=== PATIENT | female | born 1955 | race Caucasian/White ===

== ENCOUNTER 2021-04-28 12:38 | Emergency (ER) | payer MEDICARE, SELFPAY ==
--- NOTE | ~2021-04-28 | CT_ITS ---
EXAMINATION: CT HEAD WITHOUT CONTRAST CT CERVICAL SPINE WITHOUT CONTRAST CLINICAL INFORMATION: Trauma. COMPARISON: None available. TECHNIQUE: Contiguous axial imaging was performed from the skull base to vertex without intravenous administration of contrast. Contiguous axial imaging was performed from the upper chest through the skull base without intravenous administration of contrast. Coronal and sagittal reformats were obtained at the acquisition workstation. This CT examination was performed using dose optimization techniques as appropriate, variously including the following: *Automated exposure control. *Adjustment of mA and/or kV according to patient size (this includes techniques or standardized protocols for targeted exams where dose is matched to indication/reason for exam; i.e. extremities or head). *Use of iterative reconstruction technique. DLP: 946 mGy-cm FINDINGS: Head: There is no evidence of acute intracranial hemorrhage or edematous territorial infarction. A few foci of hypoattenuation in the periventricular and deep white matter are consistent with mild microangiopathy. Lacunar infarcts of the right caudate head and lentiform nucleus. No additional loss of box-white matter differentiation. Proportional prominence of the ventricles and sulcal spaces. No evidence for obstructive hydrocephalus. No abnormal mass effect or midline shift. No extra-axial fluid collections. No acute soft tissue or osseous abnormalities. The mastoid air cells and paranasal sinuses are clear. Moderate degenerative arthropathy of the temporomandibular joints. Cervical Spine: Moderate reversal the normal cervical lordosis centered on C5-C6. Mild degenerative anterolistheses of C3 on C4 and C4 on C5. The atlantooccipital and atlantoaxial articulations remain well aligned. No evidence of acute fracture or subluxation. Moderate degenerative disc disease from C5-T1 with disc-osteophyte complex formation. Facet and uncovertebral joint arthropathy leads to osseous encroachment on the neural foramina at C3-C4 and C5-C6. There is no prevertebral soft tissue swelling. The thyroid gland is atrophic. The remaining cervical soft tissues are normal in appearance. The lung apices demonstrate no abnormalities. CT/CT cervical spine wo con IMPRESSION: 1. No evidence of acute intracranial hemorrhage or edematous territorial infarction. 2. Mild underlying microangiopathy and generalized cerebral volume loss. Lacunar infarcts of the right caudate and lentiform nuclei. 3. No evidence of acute fracture or traumatic subluxation of the cervical spine. Moderate multilevel degenerative spondyloarthropathy of the cervical spine.
--- NOTE | ~2021-04-28 | XR_ITS ---
EXAMINATION: XR ANKLE, LEFT CLINICAL INFORMATION: Fall. COMPARISON: None TECHNIQUE: AP, lateral, and mortise views of the left ankle. FINDINGS: The bones and soft tissues are normal. No fracture. Alignment is anatomic. Joint spaces are maintained. No joint effusion. XR/XR ankle LT min 3V IMPRESSION: Unremarkable left ankle.
[2021-04-28 15:06] VITALS: BP 134/92; PULSE 110; RESP 18; TEMP 35.9; O2SAT 98; BMI 17.9
[2021-04-28 15:22] VITALS: BP 150/109; PULSE 105; RESP 18; O2SAT 100
--- NOTE | 2021-04-28 15:34 | PC.NURSE ---
Pt comes in s/p fall backwards from a curb. Pt states she had a stroke 3 years ago and has had frequent falls since that time. Pt states she does feel weak but hasn't eaten yet today. Neuros grossly intact, +PERRLA. call gonzalez within reach. Lac to back of head, bleeding controlled. Will contineu to monitor.
--- NOTE | 2021-04-28 15:46 | ED_ITS ---
HPI - Fall General Chief Complaint: Fall <Biju Joseph MD - Last Filed: 04/28/21 17:36> Stated Complaint: Fall/head inj <Biju Joseph MD - Last Filed: 04/28/21 17:36> Time Seen by Provider: 04/28/21 15:22 <Biju Joseph MD - Last Filed: 04/28/21 17:36> Source: patient <Biju Joseph MD - Last Filed: 04/28/21 17:36> History of Present Illness HPI Narrative: Patient has a history of stroke in recently has stated that she has had issues with her equilibrium. She has had multiple falls as an outpatient. Today she was stepping up a curb when she lost her balance and fell back and hit the back of her head. Positive laceration. No loss of consciousness. She complains of blurred vision bilaterally but left is worse than right. No nausea or vomiting. No new focal weakness or numbness. Positive headache. She went to an urgent care today and they recommended she come to the emergency department for CT scan <Biju Joseph MD - Last Filed: 04/28/21 17:36> Related Data Home Medications: Home Medications Medication Instructions Recorded Confirmed aspirin 81 mg tablet,delayed 1 tab PO DAILY 04/28/21 04/28/21 release carvedilol 6.25 mg tablet 1 tab PO BID 04/28/21 04/28/21 nortriptyline 50 mg capsule 1 cap PO BID 04/28/21 04/28/21 ipratropium bromide 17 17 mcg INHALATION QID 04/29/21 04/29/21 mcg/actuation HFA aerosol inhaler (Atrovent HFA) levothyroxine 0.05 mg PO DAILY 04/29/21 04/29/21 <Biju Joseph MD - Last Filed: 04/28/21 17:36> Allergies/Adverse Reactions: Allergies Allergy/AdvReac Type Severity Reaction Status Date / Time No Known Allergies Allergy Unverified 11/14/19 14:40 <Biju Joseph MD - Last Filed: 04/28/21 17:36> Review of Systems Constitutional: Comments: No fevers or chills <Biju Joseph MD - Last Filed: 04/28/21 17:36> Eyes: Comments: Vision changes as described <Biju Joseph MD - Last Filed: 04/28/21 17:36> Cardiovascular: Comments: No chest pain <Biju Joseph MD - Last Filed: 04/28/21 17:36> Respiratory: Comments: No dyspnea or cough <Biju Joseph MD - Last Filed: 04/28/21 17:36> Gastrointestinal: Comments: No abdominal pain <Biju Joseph MD - Last Filed: 04/28/21 17:36> Musculoskeletal: Comments: Positive neck pain <Biju Joseph MD - Last Filed: 04/28/21 17:36> Integumentary/Breasts: Comments: Laceration occipital scalp <Biju Joseph MD - Last Filed: 04/28/21 17:36> Neurologic: Comments: No new focal weakness <Biju Joseph MD - Last Filed: 04/28/21 17:36> [facility] Past Medical History Medical History: Medical History (Updated 04/29/21 @ 08:24 by Ashley Anderson DO) CVA (cerebral vascular accident) HTN (hypertension) <Biju Joseph MD - Last Filed: 04/28/21 17:36> Social History Social History: Social History Advance Directives: Yes Advance Directives Information Provided: No Advance Directives on File: No <Biju Joseph MD - Last Filed: 04/28/21 17:36> Physical Exam Vital Signs: Vital Signs: Last Vital Signs Temp 98.3 F 04/29/21 02:00 Pulse 89 04/29/21 08:13 Resp 16 04/29/21 08:13 BP 134/90 H 04/29/21 07:25 Pulse Ox 99 04/29/21 07:25 BMI result Body Mass Index 17.9 <Biju Joseph MD - Last Filed: 04/28/21 17:36> Vital Signs: Last Vital Signs Temp 98.3 F 04/29/21 02:00 Pulse 89 04/29/21 08:13 Resp 16 04/29/21 08:13 BP 134/90 H 04/29/21 07:25 Pulse Ox 99 04/29/21 07:25 BMI result Body Mass Index 17.9 <Ashley Anderson DO - Last Filed: 04/29/21 08:24> Const: Other: Awake and alert no acute distress <Biju Joseph MD - Last Filed: 04/28/21 17:36> HENMT: Other: 2 cm laceration posterior occiput. Bleeding controlled <Biju Joseph MD - Last Filed: 04/28/21 17:36> Eyes: Other: Pupils equal round reactive to light. Extraocular muscles intact. Funduscopic exam is normal bilaterally without obvious retinal detachment. Vision is intact bilaterally. She is able to read medium print at 2 ft in front of her bilaterally. Left is a little more difficult than right. <Biju Joseph MD - Last Filed: 04/28/21 17:36> Neck: Other: Diffuse C-spine tenderness without focal crepitus or focal tenderness <Biju Joseph MD - Last Filed: 04/28/21 17:36> Chest: Other: No chest wall tenderness <Biju Joseph MD - Last Filed: 04/28/21 17:36> Resp: Other: Clear and equal bilaterally without wheezes rales or rhonchi <Biju Joseph MD - Last Filed: 04/28/21 17:36> Cardio: Other: Regular rate and rhythm without murmurs rubs or gallops <Biju Joseph MD - Last Filed: 04/28/21 17:36> GI: Other: Soft nontender distended <Biju Joseph MD - Last Filed: 04/28/21 17:36> Back/Spine/Pelvis: Other: Mild paraspinous muscle tenderness without focal T-spine or LS-spine tenderness <Biju Joseph MD - Last Filed: 04/28/21 17:36> Skin: Other: Warm pink and dry. Laceration as mentioned above <Biju Joseph MD - Last Filed: 04/28/21 17:36> Neuro: Other: No cranial nerve deficits. No aphasia. No obvious focal neuro deficits <Biju Joseph MD - Last Filed: 04/28/21 17:36> Extrem: Other: No obvious extremity injuries <Biju Joseph MD - Last Filed: 04/28/21 17:36> Course Course Course Narrative: Scalp laceration Concussion Intracranial hemorrhage Posttraumatic blurred vision <Biju Joseph MD - Last Filed: 04/28/21 17:36> Scalp laceration Concussion Intracranial hemorrhage Posttraumatic blurred vision ADDENDUM: after discussion with CM 819 am Patient placed in physician observation at 819am. The indication for observ ation is that the patient needs more time for CM to help in acute rehab placement as recommended by PT due to recent stroke and frequent falls. At this time the patient is well developed well nourished, lungs clear, CV RRR, abd nontender, neuro at baseline. <Ashley Anderson DO - Last Filed: 04/29/21 08:24> Procedures Laceration Posterior scalp: Site: scalp <Biju Joseph MD - Last Filed: 04/28/21 17:36> Size (cm): 2 <Biju Joseph MD - Last Filed: 04/28/21 17:36> Description: linear <Biju Joseph MD - Last Filed: 04/28/21 17:36> Depth: simple, single layer <Biju Joseph MD - Last Filed: 04/28/21 17:36> Local Anesthetic: lidocaine 1% <Biju Joseph MD - Last Filed: 04/28/21 17:36> Amount of anesthesia used (mL): 5 <Biju Joseph MD - Last Filed: 04/28/21 17:36> Pre-repair: wound explored, irrigated extensively and deep structures intact <Biju Joseph MD - Last Filed: 04/28/21 17:36> Technique: other (Three tiffany used to repair the laceration. Good results and good hemostasis. Patient tolerated the procedure well) <Biju Joseph MD - Last Filed: 04/28/21 17:36> Discharge Plan Discharge Clinical Impression: Fall, Laceration of scalp <Biju Joseph MD - Last Filed: 04/28/21 17:36> Patient Disposition: Still a Patient <Biju Joseph MD - Last Filed: 04/28/21 17:36> Prescriptions: No [facility] carvedilol 6.25 mg tablet 1 tab PO BID 0RF aspirin 81 mg tablet,delayed release (DR/EC) 1 tab PO DAILY 0RF nortriptyline 50 mg capsule 1 cap PO BID 0RF Atrovent HFA 17 mcg/actuation HFA aerosol inhaler 17 mcg inhalation QID 0RF levothyroxine 0.05 mg PO DAILY 0RF <Biju Joseph MD - Last Filed: 04/28/21 17:36>
--- NOTE | 2021-04-28 19:30 | PC.NURSE ---
assumed care of pt. pt resting in stretcher awaiting further orders. pt alert, respirations easy, n/l. skin w/d. will continue to monitor pt. pt is case mgt.
[2021-04-28 20:37] VITALS: BP 145/67; PULSE 100; RESP 13; TEMP 36.8; O2SAT 97
--- NOTE | 2021-04-28 22:00 | PC.NURSE ---
No chg in pt's condition. respirations easy, n/l. skin w/d. will continue to monitor pt.
--- NOTE | 2021-04-28 23:30 | PC.NURSE ---
pt denies complaints at this time. no chg in pt's condition.
[2021-04-29] VITALS (9 sets, daily range): BP systolic 127–153; BP diastolic 74–90; PULSE 78–99; RESP 14–17; TEMP 36.6–36.8; O2SAT 98–100
--- NOTE | 2021-04-29 03:00 | PC.NURSE ---
pt requesting her b/p meds and tylenol. b/p meds to be given at 0900 today. pt also given water to drink. pt in NAD and no chg in pt's condition. will continue to monitor pt.
[2021-04-29] MEDS: Acetaminophen 325 MG TABLET 650 MG PO (03:01)
--- NOTE | 2021-04-29 06:27 | PC.NURSE ---
pt awaiting for case mgt. pt remains alert, respirations easy, n/l. skin w/d. will continue to monitor pt.
[2021-04-29] MEDS: Levothyroxine Sodium 50 MCG TABLET PO (07:00)
[2021-04-29] MEDS: Ipratropium Bromide 1 PUFF/17 MCG INHALER INHALE ×2 (08:10→11:31)
[2021-04-29] MEDS: Nortriptyline HCl 25 MG CAPSULE 50 MG PO (08:48)
[2021-04-29] MEDS: Aspirin Enteric Coated 81 MG TABLET.DR PO (08:48)
[2021-04-29] MEDS: carvediloL 6.25 MG TABLET PO (08:48)
[2021-04-29 09:45] LABS: Influenza A PCR NEGATIVE (Negative); Influenza B PCR NEGATIVE (Negative); Resp Syncy Virus RNA Qual PCR NEGATIVE (Negative); SARS COV2 PCR INHOUSE NEGATIVE (Negative)
--- NOTE | 2021-04-29 10:11 | MHC.CM.ED ---
Received case management consult overnight. Patient came to the ER due to a fall. Required had tiffany. Has left hip bruising and left ankle pain. Physical therapy eval completed. Acute rehab is recommended. Met with patient. Patient lives alone, ambulates with a cane and had no services prior to coming to the hospital. Patient received 3 Moderna vaccines but doesn't remember the dates. PCP verified. List of acute rehabs provided from [facility]. Patient is agreeable to referral being broadcasted. Referral sent in [employer]. Continue to monitor for d/c needs.
--- NOTE | 2021-04-29 11:29 | MHC.CM.ED ---
[facility] is able to offer a bed. Patient accepts bed. Patient can leave at 1pm. [facility] booked. [facility] with chart. Patient, Paris PEREZ and Dr Anderson aware. Continue to monitor for d/c needs.
--- NOTE | 2021-04-29 12:29 | PC.NURSE ---
Report given to More at [facility], pending EMS seed cone picker at 1300.
== END 2021-04-29 13:13 | disposition other institution (70) ==
PROVIDERS: Emergency Medicine; Emergency Provider Emergency Medicine; PCP Internal Medicine
DX: S01.01XA Laceration without foreign body of scalp, initial encounter (principal); W10.1XXA Fall (on)(from) sidewalk curb, initial encounter; I10 Essential (primary) hypertension; Z86.73 Personal history of transient ischemic attack (TIA), and cerebral infarction without residual deficits; Z91.81 History of falling; Y93.01 Activity, walking, marching and hiking; Y92.414 Local residential or business street as the place of occurrence of the external cause; Y99.9 Unspecified external cause status; Z20.822 Contact with and (suspected) exposure to COVID-19
CPT/HCPCS: 0241U; 12001; 70450; 72125; 73610; 94640; 97162; 99284; 99285

== ENCOUNTER 2022-02-08 15:40 | Inpatient (IN) | payer MEDICARE, SELFPAY ==
--- NOTE | ~2022-02-08 | CT_ITS ---
EXAMINATION: CT ABDOMEN AND PELVIS WITH CONTRAST CLINICAL INFORMATION: Hypotension and abdominal pain COMPARISON: None TECHNIQUE: Multidetector volumetric images were obtained from the superior aspect of the liver through the pubic symphysis following administration 85 mL of Omnipaque 350 intravenous contrast. Sagittal and coronal reformatted images were obtained on the technologist's workstation. Oral contrast: No This CT examination was performed using dose optimization techniques as appropriate, variously including the following: *Automated exposure control *Adjustment of mA and/or kV according to patient size (this includes techniques or standardized protocols for targeted exams where dose is matched to indication/reason for exam; i.e. extremities or head) *Use of iterative reconstruction technique DLP: 204 mGy-cm FINDINGS: LUNG BASES: The visualized lung bases are unremarkable. LIVER, GALLBLADDER, AND BILIARY TREE: The liver is normal in size, shape, and attenuation. Some tiny millimeter-sized hypodensities are seen in the posterior right lobe with a single hypodensity seen in the left lobe the largest measures only 3 mm in size and these are most likely benign simple cysts. No worrisome solid focal hepatic lesion or biliary ductal dilatation is present. The gallbladder is unremarkable with no evidence of radiopaque gallstones, gallbladder wall thickening, or obvious pericholecystic inflammatory changes. PANCREAS: Unremarkable. SPLEEN: Unremarkable. ADRENAL GLANDS: Unremarkable. KIDNEYS AND URETERS: The kidneys are normal in size, shape, and attenuation. No hydronephrosis, hydroureter, or calculi seen. A small 7 mm benign right renal cyst is present. No suspicious solid masses are seen. No perinephric stranding. BLADDER: Unremarkable. GASTROINTESTINAL TRACT: The distal half of the transverse colon, splenic flexure and the descending colon are all abnormal with thickening and pericolonic inflammatory change. There is no pneumatosis. No extraluminal air. A small amount of free fluid is present in the cul-de-sac with some minimal fluid present in the lateral conal fascia near the descending colon. Differential diagnosis would include severe colitis, infectious or ischemic. The right colon appears unremarkable. The appendix is normal. The small bowel is unremarkable. ABDOMINAL WALL: No significant hernia is appreciated. LYMPH NODES: No retroperitoneal lymphadenopathy. VASCULAR: The vasculature is extremely well seen, obviating any need for a CT angiogram. The abdominal aorta demonstrates minimal calcific atherosclerotic change without aneurysm dissection or stenosis. The iliofemoral vessels show mild atherosclerotic disease without significant stenosis. The celiac and SMA are widely patent. The LONNIE is patent. No emboli are seen in the distal mesenteric branches. The portal venous system appears unremarkable. The IVC renal veins and hepatic veins appear normal. PELVIC VISCERA: Surgically removed OSSEOUS STRUCTURES: Severe degenerative changes are present throughout the spine with compression fractures involving superior endplates of L1, L4 and L5. CT/CT abdomen pelvis w IV con IMPRESSION: 1. Marked colitis involving the distal half of the transverse colon, splenic flexure and descending colon. Differential diagnosis would include infectious or ischemic colitis. No emboli are seen in the distal mesenteric branches. Arterial structures are extremely well seen and there is no need for a CT angiogram. 2. Incidental note made of tiny hepatic hypodensities consistent with small cysts, benign right renal cyst which needs no further imaging or follow-up, hysterectomy changes and severe degenerative changes in the spine with compression fractures. Fleischner guidelines were followed.
--- NOTE | ~2022-02-08 | CT_ITS ---
EXAMINATION: CT ANGIOGRAM OF THE CHEST WITH AND WITHOUT CONTRAST (CT PULMONARY ANGIOGRAM FOR PE) CLINICAL INFORMATION: Reason for Exam hypotension COMPARISON: Chest radiograph earlier today TECHNIQUE: Prior to contrast administration, noncontrast localization images were obtained. Subsequently, multidetector volumetric imaging was performed from the thoracic inlet to below the diaphragms following the administration of 85 mL Omnipaque 350 intravenous contrast. No contrast reaction reported Sagittal, coronal, and MIP oblique sagittal reformatted images were obtained on the CT workstation, uploaded to PACS, and reviewed. This CT examination was performed using dose optimization techniques as appropriate, variously including the following: *Automated exposure control *Adjustment of mA and/or kV according to patient size (this includes techniques or standardized protocols for targeted exams where dose is matched to indication/reason for exam; i.e. extremities or head) *Use of iterative reconstruction technique Total exam dose-length product 204 mGy-cm FINDINGS: QUALITY OF STUDY/CONTRAST BOLUS: Bolus is satisfactory. There is marked motion artifact. PULMONARY ARTERIES: No central or large segmental pulmonary emboli. THORACIC AORTA: No aneurysm or dissection. LUNG: No focal consolidation, nodules or masses. PLEURA: No pleural effusion or pneumothorax. MEDIASTINUM: Normal heart size. No pericardial effusion. No hilar or mediastinal lymphadenopathy. No evidence of septal bowing or right heart strain. No coronary calcification. CHEST WALL/AXILLA: No axillary or internal mammary lymphadenopathy. OSSEOUS STRUCTURES: No acute or suspicious osseous abnormality. There is compression of the superior endplate of T12 as well as a mild compression fracture of T4. UPPER ABDOMEN: Unremarkable. No reflux of contrast into the hepatic veins to suggest elevated right heart pressures. CT/CT angio chest PE protocol IMPRESSION: No evidence of pulmonary emboli. The study is limited by motion artifact. VTE: negative.
--- NOTE | ~2022-02-08 | XR_ITS ---
EXAMINATION: XR CHEST CLINICAL INFORMATION: Hypertension COMPARISON: None TECHNIQUE: Frontal view of the chest was obtained. FINDINGS: No significant abnormality is noted involving the heart, lungs, mediastinum, bony thorax or soft tissues. XR/XR chest 1V IMPRESSION: Unremarkable examination.
[2022-02-08 16:17] VITALS: BP 77/38; PULSE 102; RESP 12; O2SAT 97; BMI 17.3
[2022-02-08 16:23] VITALS: TEMP 36.9
--- NOTE | 2022-02-08 16:26 | ECG_ITS ---
Test Reason : SEPSIS Blood Pressure : / mmHG Vent. Rate : 098 BPM Atrial Rate : 098 BPM P-R Int : 198 ms QRS Dur : 092 ms QT Int : 382 ms P-R-T Axes : 074 190 079 degrees QTc Int : 487 ms Normal sinus rhythm Right atrial enlargement Right ventricular hypertrophy cannot exclude Lateral infarct , age undetermined cannot exclude Inferior infarct , age undetermined Abnormal ECG No previous ECGs available Referred By: Biju Joseph Electronically Signed By:CANDE ROBERTS
--- NOTE | 2022-02-08 16:29 | ED.ABDPAIN ---
HPI - Abdominal Pain General Chief Complaint: Abdominal Pain Stated Complaint: DIARRHEA Time Seen by Provider: 02/08/22 16:15 Source: patient and old records reviewed Mode of arrival: ambulatory Limitations: no limitations History of Present Illness HPI narrative: Patient presents with a fall today. Patient states she has been feeling weak today only. She was recently diagnosed with a urinary tract infection by her PCP and started on Macrobid. She states she has been taking the antibiotics and has 2 more doses. Today she developed abdominal pain and distension. She also developed diarrhea. No nausea vomiting however. No prior history of similar issues. She denies fevers or chills. EMS found patient to be hypotensive with a blood pressure of 77/38. Mildly tachycardic to 102. Temperature of 94 degrees on arrival. She takes medication for hypertension as well as hypothyroidism. She states she has had a stroke multiple years ago. No new significant deficits per patient. Ambulatory baseline. She denies chest pain or cough or shortness of breath. Related Data Home Medications Medication Instructions Recorded Confirmed aspirin 81 mg tablet,delayed 1 tab PO DAILY 04/28/21 02/09/22 release carvedilol 6.25 mg tablet 1 tab PO BID 04/28/21 02/09/22 nortriptyline 50 mg capsule 1 cap PO BID 04/28/21 02/09/22 ipratropium bromide 17 17 mcg inhalation Q4H PRN Wheezing 04/29/21 02/09/22 mcg/actuation HFA aerosol inhaler (Atrovent HFA) atorvastatin 40 mg tablet 1 tab PO DAILY 02/09/22 02/09/22 levothyroxine 50 mcg tablet 50 mcg PO [id number] 02/09/22 02/09/22 levothyroxine 50 mcg tablet 100 mcg PO NAZARIO 02/09/22 02/09/22 Allergies Allergy/AdvReac Type Severity Reaction Status Date / Time No Known Allergies Allergy Unverified 11/14/19 14:40 Review of Systems Comments: Generalized weakness. No recent fevers or chills Comments: No chest pain or palpitations Comments: No cough or dyspnea Comments: Mild abdominal discomfort, diffuse. Positive distention. Positive diarrhea. No vomiting or nausea Comments: Recent diagnosis of urinary tract infection Comments: No pedal edema or calf swelling Comments: No new rash Comments: No new focal weakness PMFSH Past Medical History Medical History (Updated 02/09/22 @ 06:21 by Jeffrey Fuchs MD) Colitis CVA (cerebral vascular accident) HTN (hypertension) Hypothyroidism Surgical History History of partial hysterectomy Family History Family History Other No family history of cerebrovascular accident (CVA) Social History Social History Alcohol intake: current Alcohol intake frequency: 0-2 drinks per day Alcohol type: wine Smoked in Last 30 Days: No Use of substances other than those prescribed or required for medical reasons: No Advance Directives: Yes Advance Directives on File: Yes Advance Directives Date on File: 04/29/21 service: No Current occupational status: retired Physical Exam ED Vital Signs: Vital Signs - 24 hr 02/08/22 16:23 02/08/22 16:40 02/08/22 17:45 Temperature 98.4 F Pulse Rate 102 H 96 Respiratory Rate 18 15 Blood Pressure 99/56 L 102/81 Pulse Oximetry 99 98 Oxygen Delivery Method Room Air Room Air 02/08/22 18:00 02/08/22 23:24 02/09/22 01:17 Temperature 96.6 F L 98.5 F 98.4 F Pulse Rate 95 102 H 104 H Respiratory Rate 15 21 H 19 Blood Pressure 111/70 159/87 H 134/75 Pulse Oximetry 98 99 99 Oxygen Delivery Method Room Air Room Air Room Air 02/09/22 02:10 02/09/22 03:53 Temperature 98.5 F 98.5 F Pulse Rate 96 96 Respiratory Rate 24 H 12 Blood Pressure 132/64 135/71 Pulse Oximetry 100 99 Oxygen Delivery Method Room Air Room Air BMI result Body Mass Index 17.3 Const Other: Patient hypotensive as noted. Hypothermic. She is, however, awake and alert and does not appear significantly uncomfortable Neck Other: No meningismus Resp Other: Clear and equal bilaterally. No wheezes rales or rhonchi. Cardio Other: Regular rate and rhythm without murmurs rubs or gallops GI Other: Soft. Mildly diffusely tender. No guarding or rebound. No focal tenderness. Mild distention. Abdomen is soft. Skin Other: Warm and dry. Mottled. Neuro Other: Awake alert and oriented. Occasionally with word-finding difficulty, but speech mostly clear and fluent. No other obvious focal neuro deficits Extrem Other: No pedal edema or calf tenderness Course Course Course Narrative: Hypotension and hypothermia. Sepsis is very likely. Hypothyroidism possible. Hypovolemia Myocardial infarction Pulmonary embolism C diff colitis 30 milligram/kilogram bolus and septic workup started immediately. Warming blanket 01:17. Patient's vital signs have been stable for the last several hours. Her lab work shows a normal white count. Chemistries show creatinine of 1.25 and a BUN of 17 compatible with dehydration. First lactic acid was 3.0. Her 2nd lactic acid was 3.2. Her 3rd lactic acid is 1.[address] scan of abdomen shows colitis. Repeat abdominal exam is soft and nontender. Patient has had multiple episodes of diarrhea since she has been here. We are still waiting stool samples. Will hospitalized for further treatment 01:45. C diff results are positive. Discontinue broad-spectrum antibiotics. Will be hospitalized on C diff specific antibiotics. Continue hydration and monitoring of electrolytes secondary to volume loss secondary to severe diarrhea secondary to C diff colitis. 16:23. Given this along with CT scan findings, and other lab results, symptoms such as hypotension and lactic acidosis are from significant hypovolemia and not secondary to sepsis. Medical Decision Making Lab Data Result Diagrams: 02/09/22 08:29 02/09/22 08:29 Labs: Lab Results 02/08/22 02/08/22 02/08/22 Range/Units 17:08 17:08 17:08 WBC 6.3 (4.8-10.8) X10*3/uL RBC 4.43 (4.20-5.50) X10*6/uL Hgb 15.0 (12.0-16.0) g/dl Hct 43.9 (37.0-47.0) % MCV 99.1 H (80.0-98.0) fL MCH 33.9 H (27.0-33.0) pg MCHC 34.2 (31.0-35.0) g/dl RDW 13.2 (11.0-16.0) % Plt Count 200 (160-400) X10*3/uL MPV 10.2 (9.4-12.3) fL Immature Gran % (Auto) 1.1 H (0.0-0.4) % Neut % (Auto) 84.5 H (45-73) % Lymph % (Auto) 6.9 L (20-40) % [place] % (Auto) 7.0 (2-11) % Eos % (Auto) 0.3 (0-4) % Baso % (Auto) 0.2 (0-2) % Lymph # (Auto) 0.4 L (1.2-4.9) X10*3/uL [place] # (Auto) 0.4 (0.1-1.2) X10*3/uL Eos # (Auto) 0.0 (0.0-0.4) X10*3/uL Baso # (Auto) 0.0 (0.0-0.2) X10*3/uL Abs Immat Gran (auto) 0.07 H (0.00-0.03) X10*3/uL Absolute Neuts (auto) 5.3 (2.0-8.3) x10*3/uL Absolute Nucleated RBC 0.000 (0.0-0.012) X10*3/uL Nucleated RBC % (auto) 0.0 (0.0-0.2) /100WBC D-Dimer High Sensitivty NG/ML Sodium 131 L (135-145) mmol/L Potassium 4.9 (3.3-5.1) mmol/L Chloride 98 (96-108) mmol/L Carbon Dioxide 20 L (22-29) mmol/L Anion Gap 18 (12-20) BUN 17 H (9-16) mg/dL Creatinine 1.25 (0.5-1.4) mg/dL Estim Creat Clear Calc 31.0 Estimated GFR 43 Random Glucose 125 H (60-115) mg/dL Lactic Acid 3.0 H* (0.5-2.0) mmol/L Lactic Acid F/U @ 2Hr (0.5-2.0) mmol/L Lactic Acid F/U @ 4Hr (0.5-2.0) mmol/L Calcium 10.4 H (8.4-10.2) mg/dL Total Bilirubin 1.5 H (0.0-1.0) mg/dL AST 40 H (5-31) U/L ALT 32 H (0-31) U/L Alkaline Phosphatase 325 H (39-117) U/L Troponin I High Sens (<3.5-17.0) ng/L Total Protein 7.1 (6.5-8.0) g/dL Albumin 4.4 (3.5-5.0) g/dL TSH 1.82 (0.32-4.0) uIU/mL Urine Color Urine Appearance Urine pH (5.0-9.0) Ur Specific [place] (1.005-1.025) Urine Protein (Neg-Trace) mg/dL Urine Glucose (UA) (Negative) mg/dL Urine Ketones (Negative) mg/dL Urine Blood (Negative) Urine Nitrite (Negative) Ur Leukocyte Esterase (Negative) Urine RBC (0-2) /HPF Urine WBC (0-5) /HPF Ur Squamous Epith Cells (0-2) /HPF Urine Bacteria (None Seen) Hyaline Casts (0-2) /LPF Stl C. cayetanensis PCR (Not Detect.) Stool Rotavirus A PCR (Not Detect.) Stl Adenov F 40/41 PCR (Not Detect.) Stool Astrovirus (PCR) (Not Detect.) Stool Campylobacter PCR (Not Detect.) Stool Cryptosporidium PCR (Not Detect.) Stl Sh Tox Pr E STEC PCR (Not Detect.) Stool E coli O157 PCR (Not Detect.) Stl Enterotoxigenic E PCR (Not Detect.) Stool EPEC (PCR) (Not Detect.) Stool EAEC (PCR) (Not Detect.) Stl E. histolytica PCR (Not Detect.) Stool Giardia Lamblia PCR (Not Detect.) Stl P. shigelloides PCR (Not Detect.) Stool Salmonella PCR (Not Detect.) Stool Sapovirus (PCR) (Not Detect.) Stl Shigella/EIEC PCR (Not Detect.) St Y.enterocolitica PCR (Not Detect.) Stool Vibrio (PCR) (Not Detect.) Stl Vibrio cholerae PCR (Not Detect.) Stl Norovirus GI/GII PCR (Not Detect.) Respiratory Panel [place] Adenovirus (Rapid PCR) (Not Detect.) B.pert (TEM-PCR) (Not Detect.) B.parapertussis DNA PCR (Not Detect.) C. pneumoniae DNA (PCR) (Not Detect.) C. difficile Tox B Gene (Negative) C. difficile Toxin A&B (Negative) C. difficile Interpret Coronavirus OC43 (PCR) (Not Detect.) Coronavirus HKU1 (PCR) (Not Detect.) Coronavirus 229E (PCR) (Not Detect.) Coronavirus NL63 (PCR) (Not Detect.) Human Metapneumovir PCR (Not Detect.) Influenza A (RT-PCR) (Not Detect.) Influenza B (RT-PCR) (Not Detect.) M. pneumoniae (PCR) (Not Detect.) Parainfluenza 1 (PCR) (Not Detect.) Parainfluenza 2 (PCR) (Not Detect.) Parainfluenza 3 (PCR) (Not Detect.) Parainfluenza 4 (PCR) (Not Detect.) RSV (PCR) (Not Detect.) Entero/Rhino (PCR) (Not Detect.) SARS-CoV-2 RNA (RT-PCR) (Not Detect.) 02/08/22 02/08/22 02/08/22 Range/Units 17:08 17:08 18:16 WBC (4.8-10.8) X10*3/uL RBC (4.20-5.50) X10*6/uL Hgb (12.0-16.0) g/dl Hct (37.0-47.0) % MCV (80.0-98.0) fL MCH (27.0-33.0) pg MCHC (31.0-35.0) g/dl RDW (11.0-16.0) % Plt Count (160-400) X10*3/uL MPV (9.4-12.3) fL Immature Gran % (Auto) (0.0-0.4) % Neut % (Auto) (45-73) % Lymph % (Auto) (20-40) % [place] % (Auto) (2-11) % Eos % (Auto) (0-4) % Baso % (Auto) (0-2) % Lymph # (Auto) (1.2-4.9) X10*3/uL [place] # (Auto) (0.1-1.2) X10*3/uL Eos # (Auto) (0.0-0.4) X10*3/uL Baso # (Auto) (0.0-0.2) X10*3/uL Abs Immat Gran (auto) (0.00-0.03) X10*3/uL Absolute Neuts (auto) (2.0-8.3) x10*3/uL Absolute Nucleated RBC (0.0-0.012) X10*3/uL Nucleated RBC % (auto) (0.0-0.2) /100WBC D-Dimer High Sensitivty 1988 NG/ML Sodium (135-145) mmol/L Potassium (3.3-5.1) mmol/L Chloride (96-108) mmol/L Carbon Dioxide (22-29) mmol/L Anion Gap (12-20) BUN (9-16) mg/dL Creatinine (0.5-1.4) mg/dL Estim Creat Clear Calc Estimated GFR Random Glucose (60-115) mg/dL Lactic Acid (0.5-2.0) mmol/L Lactic Acid F/U @ 2Hr (0.5-2.0) mmol/L Lactic Acid F/U @ 4Hr (0.5-2.0) mmol/L Calcium (8.4-10.2) mg/dL Total Bilirubin (0.0-1.0) mg/dL AST (5-31) U/L ALT (0-31) U/L Alkaline Phosphatase (39-117) U/L Troponin I High Sens < 3.5 (<3.5-17.0) ng/L Total Protein (6.5-8.0) g/dL Albumin (3.5-5.0) g/dL TSH (0.32-4.0) uIU/mL Urine Color Urine Appearance Urine pH (5.0-9.0) Ur Specific [place] (1.005-1.025) Urine Protein (Neg-Trace) mg/dL Urine Glucose (UA) (Negative) mg/dL Urine Ketones (Negative) mg/dL Urine Blood (Negative) Urine Nitrite (Negative) Ur Leukocyte Esterase (Negative) Urine RBC (0-2) /HPF Urine WBC (0-5) /HPF Ur Squamous Epith Cells (0-2) /HPF Urine Bacteria (None Seen) Hyaline Casts (0-2) /LPF Stl C. cayetanensis PCR (Not Detect.) Stool Rotavirus A PCR (Not Detect.) Stl Adenov F 40/41 PCR (Not Detect.) Stool Astrovirus (PCR) (Not Detect.) Stool Campylobacter PCR (Not Detect.) Stool Cryptosporidium PCR (Not Detect.) Stl Sh Tox Pr E STEC PCR (Not Detect.) Stool E coli O157 PCR (Not Detect.) Stl Enterotoxigenic E PCR (Not Detect.) Stool EPEC (PCR) (Not Detect.) Stool EAEC (PCR) (Not Detect.) Stl E. histolytica PCR (Not Detect.) Stool Giardia Lamblia PCR (Not Detect.) Stl P. shigelloides PCR (Not Detect.) Stool Salmonella PCR (Not Detect.) Stool Sapovirus (PCR) (Not Detect.) Stl Shigella/EIEC PCR (Not Detect.) St Y.enterocolitica PCR (Not Detect.) Stool Vibrio (PCR) (Not Detect.) Stl Vibrio cholerae PCR (Not Detect.) Stl Norovirus GI/GII PCR (Not Detect.) Respiratory Panel [place] See Note Adenovirus (Rapid PCR) Not Detected (Not Detect.) B.pert (TEM-PCR) Not Detected (Not Detect.) B.parapertussis DNA PCR Not Detected (Not Detect.) C. pneumoniae DNA (PCR) Not Detected (Not Detect.) C. difficile Tox B Gene (Negative) C. difficile Toxin A&B (Negative) C. difficile Interpret Coronavirus OC43 (PCR) Not Detected (Not Detect.) Coronavirus HKU1 (PCR) Not Detected (Not Detect.) Coronavirus 229E (PCR) Not Detected (Not Detect.) Coronavirus NL63 (PCR) Not Detected (Not Detect.) Human Metapneumovir PCR Not Detected (Not Detect.) Influenza A (RT-PCR) Not Detected (Not Detect.) Influenza B (RT-PCR) Not Detected (Not Detect.) M. pneumoniae (PCR) Not Detected (Not Detect.) Parainfluenza 1 (PCR) Not Detected (Not Detect.) Parainfluenza 2 (PCR) Not Detected (Not Detect.) Parainfluenza 3 (PCR) Not Detected (Not Detect.) Parainfluenza 4 (PCR) Not Detected (Not Detect.) RSV (PCR) Not Detected (Not Detect.) Entero/Rhino (PCR) Not Detected (Not Detect.) SARS-CoV-2 RNA (RT-PCR) Not Detected (Not Detect.) 02/08/22 02/08/22 02/08/22 Range/Units 19:59 21:54 21:54 WBC (4.8-10.8) X10*3/uL RBC (4.20-5.50) X10*6/uL Hgb (12.0-16.0) g/dl Hct (37.0-47.0) % MCV (80.0-98.0) fL MCH (27.0-33.0) pg MCHC (31.0-35.0) g/dl RDW (11.0-16.0) % Plt Count (160-400) X10*3/uL MPV (9.4-12.3) fL Immature Gran % (Auto) (0.0-0.4) % Neut % (Auto) (45-73) % Lymph % (Auto) (20-40) % [place] % (Auto) (2-11) % Eos % (Auto) (0-4) % Baso % (Auto) (0-2) % Lymph # (Auto) (1.2-4.9) X10*3/uL [place] # (Auto) (0.1-1.2) X10*3/uL Eos # (Auto) (0.0-0.4) X10*3/uL Baso # (Auto) (0.0-0.2) X10*3/uL Abs Immat Gran (auto) (0.00-0.03) X10*3/uL Absolute Neuts (auto) (2.0-8.3) x10*3/uL Absolute Nucleated RBC (0.0-0.012) X10*3/uL Nucleated RBC % (auto) (0.0-0.2) /100WBC D-Dimer High Sensitivty NG/ML Sodium (135-145) mmol/L Potassium (3.3-5.1) mmol/L Chloride (96-108) mmol/L Carbon Dioxide (22-29) mmol/L Anion Gap (12-20) BUN (9-16) mg/dL Creatinine (0.5-1.4) mg/dL Estim Creat Clear Calc Estimated GFR Random Glucose (60-115) mg/dL Lactic Acid (0.5-2.0) mmol/L Lactic Acid F/U @ 2Hr 3.2 H* (0.5-2.0) mmol/L Lactic Acid F/U @ 4Hr (0.5-2.0) mmol/L Calcium (8.4-10.2) mg/dL Total Bilirubin (0.0-1.0) mg/dL AST (5-31) U/L ALT (0-31) U/L Alkaline Phosphatase (39-117) U/L Troponin I High Sens (<3.5-17.0) ng/L Total Protein (6.5-8.0) g/dL Albumin (3.5-5.0) g/dL TSH (0.32-4.0) uIU/mL Urine Color Urine Appearance Urine pH (5.0-9.0) Ur Specific [place] (1.005-1.025) Urine Protein (Neg-Trace) mg/dL Urine Glucose (UA) (Negative) mg/dL Urine Ketones (Negative) mg/dL Urine Blood (Negative) Urine Nitrite (Negative) Ur Leukocyte Esterase (Negative) Urine RBC (0-2) /HPF Urine WBC (0-5) /HPF Ur Squamous Epith Cells (0-2) /HPF Urine Bacteria (None Seen) Hyaline Casts (0-2) /LPF Stl C. cayetanensis PCR Not Detected (Not Detect.) Stool Rotavirus A PCR Not Detected (Not Detect.) Stl Adenov F 40/41 PCR Not Detected (Not Detect.) Stool Astrovirus (PCR) Not Detected (Not Detect.) Stool Campylobacter PCR Not Detected (Not Detect.) Stool Cryptosporidium PCR Not Detected (Not Detect.) Stl Sh Tox Pr E STEC PCR Not Detected (Not Detect.) Stool E coli O157 PCR Not applicable (Not Detect.) Stl Enterotoxigenic E PCR Not Detected (Not Detect.) Stool EPEC (PCR) Not Detected (Not Detect.) Stool EAEC (PCR) Not Detected (Not Detect.) Stl E. histolytica PCR Not Detected (Not Detect.) Stool Giardia Lamblia PCR Not Detected (Not Detect.) Stl P. shigelloides PCR Not Detected (Not Detect.) Stool Salmonella PCR Not Detected (Not Detect.) Stool Sapovirus (PCR) Not Detected (Not Detect.) Stl Shigella/EIEC PCR Not Detected (Not Detect.) St Y.enterocolitica PCR Not Detected (Not Detect.) Stool Vibrio (PCR) Not Detected (Not Detect.) Stl Vibrio cholerae PCR Not Detected (Not Detect.) Stl Norovirus GI/GII PCR Not Detected (Not Detect.) Respiratory Panel [place] Adenovirus (Rapid PCR) (Not Detect.) B.pert (TEM-PCR) (Not Detect.) B.parapertussis DNA PCR (Not Detect.) C. pneumoniae DNA (PCR) (Not Detect.) C. difficile Tox B Gene POSITIVE A* (Negative) C. difficile Toxin A&B Negative (Negative) C. difficile Interpret SEE NOTE Coronavirus OC43 (PCR) (Not Detect.) Coronavirus HKU1 (PCR) (Not Detect.) Coronavirus 229E (PCR) (Not Detect.) Coronavirus NL63 (PCR) (Not Detect.) Human Metapneumovir PCR (Not Detect.) Influenza A (RT-PCR) (Not Detect.) Influenza B (RT-PCR) (Not Detect.) M. pneumoniae (PCR) (Not Detect.) Parainfluenza 1 (PCR) (Not Detect.) Parainfluenza 2 (PCR) (Not Detect.) Parainfluenza 3 (PCR) (Not Detect.) Parainfluenza 4 (PCR) (Not Detect.) RSV (PCR) (Not Detect.) Entero/Rhino (PCR) (Not Detect.) SARS-CoV-2 RNA (RT-PCR) (Not Detect.) 02/08/22 02/09/22 Range/Units 23:56 01:16 WBC (4.8-10.8) X10*3/uL RBC (4.20-5.50) X10*6/uL Hgb (12.0-16.0) g/dl Hct (37.0-47.0) % MCV (80.0-98.0) fL MCH (27.0-33.0) pg MCHC (31.0-35.0) g/dl RDW (11.0-16.0) % Plt Count (160-400) X10*3/uL MPV (9.4-12.3) fL Immature Gran % (Auto) (0.0-0.4) % Neut % (Auto) (45-73) % Lymph % (Auto) (20-40) % [place] % (Auto) (2-11) % Eos % (Auto) (0-4) % Baso % (Auto) (0-2) % Lymph # (Auto) (1.2-4.9) X10*3/uL [place] # (Auto) (0.1-1.2) X10*3/uL Eos # (Auto) (0.0-0.4) X10*3/uL Baso # (Auto) (0.0-0.2) X10*3/uL Abs Immat Gran (auto) (0.00-0.03) X10*3/uL Absolute Neuts (auto) (2.0-8.3) x10*3/uL Absolute Nucleated RBC (0.0-0.012) X10*3/uL Nucleated RBC % (auto) (0.0-0.2) /100WBC D-Dimer High Sensitivty NG/ML Sodium (135-145) mmol/L Potassium (3.3-5.1) mmol/L Chloride (96-108) mmol/L Carbon Dioxide (22-29) mmol/L Anion Gap (12-20) BUN (9-16) mg/dL Creatinine (0.5-1.4) mg/dL Estim Creat Clear Calc Estimated GFR Random Glucose (60-115) mg/dL Lactic Acid (0.5-2.0) mmol/L Lactic Acid F/U @ 2Hr (0.5-2.0) mmol/L Lactic Acid F/U @ 4Hr 1.8 (0.5-2.0) mmol/L Calcium (8.4-10.2) mg/dL Total Bilirubin (0.0-1.0) mg/dL AST (5-31) U/L ALT (0-31) U/L Alkaline Phosphatase (39-117) U/L Troponin I High Sens (<3.5-17.0) ng/L Total Protein (6.5-8.0) g/dL Albumin (3.5-5.0) g/dL TSH (0.32-4.0) uIU/mL Urine Color Dark Yellow Urine Appearance Clear Urine pH 5.5 (5.0-9.0) Ur Specific [place] >= 1.030 H (1.005-1.025) Urine Protein Negative (Neg-Trace) mg/dL Urine Glucose (UA) Negative (Negative) mg/dL Urine Ketones Negative (Negative) mg/dL Urine Blood Negative (Negative) Urine Nitrite Negative (Negative) Ur Leukocyte Esterase Trace H (Negative) Urine RBC 0-2 (0-2) /HPF Urine WBC 0-5 (0-5) /HPF Ur Squamous Epith Cells 0-2 (0-2) /HPF Urine Bacteria None Seen (None Seen) Hyaline Casts 6-10 (0-2) /LPF Stl C. cayetanensis PCR (Not Detect.) Stool Rotavirus A PCR (Not Detect.) Stl Adenov F 40/41 PCR (Not Detect.) Stool Astrovirus (PCR) (Not Detect.) Stool Campylobacter PCR (Not Detect.) Stool Cryptosporidium PCR (Not Detect.) Stl Sh Tox Pr E STEC PCR (Not Detect.) Stool E coli O157 PCR (Not Detect.) Stl Enterotoxigenic E PCR (Not Detect.) Stool EPEC (PCR) (Not Detect.) Stool EAEC (PCR) (Not Detect.) Stl E. histolytica PCR (Not Detect.) Stool Giardia Lamblia PCR (Not Detect.) Stl P. shigelloides PCR (Not Detect.) Stool Salmonella PCR (Not Detect.) Stool Sapovirus (PCR) (Not Detect.) Stl Shigella/EIEC PCR (Not Detect.) St Y.enterocolitica PCR (Not Detect.) Stool Vibrio (PCR) (Not Detect.) Stl Vibrio cholerae PCR (Not Detect.) Stl Norovirus GI/GII PCR (Not Detect.) Respiratory Panel [place] Adenovirus (Rapid PCR) (Not Detect.) B.pert (TEM-PCR) (Not Detect.) B.parapertussis DNA PCR (Not Detect.) C. pneumoniae DNA (PCR) (Not Detect.) C. difficile Tox B Gene (Negative) C. difficile Toxin A&B (Negative) C. difficile Interpret Coronavirus OC43 (PCR) (Not Detect.) Coronavirus HKU1 (PCR) (Not Detect.) Coronavirus 229E (PCR) (Not Detect.) Coronavirus NL63 (PCR) (Not Detect.) Human Metapneumovir PCR (Not Detect.) Influenza A (RT-PCR) (Not Detect.) Influenza B (RT-PCR) (Not Detect.) M. pneumoniae (PCR) (Not Detect.) Parainfluenza 1 (PCR) (Not Detect.) Parainfluenza 2 (PCR) (Not Detect.) Parainfluenza 3 (PCR) (Not Detect.) Parainfluenza 4 (PCR) (Not Detect.) RSV (PCR) (Not Detect.) Entero/Rhino (PCR) (Not Detect.) SARS-CoV-2 RNA (RT-PCR) (Not Detect.) Medications Administered Generic Name Dose Route Start Last Admin Trade Name Freq PRN Reason Stop Dose Admin Enoxaparin Sodium 40 mg 02/09/22 06:00 02/09/22 05:31 Enoxaparin Sodium 40 Mg/0.4 Ml Syringe SUBCUT 40 mg Q24H JOON Administration Ceftriaxone Sodium 1 gm/ 50 mls @ 100 mls/hr 02/09/22 07:00 02/09/22 12:50 Sodium Chloride IV Infused Q24H JOON Infusion Metronidazole 500 mg in 100 mls @ 100 mls/hr 02/09/22 07:00 02/09/22 15:05 Flagyl IV 100 mls/hr Q8H JOON Administration Morphine Sulfate 4 mg 02/09/22 05:01 02/09/22 12:55 Morphine Sulfate 4 Mg/Ml Cartridge IVPUSH 4 mg Q4H PRN Administration Pain, Severe (Pain Scale 7-10) Protocol Ondansetron HCl 4 mg 02/09/22 05:01 02/09/22 05:43 Ondansetron Hcl 4 Mg/2 Ml Vial IVPUSH 4 mg Q8H PRN Administration Nausea and Vomiting Sodium Chloride 3 ml 02/09/22 08:00 02/09/22 15:57 0.9 % Sodium Chloride Flush 3 Ml Syringe IVFLUSH 3 ml QSHIFT JOON Administration Discontinued Medications Generic Name Dose Route Start Last Admin Trade Name Freq PRN Reason Stop Dose Admin Acetaminophen 650 mg 02/09/22 00:25 02/09/22 00:44 Acetaminophen 325 Mg Tablet PO 02/09/22 00:26 650 mg ONCE ONE Administration Diphenhydramine HCl 25 mg 02/09/22 05:01 02/09/22 05:30 Diphenhydramine Hcl 50 Mg/Ml Vial IVPUSH 02/09/22 05:02 25 mg ONCE ONE Administration Sodium Chloride 1,333.56 mls @ 1,333.56 mls/hr 02/08/22 16:21 02/08/22 19:27 Ns 30 ml/kg infuse over 1 hr (1333.56 ml) 02/08/22 17:20 Infused IV Infusion .Q1H STA Sodium Chloride 1,000 mls @ 999 mls/hr 02/08/22 19:00 02/08/22 20:22 Ns IV 02/08/22 20:00 Infused .Q1H1M JOON Infusion Vancomycin HCl 1,000 mg/ 270 mls @ 270 mls/hr 02/08/22 19:01 02/08/22 20:50 Sodium Chloride IV 02/08/22 20:00 Infused ONCE ONE Infusion Piperacillin Sod/Tazobactam 50 mls @ 100 mls/hr 02/08/22 19:01 02/08/22 19:51 Sod 3.375 gm/ Sodium Chloride IV 02/08/22 19:30 Infused ONCE ONE Infusion Sodium Chloride 1,000 mls @ 999 mls/hr 02/09/22 00:30 02/09/22 01:41 Ns IV 02/09/22 01:30 Infused .Q1H1M JOON Infusion Iohexol 100 ml 02/08/22 19:05 02/08/22 19:05 Iohexol 350 Mg/Ml 100 Ml Infus..Btl IV 02/08/22 19:06 85 ml ONCE ONE Administration Promethazine HCl 25 mg 02/09/22 00:25 02/09/22 00:45 Promethazine Hcl 25 Mg Tablet PO 02/09/22 00:26 25 mg ONCE ONE Administration Critical Care Time Critical Care Time Critical Care Time: Yes Total Critical Care Time: 120 Attestation: On critical care time outside of separately billable procedures. Critical care secondary to severe hypotension combined with hypothermia with multiple potential life-threatening etiologies. Discharge Plan Discharge Clinical Impression: Colitis, Sepsis Patient Disposition: Admitted As Inpatient
--- OUTSIDE RECORDS SUMMARY | 2022-02-08 16:35 | XMS_ITS | Continuity of Care Document ---
:1955 Author Organization [facility] Address [address] [place] [address]- Care Team Providers Name Role Phone Yovani PLAZA MD, [facility] Woodward Primary Care Physician Encounter [facility] Date(s): 04/25/20 - 04/30/[address] [address]- Encounter Diagnosis Nausea (Final) - 04/25/20 Vomiting (Final) - 04/25/20 Subclinical hypothyroidism (Final) - 04/25/20 Diarrhea (Final) - 04/25/20 Colitis (Final) - 04/25/20 Discharge Disposition: A-Transfer VNA/Home Health Attending Physician: Jason Mireles MD Admitting Physician: Canelo Toledo MD Referring Physician: Not on Staff, Referring MD Allergies, Adverse Reactions, Alerts Substance Reaction Severity Status lisinopril Anaphylaxis Active amLODIPine1 Active 1rash, edema Immunizations Given and Recorded Vaccine Date Status Refusal Reason pneumococcal 23-valent vaccine 11/19/19 Given influenza virus vaccine, inactivated 11/12/16 Given Medications aspirin 81 mg oral delayed release tablet 81 mg, 1, tablet, By Mouth, Daily, # 30 tablet, Refills 0, Maintenance, 11/17/19 17:03:00 EDT Start Date: 11/17/19 Status: Orderedatorvastatin 40 mg oral tablet = 40 mg, By Mouth, Daily at bedtime, # 30 tablet, 1 Refills, Maintenance, Tablet, Route to Pharmacy Electronically, [id number], [facility]/pharmacy #[id number] Start Date: 11/12/16 Status: OrderedAtrovent HFA 17 mcg/inh inhalation aerosol 2 puffs, Inhalation, 4 times a day, # 12.9 Gm, 0 Refills, Maintenance, 04/25/20 22:23:00 EST, Aerosol, Partial fill upon patient request if the prescription is for a schedule II opioid drug. Start Date: 04/25/20 Status: OrderedAtrovent HFA 17 mcg/inh inhalation aerosol 2 puffs, Inhalation, Daily at bedtime, # 12.9 Gm, 0 Refills, Maintenance, 11/10/16 20:08:33, Aerosol Start Date: 11/10/16 Status: Orderedcarvedilol 6.25 mg oral tablet 6.25 mg, 1, tablet, By Mouth, 2 times a day, # 60 tablet, Refills 3, Tot. Refills 3, Maintenance, 04/30/20 16:11:00 EST, Route to Pharmacy Electronically, [facility], Partial fill upon patient request if the prescription is for a schedul... Start Date: 04/30/20 Status: Orderedcarvedilol 6.25 mg oral tablet 6.25 mg, Tablet, By Mouth, 04/30/20 9:00:00 EST Start Date: 04/30/20 Stop Date: 04/30/20 Status: Completedciprofloxacin 500 mg oral tablet 1 tablet = 500 mg, By Mouth, Every 12 hours, for 3 days, # 6 tablet, 0 Refills, Acute 05/04/20 9:00:00 EST, 05/01/20 9:00:00 EST, [facility], Partial fill upon patient request if the prescription is for a schedule II opioid drug., 158, c... Start Date: 05/01/20 Stop Date: 05/04/20 Status: Orderedlevothyroxine 0.05 mg oral tablet 1 tablet = 50 mcg, By Mouth, Daily, # 90 tablet, 0 Refills, Maintenance, 11/10/16 18:49:25, Tablet Start Date: 11/10/16 Status: Orderednaproxen 250 mg oral tablet 500 mg, 2, tablet, By Mouth, 2 times a day, # 30 tablet, Refills 0, Tot. Refills 0, Maintenance, 11/21/19 12:55:00 EDT, Route to Pharmacy Electronically, [facility], 157, cm, 11/21/19 8:26:00 EDT, Height, 45.3, kg, 11/18/19 14:01:00 EDT,... Start Date: 11/21/19 Status: Orderednortriptyline 50 mg oral capsule 50 mg, 1, capsule, By Mouth, 2 times a day, # 90 capsule, Refills 0, Maintenance, 11/10/16 17:17:09 Start Date: 11/10/16 Status: Ordered Problem List Condition Effective Dates Status Health Status Informant Asthma(Confirmed) Active Atrial septal aneurysm(Confirmed) Active CVA (cerebral infarction) w/residual Active weakness(Confirmed) Alcohol use, 2 glasses of wine Active daily(Confirmed) Depression(Confirmed) Active Glaucoma(Confirmed) Active HLD (hyperlipidemia)(Confirmed) Active Hypothyroidism(Confirmed) Active Osteoporosis(Confirmed) Active Smoker, up to 3 ppd(Confirmed) Active Procedures Procedure Date Related Diagnosis Body Site Status Colonoscopy and biopsy of colon 04/27/20 Completed Results Orders for Microbiology Reports Name Date Stool Culture 04/26/20 Blood Culture 04/25/20 Blood Culture #2 04/25/20 Microbiology Reports TEST:Stool Culture STATUS:Auth (Verified) BODY SITE: SOURCE:STOOL COLLECTED DATE/TIME:04/26/20 3:04 AMStool Culture SPECIMEN DESCRIPTION : STOOL IN MARITZA KASIA PRESERVATIVE SPECIAL REQUESTS : NONE CULTURE : SHIGA TOXIN 1 AND 2 NOT DETECTED NO SALMONELLA, SHIGELLA, CAMPYLOBACTER OR AEROMONAS ISOLATED REPORT STATUS : FINAL 04/29/2020TEST:Blood Culture STATUS:Auth (Verified) BODY SITE: SOURCE:Blood COLLECTED DATE/TIME:04/25/20 2:05 PMBlood Culture SPECIMEN DESCRIPTION : BLOOD R HAND SPECIAL REQUESTS : NONE CULTURE : NO GROWTH 5 DAYS. REPORT STATUS : FINAL 04/30/2020TEST:Blood Culture, Second Order STATUS:Auth (Verified) BODY SITE: SOURCE:Blood COLLECTED DATE/TIME:04/25/20 1:57 PMBlood Culture, Second Order SPECIMEN DESCRIPTION : BLOOD L WRIST SPECIAL REQUESTS : NONE CULTURE : NO GROWTH 5 DAYS. REPORT STATUS : FINAL 04/30/2020 Vital Signs Most recent to oldest [Reference 1 2 3 Range]: Height 158 cm 158 cm 158 cm (04/30/20 2:52 PM) (04/30/20 9:19 AM) (04/30/20 6:39 A M) Weight 49.7 kg 49.0 kg 48.3 kg (3/4/21 1:57 AM) (04/29/20 2:07 AM) (04/28/20 2:03 A M) Oxygen Saturation [94-100 %] 100 % 100 % 99 % (04/30/20 2:52 PM) (04/30/20 9:19 AM) (04/30/20 1:57 A M) Pulse Rate [55-90 bpm] 94 bpm 76 bpm 92 bpm *H* (04/30/20 9:19 AM) *H* (04/30/20 2:52 PM) (04/30/20 6:44 AM ) Body Mass Index [18.5-24.99] 19.91 19.63 19. 35 (04/30/20:57 AM) (04/29/20 2:07 AM) (04/28/20 2:03 A M) Blood Pressure [90-138/55-84 mm 125/81 mm Hg 133/76 mm Hg 155/76 mm Hg Hg] (04/30/20 2:52 PM) (04/30/20 9:19 AM) *H* (04/30/20 6:44 AM) Respiratory Rate [16-30 br/min] 19 br/min 19 br/min 18 br/min (04/30/20 2:52 PM) (04/30/20 9:19 AM) (04/30/20 1:57 A M) Temperature [96.8-100.4 DegF] 97.8 DegF 98.2 DegF 97 .6 DegF (04/30/20 2:52 PM) (04/30/20 9:19 AM) (04/30/20 1:57 A M) Liters per Minute 3 L/min (04/27/20 11:02 AM) Mode of Delivery (Oxygen) Room air Room air Nasal cannula (04/30/20 2:52 PM) (04/30/20 9:19 AM) (04/30/20 1:57 A M) Blood pressure sites Arm, left Arm, left Arm, left (04/30/20 2:52 PM) (04/30/20 9:19 AM) (04/30/20 6:39 A M) Temperature Route Oral Oral Oral (04/30/20 2:52 PM) (04/30/20 9:19 AM) (04/30/20 1:57 A M) Dry Weight 48 kg (04/25/20 9:59 PM) Weight Obtained Via Bed scale Bed scale Bed scale (04/30/20 1:57 AM) (04/29/20 2:07 AM) (04/28/20 2:03 A M) Dry Weight Obtained Via Bed scale (04/25/20 9:59 PM) Social History Social History Type Response Smoking Status Never (less than 100 in life time) entered on: 11/17/19 Sex
--- OUTSIDE RECORDS SUMMARY | 2022-02-08 16:35 | XMS_ITS | Continuity of Care Document ---
:1955 Author Organization [facility] Address [address] [place] [address]- Care Team Providers Name Role Phone Kaiser Pina III, MD Primary Care Physician Encounter [facility] Date(s): 10/29/20 - 11/28/20 [facility] [address] [place] [address]- Attending Physician: Jackie Huynh Admitting Physician: Jackie Huynh Referring Physician: Jackie Huynh Allergies, Adverse Reactions, Alerts Substance Reaction Severity [...] Refills, Maintenance, Tablet, Route to Pharmacy Electronically, [id number], [facility]/pharmacy #[id number] Start Date: 11/12/16 Status: OrderedAtrovent HFA [...] 04/30/20 16:11:00 EST, Route to Pharmacy Electronically, [facility], Partial fill upon patient request if the prescription is for a schedul... Start Date: 04/30/20 Status: Orderedlevothyroxine 0.05 mg oral tablet 1 tablet = 50 mcg, By Mouth, Daily, # 90 tablet, 0 Refills, Maintenance, 11/10/16 18:49:25, Tablet Start Date: 11/10/16 Status: Orderednaproxen 250 mg oral tablet 500 mg, 2, tablet, By Mouth, 2 times a day, # 30 tablet, Refills 0, Tot. Refills 0, Maintenance, 11/21/19 12:55:00 EDT, Route to Pharmacy Electronically, [facility], 157, cm, 11/21/19 8:26:00 EDT, Height, [...] Active Smoker, up to 3 ppd(Confirmed) Active Social History Social History Type Response Smoking Status Never (less than 100 in life time) entered on: 11/17/19 Sex
--- OUTSIDE RECORDS SUMMARY | 2022-02-08 16:35 | XMS_ITS | Continuity of Care Document ---
:1955 Author Organization [facility] Address [address] [place] [address]- Care Team Providers Name Role Phone Yovani PLAZA MD, [facility] Woodward Primary Care Physician Encounter [facility] Date(s): 11/17/19 - 11/21/[address] [address]- [facility] Encounter Diagnosis Hyponatremia (Final) - 11/17/19 Hypokalemia (Final) - 11/17/19 Back pain, acute (Final) - 11/17/19 Discharge Disposition: A-D/C Home Attending Physician: Analisa BURLESON, [place] Admitting Physician: Ishmael Coronado MD Referring Physician: Not on Staff, Referring MD Allergies, Adverse Reactions, Alerts Substance Reaction Severity Status amLODIPine1 Active 1rash, edema Immunizations Given and [...] Refills, Maintenance, Tablet, Route to Pharmacy Electronically, [id number], [facility]/pharmacy #[id number] Start Date: 11/12/16 Status: OrderedAtrovent HFA 17 mcg/inh inhalation aerosol 2 puffs, Inhalation, Daily at bedtime, # 12.9 Gm, 0 Refills, Maintenance, 11/10/16 20:08:33, Aerosol Start Date: 11/10/16 Status: Orderedlevothyroxine 0.05 mg oral tablet 1 tablet = 50 mcg, By Mouth, Daily, # 90 tablet, 0 Refills, Maintenance, 11/10/16 18:49:25, Tablet Start Date: 11/10/16 Status: Orderednaproxen 250 mg oral tablet 500 mg, 2, tablet, By Mouth, 2 times a day, # 30 tablet, Refills 0, Tot. Refills 0, Maintenance, 11/21/19 12:55:00 EDT, Route to Pharmacy Electronically, [facility], 157, cm, 11/21/19 8:26:00 EDT, [...] Active Smoker, up to 3 ppd(Confirmed) Active Results Orders for Microbiology Reports Name Date Anaerobic Culture 11/20/19 Sterile Body Fluid Culture W/ Gram Smear (Culture Ster ile Body Fluid w/ Gram 11/19/19 Smear) Microbiology Reports TEST:Anaerobic Culture STATUS:Unauthenticated BODY SITE: SOURCE:JOINT COLLECTED DATE/TIME:11/19/19 11:40 PMAnaerobic Culture SPECIMEN DESCRIPTION : JOINT FLUID BURSA SPECIAL REQUESTS : NONE CULTURE : NO ANAEROBES ISOLATED SO FAR. REPORT STATUS : PRELIMINARY REPORT TEST:Sterile Fluid Culture STATUS:Unauthenticated BODY SITE: SOURCE:JOINT COLLECTED DATE/TIME:11/19/19 11:40 PMSterile Fluid Culture SPECIMEN DESCRIPTION : JOINT FLUID SPECIAL REQUESTS : NONE GRAM STAIN : 2+ WHITE BLOOD CELLS NO ORGANISMS SEEN CULTURE : NO GROWTH TO DATE REPORT STATUS : PRELIMINARY REPORT Radiology Reports Exam Date Time Procedure Performing Provider Status 11/17/19 9:32 AM Pelvis 1 or 2 Views Chiquis Thomas; Modified Notes:(Pelvis 1 or 2 Views) Reason For Exam: fall;PainRESULT: Pelvis 1 or 2 Views Pelvis 1 or 2 Views INDICATION: Pain status post fall. Reason: Pain; fall; Clinical Question(s): Fracture COMPARISON: None. FINDINGS: 2 views of the pelvis, along with bilateral frog-leg lateral position. Sacrum is somewhat obscured due to overlying bowel gas. Moderate degenerative changes lumbar sacral junction. Mild degenerative changes in the hips IMPRESSION: No acute fracture or dislocation. WSN: [id number] Ordering Physician: Carrie Rdz Dictated By: Dontrell Recio MD Dictated Date/Time: 11/17/19 9:50 am Reviewed By: Dontrell Recio MD Signed By: Dontrell Recio MD Signed Date/Time: 11/17/19 9:50 am Transcribed By: JONHATHON Transcribed Date/Time: 11/17/19 9:49 am Exam Date Time Procedure Performing Provider Status 11/17/19 9:32 AM Lumbar Spine 2 or 3 Views Chiquis Thomas; Nicholas h (Verified) Notes:(Lumbar Spine 2 or 3 Views) Reason For Exam: fall;PainRESULT: Lumbar Spine 2 or 3 Views Lumbar Spine 2 or 3 Views INDICATION: Status post fall. COMPARISON: None on record at the time of interpretation. FINDINGS: Subtle convex rightward curvature. There is diffuse osteopenia with a mild compression deformity of superior endplate of the L1 vertebral body age indeterminate. Otherwise vertebral body height is maintained. There is [id number] degenerative changes L4/5 and 5/1 levels. IMPRESSION: There is an L1 compression deformity age-indeterminate. WSN: [id number] Ordering Physician: Carrie Rdz Dictated By: Dontrell Recio MD Dictated Date/Time: 11/17/19 9:48 am Reviewed By: Dontrell Recio MD Signed By: Dontrell Recio MD Signed Date/Time: 11/17/19 9:48 am Transcribed By: JOHNATHON Transcribed Date/Time: 11/17/19 9:47 am Vital Signs Most recent to oldest 1 2 3 [Reference Range]: Height 157 cm 157 cm 157 cm (11/21/19 1:17 PM) (11/21/19 8:26 AM) (11/20/19 11: 54 PM) Weight 45.3 kg 47 kg (11/18/19 2:01 PM) (11/17/19 2:27 PM) Oxygen Saturation [94-100 %] 100 % 98 % 100 % (11/21/19 1:17 PM) (11/21/19 8:26 AM) (11/20/19 11: 54 PM) Pulse Rate [55-90 bpm] 80 bpm 64 bpm 97 bpm (11/21/19 1:17 PM) (11/21/19 8:26 AM) *H* (11/20/19 11:54 P M) Body Mass Index [18.5-24.99] 18.38 19.07 *L* (11/17/19 2:27 PM) (11/18/19 2:01 PM) Blood Pressure [90-138/55-84 141/71 mm Hg 143/87 mm Hg 129 /62 mm Hg mm Hg] *H* *H* (11/20/19 11:54 P M) (11/21/19 1:17 PM) (11/21/19 8:26 AM) Respiratory Rate [16-30 18 br/min 18 br/min 18 br/mi n br/min] (11/21/19 1:17 PM) (11/21/19 10:56 AM) (11/21/19 8: 26 AM) Temperature [96.8-100.4 DegF] 98.6 DegF 96.4 DegF 97 .4 DegF (11/21/19 1: PM) *L* (11/20/19 11:54 PM) (11/21/19 8:26 AM) Liters per Minute 0 L/min 0 L/min 0 L/min (11/19/19 4:00 PM) (11/19/19 11:00 AM) (11/19/19 7: 00 AM) Mode of Delivery (Oxygen) Room air Room air Room a ir (11/21/19 1:17 PM) (11/21/19 8:26 AM) (11/20/19 11: 54 PM) Blood pressure sites Arm, left Arm, left Arm, left (11/21/19 1:17 PM) (11/21/19 8:26 AM) (11/20/19 11: 54 PM) Temperature Route Temporal Temporal Temporal (11/21/19 1:17 PM) (11/21/19 8:26 AM) (11/20/19 11: 54 PM) Dry Weight 45.3 kg 47 kg (11/18/19 2:01 PM) (11/17/19 2:27 PM) Weight Obtained Via Standing scale (11/18/19 2:01 PM) Dry Weight Obtained Via Standing scale (11/18/19 2:01 PM) Social History Social History Type Response Smoking Status Never (less than 100 in life time) entered on: 11/17/19 Sex
[2022-02-08 16:40] VITALS: BP 99/56; PULSE 102; RESP 18; O2SAT 99
[2022-02-08] MEDS: SODIUM CHLORIDE 1333.56 ML IV (17:00)
[2022-02-08 17:16] LABS: MANUAL DIFF FLAG NO
[2022-02-08 17:34] LABS: D Dimer High Sensitivity 1988 NG/ML
[2022-02-08 17:41] LABS: Basophils Percent Auto 0.2 % (0-2); Eosinophils Percent Auto 0.3 % (0-4); Hematocrit 43.9 % (37.0-47.0); Imm Gran Abs Auto 0.07 X10*3/uL (0.00-0.03); Imm Gran Pct Auto 1.1 % (0.0-0.4); Lymphocytes Absolute Auto 0.4 X10*3/uL (1.2-4.9); Lymphocytes Percent Auto 6.9 % (20-40); Mean Corpuscular HGB Conc 34.2 g/dl (31.0-35.0); Mean Corpuscular Hemoglobin 33.9 pg (27.0-33.0); Mean Corpuscular Volume 99.1 fL (80.0-98.0); Mean Platelet Volume 10.2 fL (9.4-12.3); Monocytes Absolute Auto 0.4 X10*3/uL (0.1-1.2); Neutrophils Absolute Auto 5.3 x10*3/uL (2.0-8.3); Neutrophils Percent Auto 84.5 % (45-73); Platelet Count 200 X10*3/uL (160-400); Red Blood Count 4.43 X10*6/uL (4.20-5.50); Red Cell Distribution Width 13.2 % (11.0-16.0); White Blood Count 6.3 X10*3/uL (4.8-10.8)
[2022-02-08 17:42] LABS: Troponin-I High Sensitivity < 3.5 ng/L (<3.5-17.0)
[2022-02-08 17:45] VITALS: BP 102/81; PULSE 96; RESP 15; O2SAT 98
[2022-02-08 17:59] LABS: Alanine Aminotransferase 32 U/L (0-31); Albumin Level 4.4 g/dL (3.5-5.0); Alkaline Phosphatase 325 U/L (39-117); Anion Gap 18 (12-20); Aspartate Amino Transferase 40 U/L (5-31); Bilirubin Total 1.5 mg/dL (0.0-1.0); Blood Urea Nitrogen 17 mg/dL (9-16); Calcium 10.4 mg/dL (8.4-10.2); Carbon Dioxide 20 mmol/L (22-29); Chloride 98 mmol/L (96-108); Estimated Glomerular Filt Rate 43; Glucose Random 125 mg/dL (60-115); Potassium 4.9 mmol/L (3.3-5.1); Sodium 131 mmol/L (135-145); TSH reflex Free T4 1.82 uIU/mL (0.32-4.0); Total Protein 7.1 g/dL (6.5-8.0)
[2022-02-08 18:00] VITALS: BP 111/70; PULSE 95; RESP 15; TEMP 35.9; O2SAT 98
[2022-02-08] MEDS: iohexoL 350 MG/ML 100 ML INFUS..BTL IV (19:05)
[2022-02-08 19:13] LABS: Reflex Lactate? Lactic Acid Added
[2022-02-08] MEDS: Piperacillin Sodium/Tazobactam 3.375 GM in 0.9 % Sodium Chloride 50 ML IV (19:20)
[2022-02-08] MEDS: 0.9 % Sodium Chloride 1,000 ML 999 ML IV (19:21)
[2022-02-08] MEDS: vancomycin HCL 1,000 MG in 0.9 % Sodium Chloride 250 ML 270 MG IV (19:50)
[2022-02-08 20:32] LABS: ~Lactic Acid-LAB USE ONLY 3.2 mmol/L (0.5-2.0)
[2022-02-08 22:03] LABS: Reflex Lactate? 2 Y
--- NOTE | 2022-02-08 22:05 | PC.NURSE ---
PT A&Ox3, reports cramping like abd pain with movement. PT placed on bedpan, loose brown stools, incontinent care provided.
[2022-02-08 23:24] VITALS: BP 159/87; PULSE 102; RESP 21; TEMP 36.9; O2SAT 99
[2022-02-09] VITALS (10 sets, daily range): BP systolic 114–135; BP diastolic 58–75; PULSE 93–110; RESP 12–24; TEMP 36.7–37.6; O2SAT 94–100
[2022-02-09 00:27] LABS: ~Lactic Acid-LAB USE ONLY 1.8 mmol/L (0.5-2.0)
[2022-02-09] MEDS: 0.9 % Sodium Chloride 1,000 ML 999 ML IV (00:40)
[2022-02-09] MEDS: Acetaminophen 325 MG TABLET 650 MG PO (00:44)
[2022-02-09] MEDS: Promethazine HCL 25 MG TABLET PO (00:45)
--- NOTE | 2022-02-09 01:00 | MHC.EDTECH ---
pt has had multiple bowel movements that were mostly liquid. Changed pt bedding and cleaned pt.
[2022-02-09 01:25] LABS: Appearance Urine Clear; Color Urine Dark Yellow; Glucose Urine UA Negative (Negative); Leukocyte Esterase Urine Trace (Negative); Nitrite Urine Negative (Negative); PH 5.5 (5.0-9.0); Specific Gravity - Urine >= 1.030 (1.005-1.025); UMIC TRIGGER UACC YES; Urine Blood Negative (Negative); Urine Ketones Negative (Negative); Urine Protein Negative (Neg-Trace)
[2022-02-09 01:35] LABS: CDiff Gene PCR POSITIVE (Negative)
[2022-02-09 02:22] LABS: Bacteria Urine None Seen (None Seen); RBC Urine 0-2 /HPF (0-2); Squamous Epithelial Cell Urine 0-2 /HPF (0-2); WBC Urine 0-5 /HPF (0-5)
[2022-02-09 03:46] LABS: CDIFF Internal ctrl Dots and bkg OK (V); CDiff Toxin Negative (Negative)
--- NOTE | 2022-02-09 04:05 | PC.NURSE ---
Pt's V/S are stable, pt reports having abd pain 10/10 and a rash on her upper chest traveling to the neck. This nurse has notified the hospitilist.
[2022-02-09] MEDS: diphenhydrAMINE HCL 50 MG/ML VIAL 25 MG IVPUSH (05:30)
[2022-02-09] MEDS: Enoxaparin Sodium 40 MG/0.4 ML SYRINGE SUBCUT (05:31)
--- NOTE | 2022-02-09 05:31 | PC.NURSE ---
Re-assessed: Contact precaution has been removed by hospitalist order. Pt's v/s are stable, pt is on the monitor and it shows NSR. Pt's has been administered meds by provider order.
[2022-02-09] MEDS: Morphine Sulfate 4 MG/ML CARTRIDGE IVPUSH ×3 (05:43→19:25)
[2022-02-09] MEDS: ondansetron HCL 4 MG/2 ML VIAL IVPUSH (05:43)
--- NOTE | 2022-02-09 06:02 | PC.NURSE ---
Pt had a BM, loose watery stool, dark coffee color and foul smell.
--- NOTE | 2022-02-09 06:09 | PM.IMHP ---
History of Present Illness Date of Service: 02/09/22 Chief Complaint: diarrhea 66-year-old female with past medical history of colitis, hypertension, CVA, hypothyroidism, presents to the hospital with complaints of diarrhea as well as generalized weakness. Patient reports that every time she has colitis she feels significant weakness. shes had symptoms started around 22:00 on day presentation, reports diffuse abdominal pain worse in the left quadrant, nausea with no vomiting, no fevers or chills. patient reports that she was recently treated for UTI but is currently on her last does of the antibiotic. Denies having any chest pain, no palpitations, and no lower extremity edema. No headache or change in vision. on arrival to the ED patient's blood pressure was found to be 77/38, heart rate of 102, patient received IV fluids, as well as IV antibiotics with improvement in her blood pressure. Labs are significant for WBC count of 6.3, D-dimer 1988, sodium of 131, creatinine of 1.25 with no previous for comparison, lactic acid of 3 point no improved with IV fluids, chills symptom 0.4, total bili of 1.5, AST of 40, ALT of 82, troponin negative, UA is still positive for leukocyte Estrace and some WBC, C diff shows positive gene, viral pathology pending CT of the abdomen shows colitis infectious versus ischemic patient started on antibiotics and will be admitted for further management Review of Systems Review of Systems: Yes all other systems are reviewed and are negative [facility] Medical History (Updated 02/09/22 @ 06:21 by Jeffrey Fuchs MD) Colitis CVA (cerebral vascular accident) HTN (hypertension) Hypothyroidism Family History Other No family history of cerebrovascular accident (CVA) Surgical History History of partial hysterectomy Social History Alcohol intake: current Alcohol intake frequency: 0-2 drinks per day Alcohol type: wine Smoked in Last 30 Days: No Use of substances other than those prescribed or required for medical reasons: No Advance Directives: Yes Advance Directives on File: Yes Advance Directives Date on File: 04/29/21 Meds Allergies Allergy/AdvReac Type Severity Reaction Status Date / Time No Known Allergies Allergy Unverified 11/14/19 14:40 Active Medications: Current Medications Acetaminophen (Acetaminophen 325 Mg Tablet) 650 mg PO Q6H PRN PRN Reason: Pain, Mild (Pain Scale 1-3) Enoxaparin Sodium (Enoxaparin Sodium 40 Mg/0.4 Ml Syringe) 40 mg SUBCUT Q24H [facility] Last Admin: 02/09/22 05:31 Dose: 40 mg Morphine Sulfate (Morphine Sulfate 4 Mg/Ml Cartridge) 4 mg IVPUSH Q4H PRN; Protocol PRN Reason: Pain, Severe (Pain Scale 7-10) Last Admin: 02/09/22 05:43 Dose: 4 mg Ondansetron HCl (Ondansetron Hcl 4 Mg/2 Ml Vial) 4 mg IVPUSH Q8H PRN PRN Reason: Nausea and Vomiting Last Admin: 02/09/22 05:43 Dose: 4 mg Sodium Chloride (0.9 % Sodium Chloride Flush 3 Ml Syringe) 3 ml IVFLUSH QSHIFT [facility] Home Medications Medication Instructions Recorded Confirmed Last Taken Type aspirin 81 mg tablet,delayed 1 tab PO DAILY 04/28/21 04/28/21 Unknown History release carvedilol 6.25 mg tablet 1 tab PO BID 04/28/21 04/28/21 Unknown History nortriptyline 50 mg capsule 1 cap PO BID 04/28/21 04/28/21 Unknown History ipratropium bromide 17 17 mcg inhalation QID 04/29/21 04/29/21 Unknown History mcg/actuation HFA aerosol inhaler (Atrovent HFA) levothyroxine 0.05 mg PO DAILY 04/29/21 04/29/21 Unknown History Physical Exam Vital Signs and Narrative: Vital Signs: Last Vital Signs Temp 98.5 F 02/09/22 06:05 Pulse 93 02/09/22 06:05 Resp 17 02/09/22 06:05 BP 133/65 02/09/22 06:05 Pulse Ox 100 02/09/22 06:05 O2 Del Method 02/09/22 06:05 BMI result Body Mass Index 17.3 Const: General: cooperative and no acute distress Orientation/consciousness: patient oriented x3 Eyes: General: appearance normal, both eyes and all related structures Resp: Effort & Inspection: normal respiratory effort Auscultation: clear to auscultation bilaterally Cardio: Rate: regular rate Rhythm: regular rhythm GI: Other: abdomen is tender in the left upper quadrant, some guarding, no rebound Palpation (GI): Soft to palpation Auscultation: normal bowel sounds Skin: General skin exam: no rashes or lesions noted Neuro: General: patient oriented x3 Cognition (Neuro): normal cognition Extrem: General: Yes normal to inspection and Yes no pedal edema Results Labs CBC and Chem 7: 02/08/22 17:08 02/08/22 17:08 Labs: Laboratory Results - last 24 hr 02/08/22 02/08/22 02/08/22 17:08 17:08 17:08 MCV 99.1 H MCH 33.9 H MCHC 34.2 RDW 13.2 Plt Count 200 MPV 10.2 Immature Gran % (Auto) 1.1 H Neut % (Auto) 84.5 H Lymph % (Auto) 6.9 L [place] % (Auto) 7.0 Eos % (Auto) 0.3 Baso % (Auto) 0.2 Lymph # (Auto) 0.4 L [place] # (Auto) 0.4 Eos # (Auto) 0.0 Baso # (Auto) 0.0 Abs Immat Gran (auto) 0.07 H Absolute Neuts (auto) 5.3 Absolute Nucleated RBC 0.000 Nucleated RBC % (auto) 0.0 D-Dimer High Sensitivty Anion Gap 18 Estim Creat Clear Calc 31.0 Estimated GFR 43 Random Glucose 125 H Lactic Acid 3.0 H* Lactic Acid F/U @ 2Hr Lactic Acid F/U @ 4Hr Calcium 10.4 H Total Bilirubin 1.5 H AST 40 H ALT 32 H Alkaline Phosphatase 325 H Troponin I High Sens Total Protein 7.1 Albumin 4.4 TSH 1.82 Urine Color Urine Appearance Urine pH Ur Specific [place] Urine Protein Urine Glucose (UA) Urine Ketones Urine Blood Urine Nitrite Ur Leukocyte Esterase Urine RBC Urine WBC Ur Squamous Epith Cells Urine Bacteria Hyaline Casts C. difficile Tox B Gene C. difficile Toxin A&B C. difficile Interpret 02/08/22 02/08/22 02/08/22 17:08 17:08 19:59 MCV MCH MCHC RDW Plt Count MPV Immature Gran % (Auto) Neut % (Auto) Lymph % (Auto) [place] % (Auto) Eos % (Auto) Baso % (Auto) Lymph # (Auto) [place] # (Auto) Eos # (Auto) Baso # (Auto) Abs Immat Gran (auto) Absolute Neuts (auto) Absolute Nucleated RBC Nucleated RBC % (auto) D-Dimer High Sensitivty 1988 Anion Gap Estim Creat Clear Calc Estimated GFR Random Glucose Lactic Acid Lactic Acid F/U @ 2Hr 3.2 H* Lactic Acid F/U @ 4Hr Calcium Total Bilirubin AST ALT Alkaline Phosphatase Troponin I High Sens < 3.5 Total Protein Albumin TSH Urine Color Urine Appearance Urine pH Ur Specific [place] Urine Protein Urine Glucose (UA) Urine Ketones Urine Blood Urine Nitrite Ur Leukocyte Esterase Urine RBC Urine WBC Ur Squamous Epith Cells Urine Bacteria Hyaline Casts C. difficile Tox B Gene C. difficile Toxin A&B C. difficile Interpret 02/08/22 02/08/22 02/09/22 21:54 23:56 01:16 MCV MCH MCHC RDW Plt Count MPV Immature Gran % (Auto) Neut % (Auto) Lymph % (Auto) [place] % (Auto) Eos % (Auto) Baso % (Auto) Lymph # (Auto) [place] # (Auto) Eos # (Auto) Baso # (Auto) Abs Immat Gran (auto) Absolute Neuts (auto) Absolute Nucleated RBC Nucleated RBC % (auto) D-Dimer High Sensitivty Anion Gap Estim Creat Clear Calc Estimated GFR Random Glucose Lactic Acid Lactic Acid F/U @ 2Hr Lactic Acid F/U @ 4Hr 1.8 Calcium Total Bilirubin AST ALT Alkaline Phosphatase Troponin I High Sens Total Protein Albumin TSH Urine Color Dark Yellow Urine Appearance Clear Urine pH 5.5 Ur Specific [place] >= 1.030 H Urine Protein Negative Urine Glucose (UA) Negative Urine Ketones Negative Urine Blood Negative Urine Nitrite Negative Ur Leukocyte Esterase Trace H Urine RBC 0-2 Urine WBC 0-5 Ur Squamous Epith Cells 0-2 Urine Bacteria None Seen Hyaline Casts 6-10 C. difficile Tox B Gene POSITIVE A* C. difficile Toxin A&B Negative C. difficile Interpret SEE NOTE Imaging Radiologist's Impressions: Impressions Chest X-Ray 02/08/22 17:49 IMPRESSION: Unremarkable examination. Abdomen/Pelvis CT 02/08/22 19:09 IMPRESSION: 1. Marked colitis involving the distal half of the transverse colon, splenic flexure and descending colon. Differential diagnosis would include infectious or ischemic colitis. No emboli are seen in the distal mesenteric branches. Arterial structures are extremely well seen and there is no need for a CT angiogram. 2. Incidental note made of tiny hepatic hypodensities consistent with small cysts, benign right renal cyst which needs no further imaging or follow-up, hysterectomy changes and severe degenerative changes in the spine with compression fractures. Fleischner guidelines were followed. Chest CTA 02/08/22 19:09 IMPRESSION: No evidence of pulmonary emboli. The study is limited by motion artifact. VTE: negative. Assessment and Plan (1) Severe sepsis: Status: Acute (2) UTI (urinary tract infection): Status: Acute (3) Lactic acidosis: Status: Acute (4) Acute colitis: Status: Acute Plan 66-year-old female who presents to the hospital with weakness, as well as diarrhea found to have acute sepsis secondary to UTI as well as colitis # acute colitis - infectious versus inflammatory - patient reports that she underwent colonoscopy in the past, has had multiple colitis in the past but does not have an official inflammatory bowel disease that she is aware of - will treat with IV antibiotics - C diff colonization with no acute infection - rest of GI panel pending # sepsis - likely combination of UTI as well as colitis - received a 30 cc/kg of fluid - will treat with IV antibiotics - follow cultures # acute UTI - failed outpatient therapy with Macrobid - will treat with IV antibiotics - follow cultures # lactic acidosis - likely secondary to above - improved after IV fluids # hypothyroidism - continue levothyroxine # hypertension - stable eyes - continue home antihypertensives DVT prophylaxis: Lovenox given patient's acute sepsis secondary to UTI as well as colitis patient require minimum 2 night inpatient hospitals defer further management and monitor Time Spent With Patient Time: Total time managing care of this patient today ____ minutes. Quality Stroke Does the patient have a stroke diagnosis?: No VTE Prior VTE?: No VTE Risk Level:: Medical - moderate - high VTE Device Contraindication: Treatment Not Indicated VTE Drug Contraindication: N/A - Med Ordered
[2022-02-09] MEDS: cefTRIAXone sodium 1 GM in 0.9 % Sodium Chloride 50 ML IV (06:37)
[2022-02-09 06:39] LABS: COVID-19 Test Negative (Negative)
[2022-02-09] MEDS: metroNIDAZOLE/NS 500 MG/100 ML PIGGYBACK 100 MG IV ×3 (07:07→22:39)
[2022-02-09] MEDS: 0.9 % Sodium Chloride Flush 3 ML SYRINGE IVFLUSH ×3 (07:09→22:40)
--- NOTE | 2022-02-09 07:10 | PC.NURSE ---
sr on monitor, skin pale and dry, pinkness on upper chest, rates abd pain 10/10, but nad
[2022-02-09 07:31] LABS: Lactate Dehydrogenase 152 U/L (122-220)
--- NOTE | 2022-02-09 07:46 | PHA.MEDREC ---
Pharmacy Consult ? Medication Reconciliation Pharmacy has completed the medication reconciliation.
[2022-02-09 08:40] LABS: Hematocrit 31.7 % (37.0-47.0); Mean Corpuscular HGB Conc 34.1 g/dl (31.0-35.0); Mean Corpuscular Volume 99.7 fL (80.0-98.0); Mean Platelet Volume 9.9 fL (9.4-12.3); Platelet Count 132 X10*3/uL (160-400); Red Blood Count 3.18 X10*6/uL (4.20-5.50); Red Cell Distribution Width 13.3 % (11.0-16.0); White Blood Count 5.3 X10*3/uL (4.8-10.8)
[2022-02-09 08:41] LABS: Hemoglobin 10.8 g/dl (12.0-16.0)
[2022-02-09 09:06] LABS: Anion Gap 12 (12-20); Blood Urea Nitrogen 12 mg/dL (9-16); Calcium 8.2 mg/dL (8.4-10.2); Carbon Dioxide 17 mmol/L (22-29); Chloride 106 mmol/L (96-108); Creatinine Clr Calc Pharmacy 59.7; Estimated Glomerular Filt Rate > 60; Glucose Random 97 mg/dL (60-115); Potassium 3.9 mmol/L (3.3-5.1); Sodium 131 mmol/L (135-145)
[2022-02-09 09:30] LABS: Band Neutrophils Percent 9 % (3-5); Lymphocytes Absolute Manual 1.1 X10*3/uL (1.2-4.9); Lymphocytes Percent Manual 20 % (20-40); Monocytes Absolute Manual 0.1 X10*3/uL (0.1-1.2); Monocytes Percent Manual 2 % (2-11); Neutrophils Absolute Manual 4.1 X10*3/uL (2.0-8.3); Neutrophils Percent Manual 69 % (45-73)
[2022-02-09 09:31] LABS: Platelet Estimate DECREASED (NORMAL); Platelet Morphology Comment NORMAL; RBC Morphology NORMAL
[2022-02-09 09:39] LABS: Adenovirus F 40/41 Not Detected (Not Detect.); Astrovirus Not Detected (Not Detect.); Campylobacter Not Detected (Not Detect.); Cryptosporidium Not Detected (Not Detect.); Cyclospora cayetanensis Not Detected (Not Detect.); E. coli EAEC Not Detected (Not Detect.); E. coli EPEC Not Detected (Not Detect.); E. coli ETEC Not Detected (Not Detect.); E. coli STEC Not Detected (Not Detect.); Entamoeba histolytica Not Detected (Not Detect.); Giardia lamblia Not Detected (Not Detect.); Norovirus GI/GII Not Detected (Not Detect.); Plesiomonas shigelloides Not Detected (Not Detect.); Rotavirus A Not Detected (Not Detect.); Salmonella Not Detected (Not Detect.); Sapovirus Not Detected (Not Detect.); Shigella sp./EIEC Not Detected (Not Detect.); Vibrio Not Detected (Not Detect.); Vibrio Cholerae Not Detected (Not Detect.); Yersinia enterocolitica Not Detected (Not Detect.)
[2022-02-09 11:15] LABS: Adenovirus PCR Not Detected (Not Detect.); Bordetella parapertussis PCR Not Detected (Not Detect.); Bordetella pertussis PCR Not Detected (Not Detect.); Chlamydia pneumoniae PCR Not Detected (Not Detect.); Coronavirus 229E PCR Not Detected (Not Detect.); Coronavirus HKU1 PCR Not Detected (Not Detect.); Coronavirus NL63 PCR Not Detected (Not Detect.); Coronavirus OC43 PCR Not Detected (Not Detect.); Human metapneumovirus PCR Not Detected (Not Detect.); Influenza A PCR Not Detected (Not Detect.); Influenza B PCR Not Detected (Not Detect.); Mycoplasma pneumoniae PCR Not Detected (Not Detect.); Parainfluenza 1 PCR Not Detected (Not Detect.); Parainfluenza 2 PCR Not Detected (Not Detect.); Parainfluenza 3 PCR Not Detected (Not Detect.); Parainfluenza 4 PCR Not Detected (Not Detect.); RSV PCR Not Detected (Not Detect.); Rhino/Enterovirus PCR Not Detected (Not Detect.); SARS-CoV-2 PCR Not Detected (Not Detect.)
--- NOTE | 2022-02-09 11:21 | MHC.CM.PN ---
Met with patient in regards to discharge planning. Patient lives alone, ambulates with a cane and no services prior to coming to the hospital. Patient does not feel short term rehab or services will be necessary at d/c. PCP verified. Copy of HCP verified to be on file. IMM explained and signed. Patient received 2 Moderna vaccines and 1 Pfizer booster. Patient tested positive for C diff on 02/08. Patient's friend will transport her home when medically stable. Continue to monitor for d/c needs.
--- NOTE | 2022-02-09 11:30 | MHC.EDTECH ---
Pt had bowel movement that was loose watery stool, bed linens changed and pt cleaned up.
--- NOTE | 2022-02-09 13:01 | PC.NURSE ---
Pt placed on bedpan by rn and given pain medication per MAR
--- NOTE | 2022-02-09 15:29 | PM.EVENT ---
Event Note Date of Service: 02/09/22 Event Note: Chart reviewed patient examined. Agree assessment and plan as outlined by Dr. Garcia Time Spent With Patient Time: Total time managing care of this patient today ____ minutes.
--- NOTE | 2022-02-09 17:53 | PC.NURSE ---
first attempt to give report
--- NOTE | 2022-02-09 18:19 | PC.NURSE ---
Report to medical sales associate Alberto
[2022-02-09] MEDS: Ipratropium Bromide 1 PUFF/17 MCG INHALER INHALE (23:20)
[2022-02-10] MEDS: Morphine Sulfate 4 MG/ML CARTRIDGE IVPUSH ×4 (02:28→22:40)
[2022-02-10] MEDS: Ipratropium Bromide 1 PUFF/17 MCG INHALER INHALE ×2 (03:10→22:33)
[2022-02-10 03:48] VITALS: BP 108/61; PULSE 111; RESP 18; TEMP 36.4; O2SAT 99
[2022-02-10] MEDS: Levothyroxine Sodium 50 MCG TABLET PO (06:30)
[2022-02-10] MEDS: cefTRIAXone sodium 1 GM in 0.9 % Sodium Chloride 50 ML IV (06:30)
[2022-02-10] MEDS: Enoxaparin Sodium 40 MG/0.4 ML SYRINGE SUBCUT (06:30)
[2022-02-10] MEDS: metroNIDAZOLE/NS 500 MG/100 ML PIGGYBACK 100 MG IV ×3 (07:21→22:40)
[2022-02-10] MEDS: 0.9 % Sodium Chloride Flush 3 ML SYRINGE IVFLUSH ×3 (07:21→20:33)
[2022-02-10 08:00] VITALS: BP 106/55; PULSE 109; RESP 18; TEMP 36; O2SAT 98
[2022-02-10 08:22] LABS: Hematocrit 29.1 % (37.0-47.0); Hemoglobin 10.1 g/dl (12.0-16.0); Mean Corpuscular HGB Conc 34.7 g/dl (31.0-35.0); Mean Corpuscular Hemoglobin 34.4 pg (27.0-33.0); Mean Platelet Volume 9.4 fL (9.4-12.3); Platelet Count 115 X10*3/uL (160-400); Red Blood Count 2.94 X10*6/uL (4.20-5.50); Red Cell Distribution Width 13.2 % (11.0-16.0); WBC ABN SCTR FOR CBC 1; White Blood Count 5.9 X10*3/uL (4.8-10.8)
[2022-02-10] MEDS: Atorvastatin Calcium 40 MG TABLET PO (08:26)
[2022-02-10] MEDS: Aspirin Enteric Coated 81 MG TABLET.DR PO (08:26)
[2022-02-10] MEDS: carvediloL 6.25 MG TABLET PO ×2 (08:26→20:27)
[2022-02-10] MEDS: Nortriptyline HCl 25 MG CAPSULE 50 MG PO ×2 (08:26→20:28)
[2022-02-10 08:32] LABS: Alanine Aminotransferase 16 U/L (0-31); Albumin Level 2.8 g/dL (3.5-5.0); Alkaline Phosphatase 161 U/L (39-117); Anion Gap 9 (12-20); Aspartate Amino Transferase 22 U/L (5-31); Bilirubin Total 0.8 mg/dL (0.0-1.0); Blood Urea Nitrogen 7 mg/dL (9-16); Calcium 7.8 mg/dL (8.4-10.2); Carbon Dioxide 17 mmol/L (22-29); Chloride 102 mmol/L (96-108); Creatinine Clr Calc Pharmacy 73.3; Estimated Glomerular Filt Rate > 60; Glucose Random 77 mg/dL (60-115); Potassium 3.4 mmol/L (3.3-5.1); Sodium 125 mmol/L (135-145); Total Protein 4.5 g/dL (6.5-8.0)
[2022-02-10 08:43] LABS: Band Neutrophils Percent 18 % (3-5); Eosinophils Absolute Manual 0.1 X10*3/uL (0.0-0.4); Eosinophils Percent Manual 1 % (0-4); Lymphocytes Absolute Manual 0.5 X10*3/uL (1.2-4.9); Lymphocytes Percent Manual 8 % (20-40); Monocytes Absolute Manual 0.2 X10*3/uL (0.1-1.2); Monocytes Percent Manual 4 % (2-11); Neutrophils Absolute Manual 5.1 X10*3/uL (2.0-8.3); Neutrophils Percent Manual 69 % (45-73)
[2022-02-10 08:46] LABS: Platelet Estimate DECREASED (NORMAL); Platelet Morphology Comment NORMAL; RBC Morphology NORMAL
[2022-02-10 11:06] VITALS: BP 99/56; PULSE 101; RESP 18; TEMP 36
--- NOTE | 2022-02-10 11:48 | HO.PM.IMPN ---
Subjective Subjective Date of Service: 02/10/22 Interval History: Admitted with recurrent colitis. Continues to tolerate ceftriaxone and metronidazole. Diarrhea has not slow to this point Review of Systems Denies chest pain Denies shortness of breath Denies nausea vomiting admits diarrhea Denies fever chills Physical Exam Vital Signs: Vital Signs: Last Vital Signs Temp 96.8 F 02/10/22 11:06 Pulse 101 H 02/10/22 11:06 Resp 18 02/10/22 11:06 BP 99/56 L 02/10/22 11:06 Pulse Ox 98 02/10/22 08:00 O2 Del Method 02/10/22 08:00 BMI result Body Mass Index 17.3 Const: Other: No acute issues overnight HEENT: Other: Membranes moist Resp: Other: Clear to auscultation bilaterally no rales rhonchi or wheezes Cardio: Other: No S4; positive S1-S2; no S3 murmurs rubs or gallops GI: Other: Soft hyperactive bowel sounds. No overt peritoneal signs Extrem: Other: No edema bilaterally Objective Data Active Medications Acetaminophen (Acetaminophen 325 Mg Tablet) 650 mg PO Q6H PRN PRN Reason: Pain, Mild (Pain Scale 1-3) Aspirin (Aspirin Enteric Coated 81 Mg Tablet.) 81 mg PO DAILY [facility] Last Admin: 02/10/22 08:26 Dose: 81 mg Documented By: KANDACE Atorvastatin Calcium (Atorvastatin Calcium 40 Mg Tablet) 40 mg PO DAILY [facility] Last Admin: 02/10/22 08:26 Dose: 40 mg Documented By: KANDACE Carvedilol (Carvedilol 6.25 Mg Tablet) 6.25 mg PO BID [facility]; Protocol Last Admin: 02/10/22 08:26 Dose: 6.25 mg Documented By: KANDACE Enoxaparin Sodium (Enoxaparin Sodium 40 Mg/0.4 Ml Syringe) 40 mg SUBCUT Q24H [facility] Last Admin: 02/10/22 06:30 Dose: 40 mg Documented By: BRYAN Ceftriaxone Sodium 1 gm/ (Sodium Chloride) 50 mls @ 100 mls/hr IV Q24H [facility] Last Infusion: 02/10/22 07:19 Dose: 0 mls/hr Documented By: KANDACE Metronidazole (Flagyl) 500 mg in 100 mls @ 100 mls/hr IV Q8H [facility] Last Infusion: 02/10/22 08:34 Dose: 0 mls/hr Documented By: KANDACE Ipratropium Thida (Ipratropium Thida 1 Puff/17 Mcg Inhaler) 1 puff INHALE Q4H PRN PRN Reason: Wheezing Last Admin: 02/10/22 03:10 Dose: 1 puff Documented By: BRYAN Levothyroxine Sodium (Levothyroxine Sodium 50 Mcg Tablet) 50 mcg PO MOTUWETHFRSA [facility] Last Admin: 02/10/22 06:30 Dose: 50 mcg Documented By: BRYAN Levothyroxine Sodium (Levothyroxine Sodium 100 Mcg Tablet) 100 mcg PO Turner@0630 [facility] Morphine Sulfate (Morphine Sulfate 4 Mg/Ml Cartridge) 4 mg IVPUSH Q4H PRN; Protocol PRN Reason: Pain, Severe (Pain Scale 7-10) Last Admin: 02/10/22 08:27 Dose: 4 mg Documented By: KANDACE Nortriptyline HCl (Nortriptyline Hcl 25 Mg Capsule) 50 mg PO BID [facility] Last Admin: 02/10/22 08:26 Dose: 50 mg Documented By: KANDACE Ondansetron HCl (Ondansetron Hcl 4 Mg/2 Ml Vial) 4 mg IVPUSH Q8H PRN PRN Reason: Nausea and Vomiting Last Admin: 02/09/22 05:43 Dose: 4 mg Documented By: NICOLA Sodium Chloride (0.9 % Sodium Chloride Flush 3 Ml Syringe) 3 ml IVFLUSH QSHIFT [facility] Last Admin: 02/10/22 07:21 Dose: 3 ml Documented By: KANDACE Labs CBC & Chem 7: 02/10/22 08:03 02/10/22 08:03 Labs: Laboratory Results - last 24 hr 02/10/22 02/10/22 08:03 08:03 MCV 99.0 H MCH 34.4 H MCHC 34.7 RDW 13.2 Plt Count 115 L MPV 9.4 Immature Gran % (Auto) Cancelled Neut % (Auto) Cancelled Lymph % (Auto) Cancelled [place] % (Auto) Cancelled Eos % (Auto) Cancelled Baso % (Auto) Cancelled Lymph # (Auto) Cancelled [place] # (Auto) Cancelled Eos # (Auto) Cancelled Baso # (Auto) Cancelled Abs Immat Gran (auto) Cancelled Absolute Neuts (auto) Cancelled Absolute Nucleated RBC 0.000 Nucleated RBC % (auto) 0.0 Neutrophils % (Manual) 69 Band Neutrophils % 18 H Lymphocytes % (Manual) 8 L Monocytes % (Manual) 4 Eosinophils % (Manual) 1 Abs Neuts (Manual) 5.1 Lymphocytes # (Manual) 0.5 L Monocytes # (Manual) 0.2 Eosinophils # (Manual) 0.1 Platelet Estimate DECREASED Plt Morphology Comment NORMAL RBC Morphology NORMAL Anion Gap 9 L Estim Creat Clear Calc 73.3 Estimated GFR > 60 Random Glucose 77 Calcium 7.8 L Total Bilirubin 0.8 AST 22 ALT 16 Alkaline Phosphatase 161 H Total Protein 4.5 L Albumin 2.8 L Microbiology Microbiology Results: Microbiology 02/08/22 17:08 Blood Culture - Preliminary Blood - Venous No growth after 24 hours. 02/08/22 17:08 Blood Culture - Preliminary Blood - Venous No growth after 24 hours. Assessment and Plan (1) Severe sepsis: Status: Acute (2) UTI (urinary tract infection): Status: Acute (3) Colitis: Status: Acute Plan 66-year-old female who presents to the hospital with weakness, as well as diarrhea found to have acute sepsis secondary to UTI as well as colitis 1.Acute colitis -continue ceftriaxone/metronidazole pending culture -GI consult pending 2.Sepsis(resolved) -? likely combination of UTI as well as colitis 3.Acute UTI -? failed outpatient therapy with Macrobid -? will treat with IV antibiotics -? follow cultures Full code Artemx Will require ongoing hospitalization for IV antibiotics to treat colitis Time Spent With Patient Time: Total time managing care of this patient today ____ minutes. Quality Stroke Does the patient have a stroke diagnosis?: No VTE Prior VTE?: No VTE Risk Level:: Medical - moderate - high VTE Device Contraindication: Treatment Not Indicated VTE Drug Contraindication: N/A - Med Ordered
--- NOTE | 2022-02-10 11:55 | MHC.CM.PN ---
AWAITING GI CONSULT.
--- NOTE | 2022-02-10 13:10 | P.CNGI_ITS ---
History of Present Illness Data of Consult Service Date: 02/10/22 Requesting physician: [facility] Primary Care Provider: Kaiser Pina III, MD HPI Reason for consult: diarrhea and colitis 66-year-old female with history of colitis, hypertension, CVA, hypothyroidism, who I am seeing for assessment for diarrhea and colitis. Patient mentions she had a UTI last week and was placed on antibiotics, and also that her PCP was treating her for HTN with recnet additions of amlodipine and chlorthalidone. She has episodic diarrhea at baseline attributed to IBS but this seemed to be much worse 3 d ago and she noted numerous episodes of non bloody stools with generalized abdominal cramping without any precipitants or exacerbating factors. She had some nausea bt no vomiting, no fever or chills. She did fall and felt weak. Denies having any chest pain, no palpitations, and no lower extremity edema.? No headache or change in vision.? She denies sick contacts or foreign travel. she said she had colonoscopy last year at [facility] which was normal. On admission she was noted to be hypotensive with BP 77/38. Labs: WBC count of 6.3, D-dimer 1988, sodium of 131, creatinine of 1.25, total bili of 1.5, AST of 40, ALT of 82, troponin negative, UA positive for leukocyte Estrace and some WBC, C diff pcr positive --tox neg ?CT of the abdomen: colitis-- infectious versus ischemic of transverse and left colon. No filling defects in the mesenteric circulation. Review of Systems Review of Systems: Constitutional : No Weight loss, No Fever, No Chills ENT/Mouth : No sore throat, No Rhinorrhea Eyes: No Swelling, No Redness Cardiovascular : No Chest Pain, No SOB, No Edema Respiratory : No Cough, No Sputum, No Wheezing Gastrointestinal : see HPI Genitourinary : NO Dysuria, No Urinary Frequency, No Hematuria, No Urgency Musculoskeletal : No joint pain, No Myalgias, No Joint Swelling Skin : No Skin Lesions, No rash Neuro : + Weakness, No Numbness, + Dizziness, No Headache, poor balance since stroke 5 yrs ago Psych : No Anxiety/Panic, No Depression Heme/Lymph: No Bruising, No Lymphadenopathy Endocrine : No Polyuria, No Polydipsia All other systems reviewed and are negative. [facility] Past Medical History Medical History Colitis CVA (cerebral vascular accident) HTN (hypertension) Hypothyroidism Family History Family History Other No family history of cerebrovascular accident (CVA) Surgical History Surgical History History of partial hysterectomy Social History Social History Household Members: None Housing: Apartment Do you presently have visiting nurse or other home services: No Alcohol intake: current Alcohol intake frequency: 0-2 drinks per day Alcohol type: wine Patient Tobacco Use Status: Never used Tobacco Advance Directives Date on File: 04/29/21 service: No Current occupational status: retired [employer] Allergies Allergy/AdvReac Type Severity Reaction Status Date / Time No Known Allergies Allergy Unverified 11/14/19 14:40 Active Medications: Current Medications Acetaminophen (Acetaminophen 325 Mg Tablet) 650 mg PO Q6H PRN PRN Reason: Pain, Mild (Pain Scale 1-3) Aspirin (Aspirin Enteric Coated 81 Mg Tablet.) 81 mg PO DAILY [facility] Last Admin: 02/10/22 08:26 Dose: 81 mg Atorvastatin Calcium (Atorvastatin Calcium 40 Mg Tablet) 40 mg PO DAILY [facility] Last Admin: 02/10/22 08:26 Dose: 40 mg Carvedilol (Carvedilol 6.25 Mg Tablet) 6.25 mg PO BID [facility]; Protocol Last Admin: 02/10/22 08:26 Dose: 6.25 mg Enoxaparin Sodium (Enoxaparin Sodium 40 Mg/0.4 Ml Syringe) 40 mg SUBCUT Q24H [facility] Last Admin: 02/10/22 06:30 Dose: 40 mg Ceftriaxone Sodium 1 gm/ (Sodium Chloride) 50 mls @ 100 mls/hr IV Q24H [facility] Last Infusion: 02/10/22 07:19 Dose: Infused Metronidazole (Flagyl) 500 mg in 100 mls @ 100 mls/hr IV Q8H [facility] Last Infusion: 02/10/22 08:34 Dose: Infused Ipratropium [place] (Ipratropium [place] 1 Puff/17 Mcg Inhaler) 1 puff INHALE Q4H PRN PRN Reason: Wheezing Last Admin: 02/10/22 03:10 Dose: 1 puff Levothyroxine Sodium (Levothyroxine Sodium 50 Mcg Tablet) 50 mcg PO MOTUWET HFRSA [facility] Last Admin: 02/10/22 06:30 Dose: 50 mcg Levothyroxine Sodium (Levothyroxine Sodium 100 Mcg Tablet) 100 mcg PO Nazario@0630 [facility] Morphine Sulfate (Morphine Sulfate 4 Mg/Ml Cartridge) 4 mg IVPUSH Q4H PRN; Protocol PRN Reason: Pain, Severe (Pain Scale 7-10) Last Admin: 02/10/22 08:27 Dose: 4 mg Nortriptyline HCl (Nortriptyline Hcl 25 Mg Capsule) 50 mg PO BID [facility] Last Admin: 02/10/22 08:26 Dose: 50 mg Ondansetron HCl (Ondansetron Hcl 4 Mg/2 Ml Vial) 4 mg IVPUSH Q8H PRN PRN Reason: Nausea and Vomiting Last Admin: 02/09/22 05:43 Dose: 4 mg Sodium Chloride (0.9 % Sodium Chloride Flush 3 Ml Syringe) 3 ml IVFLUSH QSHIFT [facility] Last Admin: 02/10/22 07:21 Dose: 3 ml Home Medications Medication Instructions Recorded Confirmed Last Taken Type aspirin 81 mg tablet,delayed 1 tab PO DAILY 04/28/21 02/09/22 02/08/22 History release carvedilol 6.25 mg tablet 1 tab PO BID 04/28/21 02/09/22 02/08/22 History nortriptyline 50 mg capsule 1 cap PO BID 04/28/21 02/09/22 02/08/22 History ipratropium bromide 17 17 mcg inhalation Q4H PRN Wheezing 04/29/21 02/09/22 1 04/11/21 History mcg/actuation HFA aerosol inhaler (Atrovent HFA) atorvastatin 40 mg tablet 1 tab PO DAILY 02/09/22 02/09/22 02/08/22 History levothyroxine 50 mcg tablet 50 mcg PO MOTUWETHFRSA 02/09/22 02/09/22 02/08/22 History levothyroxine 50 mcg tablet 100 mcg PO NAZARIO 02/09/22 02/09/22 02/08/22 History Physical Exam Vital Signs: Vital Signs: Last Vital Signs Temp 96.8 F 02/10/22 11:06 Pulse 101 H 02/10/22 11:06 Resp 18 02/10/22 11:06 BP 99/56 L 02/10/22 11:06 Pulse Ox 98 02/10/22 08:00 O2 Del Method 02/10/22 08:00 BMI result Body Mass Index 17.3 EXAM: GENERAL: The patient is well developed and nontoxic. VITAL SIGNS:see workflow HEENT: Nonicteric sclerae, PERRLA, EOMI. Oropharynx clear. Moist mucous membranes. Conjunctivae appear well perfused. No thyroid mass. CHEST: Chest wall is nontender. HEART: Regular rate and rhythm without murmurs. LUNGS: Clear to auscultation bilaterally. ABDOMEN: Soft, positive bowel sounds, tender mid abdomen, no organomegaly.no flank tenderness SKIN: No rash, no excessive bruising, petechiae, or purpura. NEUROLOGIC: Cranial nerves II-XII intact without motor/sensory deficit. MS; moving all limbs easily Psych: Appearance: grossly normal Results Labs CBC & Chem 7: 02/10/22 08:03 02/10/22 08:03 Labs: Short CBC 02/10/22 Range/Units 08:03 WBC 5.9 (4.8-10.8) X10*3/uL Hgb 10.1 L (12.0-16.0) g/dl Hct 29.1 L (37.0-47.0) % Plt Count 115 L (160-400) X10*3/uL BMP 02/10/22 08:03 Sodium 125 L Potassium 3.4 Chloride 102 Carbon Dioxide 17 L BUN 7 L Creatinine 0.53 Calcium 7.8 L Liver Function 02/10/22 Range/Units 08:03 Total Bilirubin 0.8 (0.0-1.0) mg/dL AST 22 (5-31) U/L ALT 16 (0-31) U/L Alkaline Phosphatase 161 H (39-117) U/L Albumin 2.8 L (3.5-5.0) g/dL Microbiology Microbiology Results: Microbiology 02/08/22 17:08 Blood - Venous Blood Culture - Preliminary No growth after 24 hours. 02/08/22 17:08 Blood - Venous Blood Culture - Preliminary No growth after [address] scan - abdomen: Attestation: I personally reviewed and interpreted this imaging study as follows: (left sided colon thickened and inflammed into transverse) Assessment and Plan (1) Acute colitis: Status: Acute Plan 1/ Acute colitis, difficult to say whether c diff related or ischemic in origin given the distribution or even a combination of both given recent ABX use and low BP with recent escalation of anti hypertensive therapy. If we go with c diff then it is severe complicated with abn vitals, and abn kidney function. PLAN: 1/ Recommend adding vancomycin, cont with IV flagyl, be on the watchout for megacolon 2/ hold anti hypertensives, fluid resuscitation as needed for MAP>65 3/ no indication for colonoscopy at this point, anemia likely related to microscopic blood loss and colitis. / ok to use heparin for DVT prophylaxis Time Spent With Patient Time: Total time managing care of this patient today ____ minutes. Procedures Date of Service Date of Service: 02/10/22
--- NOTE | 2022-02-10 13:47 | MHC.CLN ---
NUTRITION PATIENT QUALIFIES MODERATELY MALNOURISHED. BMI=17.3. DEPLETION OF BODY FAT AND MUSCLE MASS NOTED. ADDED ENSURE CLEAR TID. PROVIDES 720 KCALS, 24 G PROTEIN. STATED THAT CANNOT TOLERATE REGULAR ENSURE. SEE NUTRITION ASSESSMENT 02/10/22.
[2022-02-10 13:50] VITALS: BMI 17.3
[2022-02-10 16:00] VITALS: BP 119/56; PULSE 91; RESP 17; TEMP 36.5; O2SAT 94
[2022-02-10 19:41] VITALS: BP 101/59; PULSE 87; RESP 17; TEMP 36.4; O2SAT 100
[2022-02-10 23:46] VITALS: BP 117/70; PULSE 90; RESP 16; TEMP 36.1; O2SAT 100
[2022-02-11 03:15] VITALS: BP 113/68; PULSE 96; RESP 16; TEMP 36.1; O2SAT 97
[2022-02-11] MEDS: Levothyroxine Sodium 50 MCG TABLET PO (06:06)
[2022-02-11] MEDS: Enoxaparin Sodium 40 MG/0.4 ML SYRINGE SUBCUT (06:06)
[2022-02-11] MEDS: cefTRIAXone sodium 1 GM in 0.9 % Sodium Chloride 50 ML IV (06:07)
[2022-02-11] MEDS: Morphine Sulfate 4 MG/ML CARTRIDGE IVPUSH ×3 (06:13→18:23)
[2022-02-11] MEDS: Ipratropium Bromide 1 PUFF/17 MCG INHALER INHALE (06:16)
[2022-02-11] MEDS: metroNIDAZOLE/NS 500 MG/100 ML PIGGYBACK 100 MG IV ×3 (07:12→23:00)
[2022-02-11] MEDS: 0.9 % Sodium Chloride Flush 3 ML SYRINGE IVFLUSH ×2 (07:16→19:51)
[2022-02-11 07:47] VITALS: BP 122/55; PULSE 76; RESP 18; TEMP 36.2; O2SAT 98
[2022-02-11] MEDS: vancomycin HCL 125 MG CAPSULE 500 MG PO ×3 (08:53→19:55)
[2022-02-11] MEDS: Lactated Ringers 1,000 ML 100 ML IVCONT (08:53)
[2022-02-11] MEDS: Aspirin Enteric Coated 81 MG TABLET.DR PO (08:54)
[2022-02-11] MEDS: Nortriptyline HCl 25 MG CAPSULE 50 MG PO ×2 (08:54→19:55)
[2022-02-11] MEDS: Atorvastatin Calcium 40 MG TABLET PO (08:54)
--- NOTE | 2022-02-11 10:35 | P.CDIC_ITS ---
CDI Concurrent Query Documentation Clarification: PHYSICIAN'S DOCUMENTATION REQUEST Date of Query: 02/11/22 1035 Patient Name: Nenita Downey Admit Date: 02/09/22 Dear Doctor, A review of the medical record indicates additional documentation may be needed. Please review below and update the documentation accordingly. Clinical Indicators: Height: [] 5'3 Weight: [] 44.452 kg BMI: [] 17.4 Other Clinical Notes Supporting Significance of the BMI: Risk Factors/Clinical Indicators/Treatments Per Nutrition Assessment 02/10/22: Malnutrition related to change GI tract mobility Colitis and C. Diff resulting in decreased oral intake and malabsorption; depletion of muscle mass and body fat If possible, please provide an associated diagnosis related to the abnormal BMI, such as: For a BMI <= 19: * Underweight * Weight loss * Cachexia * Anorexia * Malnutrition (Mild, Moderate or Severe) protein calorie Or: * BMI is not significant * Other (please specify) * Unable to determine Use of terms such as suspected, likely, concern for, or probable (associated with a specific diagnosis that is being evaluated, monitored, or treated as if it exists) are acceptable and can be coded in the inpatient setting, when documented at the time of discharge. Thank you, Tierra Avila RN Extension: [phone] Please use your independent medical judgment in providing your response. THIS QUERY IS PART OF THE PERMANENT MEDICAL RECORD Provider Response: Other Other Diagnosis: Unable to determine
--- NOTE | 2022-02-11 10:54 | HO.PM.IMPN ---
Subjective Subjective Date of Service: 02/11/22 Interval History: Admitted with C diff enterocolitis. Continues to have loose stool Review of Systems Denies chest pain Denies shortness of breath Denies nausea vomiting admits diarrhea Denies fever chills Physical Exam Vital Signs: Vital Signs: Last Vital Signs Temp 97.2 F 02/11/22 07:47 Pulse 76 02/11/22 07:47 Resp 18 02/11/22 07:47 BP 122/55 L 02/11/22 07:47 Pulse Ox 98 02/11/22 07:47 O2 Del Method 02/11/22 07:47 BMI result Body Mass Index 17.3 Const: Other: No acute issues overnight HEENT: Other: Membranes moist Resp: Other: Clear to auscultation bilaterally no rales rhonchi or wheezes Cardio: Other: No S4; positive S1-S2; no S3 murmurs rubs or gallops GI: Other: Soft hyperactive bowel sounds. No overt peritoneal signs Extrem: Other: No edema bilaterally Objective Data Active Medications Acetaminophen (Acetaminophen 325 Mg Tablet) 650 mg PO Q6H PRN PRN Reason: Pain, Mild (Pain Scale 1-3) Aspirin (Aspirin Enteric Coated 81 Mg Tablet.) 81 mg PO DAILY [facility] Last Admin: 02/11/22 08:54 Dose: 81 mg Documented By: KANDACE Atorvastatin Calcium (Atorvastatin Calcium 40 Mg Tablet) 40 mg PO DAILY [facility] Last Admin: 02/11/22 08:54 Dose: 40 mg Documented By: KANDACE Carvedilol (Carvedilol 6.25 Mg Tablet) 6.25 mg PO BID [facility]; Protocol Last Admin: 02/11/22 08:54 Dose: Not Given Documented By: KANDACE Non-Admin Reason: Physician Held Med Enoxaparin Sodium (Enoxaparin Sodium 40 Mg/0.4 Ml Syringe) 40 mg SUBCUT Q24H [facility] Last Admin: 02/11/22 06:06 Dose: 40 mg Documented By: BRYAN Metronidazole (Flagyl) 500 mg in 100 mls @ 100 mls/hr IV Q8H [facility] Last Infusion: 02/11/22 08:54 Dose: 0 mls/hr Documented By: KANDACE Lactated Ringer's (Lr) 1,000 mls @ 100 mls/hr IVCONT .Q10H [facility] Last Admin: 02/11/22 08:53 Dose: 100 mls/hr Documented By: KANDACE Ipratropium [place] (Ipratropium [place] 1 Puff/17 Mcg Inhaler) 1 puff INHALE Q4H PRN PRN Reason: Wheezing Last Admin: 02/11/22 06:16 Dose: 1 puff Documented By: BRYAN Levothyroxine Sodium (Levothyroxine Sodium 50 Mcg Tablet) 50 mcg PO MOTUWETHFRSA [facility] Last Admin: 02/11/22 06:06 Dose: 50 mcg Documented By: BRYAN Levothyroxine Sodium (Levothyroxine Sodium 100 Mcg Tablet) 100 mcg PO Turner@0630 [facility] Morphine Sulfate (Morphine Sulfate 4 Mg/Ml Cartridge) 4 mg IVPUSH Q4H PRN; Protocol PRN Reason: Pain, Severe (Pain Scale 7-10) Last Admin: 02/11/22 06:13 Dose: 4 mg Documented By: BRYAN Nortriptyline HCl (Nortriptyline Hcl 25 Mg Capsule) 50 mg PO BID [facility] Last Admin: 02/11/22 08:54 Dose: 50 mg Documented By: KANDACE Ondansetron HCl (Ondansetron Hcl 4 Mg/2 Ml Vial) 4 mg IVPUSH Q8H PRN PRN Reason: Nausea and Vomiting Last Admin: 02/09/22 05:43 Dose: 4 mg Documented By: NICOLA Sodium Chloride (0.9 % Sodium Chloride Flush 3 Ml Syringe) [facility] Last Admin: 02/11/22 07:16 Dose: 3 ml Documented By: KANDACE Vancomycin HCl (Vancomycin Hcl 125 Mg Capsule) 500 mg PO Q6H [facility] Last Admin: 02/11/22 08:53 Dose: 500 mg Documented By: KANDACE Labs CBC & Chem 7: 02/10/22 08:03 02/10/22 08:03 Microbiology Microbiology Results: Microbiology 02/08/22 17:08 Blood Culture - Preliminary Blood - Venous No growth after 48 hours. 02/08/22 17:08 Blood Culture - Preliminary Blood - Venous No growth after 48 hours. Assessment and Plan (1) Acute colitis: Status: Acute (2) UTI (urinary tract infection): Status: Acute Plan 66-year-old female who presents to the hospital with weakness, as well as diarrhea found to have acute sepsis secondary to UTI as well as colitis 1.Acute colitis -continue ceftriaxone/metronidazole pending culture -Vanco added 2.Sepsis(resolved) -? likely combination of UTI as well as colitis 3.Acute UTI -? failed outpatient therapy with Macrobid -? will treat with IV antibiotics -? follow cultures Full code Jitendra Will require ongoing hospitalization for IV antibiotics to treat colitis Time Spent With Patient Time: Total time managing care of this patient today ____ minutes. Quality Stroke Does the patient have a stroke diagnosis?: No VTE Prior VTE?: No VTE Risk Level:: Medical - moderate - high VTE Device Contraindication: Treatment Not Indicated VTE Drug Contraindication: N/A - Med Ordered
[2022-02-11 11:18] VITALS: BP 128/57; PULSE 85; RESP 18; TEMP 36.2; O2SAT 99
--- NOTE | 2022-02-11 13:59 | MHC.CLN ---
Addendum entered by Ce Cobos, DANNI 02/11/22 14:01: TAKING 50-100% OF CLEAR LIQUIDS. Original Note: F/U CLEAR LIQUID DIET SINCE 02/09. ENSURE CLEAR TID. PROVIDES 720 KCALS, 24 G PROTEIN. APPEARS TO BE TAKING 75-100% OF CL DIET. FOLLOW FOR DIET ADVANCEMENT AND PO INTAKE.
[2022-02-11 15:29] VITALS: BP 109/62; PULSE 79; RESP 18; TEMP 35.9; O2SAT 94
[2022-02-11 19:31] VITALS: BP 120/75; PULSE 91; RESP 17; TEMP 36.6; O2SAT 97
[2022-02-11] MEDS: carvediloL 6.25 MG TABLET PO (19:57)
[2022-02-12] VITALS: RESP 16
[2022-02-12] MEDS: Morphine Sulfate 4 MG/ML CARTRIDGE IVPUSH ×4 (00:08→19:52)
[2022-02-12] MEDS: vancomycin HCL 125 MG CAPSULE 500 MG PO ×4 (02:06→19:49)
[2022-02-12 03:28] VITALS: BP 129/60; PULSE 83; RESP 17; TEMP 36.4; O2SAT 99
[2022-02-12] MEDS: Lactated Ringers 1,000 ML 100 ML IVCONT ×3 (03:32→22:49)
[2022-02-12] MEDS: Enoxaparin Sodium 40 MG/0.4 ML SYRINGE SUBCUT (05:41)
[2022-02-12] MEDS: Levothyroxine Sodium 50 MCG TABLET PO (05:59)
[2022-02-12] MEDS: metroNIDAZOLE/NS 500 MG/100 ML PIGGYBACK 100 MG IV ×3 (06:00→22:46)
[2022-02-12 08:00] VITALS: BP 142/78; PULSE 86; RESP 16; TEMP 36.2; O2SAT 97
[2022-02-12] MEDS: Aspirin Enteric Coated 81 MG TABLET.DR PO (08:43)
[2022-02-12] MEDS: 0.9 % Sodium Chloride Flush 3 ML SYRINGE IVFLUSH ×2 (08:43→19:54)
[2022-02-12] MEDS: Nortriptyline HCl 25 MG CAPSULE 50 MG PO ×2 (08:43→19:53)
[2022-02-12] MEDS: Atorvastatin Calcium 40 MG TABLET PO (08:43)
[2022-02-12] MEDS: carvediloL 6.25 MG TABLET PO ×2 (08:43→19:53)
[2022-02-12 08:53] LABS: Hematocrit 28.1 % (37.0-47.0); Hemoglobin 9.6 g/dl (12.0-16.0); Mean Corpuscular HGB Conc 34.2 g/dl (31.0-35.0); Mean Corpuscular Hemoglobin 33.9 pg (27.0-33.0); Mean Corpuscular Volume 99.3 fL (80.0-98.0); Mean Platelet Volume 10.3 fL (9.4-12.3); Platelet Count 114 X10*3/uL (160-400); Red Blood Count 2.83 X10*6/uL (4.20-5.50); Red Cell Distribution Width 12.6 % (11.0-16.0); White Blood Count 3.8 X10*3/uL (4.8-10.8)
[2022-02-12 09:12] LABS: Alanine Aminotransferase 15 U/L (0-31); Albumin Level 2.7 g/dL (3.5-5.0); Alkaline Phosphatase 113 U/L (39-117); Anion Gap 11 (12-20); Aspartate Amino Transferase 28 U/L (5-31); Bilirubin Total 0.6 mg/dL (0.0-1.0); Blood Urea Nitrogen < 3 mg/dL (9-16); Calcium 7.7 mg/dL (8.4-10.2); Carbon Dioxide 19 mmol/L (22-29); Chloride 104 mmol/L (96-108); Creatinine Clr Calc Pharmacy 86.3; Estimated Glomerular Filt Rate > 60; Glucose Random 71 mg/dL (60-115); Potassium 3.1 mmol/L (3.3-5.1); Sodium 131 mmol/L (135-145); Total Protein 4.4 g/dL (6.5-8.0)
[2022-02-12 11:47] VITALS: BP 91/57; PULSE 72; RESP 16; TEMP 36; O2SAT 100
--- NOTE | 2022-02-12 12:35 | HO.PM.IMPN ---
Subjective Subjective Date of Service: 02/12/22 Interval History: Admitted with enteritis likely secondary to C diff. stool starting to firm up on oral vancomycin Review of Systems Denies chest pain Denies shortness of breath Denies nausea vomiting admits diarrhea Denies fever chills Physical Exam Vital Signs: Vital Signs: Last Vital Signs Temp 96.8 F 02/12/22 11:47 Pulse 72 02/12/22 11:47 Resp 16 02/12/22 11:47 BP 91/57 L 02/12/22 11:47 Pulse Ox 100 02/12/22 11:47 O2 Del Method 02/12/22 11:47 BMI result Body Mass Index 17.3 Const: Other: No acute issues overnight HEENT: Other: Membranes moist Resp: Other: Clear to auscultation bilaterally no rales rhonchi or wheezes Cardio: Other: No S4; positive S1-S2; no S3 murmurs rubs or gallops GI: Other: Soft hyperactive bowel sounds. No overt peritoneal signs Extrem: Other: No edema bilaterally Objective Data Active Medications Acetaminophen (Acetaminophen 325 Mg Tablet) 650 mg PO Q6H PRN PRN Reason: Pain, Mild (Pain Scale 1-3) Aspirin (Aspirin Enteric Coated 81 Mg Tablet.) 81 mg PO DAILY [facility] Last Admin: 02/12/22 08:43 Dose: 81 mg Documented By: AMANDA Atorvastatin Calcium (Atorvastatin Calcium 40 Mg Tablet) 40 mg PO DAILY [facility] Last Admin: 02/12/22 08:43 Dose: 40 mg Documented By: AMANDA Carvedilol (Carvedilol 6.25 Mg Tablet) 6.25 mg PO BID [facility]; Protocol Last Admin: 02/12/22 08:43 Dose: 6.25 mg Documented By: AMANDA Enoxaparin Sodium (Enoxaparin Sodium 40 Mg/0.4 Ml Syringe) 40 mg SUBCUT Q24H [facility] Last Admin: 02/12/22 05:41 Dose: 40 mg Documented By: MIKAELA Metronidazole (Flagyl) 500 mg in 100 mls @ 100 mls/hr IV Q8H [facility] Last Infusion: 02/12/22 07:25 Dose: 0 mls/hr Documented By: AMANDA Lactated Ringer's (Lr) 1,000 mls @ 100 mls/hr IVCONT .Q10H [facility] Last Admin: 12/17/22 03:32 Dose: 100 mls/hr Documented By: MIKAELA Ipratropium [place] (Ipratropium [place] 1 Puff/17 Mcg Inhaler) 1 puff INHALE Q4H PRN PRN Reason: Wheezing Last Admin: 02/11/22 06:16 Dose: 1 puff Documented By: JEYRISTerry Levothyroxine Sodium (Levothyroxine Sodium 100 Mcg Tablet) 100 mcg PO Turner@0630 [facility] Levothyroxine Sodium (Levothyroxine Sodium 50 Mcg Tablet) 50 mcg PO MoTuWeThFrSa@0630 [facility] Last Admin: 02/12/22 05:59 Dose: 50 mcg Documented By: MIKAELA Morphine Sulfate (Morphine Sulfate 4 Mg/Ml Cartridge) 4 mg IVPUSH Q4H PRN; Protocol PRN Reason: Pain, Severe (Pain Scale 7-10) Last Admin: 02/12/22 08:57 Dose: 4 mg Documented By: AMANDA Nortriptyline HCl (Nortriptyline Hcl 25 Mg Capsule) 50 mg PO BID [facility] Last Admin: 02/12/22 08:43 Dose: 50 mg Documented By: AMANDA Ondansetron HCl (Ondansetron Hcl 4 Mg/2 Ml Vial) 4 mg IVPUSH Q8H PRN PRN Reason: Nausea and Vomiting Last Admin: 02/09/22 05:43 Dose: 4 mg Documented By: NICOLA Sodium Chloride (0.9 % Sodium Chloride Flush 3 Ml Syringe) 3 ml IVFLUSH QSHIFT [facility] Last Admin: 02/12/22 08:43 Dose: 3 ml Documented By: AMANDA Vancomycin HCl (Vancomycin Hcl 125 Mg Capsule) 500 mg PO Q6H [facility] Last Admin: 02/12/22 08:43 Dose: 500 mg Documented By: AMANDA Labs CBC & Chem 7: 02/12/22 08:03 02/12/22 08:03 Labs: Laboratory Results - last 24 hr 02/12/22 02/12/22 08:03 08:03 MCV 99.3 H MCH 33.9 H MCHC 34.2 RDW 12.6 Plt Count 114 L MPV 10.3 Absolute Nucleated RBC 0.000 Nucleated RBC % (auto) 0.0 Anion Gap 11 L Estim Creat Clear Calc 86.3 Estimated GFR > 60 Random Glucose 71 Calcium 7.7 L Total Bilirubin 0.6 AST 28 ALT 15 Alkaline Phosphatase 113 Total Protein 4.4 L Albumin 2.7 L Assessment and Plan (1) Acute colitis: Status: Acute (2) UTI (urinary tract infection): Status: Acute Plan 66-year-old female who presents to the hospital with weakness, as well as diarrhea found to have acute sepsis secondary to UTI as well as colitis 1. Acute colitis (C diff) -continue oral vancomycin and IV Flagyl pending normalization of stool -advanced diet 2.Sepsis(resolved) -? likely combination of UTI as well as colitis 3.Acute UTI -? failed outpatient therapy with Macrobid -? will treat with IV antibiotics -? follow cultures Full code Jitendra Will require ongoing hospitalization for IV antibiotics to treat colitis Time Spent With Patient Time: Total time managing care of this patient today ____ minutes. Quality Stroke Does the patient have a stroke diagnosis?: No VTE Prior VTE?: No VTE Risk Level:: Medical - moderate - high VTE Device Contraindication: Treatment Not Indicated VTE Drug Contraindication: N/A - Med Ordered
[2022-02-12 15:14] VITALS: BP 112/58; PULSE 80; RESP 18; TEMP 36.4; O2SAT 96
[2022-02-12 19:06] VITALS: BP 131/77; PULSE 76; RESP 18; TEMP 36.8; O2SAT 98
[2022-02-13] VITALS: RESP 16
[2022-02-13] MEDS: vancomycin HCL 125 MG CAPSULE 500 MG PO ×4 (01:51→20:09)
[2022-02-13 03:57] VITALS: BP 152/71; PULSE 86; RESP 13; TEMP 36.1; O2SAT 99
[2022-02-13] MEDS: Enoxaparin Sodium 40 MG/0.4 ML SYRINGE SUBCUT (05:06)
[2022-02-13] MEDS: Morphine Sulfate 4 MG/ML CARTRIDGE IVPUSH ×2 (05:07→20:10)
[2022-02-13] MEDS: metroNIDAZOLE/NS 500 MG/100 ML PIGGYBACK 100 MG IV ×3 (06:15→23:22)
[2022-02-13] MEDS: ondansetron HCL 4 MG/2 ML VIAL IVPUSH (06:15)
[2022-02-13 08:00] VITALS: BP 146/77; PULSE 89; RESP 20; TEMP 36.3; O2SAT 100
[2022-02-13 08:44] LABS: Alanine Aminotransferase 16 U/L (0-31); Albumin Level 2.7 g/dL (3.5-5.0); Alkaline Phosphatase 104 U/L (39-117); Anion Gap 10 (12-20); Aspartate Amino Transferase 34 U/L (5-31); Bilirubin Total 0.4 mg/dL (0.0-1.0); Blood Urea Nitrogen < 3 mg/dL (9-16); Calcium 7.7 mg/dL (8.4-10.2); Carbon Dioxide 24 mmol/L (22-29); Chloride 103 mmol/L (96-108); Creatinine Clr Calc Pharmacy 77.6; Estimated Glomerular Filt Rate > 60; Glucose Random 83 mg/dL (60-115); Potassium 3.4 mmol/L (3.3-5.1); Sodium 134 mmol/L (135-145); Total Protein 4.4 g/dL (6.5-8.0)
[2022-02-13] MEDS: Levothyroxine Sodium 100 MCG TABLET PO (09:16)
[2022-02-13] MEDS: Aspirin Enteric Coated 81 MG TABLET.DR PO (09:16)
[2022-02-13] MEDS: carvediloL 6.25 MG TABLET PO ×2 (09:17→20:14)
[2022-02-13] MEDS: Atorvastatin Calcium 40 MG TABLET PO (09:17)
[2022-02-13] MEDS: Nortriptyline HCl 25 MG CAPSULE 50 MG PO ×2 (09:25→20:09)
[2022-02-13] MEDS: 0.9 % Sodium Chloride Flush 3 ML SYRINGE IVFLUSH ×3 (09:26→20:10)
--- NOTE | 2022-02-13 10:58 | HO.PM.IMPN ---
Subjective Subjective Date of Service: 02/13/22 Interval History: Admitted with C diff colitis. Stools firming up and tolerating full diet Review of Systems Denies chest pain Denies shortness of breath Denies nausea vomiting admits diarrhea Denies fever chills Physical Exam Vital Signs: Vital Signs: Last Vital Signs Temp 97.3 F 02/13/22 08:00 Pulse 89 02/13/22 08:00 Resp 20 02/13/22 08:00 BP 146/77 H 02/13/22 08:00 Pulse Ox 100 02/13/22 08:00 O2 Del Method 02/13/22 08:00 BMI result Body Mass Index 17.3 Const: Other: No acute issues overnight HEENT: Other: Membranes moist Resp: Other: Clear to auscultation bilaterally no rales rhonchi or wheezes Cardio: Other: No S4; positive S1-S2; no S3 murmurs rubs or gallops GI: Other: Soft hyperactive bowel sounds. No overt peritoneal signs Extrem: Other: No edema bilaterally Objective Data Active Medications Acetaminophen (Acetaminophen 325 Mg Tablet) 650 mg PO Q6H PRN PRN Reason: Pain, Mild (Pain Scale 1-3) Aspirin (Aspirin Enteric Coated 81 Mg Tablet.) 81 mg PO DAILY [facility] Last Admin: 02/13/22 09:16 Dose: 81 mg Documented By: ELOY Atorvastatin Calcium (Atorvastatin Calcium 40 Mg Tablet) 40 mg PO DAILY [facility] Last Admin: 02/13/22 09:17 Dose: 40 mg Documented By: ELOY Carvedilol (Carvedilol 6.25 Mg Tablet) 6.25 mg PO BID [facility]; Protocol Last Admin: 02/13/22 09:17 Dose: 6.25 mg Documented By: ELOY Enoxaparin Sodium (Enoxaparin Sodium 40 Mg/0.4 Ml Syringe) 40 mg SUBCUT Q24H [facility] Last Admin: 02/13/22 05:06 Dose: 40 mg Documented By: MIKAELA Metronidazole (Flagyl) 500 mg in 100 mls @ 100 mls/hr IV Q8H [facility] Last Infusion: 02/13/22 09:12 Dose: 0 mls/hr Documented By: ELOY Ipratropium [place] (Ipratropium [place] 1 Puff/17 Mcg Inhaler) 1 puff INHALE Q4H PRN PRN Reason: Wheezing Last Admin: 02/11/22 06:16 Dose: 1 puff Documented By: BRYAN Levothyroxine Sodium (Levothyroxine Sodium 50 Mcg Tablet) 50 mcg PO MoTuWeThFrSa@0630 [facility] Last Admin: 02/12/22 05:59 Dose: 50 mcg Documented By: MIKAELA Levothyroxine Sodium (Levothyroxine Sodium 100 Mcg Tablet) 100 mcg PO Turner@0630 [facility] Last Admin: 02/13/22 09:16 Dose: 100 mcg Documented By: ELOY Morphine Sulfate (Morphine Sulfate 4 Mg/Ml Cartridge) 4 mg IVPUSH Q4H PRN; Protocol PRN Reason: Pain, Severe (Pain Scale 7-10) Last Admin: 02/13/22 05:07 Dose: 4 mg Documented By: MIKAELA Nortriptyline HCl (Nortriptyline Hcl 25 Mg Capsule) 50 mg PO BID [facility] Last Admin: 02/13/22 09:25 Dose: 50 mg Documented By: ELOY Ondansetron HCl (Ondansetron Hcl 4 Mg/2 Ml Vial) 4 mg IVPUSH Q8H PRN PRN Reason: Nausea and Vomiting Last Admin: 02/13/22 06:15 Dose: 4 mg Documented By: MIKAELA Sodium Chloride (0.9 % Sodium Chloride Flush 3 Ml Syringe) [facility] Last Admin: 02/13/22 09:26 Dose: 3 ml Documented By: ELOY Vancomycin HCl (Vancomycin Hcl 125 Mg Capsule) 500 mg PO Q6H [facility] Last Admin: 02/13/22 09:17 Dose: 500 mg Documented By: ELOY Labs CBC & Chem 7: 02/12/22 08:03 02/13/22 07:33 Labs: Laboratory Results - last 24 hr 02/13/22 07:33 Anion Gap 10 L Estim Creat Clear Calc 77.6 Estimated GFR > 60 Random Glucose 83 Calcium 7.7 L Total Bilirubin 0.4 AST 34 H ALT 16 Alkaline Phosphatase 104 Total Protein 4.4 L Albumin 2.7 L Assessment and Plan (1) Acute colitis: Status: Acute (2) Colitis: Status: Acute Plan 66-year-old female who presents to the hospital with weakness, as well as diarrhea found to have acute sepsis secondary to UTI as well as colitis 1. Acute colitis (C diff) -continue oral vancomycin and IV Flagyl pending normalization of stool - tolerating advanced diet 2.Sepsis(resolved) -? likely combination of UTI as well as colitis 3.Acute UTI -? failed outpatient therapy with Macrobid -? will treat with IV antibiotics -? follow cultures Full code Jitendra Will require ongoing hospitalization for IV antibiotics to treat colitis Time Spent With Patient Time: Total time managing care of this patient today ____ minutes. Quality Stroke Does the patient have a stroke diagnosis?: No VTE Prior VTE?: No VTE Risk Level:: Medical - moderate - high VTE Device Contraindication: Treatment Not Indicated VTE Drug Contraindication: N/A - Med Ordered
[2022-02-13 11:56] VITALS: BP 118/82; PULSE 75; RESP 20; TEMP 36.4; O2SAT 98
[2022-02-13 15:36] VITALS: BP 152/71; PULSE 80; RESP 18; TEMP 37; O2SAT 97
[2022-02-13 19:25] VITALS: BP 129/69; PULSE 82; RESP 18; TEMP 37.1; O2SAT 98
[2022-02-14] VITALS: RESP 16
[2022-02-14] MEDS: vancomycin HCL 125 MG CAPSULE 500 MG PO ×4 (01:48→21:06)
[2022-02-14 04:00] VITALS: BP 131/66; PULSE 82; RESP 18; TEMP 36.6; O2SAT 96
[2022-02-14] MEDS: Morphine Sulfate 4 MG/ML CARTRIDGE IVPUSH (04:26)
[2022-02-14] MEDS: Levothyroxine Sodium 50 MCG TABLET PO (05:07)
[2022-02-14] MEDS: Enoxaparin Sodium 40 MG/0.4 ML SYRINGE SUBCUT (05:07)
[2022-02-14] MEDS: metroNIDAZOLE/NS 500 MG/100 ML PIGGYBACK 100 MG IV ×3 (06:09→21:07)
[2022-02-14] MEDS: Nortriptyline HCl 25 MG CAPSULE 50 MG PO ×2 (07:39→21:06)
[2022-02-14] MEDS: carvediloL 6.25 MG TABLET PO ×2 (07:40→21:06)
[2022-02-14] MEDS: Aspirin Enteric Coated 81 MG TABLET.DR PO (07:40)
[2022-02-14] MEDS: Atorvastatin Calcium 40 MG TABLET PO (07:40)
[2022-02-14] MEDS: 0.9 % Sodium Chloride Flush 3 ML SYRINGE IVFLUSH ×2 (07:41→15:15)
[2022-02-14 07:51] VITALS: BP 150/70; PULSE 88; RESP 18; TEMP 36.2; O2SAT 98
[2022-02-14 11:23] VITALS: BP 139/63; PULSE 77; RESP 18; TEMP 36.7; O2SAT 96
--- NOTE | 2022-02-14 12:19 | P.PNIM_ITS ---
Subjective Subjective Date of Service: 02/14/22 Interval History: Admitted with C diff colitis; slowly responding to oral vancomycin Review of Systems Denies chest pain Denies shortness of breath Denies nausea vomiting admits diarrhea Denies fever chills Physical Exam Vital Signs: Vital Signs: Last Vital Signs Temp 98.0 F 02/14/22 11:23 Pulse 77 02/14/22 11:23 Resp 18 02/14/22 11:23 BP 139/63 02/14/22 11:23 Pulse Ox 96 02/14/22 11:23 O2 Del Method 02/14/22 11:23 BMI result Body Mass Index 17.3 Const: Other: No acute issues overnight HEENT: Other: Membranes moist Resp: Other: Clear to auscultation bilaterally no rales rhonchi or wheezes Cardio: Other: No S4; positive S1-S2; no S3 murmurs rubs or gallops GI: Other: Soft hyperactive bowel sounds. No overt peritoneal signs Extrem: Other: No edema bilaterally Objective Data Active Medications Acetaminophen (Acetaminophen 325 Mg Tablet) 650 mg PO Q6H PRN PRN Reason: Pain, Mild (Pain Scale 1-3) Aspirin (Aspirin Enteric Coated 81 Mg Tablet.) 81 mg PO DAILY [facility] Last Admin: 02/14/22 07:40 Dose: 81 mg Documented By: SALLY Atorvastatin Calcium (Atorvastatin Calcium 40 Mg Tablet) 40 mg PO DAILY [facility] Last Admin: 02/14/22 07:40 Dose: 40 mg Documented By: SALLY Carvedilol (Carvedilol 6.25 Mg Tablet) 6.25 mg PO BID [facility]; Protocol Last Admin: 02/14/22 07:40 Dose: 6.25 mg Documented By: SALLY Enoxaparin Sodium (Enoxaparin Sodium 40 Mg/0.4 Ml Syringe) 40 mg SUBCUT Q24H [facility] Last Admin: 02/14/22 05:07 Dose: 40 mg Documented By: MIKAELA Metronidazole (Flagyl) 500 mg in 100 mls @ 100 mls/hr IV Q8H [facility] Last Infusion: 02/14/22 07:44 Dose: 0 mls/hr Documented By: SALLY Ipratropium [place] (Ipratropium [place] 1 Puff/17 Mcg Inhaler) 1 puff INHALE Q4H PRN PRN Reason: Wheezing Last Admin: 02/11/22 06:16 Dose: 1 puff Documented By: JEYRISTerry Levothyroxine Sodium (Levothyroxine Sodium 50 Mcg Tablet) 50 mcg PO MoTuWeThFrSa@0630 [facility] Last Admin: 02/14/22 05:07 Dose: 50 mcg Documented By: MIKAELA Levothyroxine Sodium (Levothyroxine Sodium 100 Mcg Tablet) 100 mcg PO Turner@0630 [facility] Last Admin: 02/13/22 09:16 Dose: 100 mcg Documented By: ELOY Nortriptyline HCl (Nortriptyline Hcl 25 Mg Capsule) 50 mg PO BID [facility] Last Admin: 02/14/22 07:39 Dose: 50 mg Documented By: SALLY Ondansetron HCl (Ondansetron Hcl 4 Mg/2 Ml Vial) 4 mg IVPUSH Q8H PRN PRN Reason: Nausea and Vomiting Last Admin: 02/13/22 06:15 Dose: 4 mg Documented By: MIKAELA Sodium Chloride (0.9 % Sodium Chloride Flush 3 Ml Syringe) 3 ml IVFLUSH QSHIFT [facility] Last Admin: 02/14/22 07:41 Dose: 3 ml Documented By: SALLY Vancomycin HCl (Vancomycin Hcl 125 Mg Capsule) 500 mg PO Q6H [facility] Last Admin: 02/14/22 07:40 Dose: 500 mg Documented By: SALLY Labs CBC & Chem 7: 02/12/22 08:03 02/13/22 07:33 Microbiology Microbiology Results: Microbiology 02/08/22 17:08 Blood Culture - Final Blood - Venous No growth after 5 days. 02/08/22 17:08 Blood Culture - Final Blood - Venous No growth after 5 days. Assessment and Plan (1) Acute colitis: Status: Acute (2) UTI (urinary tract infection): Status: Acute Plan 66-year-old female who presents to the hospital with weakness, as well as diarrhea found to have acute sepsis secondary to UTI as well as colitis 1. Acute colitis (C diff) -continue oral vancomycin and IV Flagyl pending normalization of stool - tolerating advanced diet... No increase in stool 2.Sepsis(resolved) -? likely combination of UTI as well as colitis 3.Acute UTI -? failed outpatient therapy with Macrobid -? will treat with IV antibiotics -? follow cultures Full code Jitendra Will require ongoing hospitalization for IV antibiotics to treat colitis Time Spent With Patient Time: Total time managing care of this patient today ____ minutes. Quality Stroke Does the patient have a stroke diagnosis?: No VTE Prior VTE?: No VTE Risk Level:: Medical - moderate - high VTE Device Contraindication: Treatment Not Indicated VTE Drug Contraindication: N/A - Med Ordered
--- NOTE | 2022-02-14 13:53 | MHC.CM.PN ---
PLAN IS HOME BY FRIDAY 02/16 CM FOLLOWING FOR ANY DC NEEDS.
--- NOTE | 2022-02-14 15:31 | MHC.CLN ---
F/U DIET ADVANCED TO REGUALR 02/12. APPEARS TO BE TOLERATING DIET. VARIABLE INTAKE WITH AVERAGE INTAKE 50%. FOLLOW FOR INTAKE AND DIET TOLERANCE.
[2022-02-14 15:37] VITALS: BP 128/74; PULSE 81; RESP 20; TEMP 36.2; O2SAT 81
[2022-02-14 19:23] VITALS: BP 150/68; PULSE 86; RESP 20; TEMP 35.9; O2SAT 97
--- NOTE | 2022-02-14 23:57 | PM.EVENT ---
Event Note Date of Service: 02/14/22 Event Note: reported rash on bilateral arms at about 11pm, non pruritic, no new meds tonight, will give benadryl, Time Spent With Patient Time: Total time managing care of this patient today ____ minutes.
[2022-02-15] VITALS: BP 145/70; PULSE 75; RESP 18; TEMP 36.3; O2SAT 97
[2022-02-15] MEDS: vancomycin HCL 125 MG CAPSULE 500 MG PO ×4 (00:37→19:27)
[2022-02-15] MEDS: diphenhydrAMINE HCL 50 MG/ML VIAL 25 MG IVPUSH (00:37)
[2022-02-15 04:00] VITALS: BP 159/76; PULSE 85; RESP 18; TEMP 36.4; O2SAT 99
[2022-02-15] MEDS: 0.9 % Sodium Chloride Flush 3 ML SYRINGE IVFLUSH ×4 (05:37→23:40)
[2022-02-15] MEDS: Acetaminophen 325 MG TABLET 650 MG PO ×2 (06:11→19:28)
[2022-02-15] MEDS: Enoxaparin Sodium 40 MG/0.4 ML SYRINGE SUBCUT (06:11)
[2022-02-15] MEDS: metroNIDAZOLE/NS 500 MG/100 ML PIGGYBACK 100 MG IV ×3 (06:11→23:40)
[2022-02-15] MEDS: Levothyroxine Sodium 50 MCG TABLET PO (06:12)
[2022-02-15 06:14] LABS: Hematocrit 31.3 % (37.0-47.0); Hemoglobin 10.9 g/dl (12.0-16.0); Mean Corpuscular HGB Conc 34.8 g/dl (31.0-35.0); Mean Corpuscular Hemoglobin 33.4 pg (27.0-33.0); Mean Platelet Volume 10.1 fL (9.4-12.3); Platelet Count 138 X10*3/uL (160-400); Red Blood Count 3.26 X10*6/uL (4.20-5.50); White Blood Count 3.3 X10*3/uL (4.8-10.8)
[2022-02-15 06:32] LABS: Alanine Aminotransferase 16 U/L (0-31); Albumin Level 2.9 g/dL (3.5-5.0); Alkaline Phosphatase 99 U/L (39-117); Anion Gap 13 (12-20); Aspartate Amino Transferase 33 U/L (5-31); Bilirubin Total 0.3 mg/dL (0.0-1.0); Blood Urea Nitrogen < 3 mg/dL (9-16); Carbon Dioxide 23 mmol/L (22-29); Chloride 101 mmol/L (96-108); Creatinine Clr Calc Pharmacy 77.6; Estimated Glomerular Filt Rate > 60; Glucose Fasting 91 mg/dL (60-99); Sodium 134 mmol/L (135-145); Total Protein 4.9 g/dL (6.5-8.0)
[2022-02-15] MEDS: Nortriptyline HCl 25 MG CAPSULE 50 MG PO ×2 (07:48→20:41)
[2022-02-15] MEDS: Aspirin Enteric Coated 81 MG TABLET.DR PO (07:48)
[2022-02-15] MEDS: Atorvastatin Calcium 40 MG TABLET PO (07:49)
[2022-02-15] MEDS: carvediloL 6.25 MG TABLET PO ×2 (07:49→20:41)
[2022-02-15 08:00] VITALS: BP 141/82; PULSE 82; RESP 18; TEMP 36; O2SAT 99
--- NOTE | 2022-02-15 08:35 | P.PNIM_ITS ---
Subjective Subjective Date of Service: 02/15/22 Interval History: Patient reports overall she is doing better, she feels as if she has energy and would like to ambulate with PT. She reports that she is increasing her fluid intake however still not eating to much solid foods. She reports that her stools are now more formed. Review of Systems A complete 12 point review of systems has been performed and is negative if not noted in HPI Physical Exam Vital Signs: Vital Signs: Last Vital Signs Temp 96.8 F 02/15/22 08:00 Pulse 82 02/15/22 08:00 Resp 18 02/15/22 08:00 BP 141/82 H 02/15/22 08:00 Pulse Ox 99 02/15/22 08:00 O2 Del Method 02/15/22 08:00 BMI result Body Mass Index 17.3 Const: Other: General: Appears stated age, in no acute distress, answers questions accurately and appropriately, observed sitting up in bed. Skin: Patient noted to have fading rash to bilateral upper arms, nonpruritic Respiratory: Lungs CTAB, no rales/rhonchi, no expiratory/inspiratorywheezing, Cardiac: Regular rhythm, no rubs, gallops, murmurs or clicks. No JVD/carotid bruits. Abdomen: Soft, non-distended, hyper active bowel sounds noted throughout Extremities: No pedal edema, no tenderness or redness noted on exam Neuro: Alert and oriented x3 Psych: Mood appropriate, no agitation /restlessness noted. Objective Data Active Medications Acetaminophen (Acetaminophen 325 Mg Tablet) 650 mg PO Q6H PRN PRN Reason: Pain, Mild (Pain Scale 1-3) Last Admin: 02/15/22 06:11 Dose: 650 mg Documented By: SASCHAJ Aspirin (Aspirin Enteric Coated 81 Mg Tablet.) 81 mg PO DAILY [facility] Last Admin: 02/15/22 07:48 Dose: 81 mg Documented By: JALEN Atorvastatin Calcium (Atorvastatin Calcium 40 Mg Tablet) 40 mg PO DAILY [facility] Last Admin: 02/15/22 07:49 Dose: 40 mg Documented By: JALEN Carvedilol (Carvedilol 6.25 Mg Tablet) 6.25 mg PO BID [facility]; Protocol Last Admin: 02/15/22 07:49 Dose: 6.25 mg Documented By: JALEN Enoxaparin Sodium (Enoxaparin Sodium 40 Mg/0.4 Ml Syringe) 40 mg SUBCUT Q24H [facility] Last Admin: 02/15/22 06:11 Dose: 40 mg Documented By: HERB Metronidazole (Flagyl) 500 mg in 100 mls @ 100 mls/hr IV Q8H [facility] Last Infusion: 02/15/22 07:23 Dose: 0 mls/hr Documented By: JALEN Ipratropium [place] (Ipratropium [place] 1 Puff/17 Mcg Inhaler) 1 puff INHALE Q4H PRN PRN Reason: Wheezing Last Admin: 02/11/22 06:16 Dose: 1 puff Documented By: ODSANKET Levothyroxine Sodium (Levothyroxine Sodium 50 Mcg Tablet) 50 mcg PO MoTuWeThFrSa@30 [facility] Last Admin: 02/15/22 06:12 Dose: 50 mcg Documented By: HERB Levothyroxine Sodium (Levothyroxine Sodium 100 Mcg Tablet) 100 mcg PO Turner@30 [facility] Last Admin: 02/13/22 09:16 Dose: 100 mcg Documented By: ELOY Nortriptyline HCl (Nortriptyline Hcl 25 Mg Capsule) 50 mg PO BID [facility] Last Admin: 02/15/22 07:48 Dose: 50 mg Documented By: JALEN Ondansetron HCl (Ondansetron Hcl 4 Mg/2 Ml Vial) 4 mg IVPUSH Q8H PRN PRN Reason: Nausea and Vomiting Last Admin: 02/13/22 06:15 Dose: 4 mg Documented By: MIKAELA Potassium Chloride (Potassium Chloride Er 20 Meq Tab.Er.Prt) 40 meq PO ONCE ONE Stop: 02/15/22 08:34 Sodium Chloride (0.9 % Sodium Chloride Flush 3 Ml Syringe) 3 ml IVFLUSH QSHIFT [facility] Last Admin: 02/15/22 07:49 Dose: 3 ml Documented By: JALEN Vancomycin HCl (Vancomycin Hcl 125 Mg Capsule) 500 mg PO Q6H [facility] Last Admin: 02/15/22 07:49 Dose: 500 mg Documented By: JALEN Labs CBC & Chem 7: 02/15/22 05:20 02/15/22 05:20 Labs: Laboratory Results - last 24 hr 02/15/22 02/15/22 05:20 05:20 MCV 96.0 MCH 33.4 H MCHC 34.8 RDW 13.0 Plt Count 138 L MPV 10.1 Absolute Nucleated RBC 0.000 Nucleated RBC % (auto) 0.0 Anion Gap 13 Estim Creat Clear Calc 77.6 Estimated GFR > 60 Fasting Glucose 91 Calcium 8.0 L Total Bilirubin 0.3 AST 33 H ALT 16 Alkaline Phosphatase 99 Total Protein 4.9 L Albumin 2.9 L Assessment and Plan (1) Colitis: Status: Acute (2) Hypokalemia: Status: Acute Plan Acute colitis - Admitted with c-diff colitis - Currently on p.o Vanco & IV Flagyl, - Diet recently advanced, she is tolerating well, she denies increased stools and reports stools are starting to become formed - Denies nausea, vomiting. - Repeat labs in a.m. Hypokalemia - K+ today noted to be 3.3. Repleted. - Recheck in a.m. Generalized weakness - Patient continues to report generalized weakness. - She is requesting to ambulate in the room. PT eval requested. Precautions. History of UTI - Review of chart shows that patient was recently prescribed Macrobid. - Urinalysis obtained which was negative for acute infection. Sepsis -Currently resolved Hypothyroidism -levothyroxine. DVT prophylaxis -Lovenox Patient is a FULL CODE HCP/person to contact is Brionna Alex, Case and plan discussed with Dr Agustin Dickson Quality Stroke Does the patient have a stroke diagnosis?: No VTE Prior VTE?: No VTE Risk Level:: Medical - moderate - high VTE Device Contraindication: Treatment Not Indicated VTE Drug Contraindication: N/A - Med Ordered
[2022-02-15] MEDS: Potassium Chloride ER 20 MEQ TAB.ER.PRT 40 MEQ PO (09:56)
[2022-02-15 12:00] VITALS: BP 150/73; PULSE 75; RESP 18; TEMP 36.6; O2SAT 100
[2022-02-15 14:27] VITALS: BP 150/73; PULSE 75; O2SAT 100
--- NOTE | 2022-02-15 14:52 | MHC.CM.PN ---
PLAN IS HOME BY SATURDAY 02/17 P.T. RECOMMENDS HOME WITH SERVICES. REFERRAL PLACED TO [facility]
[2022-02-15 15:25] VITALS: BP 153/75; PULSE 80; RESP 16; TEMP 36.8; O2SAT 97
[2022-02-16] VITALS: BP 146/79; PULSE 105; RESP 18; TEMP 36.5; O2SAT 97
[2022-02-16] MEDS: vancomycin HCL 125 MG CAPSULE 500 MG PO ×3 (02:58→13:29)
[2022-02-16 04:00] VITALS: BP 135/73; PULSE 84; RESP 18; TEMP 36.4; O2SAT 98
[2022-02-16] MEDS: Levothyroxine Sodium 50 MCG TABLET PO (06:16)
[2022-02-16] MEDS: metroNIDAZOLE/NS 500 MG/100 ML PIGGYBACK 100 MG IV ×2 (06:16→13:29)
[2022-02-16 06:18] LABS: Hematocrit 35.1 % (37.0-47.0); Hemoglobin 12.1 g/dl (12.0-16.0); Mean Corpuscular HGB Conc 34.5 g/dl (31.0-35.0); Mean Corpuscular Hemoglobin 33.5 pg (27.0-33.0); Mean Corpuscular Volume 97.2 fL (80.0-98.0); Mean Platelet Volume 10.1 fL (9.4-12.3); Platelet Count 184 X10*3/uL (160-400); Red Blood Count 3.61 X10*6/uL (4.20-5.50); Red Cell Distribution Width 13.2 % (11.0-16.0); White Blood Count 3.9 X10*3/uL (4.8-10.8)
[2022-02-16] MEDS: Enoxaparin Sodium 40 MG/0.4 ML SYRINGE SUBCUT (06:22)
[2022-02-16 06:38] LABS: Alanine Aminotransferase 17 U/L (0-31); Albumin Level 3.2 g/dL (3.5-5.0); Alkaline Phosphatase 100 U/L (39-117); Anion Gap 15 (12-20); Aspartate Amino Transferase 35 U/L (5-31); Bilirubin Total 0.3 mg/dL (0.0-1.0); Blood Urea Nitrogen < 3 mg/dL (9-16); Calcium 8.3 mg/dL (8.4-10.2); Carbon Dioxide 20 mmol/L (22-29); Chloride 99 mmol/L (96-108); Creatinine Clr Calc Pharmacy 71.9; Estimated Glomerular Filt Rate > 60; Glucose Fasting 73 mg/dL (60-99); Glucose Random 73 mg/dL (60-115); Potassium 4.1 mmol/L (3.3-5.1); Sodium 130 mmol/L (135-145); Total Protein 5.6 g/dL (6.5-8.0)
[2022-02-16 08:00] VITALS: BP 139/76; PULSE 105; RESP 18; TEMP 36; O2SAT 98
[2022-02-16] MEDS: Atorvastatin Calcium 40 MG TABLET PO (08:34)
[2022-02-16] MEDS: 0.9 % Sodium Chloride Flush 3 ML SYRINGE IVFLUSH (08:35)
[2022-02-16] MEDS: Nortriptyline HCl 25 MG CAPSULE 50 MG PO (08:35)
[2022-02-16] MEDS: Aspirin Enteric Coated 81 MG TABLET.DR PO (08:35)
[2022-02-16] MEDS: carvediloL 6.25 MG TABLET PO (08:35)
[2022-02-16] MEDS: Acetaminophen 325 MG TABLET 650 MG PO (08:55)
[2022-02-16 10:15] VITALS: BP 139/76; PULSE 105; O2SAT 98
--- NOTE | 2022-02-16 10:34 | W.MHC.F2F ---
Service Date Service Date: 02/16/22 Encounter Date of encounter: 02/16/22 Reasons for Services Signs and symptoms assessed: Cdiff colitis, malnourishment Gross Deconditioning, Impaired Gait Pattern, Impaired Standing Balance,Muscle Weakness Reason for [facility]: medication management, medication treatment and teach disease management Reason for physical therapy: home safety and mobility, therapeutic exercises, gait/transfer training, assess need for DME, ADL training and energy conservation Overseeing Care: [facility] Homebound: Leaving the home is medically contraindicated at this time without the asist of a device and/or another person due th the listed conditions above and below. Reason homebound: unsteady gait / fall risk and weakness related to hospital stay Certification: Based on the above findings, I certify that this patient is confined to the home and needs intermittent [facility] care, physical therapy and/or speech therapy, or continues to need occupational therapy. The patient is under my care, and I have initiated the establishment of the plan of care. The patient will be followed by a physician who will periodically review the plan of care. Time Spent With Patient Time: Total time managing care of this patient today ____ minutes.
--- NOTE | 2022-02-16 10:46 | PM.DS ---
DS: Providers Provider Date of Service: 02/16/22 Date of admission: 02/09/22 05:03 Date of discharge: 02/16/22 Primary care physician: Kaiser Pina III, MD Consults: 02/10/22 07:27 Consult to Gastroenterology Stat Consulting Provider: Zackery Georges Reason for consultation: colitis Has provider been notified: Yes DS: Diagnosis Discharge Diagnosis (1) Colitis: Status: Acute (2) Hypokalemia: Status: Acute (3) Severe sepsis: Status: Acute (4) Lactic acidosis: Status: Acute (5) C. difficile colitis: Status: Acute (6) Moderate malnutrition: Status: Acute DS: Summary Hospital Course Hospital Course: from admission History and Physical by hospitalist Jeffrey Fuchs MD, 02/09/22: 66-year-old female with past medical history of colitis, hypertension, CVA, hypothyroidism, presents to the hospital with complaints of? diarrhea as well as generalized weakness.? Patient reports that every time she has colitis she feels significant? weakness. shes had symptoms started around 22:00 on day presentation, reports diffuse abdominal pain worse in the left quadrant, nausea with no vomiting, no fevers or chills.? patient reports that she was recently treated for UTI but is currently on her last does of the antibiotic.? Denies having any chest pain, no palpitations, and no lower extremity edema.? No headache or change in vision.? ?on arrival to the ED patient's blood pressure was found to be 77/38, heart rate of 102, patient received IV fluids, as well as IV antibiotics with improvement in her blood pressure.? Labs are significant for? WBC count of 6.3, D-dimer 1988, sodium of 131, creatinine of 1.25 with no previous for comparison, lactic acid of 3 point no improved with IV fluids, chills symptom 0.4, total bili of 1.5, AST of 40, ALT of 82, troponin negative, UA is still positive for leukocyte Estrace and some WBC, C diff shows positive gene, viral pathology pending ?CT of the abdomen shows colitis infectious versus ischemic ?patient started on antibiotics and will be admitted for further management She was admitted to the medical/surgical floor with gastroenterology consultation. Stool studies returned positive for C. difficile infection and she was treated with IV metronidazole and PO vancomycin for 5 days. Her symptoms resolved and her diet was advanced. Sepsis physiology resolved. Potassium was repleted. She was discharged home with 9 days of PO vancomycin. BMP should be repeated in 2 days. Home VNA/PT services were arranged. Time Spent with Patient Time attestation: Total time managing care of this patient today __35__ minutes. Discharge coordination time: Greater than 30 minutes Quality: Safe Use of Opioids Does Pt have an Active Cancer Diagnosis on the Problem List?: No Quality: Stroke Does the patient have a stroke diagnosis?: No Physical Exam Vital Signs: Vital Signs: Last Vital Signs Temp 96.8 F 02/16/22 08:00 Pulse 105 H 02/16/22 10:15 Resp 18 02/16/22 08:00 BP 139/76 02/16/22 10:15 Pulse Ox 98 02/16/22 10:15 O2 Del Method 02/16/22 08:00 BMI result Body Mass Index 17.3 Gen: in no acute distress, mild muscle wasting HEENT: sclera anicteric, moist mucus membranes Neck: supple Lungs: clear to auscultation bilaterally Heart: regular rate and rhythm, no murmurs Abd: soft, non-tender, non-distended Ext: no edema Skin: warm/well-perfused Neuro: alert and oriented x3, no focal findings Psych: appropriate affect DS: Data Data Completed and Pending Completed studies during hospitalization [Text1]: Laboratory Results WBC 3.9 X10*3/uL (4.8-10.8) L 02/16/22 05:20 RBC 3.61 X10*6/uL (4.20-5.50) L 02/16/22 05:20 Hgb 12.1 g/dl (12.0-16.0) 02/16/22 05:20 Hct 35.1 % (37.0-47.0) L 02/16/22 05:20 MCV 97.2 fL (80.0-98.0) 02/16/22 05:20 MCH 33.5 pg (27.0-33.0) H 02/16/22 05:20 MCHC 34.5 g/dl (31.0-35.0) 02/16/22 05:20 RDW 13.2 % (11.0-16.0) 02/16/22 05:20 Plt Count 184 X10*3/uL (160-400) D 02/16/22 05:20 MPV 10.1 fL (9.4-12.3) 02/16/22 05:20 Immature Gran % (Auto) Cancelled 02/10/22 08:03 Neut % (Auto) Cancelled 02/10/22 08:03 Lymph % (Auto) Cancelled 02/10/22 08:03 Hunt % (Auto) Cancelled 02/10/22 08:03 Eos % (Auto) Cancelled 02/10/22 08:03 Baso % (Auto) Cancelled 02/10/22 08:03 Lymph # (Auto) Cancelled 02/10/22 08:03 Hunt # (Auto) Cancelled 02/10/22 08:03 Eos # (Auto) Cancelled 02/10/22 08:03 Baso # (Auto) Cancelled 02/10/22 08:03 Abs Immat Gran (auto) Cancelled 02/10/22 08:03 Absolute Neuts (auto) Cancelled 02/10/22 08:03 Absolute Nucleated RBC 0.000 X10*3/uL (0.0-0.012) 02/16/22 05:20 Nucleated RBC % (auto) 0.0 /100WBC (0.0-0.2) 02/16/22 05:20 Neutrophils % (Manual) 69 % (45-73) 02/10/22 08:03 Band Neutrophils % 18 % (3-5) H 02/10/22 08:03 Lymphocytes % (Manual) 8 % (20-40) L 02/10/22 08:03 Monocytes % (Manual) 4 % (2-11) 02/10/22 08:03 Eosinophils % (Manual) 1 % (0-4) 02/10/22 08:03 Abs Neuts (Manual) 5.1 X10*3/uL (2.0-8.3) 02/10/22 08:03 Lymphocytes # (Manual) 0.5 X10*3/uL (1.2-4.9) L 02/10/22 08:03 Monocytes # (Manual) 0.2 X10*3/uL (0.1-1.2) 02/10/22 08:03 Eosinophils # (Manual) 0.1 X10*3/uL (0.0-0.4) 02/10/22 08:03 Platelet Estimate DECREASED (NORMAL) 02/10/22 08:03 Plt Morphology Comment NORMAL 02/10/22 08:03 RBC Morphology NORMAL 02/10/22 08:03 D-Dimer High Sensitivty 1988 NG/ML 02/08/22 17:08 Sodium 130 mmol/L (135-145) L 02/16/22 05:20 Potassium 4.1 mmol/L (3.3-5.1) D 02/16/22 05:20 Chloride 99 mmol/L (96-108) 02/16/22 05:20 Carbon Dioxide 20 mmol/L (22-29) L 02/16/22 05:20 Anion Gap 15 (12-20) 02/16/22 05:20 BUN < 3 mg/dL (9-16) L 02/16/22 05:20 Creatinine 0.54 mg/dL (0.5-1.4) 02/16/22 05:20 Estim Creat Clear Calc 71.9 02/16/22 05:20 Estimated GFR > 60 02/16/22 05:20 Random Glucose 73 mg/dL (60-115) 02/16/22 05:20 Fasting Glucose 73 mg/dL (60-99) 02/16/22 05:20 Lactic Acid 3.0 mmol/L (0.5-2.0) H* 02/08/22 17:08 Lactic Acid F/U @ 2Hr 3.2 mmol/L (0.5-2.0) H* 02/08/22 19:59 Lactic Acid F/U @ 4Hr 1.8 mmol/L (0.5-2.0) 02/08/22 23:56 Calcium 8.3 mg/dL (8.4-10.2) L 02/16/22 05:20 Total Bilirubin 0.3 mg/dL (0.0-1.0) 02/16/22 05:20 AST 35 U/L (5-31) H 02/16/22 05:20 ALT 17 U/L (0-31) 02/16/22 05:20 Alkaline Phosphatase 100 U/L (39-117) 02/16/22 05:20 Lactate Dehydrogenase 152 U/L (122-220) 02/09/22 07:04 Troponin I High Sens < 3.5 ng/L (<3.5-17.0) 02/08/22 17:08 Total Protein 5.6 g/dL (6.5-8.0) L 02/16/22 05:20 Albumin 3.2 g/dL (3.5-5.0) L 02/16/22 05:20 TSH 1.82 uIU/mL (0.32-4.0) 02/08/22 17:08 Urine Color Dark Yellow 02/09/22 01:16 Urine Appearance Clear 02/09/22 01:16 Urine pH 5.5 (5.0-9.0) 02/09/22 01:16 Ur Specific [place] >= 1.030 (1.005-1.025) H 02/09/22 01:16 Urine Protein Negative mg/dL (Neg-Trace) 02/09/22 01:16 Urine Glucose (UA) Negative mg/dL (Negative) 02/09/22 01:16 Urine Ketones Negative mg/dL (Negative) 02/09/22 01:16 Urine Blood Negative (Negative) 02/09/22 01:16 Urine Nitrite Negative (Negative) 02/09/22 01:16 Ur Leukocyte Esterase Trace (Negative) H 02/09/22 01:16 Urine RBC 0-2 /HPF (0-2) 02/09/22 01:16 Urine WBC 0-5 /HPF (0-5) 02/09/22 01:16 Ur Squamous Epith Cells 0-2 /HPF (0-2) 02/09/22 01:16 Urine Bacteria None Seen (None Seen) 02/09/22 01:16 Hyaline Casts 6-10 /LPF (0-2) 02/09/22 01:16 Stl C. cayetanensis PCR Not Detected (Not Detect.) 02/08/22 21:54 Stool Rotavirus A PCR Not Detected (Not Detect.) 02/08/22 21:54 Stl Adenov F 40/41 PCR Not Detected (Not Detect.) 02/08/22 21:54 Stool Astrovirus (PCR) Not Detected (Not Detect.) 02/08/22 21:54 Stool Campylobacter PCR Not Detected (Not Detect.) 02/08/22 21:54 Stool Cryptosporidium PCR Not Detected (Not Detect.) 02/08/22 21:54 Stl Sh Tox Pr E STEC PCR Not Detected (Not Detect.) 02/08/22 21:54 Stool E coli O157 PCR Not applicable (Not Detect.) 02/08/22 21:54 Stl Enterotoxigenic E PCR Not Detected (Not Detect.) 02/08/22 21:54 Stool EPEC (PCR) Not Detected (Not Detect.) 02/08/22 21: Stool EAEC (PCR) Not Detected (Not Detect.) 02/08/22:54 Stl E. histolytica PCR Not Detected (Not Detect.) 02/08/22 21:54 Stool Giardia Lamblia PCR Not Detected (Not Detect.) 02/08/22 21:54 Stl P. shigelloides PCR Not Detected (Not Detect.) 02/08/22 21: Stool Salmonella PCR Not Detected (Not Detect.) 02/08/22 21:54 Stool Sapovirus (PCR) Not Detected (Not Detect.) 02/08/22 21: Stl Shigella/EIEC PCR Not Detected (Not Detect.) 02/08/22: St Y.enterocolitica PCR Not Detected (Not Detect.) 02/08/22 21: Stool Vibrio (PCR) Not Detected (Not Detect.) 02/08/22 21: Stl Vibrio cholerae PCR Not Detected (Not Detect.) 02/08/22: Stl Norovirus GI/GII PCR Not Detected (Not Detect.) 02/08/22 21:54 Respiratory Panel [place] See Note 02/08/22 18:16 Adenovirus (Rapid PCR) Not Detected (Not Detect.) 02/08/22 18:16 B.pert (TEM-PCR) Not Detected (Not Detect.) 02/08/22 18:16 B.parapertussis DNA PCR Not Detected (Not Detect.) 02/08/22 18:16 C. pneumoniae DNA (PCR) Not Detected (Not Detect.) 02/08/22 18:16 C. difficile Tox B Gene POSITIVE (Negative) A* 02/08/22: C. difficile Toxin A&B Negative (Negative) 02/08/22 21: C. difficile Interpret SEE NOTE 02/08/22:54 Coronavirus OC43 (PCR) Not Detected (Not Detect.) 02/08/22 18:16 Coronavirus HKU1 (PCR) Not Detected (Not Detect.) 02/08/22 18:16 Coronavirus 229E (PCR) Not Detected (Not Detect.) 02/08/22 18:16 COVID-19 (MUSA) Negative (Negative) 02/09/22 06:16 COVID-19 Clin Com See Note 02/09/22 06:16 Coronavirus NL63 (PCR) Not Detected (Not Detect.) 02/08/22 18:16 Human Metapneumovir PCR Not Detected (Not Detect.) 02/08/22 18:16 Influenza A (RT-PCR) Not Detected (Not Detect.) 02/08/22 18:16 Influenza B (RT-PCR) Not Detected (Not Detect.) 02/08/22 18:16 M. pneumoniae (PCR) Not Detected (Not Detect.) 02/08/22 18:16 Parainfluenza 1 (PCR) Not Detected (Not Detect.) 02/08/22 18:16 Parainfluenza 2 (PCR) Not Detected (Not Detect.) 02/08/22 18:16 Parainfluenza 3 (PCR) Not Detected (Not Detect.) 02/08/22 18:16 Parainfluenza 4 (PCR) Not Detected (Not Detect.) 02/08/22 18:16 RSV (PCR) Not Detected (Not Detect.) 02/08/22 18:16 Entero/Rhino (PCR) Not Detected (Not Detect.) 02/08/22 18:16 SARS-CoV-2 RNA (RT-PCR) Not Detected (Not Detect.) 02/08/22 18:16 Impressions Chest X-Ray 02/08/22 17:49 IMPRESSION: Unremarkable examination. Abdomen/Pelvis CT 02/08/22 19:09 IMPRESSION: 1. Marked colitis involving the distal half of the transverse colon, splenic flexure and descending colon. Differential diagnosis would include infectious or ischemic colitis. No emboli are seen in the distal mesenteric branches. Arterial structures are extremely well seen and there is no need for a CT angiogram. 2. Incidental note made of tiny hepatic hypodensities consistent with small cysts, benign right renal cyst which needs no further imaging or follow-up, hysterectomy changes and severe degenerative changes in the spine with compression fractures. Fleischner guidelines were followed. Chest CTA 02/08/22 19:09 IMPRESSION: No evidence of pulmonary emboli. The study is limited by motion artifact. VTE: negative. Discharge Plan Discharge Anticipated Discharge Date/Time: 02/16/22 10:38 Patient Disposition: Home Health Service Discharge Diagnosis: sepsis due to C. difficile colitis, malnutrition Referrals: Kaiser Pina III, MD [Primary Care Provider] - 1 Week Discharge Medications: New vancomycin 125 mg Capsule 125 mg PO Q6H Qty: 36 0RF Continued atorvastatin 40 mg tablet 1 tab PO DAILY levothyroxine 50 mcg tablet 50 mcg PO MOTUWETHFRSA levothyroxine 50 mcg tablet 100 mcg PO NAZARIO carvedilol 6.25 mg tablet 1 tab PO BID aspirin 81 mg tablet,delayed release (DR/EC) 1 tab PO DAILY nortriptyline 50 mg capsule 1 cap PO BID Atrovent HFA 17 mcg/actuation HFA aerosol inhaler 17 mcg inhalation Q4H PRN (Reason: Wheezing) Discharge Orders: Discharge Order (Routine); Ordered 02/16/22 Ordered By: Jeet Salgado Diet: Advance to usual diet Activity on Discharge: As tolerated Stand Alone Forms: Patient Portal Discharge page Other Ambulatory Orders: Basic Metabolic Panel (Routine) Timeframe: 2 Days Facility: [facility] - Location: Laboratory Ordered By: Jeet Salgado Care Plan Goals: recovery from C. difficile infection Health Concerns: sepsis due to C. difficile colitis malnutrition Plan of Treatment: vancomycin 125 mg 4x a day for 9 days home VNA + PT services repeat BMP [lab] non-fasting on 02/18/22 increase protein intake Please follow up with your primary care doctor within 1 week. Return to the hospital if you experience recurrent or worsening symptoms. Assessment: See Discharge Summary.
[2022-02-16 11:10] VITALS: BP 105/65; PULSE 87; RESP 18; TEMP 36.1; O2SAT 99
--- NOTE | 2022-02-16 11:15 | MHC.CLN ---
F/U VARIABLE PO RANGING FROM 25-75% DIET RX: REGULAR-APPROPRIATE MONITOR PO INTAKE PT PENDING D/C TODAY
--- NOTE | 2022-02-16 11:46 | MHC.CM.PN ---
Addendum entered by Tosin Gasca RN 02/16/22 11:57: IMM 02/15 IN [facility] RECORDS B[facility] ON [facility] 3 Original Note: PATIENT IS DC HOME WITH NEW [facility] SERVICES RN AWARE OF PLAN.
== END 2022-02-16 15:44 | disposition home health service (06) | DRG 872 ==
LOC: HO.ED 02-09 01:31 → HO.EDOVER 02-09 05:14 → HO.S3 02-09 17:47
PROVIDERS: Hospitalist; Registered Nurse; Admitting Provider Internal Medicine; Emergency Provider Emergency Medicine; PCP Internal Medicine; Visit Provider Family Medicine
DX: A41.9 Sepsis, unspecified organism (principal); E44.0 Moderate protein-calorie malnutrition; Z68.1 Body mass index [BMI] 19.9 or less, adult; A04.72 Enterocolitis due to Clostridium difficile, not specified as recurrent; E03.9 Hypothyroidism, unspecified; I95.9 Hypotension, unspecified; I10 Essential (primary) hypertension; R65.20 Severe sepsis without septic shock; E87.6 Hypokalemia; Z20.822 Contact with and (suspected) exposure to COVID-19; Z87.440 Personal history of urinary (tract) infections; Z86.73 Personal history of transient ischemic attack (TIA), and cerebral infarction without residual deficits; Z79.52 Long term (current) use of systemic steroids; Z79.82 Long term (current) use of aspirin; Z79.890 Hormone replacement therapy; Z79.899 Other long term (current) drug therapy
CPT/HCPCS: 36415; 71045; 71275; 74177; 80048; 80053; 81001; 83605; 83615; 84443; 84484; 85007; 85025; 85027; 85379; 87040; 87324; 87493; 87507; 87633; 87635; 93005; 97110; 97116; 97162; 99285; C1758; J0696; J1200; J1650; J2270; J2405; J2543; J3370; Q9967

== ENCOUNTER 2022-02-18 08:59 | Emergency (ER) | payer MEDICARE, SELFPAY ==
--- NOTE | 2022-02-18 09:06 | ECG_ITS ---
Test Reason : sob Blood Pressure : / mmHG Vent. Rate : 101 BPM Atrial Rate : 101 BPM P-R Int : 166 ms QRS Dur : 076 ms QT Int : 360 ms P-R-T Axes : 074 096 078 degrees QTc Int : 466 ms Sinus tachycardia Possible Left atrial enlargement Rightward axis Cannot rule out Anterior infarct (cited on or before 08-FEB-2022) Abnormal ECG When compared with ECG of 08-FEB-2022 16:47, Questionable change in QRS axis Questionable change in initial forces of Anterolateral leads Referred By: Margret Damian Electronically Signed By:Hugh Michelle
[2022-02-18 09:17] VITALS: BP 159/89; PULSE 103; RESP 28; TEMP 36.5; O2SAT 100; BMI 17.9
[2022-02-18 09:40] VITALS: PULSE 104; RESP 32; TEMP 36.8; O2SAT 100
[2022-02-18 09:46] LABS: Basophils Percent Auto 0.6 % (0-2); Eosinophils Absolute Auto 0.3 X10*3/uL (0.0-0.4); Eosinophils Percent Auto 6.7 % (0-4); Hematocrit 37.6 % (37.0-47.0); Hemoglobin 12.4 g/dl (12.0-16.0); Imm Gran Abs Auto 0.09 X10*3/uL (0.00-0.03); Imm Gran Pct Auto 1.8 % (0.0-0.4); Lymphocytes Absolute Auto 0.7 X10*3/uL (1.2-4.9); Lymphocytes Percent Auto 13.9 % (20-40); MANUAL DIFF FLAG SCAN; Mean Corpuscular Hemoglobin 32.6 pg (27.0-33.0); Mean Corpuscular Volume 98.9 fL (80.0-98.0); Mean Platelet Volume 9.3 fL (9.4-12.3); Monocytes Absolute Auto 1.2 X10*3/uL (0.1-1.2); Monocytes Percent Auto 22.7 % (2-11); Neutrophils Absolute Auto 2.8 x10*3/uL (2.0-8.3); Neutrophils Percent Auto 54.3 % (45-73); Platelet Count 305 X10*3/uL (160-400); Red Cell Distribution Width 13.4 % (11.0-16.0); SCAN SMEAR FLAG 1; White Blood Count 5.1 X10*3/uL (4.8-10.8)
[2022-02-18 09:51] LABS: Prothrombin Time 11.8 SEC (10.0-13.1)
--- NOTE | 2022-02-18 09:55 | ED.SOB ---
HPI - SOB/Dyspnea General Chief Complaint: Dyspnea Stated Complaint: SOB,WEAKNESS Time Seen by Provider: 02/18/22 09:06 Source: patient Mode of arrival: EMS History of Present Illness HPI Narrative: 66-year-old female who presents via EMS with increased difficulty breathing for 1 day, denies fever, chills but states that she has recently been treated for C diff. Related Data Home Medications Medication Instructions Recorded Confirmed aspirin 81 mg tablet,delayed 1 tab PO DAILY 04/28/21 02/09/22 release carvedilol 6.25 mg tablet 1 tab PO BID 04/28/21 02/09/22 nortriptyline 50 mg capsule 1 cap PO BID 04/28/21 02/09/22 ipratropium bromide 17 17 mcg inhalation Q4H PRN Wheezing 04/29/21 02/09/22 mcg/actuation HFA aerosol inhaler (Atrovent HFA) atorvastatin 40 mg tablet 1 tab PO DAILY 02/09/22 02/09/22 levothyroxine 50 mcg tablet 50 mcg PO MOTUWETHFRSA 02/09/22 02/09/22 levothyroxine 50 mcg tablet 100 mcg PO NAZARIO 02/09/22 02/09/22 Previous Rx's Medication Instructions Recorded vancomycin 125 mg capsule 125 mg PO Q6H #36 caps 02/16/22 prednisone 50 mg tablet 50 mg PO DAILY 4 days #4 tabs 02/18/22 Allergies Allergy/AdvReac Type Severity Reaction Status Date / Time No Known Allergies Allergy Unverified 11/14/19 14:40 Review of Systems Review of Systems: Pertinent positives and negatives as stated in HPI 10 point review of systems otherwise negative. [facility] Past Medical History Source: nursing notes reviewed Medical History Colitis CVA (cerebral vascular accident) HTN (hypertension) Hypothyroidism Surgical History History of partial hysterectomy Family History Family History Other No family history of cerebrovascular accident (CVA) Social History Social History Household Members: None Housing: Apartment Do you presently have visiting nurse or other home services: No Alcohol intake: current Alcohol intake frequency: 0-2 drinks per day Alcohol type: wine Patient Tobacco Use Status: Never used Tobacco Advance Directives: Yes Advance Directives on File: Yes Advance Directives Date on File: 04/29/21 service: No Current occupational status: retired Physical Exam Vital Signs: Vital Signs: Last Vital Signs Temp 98.3 F 02/18/22 09:40 Pulse 107 H 02/18/22 12:56 Resp 17 02/18/22 12:56 BP 128/82 02/18/22 12:00 Pulse Ox 100 02/18/22 12:00 O2 Del Method 02/18/22 12:00 O2 Flow Rate 3 02/18/22 09:40 Oxygen Flow Rate 3 02/18/22 09:17 BMI result Body Mass Index 17.9 VITAL SIGNS: Reviewed. GENERAL: Well developed, well nourished, in no acute distress. HEAD: Normocephalic/atraumatic EYES: PERRLA, EOMI EARS: Ext canals without abnormality NOSE: Nares patent bilateral OROPHARYNX: no oral lesions noted, posterior pharynx clear NECK: Supple, no adenopathy LUNGS: Tachypneic, good inspiratory effort with decreased breath sounds in the left base and some scattered rhonchi with trace expiratory wheeze. SpO2<98> on room air CARDIOVASCULAR: Regular rate and rhythm without noted murmurs, no JVD or lower extremity edema. ABDOMEN: Soft, non-tender, non-distended with bowel sounds. MUSCULOSKELETAL: No tenderness, deformities, or effusions noted on gross inspection. EXTREMITIES: No cyanosis, clubbing or edema. SKIN: Inspection of the skin reveals no rashes NEUROLOGIC: Alert and oriented x 4. Strength and sensation to light touch were grossly intact x 4. Course Course Course Narrative: I reviewed all laboratory investigations which demonstrate an eosinophilia, no leukocytosis/left shift, BNP and troponin are within normal limits patient is afebrile and on re-evaluation endorse that she had childhood asthma as patient's current picture appears very consistent with asthma exacerbation. Patient received 2 DuoNeb treatments as well as steroids. Although there was gallbladder wall thickening observed on the ultrasound, there are no clinical findings or patient complaints that would be consistent with acute cholecystitis. 1435: On re-evaluation patient reports feeling much better and she will be discharged home in stable condition with a Ventolin inhaler and has a follow-up appointment with her primary care provider this coming at 13:30. Medications Administered Generic Name Dose Route Start Last Admin Trade Name Freq PRN Reason Stop Dose Admin Magnesium Sulfate 2 gm in 50 mls @ 25 mls/hr 02/18/22 12:42 02/18/22 13:45 Magnesium Sulfate/H2o IV 02/18/22 14:41 Infused ONCE ONE Infusion Discontinued Medications Generic Name Dose Route Start Last Admin Trade Name Freq PRN Reason Stop Dose Admin Albuterol Sulfate 7.5 mg/ 0 mg 02/18/22 11:42 02/18/22 12:15 Albuterol/Ipratropium 3 ml INHALE 02/18/22 11:43 0.5 each ONCE ONE Administration Albuterol Sulfate 7.5 mg/ 0 mg 02/18/22 12:42 02/18/22 12:55 Albuterol/Ipratropium 3 ml INHALE 02/18/22 12:43 0.5 each ONCE ONE Administration Iohexol 65 ml 02/18/22 10:54 02/18/22 10:54 Iohexol 350 Mg/Ml 100 Ml Infus..Btl IV 02/18/22 10:55 65 ml ONCE ONE Administration Methylprednisolone Sodium Succinate 125 mg 02/18/22 11:47 02/18/22 12:17 Methylprednisolone Sod Succ 125 Mg/2 Ml Vial IVPUSH 02/18/22 11:48 125 mg ONCE ONE Administration Medical Decision Making Medical Decision Making [facility] Narrative: 66-year-old female, appears with increased respiratory work without a respiratory history. There is no evidence of acute PE, with a combination of eosinophilia and the CT findings this is most suggestive an asthma like exacerbations though patient has no prior history and viral testing is negative. Will provide a DuoNeb treatment and give steroids. This CT reading also indicated gallbladder wall thickening but there is no leukocytosis/left shift/febrile and patient has no complaints of right upper quadrant pain. Differential Diagnosis Differential Diagnoses: The differential diagnosis associated with the presentation includes PE, pneumonia, viral Admission/Observation Consideration of admission/observation: Escalation of care including admission/observation considered I a.m. considering possible admission. 1436: I have decided against admission. Lab Data [facility] Lab Attestation statement: I reviewed the patient's lab results. Review of Hematology demonstrates an eosinophilia, viral testing is negative, patient remains tachypneic and tachycardic, she denies any prior respiratory symptoms or serous smoking but it is all findings are indicative of an acute asthma exacerbation. Result Diagrams: 02/18/22 09:35 02/18/22 09:35 Labs: Lab Results 02/18/22 02/18/22 02/18/22 Range/Units 09:35 09:35 09:35 WBC 5.1 (4.8-10.8) X10*3/uL RBC 3.80 L (4.20-5.50) X10*6/uL Hgb 12.4 (12.0-16.0) g/dl Hct 37.6 (37.0-47.0) % MCV 98.9 H (80.0-98.0) fL MCH 32.6 (27.0-33.0) pg MCHC 33.0 (31.0-35.0) g/dl RDW 13.4 (11.0-16.0) % Plt Count 305 D (160-400) X10*3/uL MPV 9.3 L (9.4-12.3) fL Immature Gran % (Auto) 1.8 H (0.0-0.4) % Neut % (Auto) 54.3 (45-73) % Lymph % (Auto) 13.9 L (20-40) % [place] % (Auto) 22.7 H (2-11) % Eos % (Auto) 6.7 H (0-4) % Baso % (Auto) 0.6 (0-2) % Lymph # (Auto) 0.7 L (1.2-4.9) X10*3/uL [place] # (Auto) 1.2 (0.1-1.2) X10*3/uL Eos # (Auto) 0.3 (0.0-0.4) X10*3/uL Baso # (Auto) 0.0 (0.0-0.2) X10*3/uL Abs Immat Gran (auto) 0.09 H (0.00-0.03) X10*3/uL Absolute Neuts (auto) 2.8 (2.0-8.3) x10*3/uL Absolute Nucleated RBC 0.000 (0.0-0.012) X10*3/uL Nucleated RBC % (auto) 0.0 (0.0-0.2) /100WBC Smear Tech's Comments VERIFIED PT 11.8 (10.0-13.1) SEC INR 1.0 (0.9-1.1) VBG pH (7.32-7.43) VBG pCO2 mmHg VBG pO2 mmHg VBG HCO3 (22-26) mmol/L VBG O2 Saturation % VBG Base Excess mmol/L Sodium 131 L (135-145) mmol/L Potassium 3.9 (3.3-5.1) mmol/L Chloride 99 (96-108) mmol/L Carbon Dioxide 22 (22-29) mmol/L Anion Gap 14 (12-20) BUN 5 L D (9-16) mg/dL Creatinine 0.55 (0.5-1.4) mg/dL Estim Creat Clear Calc 70.6 Estimated GFR > 60 Random Glucose 95 (60-115) mg/dL Calcium 8.9 D (8.4-10.2) mg/dL Total Bilirubin 0.3 (0.0-1.0) mg/dL AST 42 H (5-31) U/L ALT 20 (0-31) U/L Alkaline Phosphatase 97 (39-117) U/L Troponin I High Sens (<3.5-17.0) ng/L B-Natriuretic Peptide (<100) pg/mL Total Protein 6.7 (6.5-8.0) g/dL Albumin 3.9 (3.5-5.0) g/dL Influenza Type A (PCR) (Negative) Influenza Type B (PCR) (Negative) RSV RNA Qual (PCR) (Negative) SARS-CoV-2 RNA (RT-PCR) (Negative) 02/18/22 02/18/22 02/18/22 Range/Units 09:35 09:35 09:35 WBC (4.8-10.8) X10*3/uL RBC (4.20-5.50) X10*6/uL Hgb (12.0-16.0) g/dl Hct (37.0-47.0) % MCV (80.0-98.0) fL MCH (27.0-33.0) pg MCHC (31.0-35.0) g/dl RDW (11.0-16.0) % Plt Count (160-400) X10*3/uL MPV (9.4-12.3) fL Immature Gran % (Auto) (0.0-0.4) % Neut % (Auto) (45-73) % Lymph % (Auto) (20-40) % [place] % (Auto) (2-11) % Eos % (Auto) (0-4) % Baso % (Auto) (0-2) % Lymph # (Auto) (1.2-4.9) X10*3/uL [place] # (Auto) (0.1-1.2) X10*3/uL Eos # (Auto) (0.0-0.4) X10*3/uL Baso # (Auto) (0.0-0.2) X10*3/uL Abs Immat Gran (auto) (0.00-0.03) X10*3/uL Absolute Neuts (auto) (2.0-8.3) x10*3/uL Absolute Nucleated RBC (0.0-0.012) X10*3/uL Nucleated RBC % (auto) (0.0-0.2) /100WBC Smear Tech's Comments PT (10.0-13.1) SEC INR (0.9-1.1) VBG pH (7.32-7.43) VBG pCO2 mmHg VBG pO2 mmHg VBG HCO3 (22-26) mmol/L VBG O2 Saturation % VBG Base Excess mmol/L Sodium (135-145) mmol/L Potassium (3.3-5.1) mmol/L Chloride (96-108) mmol/L Carbon Dioxide (22-29) mmol/L Anion Gap (12-20) BUN (9-16) mg/dL Creatinine (0.5-1.4) mg/dL Estim Creat Clear Calc Estimated GFR Random Glucose (60-115) mg/dL Calcium (8.4-10.2) mg/dL Total Bilirubin (0.0-1.0) mg/dL AST (5-31) U/L ALT (0-31) U/L Alkaline Phosphatase (39-117) U/L Troponin I High Sens < 3.5 (<3.5-17.0) ng/L B-Natriuretic Peptide 61 (<100) pg/mL Total Protein (6.5-8.0) g/dL Albumin (3.5-5.0) g/dL Influenza Type A (PCR) NEGATIVE (Negative) Influenza Type B (PCR) NEGATIVE (Negative) RSV RNA Qual (PCR) NEGATIVE (Negative) SARS-CoV-2 RNA (RT-PCR) NEGATIVE (Negative) 02/18/22 Range/Units 09:41 WBC (4.8-10.8) X10*3/uL RBC (4.20-5.50) X10*6/uL Hgb (12.0-16.0) g/dl Hct (37.0-47.0) % MCV (80.0-98.0) fL MCH (27.0-33.0) pg MCHC (31.0-35.0) g/dl RDW (11.0-16.0) % Plt Count (160-400) X10*3/uL MPV (9.4-12.3) fL Immature Gran % (Auto) (0.0-0.4) % Neut % (Auto) (45-73) % Lymph % (Auto) (20-40) % [place] % (Auto) (2-11) % Eos % (Auto) (0-4) % Baso % (Auto) (0-2) % Lymph # (Auto) (1.2-4.9) X10*3/uL [place] # (Auto) (0.1-1.2) X10*3/uL Eos # (Auto) (0.0-0.4) X10*3/uL Baso # (Auto) (0.0-0.2) X10*3/uL Abs Immat Gran (auto) (0.00-0.03) X10*3/uL Absolute Neuts (auto) (2.0-8.3) x10*3/uL Absolute Nucleated RBC (0.0-0.012) X10*3/uL Nucleated RBC % (auto) (0.0-0.2) /100WBC Smear Tech's Comments PT (10.0-13.1) SEC INR (0.9-1.1) VBG pH 7.41 (7.32-7.43) VBG pCO2 32 mmHg VBG pO2 38 mmHg VBG HCO3 21 L (22-26) mmol/L VBG O2 Saturation 58.0 % VBG Base Excess -2.5 mmol/L Sodium (135-145) mmol/L Potassium (3.3-5.1) mmol/L Chloride (96-108) mmol/L Carbon Dioxide (22-29) mmol/L Anion Gap (12-20) BUN (9-16) mg/dL Creatinine (0.5-1.4) mg/dL Estim Creat Clear Calc Estimated GFR Random Glucose (60-115) mg/dL Calcium (8.4-10.2) mg/dL Total Bilirubin (0.0-1.0) mg/dL AST (5-31) U/L ALT (0-31) U/L Alkaline Phosphatase (39-117) U/L Troponin I High Sens (<3.5-17.0) ng/L B-Natriuretic Peptide (<100) pg/mL Total Protein (6.5-8.0) g/dL Albumin (3.5-5.0) g/dL Influenza Type A (PCR) (Negative) Influenza Type B (PCR) (Negative) RSV RNA Qual (PCR) (Negative) SARS-CoV-2 RNA (RT-PCR) (Negative) ABG Data Interpretation: I interpreted the VBG as pH and pCO2 within normal limits. Independent Interpretation I performed an independent interpretation of an: EKG Interpretation: Sinus tachycardia, HR-101, no STEMI, MI/QRS/QTC is within normal limits. Radiology Impression Radiologist Impression: My interpretation is in agreement with radiology's impression of no acute PE on CT angio, there is noted gallbladder wall thickening. External Record Review External record reviewed: Inpatient record and Prior outpatient labs D-dimer on last visit noted to be 1987. I will proceed with CT angio with PE protocol. Critical Care Time Critical Care Time Critical Care Time: Yes Total Critical Care Time: 45 Attestation: I personally attest to this time spent taking care of the patient. Discharge Plan Discharge Clinical Impression: Dyspnea, Asthma exacerbation Patient Disposition: Home, Self-Care Instructions: Asthma (ED), How to Use a Nebulizer (ED), Dyspnea (ED) Additional Instructions: 1. Resume all home medications as prescribed. 2. Complete the short course of steroids that you have been prescribed. 3. Follow-up with your primary care provider as scheduled on at 13:30. Recommend discussion regarding possible pulmonary referral. Prescriptions: New prednisone 50 mg tablet 50 mg PO DAILY 4 Days Qty: 4 0RF No Action atorvastatin 40 mg tablet 1 tab PO DAILY levothyroxine 50 mcg tablet 50 mcg PO MOTUWETHFRSA levothyroxine 50 mcg tablet 100 mcg PO NAZARIO vancomycin 125 mg Capsule 125 mg PO Q6H Qty: 36 0RF carvedilol 6.25 mg tablet 1 tab PO BID aspirin 81 mg tablet,delayed release (DR/EC) 1 tab PO DAILY nortriptyline 50 mg capsule 1 cap PO BID Atrovent HFA 17 mcg/actuation HFA aerosol inhaler 17 mcg inhalation Q4H PRN (Reason: Wheezing) Referrals: [facility], MD [Primary Care Provider] -
[2022-02-18 10:04] LABS: SLIDE REVIEW VERIFIED
[2022-02-18 10:09] LABS: Alanine Aminotransferase 20 U/L (0-31); Albumin Level 3.9 g/dL (3.5-5.0); Alkaline Phosphatase 97 U/L (39-117); Anion Gap 14 (12-20); Aspartate Amino Transferase 42 U/L (5-31); Bilirubin Total 0.3 mg/dL (0.0-1.0); Blood Urea Nitrogen 5 mg/dL (9-16); Calcium 8.9 mg/dL (8.4-10.2); Carbon Dioxide 22 mmol/L (22-29); Chloride 99 mmol/L (96-108); Creatinine Clr Calc Pharmacy 70.6; Estimated Glomerular Filt Rate > 60; Glucose Random 95 mg/dL (60-115); Potassium 3.9 mmol/L (3.3-5.1); Sodium 131 mmol/L (135-145); Total Protein 6.7 g/dL (6.5-8.0)
[2022-02-18 10:15] LABS: B Type Natriuretic Peptide 61 pg/mL (<100)
[2022-02-18 10:29] LABS: Troponin-I High Sensitivity < 3.5 ng/L (<3.5-17.0)
--- NOTE | 2022-02-18 10:30 | PC.NURSE ---
Recent admission for c diff, pt on abx at home. Coming from home for increased difficulty breathing. Pt tachypneic 30's
--- NOTE | 2022-02-18 10:33 | PC.NURSE ---
IV established, labs drawn and sent. CT scan at this time
[2022-02-18 10:38] LABS: Influenza A PCR NEGATIVE (Negative); Influenza B PCR NEGATIVE (Negative); Resp Syncy Virus RNA Qual PCR NEGATIVE (Negative); SARS COV2 PCR INHOUSE NEGATIVE (Negative)
[2022-02-18] MEDS: iohexoL 350 MG/ML 100 ML INFUS..BTL 65 ML IV (10:54)
[2022-02-18 11:44] VITALS: BP 147/84; PULSE 106; RESP 27; O2SAT 99
[2022-02-18 12:00] VITALS: BP 128/82; PULSE 103; RESP 14; O2SAT 100
[2022-02-18] MEDS: Albuterol Sulfate 7.5 MG, Albuterol/Iprat 2.5/0.5MG 3 ML 3 ML INHALE ×2 (12:15→12:55)
[2022-02-18 12:17] VITALS: PULSE 102; RESP 16; O2SAT 97
[2022-02-18] MEDS: methylPREDNISolone Sod Succ 125 MG/2 ML VIAL IVPUSH (12:17)
[2022-02-18 12:56] VITALS: PULSE 107; RESP 17; O2SAT 100
--- NOTE | 2022-02-18 12:57 | PC.NURSE ---
pt a&ox3, vss, reports improvement in breathing w treatments, medicated per provider order.
[2022-02-18] MEDS: Magnesium Sulfate/H2O 2 GM/50 ML PIGGYBACK IV (13:25)
--- NOTE | 2022-02-18 13:28 | PC.NURSE ---
medicated per provider order, pt resting comfortably, RR even and unlabored, pt denies pain at this time. no new orders at this time.
[2022-02-18] MEDS: Albuterol Sulfate 90 MCG 8 GM INHALER 2 PUFF INHALE (14:44)
== END 2022-02-18 14:51 | disposition home or self-care (01) ==
PROVIDERS: Emergency Provider Student in an Organized Health Care Education/Training Program; PCP Internal Medicine
DX: J45.901 Unspecified asthma with (acute) exacerbation (principal); R06.02 Shortness of breath; M54.2 Cervicalgia; R51.9 Headache, unspecified; Z20.822 Contact with and (suspected) exposure to COVID-19; Z79.899 Other long term (current) drug therapy
CPT/HCPCS: 0241U; 71275; 80053; 82803; 83880; 84484; 85025; 85610; 93005; 94640; 94664; 96365; 96375; 99285; J2930; J3475; Q9967

== ENCOUNTER 2023-11-13 17:47 | Inpatient (IN) | payer MEDICARE, SELFPAY ==
--- NOTE | ~2023-11-13 | XR_ITS ---
EXAMINATION: 1. CHEST X-RAY 2. RADIOGRAPHS LEFT HIP CLINICAL INFORMATION: Pain after fall COMPARISON: Chest x-ray February 08, 2022 TECHNIQUE: Frontal view of the chest and 2 views of the left hip were obtained. FINDINGS: Cardiac silhouette is normal in size. Lungs are well aerated. Subtle bibasilar linear opacities are most suggestive of atelectasis. There is no lobar consolidation. No pleural effusion or pneumothorax. Left hip: Minimally displaced intertrochanteric fracture of the left hip. Left femoral head remains well-seated within the acetabulum. There are only mild degenerative changes of the left femoral acetabular joint space noted. XR/XR chest 1V IMPRESSION: -Minimally displaced intertrochanteric fracture of the left hip. -No acute pulmonary pathology. Electronically signed by: Lico Noonan MD 11/13/2023 08:01 PM EDT
--- NOTE | ~2023-11-13 | CT_ITS ---
EXAMINATION: CT femur LT wo IV con INDICATION: To r/o hematoma of left thigh COMPARISON: Radiograph dated 11/13/2023 TECHNIQUE: Multidetector volumetric imaging was obtained to the left femur without intravenous contrast material. Multiplanar reformatted images in coronal and sagittal orientations were submitted. This CT examination was performed using dose optimization techniques as appropriate, variously including the following: *Automated exposure control *Adjustment of mA and/or kV according to patient size (this includes techniques or standardized protocols for targeted exams where dose is matched to indication/reason for exam; i.e. extremities or head) *Use of iterative reconstruction technique DLP: 336 mGy-cm FINDINGS: Short intramedullary nail with a femoral neck screw and a single distal interlocking screw appear appropriately positioned at the left proximal femur across the comminuted intertrochanteric fracture. Alignment is improved as compared to the preoperative images. There is an avulsed fragment from the lesser trochanter which is displaced anteromedially by 5 cm. No additional fracture is identified. Old healed left parasymphyseal pubic bone fracture is suspected. Minimal osteoarthritis in the left hip. Postoperative changes are evident in the soft tissues of the left thigh with subcutaneous gas extending between the lateral skin tiffany and the underlying femoral fracture and hardware. There is a multilobular hyperattenuating collection around the left gluteus medius muscle measuring approximately 6.5 x 2 x 3.5 cm, only partially imaged on this study. Smaller components extend into the adjacent fascial planes. There is a small hematoma around the retracted lesser trochanteric fragment by the left iliopsoas. There is a thin layer of blood products within the fascial plane superficial to the vastus lateralis. There is marked subcutaneous edema/fat stranding in the lateral aspect of the thigh within the region of patient's surgery. No well-defined superficial fluid collections are identified. CT/CT femur LT wo IV con IMPRESSION: 1. Status post ORIF of the comminuted left intertrochanteric fracture with improved alignment as compared to the preoperative images. 2. A 6.5 cm multilobular hematoma around the left gluteus medius muscle . 3. Small hematoma around the retracted lesser trochanteric fragment by the left iliopsoas. 4. Marked subcutaneous edema/fat stranding in the lateral aspect of the thigh within the region of patient's surgery. No appreciable superficial hematomas. Electronically signed by: Flash Ovalle MD 11/16/2023 11:34 PM EDT RP
--- NOTE | ~2023-11-13 | XR_ITS ---
EXAMINATION: 1. CHEST X-RAY 2. RADIOGRAPHS LEFT HIP CLINICAL INFORMATION: Pain after fall COMPARISON: Chest x-ray February 08, 2022 TECHNIQUE: Frontal view of the chest and 2 views of the left hip were obtained. FINDINGS: Cardiac silhouette is normal in size. Lungs are well aerated. Subtle bibasilar linear opacities are most suggestive of atelectasis. There is no lobar consolidation. No pleural effusion or pneumothorax. Left hip: Minimally displaced intertrochanteric fracture of the left hip. Left femoral head remains well-seated within the acetabulum. There are only mild degenerative changes of the left femoral acetabular joint space noted. XR/XR hip LT w [id number] IMPRESSION: -Minimally displaced intertrochanteric fracture of the left hip. -No acute pulmonary pathology. Electronically signed by: Lico Noonan MD 11/13/2023 08:01 PM EDT
--- NOTE | ~2023-11-13 | XR_ITS ---
EXAMINATION: XR CHEST CLINICAL INFORMATION: Tachycardia. COMPARISON: November 13, 2023. TECHNIQUE: Frontal view of the chest was obtained. FINDINGS: The cardiomediastinal silhouette is stable. There is no focal lung consolidation or pleural effusions. The bony structures and soft tissues are unremarkable. XR/XR chest 1V IMPRESSION: No acute cardiopulmonary disease. Electronically signed by: Tadeo Benson MD 11/15/2023 01:27 AM EDT
[2023-11-13 18:00] VITALS: BP 126/82; BP 128/75; PULSE 95; PULSE 98; RESP 18; TEMP 36.4; O2SAT 95; O2SAT 98; BMI 19.9
--- NOTE | 2023-11-13 18:06 | ED.FALL ---
HPI - Fall General Chief Complaint: [facility] & reduced ROM, no LOC Time Seen by Provider: 11/13/23 17:50 Source: patient and EMS Mode of arrival: EMS Limitations: no limitations History of Present Illness ED Provider: MATI KEYS Narrative: 68 yo female with PMH of asthma, prior stroke with gait instability on 81mg aspirin daily, hypothyroidism, HTN, c diff here with c/o L hip pain s/p mechanical fall no headstrike or LOC crawled and her neighbor heard her right away. At this time she c/o L hip pain EMS gave IV fentanyl with some relief. She has pain when she moves the L leg or hip. No prior fracture or injury to that area. Denies any other injuries MD complaint: fall Onset (ago): hour(s) (1) Fall from: standing Fall witnessed: no Place fall occurred: home Loss of consciousness: none Prolonged down time: no Symptoms prior to fall: none Context: tripped/slipped Location of injury: pelvis Severity: moderate Quality: aching Associated symptoms (after fall): denies Related Data Home Medications ?Medication ?Instructions ?Recorded ?Confirmed aspirin 81 mg tablet,delayed 1 tab PO DAILY 04/28/21 02/09/22 release carvedilol 6.25 mg tablet 1 tab PO BID 04/28/21 02/09/22 nortriptyline 50 mg capsule 1 cap PO BID 04/28/21 02/09/22 ipratropium bromide 17 17 mcg inhalation Q4H PRN Wheezing 04/29/21 02/09/22 mcg/actuation HFA aerosol inhaler (Atrovent HFA) atorvastatin 40 mg tablet 1 tab PO DAILY 02/09/22 02/09/22 levothyroxine 50 mcg tablet 50 mcg PO MOTUWETHFRSA 02/09/22 02/09/22 levothyroxine 50 mcg tablet 100 mcg PO NAZARIO 02/09/22 02/09/22 Previous Rx's ?Medication ?Instructions ?Recorded vancomycin 125 mg capsule 125 mg PO Q6H #36 caps 02/16/22 prednisone 50 mg tablet 50 mg PO DAILY 4 days #4 tabs 02/18/22 Allergies Allergy/AdvReac Type Severity Reaction Status Date / Time No Known Allergies Allergy Verified 11/13/23 18:05 Review of Systems Review of Systems: Constitutional : No Fever, No Chills ENT/Mouth : No Ear Pain, No Hoarseness, No sore throat Eyes: No Eye Pain, No Swelling, No Redness, No Foreign Body Cardiovascular : No Chest Pain, No SOB Respiratory : No Cough, No Dyspnea Gastrointestinal : No Nausea, No Vomiting, No Diarrhea, No abdominal Pain Genitourinary : No Dysuria, No Hematuria Musculoskeletal : positive joint pain, No Myalgias, pos Joint Swelling Skin : No Skin lacerations, No rash Neuro : No Weakness, No Numbness, No Loss of Consciousness, No Dizziness, No Headache All other systems reviewed and are negative [facility] Past Medical History Attestation statement: The following information was validated with the patient. Source: old records reviewed Medical History Hypothyroidism Colitis HTN (hypertension) CVA (cerebral vascular accident) Surgical History History of partial hysterectomy Family History Family History Other No family history of cerebrovascular accident (CVA) Social History Social History Household Members: None Housing: Apartment Do you presently have visiting nurse or other home services: No Alcohol intake: current Alcohol intake frequency: 0-2 drinks per day Alcohol type: wine Patient Tobacco Use Status: Never used Tobacco Smoked in Last 30 Days: No Use of substances other than those prescribed or required for medical reasons: No Advance Directives: Yes Advance Directives on File: Yes Advance Directives Date on File: 04/29/21 Do you have a plan to hurt others: No Plan service: No Current occupational status: retired Physical Exam Vital Signs: Vital Signs: Last Vital Signs Temp 97.6 F 11/13/23 18:00 Pulse 96 11/13/23 19:40 Resp 12 11/13/23 19:40 BP 109/71 11/13/23 19:40 Pulse Ox 98 11/13/23 19:40 O2 Del Method Room Air 11/13/23 19:40 BMI result Body Mass Index 19.9 Appearance: Alert. Oriented X3. No acute distress. Eyes: Pupils equal, round and reactive to light. ENT: Pharynx normal. atraumatic Neck: Normal inspection. Neck supple. CVS: Normal heart rate and rhythm. Pulses normal. Respiratory: No respiratory distress. Breath sounds normal. Abdomen: Soft and nontender. Skin: Skin warm and dry. Normal skin color. Normal skin turgor. Extremities: No lower extremity edema. L leg shortened and ext rotated - distal NV intact Neuro: Oriented X 3. No motor deficit. No sensory deficit. Course Course Course Narrative: EKG is longer than it looks on EKG IV magnesium ordered mor than 50% of the interval suspect error in comp reading Medications Administered Generic Name Dose Route Start Last Admin Trade Name Freq PRN Reason Stop Dose Admin Magnesium Sulfate 2 gm in 50 mls @ 25 mls/hr 11/13/23 19:06 11/13/23 19:35 Magnesium Sulfate/H2o IV 11/13/23 21:05 25 mls/hr ONCE ONE Administration Sodium Chloride 1,000 mls @ 80 mls/hr 11/13/23 19:30 11/13/23 19:35 Ns IVCONT 80 mls/hr .[id number] JONO Administration Discontinued Medications Generic Name Dose Route Start Last Admin Trade Name Freq PRN Reason Stop Dose Admin Morphine Sulfate 4 mg 11/13/23 19:06 11/13/23 19:35 Morphine Sulfate 4 Mg/Ml Cartridge IVPUSH 11/13/23 19:07 4 mg ONCE ONE Administration Protocol Medical Decision Making Medical Decision Making [facility] Narrative: 68 yo female with PMH of asthma, prior stroke with gait instability on 81mg aspirin daily, hypothyroidism, HTN, c diff here with c/o trip and fall no headstrike not on thinners not on floor for long L leg is shortened and rotated. At this time xrays of L hip, PRN IV morphine for pain, xray of L hip and CXR, denies head strike or prolonged down time. Differential Diagnosis Differential Diagnoses: The differential diagnosis associated with the presentation includes hip fracture, fall, anemia Admission/Observation Consideration of admission/observation: Escalation of care including admission/observation considered admit for further management of L hip injury Consult Healthcare Provider Management of the patient was discussed with: Hospitalist (will admit) and Bulk Filler (French gomez - NPO at midnight) Lab Data [facility] Lab Attestation statement: I reviewed the patient's lab results. 11/13/23 18:56 11/13/23 18:56 Labs: Lab Results 11/13/23 Range/Units 18:56 WBC 9.5 (4.8-10.8) X10*3/uL RBC 2.87 L D (4.20-5.50) X10*6/uL Hgb 10.3 L (12.0-16.0) g/dl Hct 29.2 L D (37.0-47.0) % MCV 101.7 H (80.0-98.0) fL MCH 35.9 H (27.0-33.0) pg MCHC 35.3 H (31.0-35.0) g/dl RDW 12.7 (11.0-16.0) % Plt Count 157 L D (160-400) X10*3/uL MPV 9.5 (9.4-12.3) fL Immature Gran % (Auto) 0.7 H (0.0-0.4) % Neut % (Auto) 80.2 H (45-73) % Lymph % (Auto) 8.6 L (20-40) % [place] % (Auto) 9.5 (2-11) % Eos % (Auto) 0.7 (0-4) % Baso % (Auto) 0.3 (0-2) % Lymph # (Auto) 0.8 L (1.2-4.9) X10*3/uL [place] # (Auto) 0.9 (0.1-1.2) X10*3/uL Eos # (Auto) 0.1 (0.0-0.4) X10*3/uL Baso # (Auto) 0.0 (0.0-0.2) X10*3/uL Abs Immat Gran (auto) 0.07 H (0.00-0.03) X10*3/uL Absolute Neuts (auto) 7.6 (2.0-8.3) x10*3/uL Absolute Nucleated RBC 0.000 (0.0-0.012) X10*3/uL Nucleated RBC % (auto) 0.0 (0.0-0.2) /100WBC PT 11.7 (11.1-13.3) SEC INR 1.0 (0.9-1.1) Sodium 129 L (135-145) mmol/L Potassium 3.9 (3.3-5.1) mmol/L Chloride 98 (96-108) mmol/L Carbon Dioxide 19 L (22-29) mmol/L Anion Gap 16 (12-20) BUN 7 L (9-16) mg/dL Creatinine 0.56 (0.5-1.4) mg/dL Estim Creat Clear Calc 69.0 Estimated GFR > 60 Random Glucose 106 (60-115) mg/dL Calcium 9.0 (8.4-10.2) mg/dL Magnesium 1.8 (1.6-2.6) mg/dL Total Bilirubin 1.0 (0.0-1.0) mg/dL Direct Bilirubin 0.3 (0.0-0.5) mg/dL AST 85 H (5-31) U/L ALT 66 H (0-31) U/L Alkaline Phosphatase 163 H (39-117) U/L Total Creatine Kinase 112 (26-140) U/L Total Protein 6.3 L (6.5-8.0) g/dL Albumin 3.9 (3.5-5.0) g/dL Independent Interpretation I performed an independent interpretation of an: EKG and Plain X-Ray (L intertrochanteric fracture) Interpretation: Rate: 100 Rhythm: sinus tachycardia Peck: left Normal P waves. Normal GINI. Normal QRS complex. ST T wave : no RONY, inverted t waves aVL, V1-V2, no RONY qTC: 366 prior studies: no sig change 2021 The study has been interpreted contemporaneously by me. . Radiology Impression Discussion of test interpretation with radiology: I have reviewed the radiologist's reading. Independent Historian Clinical information obtained from an independent historian. History obtained from or confirmed by: EMS External Record Review External record reviewed: Office record Critical Care Time Critical Care Time Critical Care Time: Yes Total Critical Care Time: 45 Attestation: consult, IV morphine for pain with improvement in pain, admission for work up I attest to this time spent taking care of the patient Discharge Plan Discharge Clinical Impression: Acute hyponatremia Closed intertrochanteric fracture Qualifiers: Encounter type: initial encounter Fracture alignment: nondisplaced Laterality: left Qualified Code(s): S72.145A - Nondisplaced intertrochanteric fracture of left femur, initial encounter for closed fracture Patient Disposition: Admitted As Inpatient Print Language: [place] Citizen
--- NOTE | 2023-11-13 18:10 | ECG_ITS ---
Test Reason : FALL Blood Pressure : / mmHG Vent. Rate : 186 BPM Atrial Rate : 000 BPM P-R Int : 000 ms QRS Dur : 086 ms QT Int : 208 ms P-R-T Axes : 000 136 084 degrees QTc Int : 366 ms Normal sinus rhythm Right axis deviation Pulmonary disease pattern Inferior infarct , age undetermined Abnormal ECG When compared with ECG of 18-FEB-2022 09:18, No significant change was found Referred By: Janki Anderson Electronically Signed By:CHE SPAULDING
[2023-11-13 19:00] LABS: MANUAL DIFF FLAG NO
[2023-11-13 19:03] LABS: Basophils Percent Auto 0.3 % (0-2); Eosinophils Absolute Auto 0.1 X10*3/uL (0.0-0.4); Eosinophils Percent Auto 0.7 % (0-4); Hematocrit 29.2 % (37.0-47.0); Hemoglobin 10.3 g/dl (12.0-16.0); Imm Gran Abs Auto 0.07 X10*3/uL (0.00-0.03); Imm Gran Pct Auto 0.7 % (0.0-0.4); Lymphocytes Absolute Auto 0.8 X10*3/uL (1.2-4.9); Lymphocytes Percent Auto 8.6 % (20-40); Mean Corpuscular HGB Conc 35.3 g/dl (31.0-35.0); Mean Corpuscular Hemoglobin 35.9 pg (27.0-33.0); Mean Corpuscular Volume 101.7 fL (80.0-98.0); Mean Platelet Volume 9.5 fL (9.4-12.3); Monocytes Absolute Auto 0.9 X10*3/uL (0.1-1.2); Monocytes Percent Auto 9.5 % (2-11); Neutrophils Absolute Auto 7.6 x10*3/uL (2.0-8.3); Neutrophils Percent Auto 80.2 % (45-73); Platelet Count 157 X10*3/uL (160-400); Red Blood Count 2.87 X10*6/uL (4.20-5.50); Red Cell Distribution Width 12.7 % (11.0-16.0); White Blood Count 9.5 X10*3/uL (4.8-10.8)
[2023-11-13 19:17] LABS: Alanine Aminotransferase 66 U/L (0-31); Albumin Level 3.9 g/dL (3.5-5.0); Alkaline Phosphatase 163 U/L (39-117); Anion Gap 16 (12-20); Aspartate Amino Transferase 85 U/L (5-31); Bilirubin Direct 0.3 mg/dL (0.0-0.5); Blood Urea Nitrogen 7 mg/dL (9-16); Carbon Dioxide 19 mmol/L (22-29); Chloride 98 mmol/L (96-108); Estimated Glomerular Filt Rate > 60; Glucose Random 106 mg/dL (60-115); Magnesium 1.8 mg/dL (1.6-2.6); Potassium 3.9 mmol/L (3.3-5.1); Sodium 129 mmol/L (135-145); Total Protein 6.3 g/dL (6.5-8.0)
[2023-11-13 19:21] LABS: Prothrombin Time 11.7 SEC (11.1-13.3)
[2023-11-13] MEDS: 0.9 % Sodium Chloride 1,000 ML 80 ML IVCONT (19:35)
[2023-11-13] MEDS: Magnesium Sulfate/H2O 2 GM/50 ML PIGGYBACK IV (19:35)
[2023-11-13] MEDS: Morphine Sulfate 4 MG/ML CARTRIDGE IVPUSH (19:35)
[2023-11-13 19:40] VITALS: BP 109/71; PULSE 96; RESP 12; O2SAT 98
--- NOTE | 2023-11-13 20:47 | P.HPHOSP_ITS ---
History of Present Illness Date of Service: 11/13/23 Attending physician on admission: Rudy Rodríguez Chief Complaint: Left hip pain Nenita Downey is a very pleasant 68 years old woman with past medical history significant for stroke, hypothyroidism, asthma and essential hypertension presents to the emergency department after she sustained a fall today after she tripped over a stool. She landed on her left hip. Denies head trauma. Denied any symptoms before or after the fall such as chest pain, shortness on breath, palpitations or loss of consciousness. She also denied any abdominal pain, nausea, vomiting or diarrhea. She does not take water pills. She does take nortriptyline. Mentioned that she has been falling a lot lately. Denied tobacco smoking or illicit drug use. Drinks wine in occasions. Ambulates with a walker. In the ED, she was found to have normal vital signs for slight tachycardia. Blood workup was remarkable for hyponatremia of 129. There are no other electrolyte imbalances. WBC is 9.5 hemoglobin 10.3 and platelets 157. Transaminases and alk-phos are mildly elevated. Bilirubin is normal. Renal function is adequate. ECG showed (NSR, no SVT). Right axis deviation. Q-waves in the inferior leads. Left hip x-ray showed minimally displaced intertrochanteric fracture. CXR is negative. ED tx: Magnesium sulfate 2 g IV, morphine 4 mg IV Review of Systems 2 Review of Systems: All 12 systems were reviewed and normal except as noted in HPI. [facility] Medical History Hypothyroidism Colitis HTN (hypertension) CVA (cerebral vascular accident) Family History Other No family history of cerebrovascular accident (CVA) Surgical History History of partial hysterectomy Social History Household Members: None Housing: Apartment Do you presently have visiting nurse or other home services: No Alcohol intake: current Alcohol intake frequency: 0-2 drinks per day Alcohol type: wine Patient Tobacco Use Status: Never used Tobacco Smoked in Last 30 Days: No Use of substances other than those prescribed or required for medical reasons: No Advance Directives: Yes Advance Directives on File: Yes Advance Directives Date on File: 04/29/21 Do you have a plan to hurt others: No Plan service: No Current occupational status: retired Meds Allergies Allergy/AdvReac Type Severity Reaction Status Date / Time No Known Allergies Allergy Verified 11/13/23 18:05 Active Medications: Current Medications Acetaminophen (Acetaminophen 325 Mg Tablet) 975 mg PO Q6H JOON Carvedilol (Carvedilol 6.25 Mg Tablet) 6.25 mg PO ONCE STA; Protocol Stop: 11/13/23 20:46 Enoxaparin Sodium (Enoxaparin Sodium 40 Mg/0.4 Ml Syringe) 40 mg SUBCUT Q24H JOON Hydromorphone HCl (Hydromorphone Hcl 0.5 Mg/0.5 Ml Syringe) 0.5 mg IVPUSH Q3H PRN; Protocol PRN Reason: Pain, Severe (Pain Scale 7-10) Magnesium Sulfate (Magnesium Sulfate/H2o) 2 gm in 50 mls @ 25 mls/hr IV ONCE ONE Stop: 11/13/23 21:05 Last Admin: 11/13/23 19:35 Dose: 25 mls/hr Sodium Chloride (Ns) 1,000 mls @ 80 mls/hr IVCONT .[id number] JOON Last Admin: 11/13/23 19:35 Dose: 80 mls/hr Melatonin (Melatonin 3 Mg Tablet) 6 mg PO BEDTIME PRN PRN Reason: Insomnia Sodium Chloride (0.9 % Sodium Chloride Flush 3 Ml Syringe) 3 ml IVFLUSH QSHIFT [facility] Home Medications ?Medication ?Instructions ?Recorded ?Confirmed ?Last Taken ?Type aspirin 81 mg tablet,delayed 1 tab PO DAILY 04/28/21 02/09/22 02/08/22 History release carvedilol 6.25 mg tablet 1 tab PO BID 04/28/21 02/09/22 02/08/22 History nortriptyline 50 mg capsule 1 cap PO BID 04/28/21 02/09/22 02/08/22 History ipratropium bromide 17 17 mcg inhalation Q4H PRN Wheezing 04/29/21 02/09/22 02/08/22 History mcg/actuation HFA aerosol inhaler (Atrovent HFA) atorvastatin 40 mg tablet 1 tab PO DAILY 02/09/22 02/09/22 02/08/22 History levothyroxine 50 mcg tablet 50 mcg PO MOTUWETHFRSA 02/09/22 02/09/22 02/08/22 History levothyroxine 50 mcg tablet 100 mcg PO NAZARIO 02/09/22 02/09/22 02/08/22 History Physical Exam 2 Vital Signs and Narrative: Vital Signs: Last Vital Signs Temp 97.6 F 11/13/23 18:00 Pulse 96 11/13/23 19:40 Resp 12 11/13/23 19:40 BP 109/71 11/13/23 19:40 Pulse Ox 98 11/13/23 19:40 O2 Del Method Room Air 11/13/23 19:40 BMI result Body Mass Index 19.9 Constitutional - Awake and Alert, No apparent distress. It was uncomfortable due to pain. Pleasant. Cooperative. HEENT - PERRL, EOMI. Dry oral mucosa. Heart - tachycardic. Lungs - Normal lung expansion, Normal respiratory effort, No respiratory distress, CTA bilaterally Abdomen - NT / ND; +BS; No rebound or guarding Extremities - left hip: tenderness to palpation. Limited ROM due to pain. Distal pulses 2+. Musculoskeletal - Normal inspection, normal ROM Skin - Warm/Dry Neurological - Alert & oriented x3. No focal weakness grossly noted. Psychological - Appropriate affect Results Labs 11/13/23 18:56 11/13/23 18:56 Labs: Laboratory Results - last 24 hr 11/13/23 11/13/23 18:56 19:13 MCV 101.7 H MCH 35.9 H MCHC 35.3 H RDW 12.7 Plt Count 157 L D MPV 9.5 Immature Gran % (Auto) 0.7 H Neut % (Auto) 80.2 H Lymph % (Auto) 8.6 L [place] % (Auto) 9.5 Eos % (Auto) 0.7 Baso % (Auto) 0.3 Lymph # (Auto) 0.8 L [place] # (Auto) 0.9 Eos # (Auto) 0.1 Baso # (Auto) 0.0 Abs Immat Gran (auto) 0.07 H Absolute Neuts (auto) 7.6 Absolute Nucleated RBC 0.000 Nucleated RBC % (auto) 0.0 PT 11.7 INR 1.0 Anion Gap 16 Estim Creat Clear Calc 69.0 Estimated GFR > 60 Random Glucose 106 Calcium 9.0 Magnesium 1.8 Total Bilirubin 1.0 Direct Bilirubin 0.3 AST 85 H ALT 66 H Alkaline Phosphatase 163 H Total Creatine Kinase 112 Total Protein 6.3 L Albumin 3.9 Blood Type O Positive Antibody Screen NEGATIVE Imaging Radiologist's Impressions: Impressions Chest X-Ray 11/13/23 18:10 IMPRESSION: -Minimally displaced intertrochanteric fracture of the left hip. -No acute pulmonary pathology. Electronically signed by: Lico Noonan MD 11/13/2023 08:01 PM EDT RP Hip/Pelvis X-Ray 11/13/23 18:20 IMPRESSION: -Minimally displaced intertrochanteric fracture of the left hip. -No acute pulmonary pathology. Electronically signed by: Lico Noonan MD 11/13/2023 08:01 PM EDT RP Assessment and Plan (1) Closed intertrochanteric fracture: Qualifiers: Encounter type: initial encounter Fracture alignment: nondisplaced L aterality: left Qualified Code(s): S72.145A - Nondisplaced intertrochanteric fracture of left femur, initial encounter for closed fracture Status: Acute (2) Acute hyponatremia: Status: Acute Plan Nenita Downey is a 68 y/o woman with past medical history significant for old CVA admitted with: * Left hip intertrochanteric fracture, closed. Admit to hospitalist service. NPO. Pain control with Dilaudid as needed. Tylenol scheduled. Is a vitamin- D level. Orthopedic surgery consult. * Hyponatremia. Possibly secondary to nortriptyline use/SIADH. Hold nortriptyline. Hyponatremia workup. IV fluid. Recheck sodium level 11 pm. * Elevated transaminases and alk-phos. Atorvastatin use? Hold statin. Check LFTs in the morning. * Essential hypertension. Continue carvedilol. * Hypothyroidism. Check TSH. Continue levothyroxine. * Asthma. No exacerbation. * Hyperlipidemia. Statin on hold due to elevated transaminases. DVT prophylaxis: Lovenox Code status: Full Patient will need hospitalization for at least 2 midnights for left hip intertrochanteric fracture management with IV pain meds and surgery. Quality Stroke Does the patient have a stroke diagnosis?: No VTE Prior VTE?: No VTE Risk Level:: Medical - moderate - high VTE Device Contraindication: Treatment Not Indicated VTE Drug Contraindication: N/A - Med Ordered
[2023-11-13] MEDS: HYDROmorphone HCl 0.5 MG/0.5 ML SYRINGE IVPUSH (21:02)
[2023-11-13] MEDS: Acetaminophen 325 MG TABLET 975 MG PO (21:03)
[2023-11-13] MEDS: Lactated Ringers 1,000 ML 100 ML IVCONT (21:44)
[2023-11-13] MEDS: carvediloL 6.25 MG TABLET PO (21:44)
[2023-11-13 21:49] LABS: Thyroid Stimulating Hormone 3.74 uIU/mL (0.32-4.0)
--- NOTE | 2023-11-13 21:53 | PHA.MEDREC ---
Pharmacy Consult ? Medication Reconciliation Pharmacy has completed the medication reconciliation. Spoke with patient and confirmed medications. Pt is no longer on Atrovent.
[2023-11-13 22:12] VITALS: BP 118/72; PULSE 96; RESP 16; TEMP 36.6; O2SAT 98
[2023-11-14] VITALS (15 sets, daily range): BP systolic 110–165; BP diastolic 55–92; PULSE 86–130; RESP 16–18; TEMP 36–36.9; O2SAT 96–100
[2023-11-14] MEDS: HYDROmorphone HCl 0.5 MG/0.5 ML SYRINGE IVPUSH ×3 (00:44→19:00)
[2023-11-14 00:47] LABS: Sodium 131 mmol/L (135-145)
[2023-11-14] MEDS: Acetaminophen 325 MG TABLET 975 MG PO (03:17)
[2023-11-14 06:35] LABS: Anion Gap 13 (12-20); Blood Urea Nitrogen 6 mg/dL (9-16); Calcium 8.8 mg/dL (8.4-10.2); Carbon Dioxide 23 mmol/L (22-29); Chloride 96 mmol/L (96-108); Estimated Glomerular Filt Rate > 60; Glucose Random 104 mg/dL (60-115); Potassium 4.1 mmol/L (3.3-5.1); Sodium 128 mmol/L (135-145)
[2023-11-14 06:59] LABS: Vitamin D 25-OH Total 6.2 ng/mL (>30)
[2023-11-14 07:13] LABS: Vitamin B12 288 pg/mL (200-900)
[2023-11-14] MEDS: Lactated Ringers 1,000 ML 100 ML IVCONT (07:25)
[2023-11-14] MEDS: 0.9 % Sodium Chloride 1,000 ML 80 ML IVCONT (08:01)
[2023-11-14 08:50] LABS: Hematocrit 26.6 % (37.0-47.0); Hemoglobin 9.3 g/dl (12.0-16.0); Mean Corpuscular Hemoglobin 35.8 pg (27.0-33.0); Mean Corpuscular Volume 102.3 fL (80.0-98.0); Mean Platelet Volume 10.6 fL (9.4-12.3); Platelet Count 120 X10*3/uL (160-400); Red Cell Distribution Width 12.9 % (11.0-16.0)
--- NOTE | 2023-11-14 11:19 | MHC.CM.PN ---
IMM 11/14/23, Pt. lives alone in an apt. that, she has a walker and a cane. For services she has: MOW and light housekeeping from [facility]. HCP is on file and confirmed, names: Brionna Alex. PCP confirmed: [facility]. Pt.'s first choice for DCP is to go to [facility]. She has been there before after having a stroke. DCP: rehab. CM to follow and assist with DC plan.
--- NOTE | 2023-11-14 11:21 | PC.NURSE ---
Phlebotomy called to come draw a stat sodium
--- NOTE | 2023-11-14 11:41 | P.CONOP_ITS ---
History of Present Illness HPI Consult date: 11/14/23 Chief complaint: L hip fracture Narrative: 68 years old woman with past medical history significant for stroke, hypothyroidism, asthma and essential hypertension admitted to the medical service after she sustained a fall today after she tripped over a stool and fx her left hip Mentioned that she has been falling a lot lately due to gait disturbance from her stroke. Denied tobacco smoking or illicit drug use. Drinks wine in occasions. Ambulates with a walker. Orthopedics consulted to determine next step in treatment. Review of Systems 2 Review of Systems: Yes all other systems are reviewed and are negative [facility] Past Medical History Medical History Hypothyroidism Colitis HTN (hypertension) CVA (cerebral vascular accident) Family History Family History Other No family history of cerebrovascular accident (CVA) Surgical History Surgical History History of partial hysterectomy Social History Social History Household Members: None Housing: Apartment Do you presently have visiting nurse or other home services: Yes Alcohol intake: current Alcohol intake frequency: 0-2 drinks per day Alcohol type: wine Patient Tobacco Use Status: Never used Tobacco Advance Directives Date on File: 04/29/21 service: No Current occupational status: retired [employer] Allergies Allergy/AdvReac Type Severity Reaction Status Date / Time No Known Allergies Allergy Verified 11/13/23 18:05 Active Medications: Current Medications Acetaminophen (Acetaminophen 325 Mg Tablet) 975 mg PO Q6H JOON Last Admin: 11/14/23 03:17 Dose: 975 mg Albuterol/Ipratropium (Albuterol/Iprat 2.5/0.5mg 3 Ml Ampul.Neb) 3 ml INHALE RQ4H WHILE AWAKE JOON Enoxaparin Sodium (Enoxaparin Sodium 40 Mg/0.4 Ml Syringe) 40 mg SUBCUT Q24H JOON Hydromorphone HCl (Hydromorphone Hcl 0.5 Mg/0.5 Ml Syringe) 0.5 mg IVPUSH Q3H PRN; Protocol PRN Reason: Pain, Severe (Pain Scale 7-10) Last Admin: 11/14/23 07:24 Dose: 0.5 mg Sodium Chloride (Ns) 1,000 mls @ 80 mls/hr IVCONT .[id number] [facility] Last Admin: 11/14/23 08:01 Dose: 80 mls/hr Melatonin (Melatonin 3 Mg Tablet) 6 mg PO BEDTIME PRN PRN Reason: Insomnia Ondansetron HCl (Ondansetron Hcl 4 Mg/2 Ml Vial) 4 mg IVPUSH Q4H PRN PRN Reason: Nausea and Vomiting Sodium Chloride (0.9 % Sodium Chloride Flush 3 Ml Syringe) 3 ml IVFLUSH QSHIFT [facility] Last Admin: 11/14/23 07:34 Dose: Not Given Home Medications ?Medication ?Instructions ?Recorded ?Confirmed ?Last Taken ?Type aspirin 81 mg tablet,delayed 1 tab PO DAILY 04/28/21 11/13/23 11/13/23 05:00 History release carvedilol 6.25 mg tablet 1 tab PO BID 04/28/21 11/13/23 11/13/23 05:00 History nortriptyline 50 mg capsule 1 cap PO BID 04/28/21 11/13/23 11/13/23 05:00 History atorvastatin 40 mg tablet 1 tab PO DAILY 02/09/22 11/13/23 11/13/23 05:00 History levothyroxine 50 mcg tablet 50 mcg PO MOTUWETHFRSA 02/09/22 11/13/23 11/13/23 05:00 History levothyroxine 50 mcg tablet 100 mcg PO NAZARIO 02/09/22 11/13/23 11/13/23 05:00 History acetaminophen 500 mg capsule 1,000 mg PO Q6H PRN Pain 11/13/23 11/13/23 11/13/23 05:00 History albuterol sulfate 90 mcg/actuation 2 puff inhalation Q4H PRN wheezing 11/13/23 11/13/23 11/13/23 History aerosol inhaler Physical Exam 2 Vital Signs: Vital Signs: Last Vital Signs Temp 96.8 F 11/14/23 07:31 Pulse 98 11/14/23 07:31 Resp 16 11/14/23 07:31 BP 137/75 11/14/23 07:31 Pulse Ox 98 11/14/23 07:31 O2 Del Method Room Air 11/14/23 07:31 BMI result Body Mass Index 19.9 Const: General: cooperative, healthy appearing and comfortable Extrem: Other: Left hip skin intact, pain with log roll and unable to SLR. She is able to dorsi and plantar flex. NVI Results Labs 11/14/23 05:25 11/14/23 05:25 Labs: Abnormal lab results 11/13/23 11/14/23 11/14/23 Range/Units 18:56 00:27 05:25 RBC 2.87 L D 2.60 L (4.20-5.50) X10*6/uL Hgb 10.3 L 9.3 L (12.0-16.0) g/dl Hct 29.2 L D 26.6 L (37.0-47.0) % MCV 101.7 H 102.3 H (80.0-98.0) fL MCH 35.9 H 35.8 H (27.0-33.0) pg MCHC 35.3 H (31.0-35.0) g/dl Plt Count 157 L D 120 L (160-400) X10*3/uL Immature Gran % (Auto) 0.7 H (0.0-0.4) % Neut % (Auto) 80.2 H (45-73) % Lymph % (Auto) 8.6 L (20-40) % Lymph # (Auto) 0.8 L (1.2-4.9) X10*3/uL Abs Immat Gran (auto) 0.07 H (0.00-0.03) X10*3/uL Sodium 129 L 131 L 128 L (135-145) mmol/L Carbon Dioxide 19 L (22-29) mmol/L BUN 7 L 6 L (9-16) mg/dL AST 85 H (5-31) U/L ALT 66 H (0-31) U/L Alkaline Phosphatase 163 H (39-117) U/L Total Protein 6.3 L (6.5-8.0) g/dL 25-OH Vitamin D Total 6.2 L (>30) ng/mL H & H 11/13/23 11/14/23 Range/Units 18:56 05:25 Hgb 10.3 L 9.3 L (12.0-16.0) g/dl Hct 29.2 L D 26.6 L (37.0-47.0) % Coagulation 11/13/23 Range/Units 18:56 INR 1.0 (0.9-1.1) All other labs normal. Assessment and Plan (1) Closed intertrochanteric fracture: Qualifiers: Encounter type: initial encounter Fracture alignment: nondisplaced L aterality: left Qualified Code(s): S72.145A - Nondisplaced intertrochanteric fracture of left femur, initial encounter for closed fracture Status: Acute Plan I discussed the case with Dr Fuentes and explained the extent of the injury to the patient and options available which include surgical intervention. I explained the procedure in detail along with the length of recovery and rehab course. I explained the risk, benefits and alternatives. Risk including, but not limited to infection, blood clots, bleeding, non union or malunion and nerve/tissue damage to surrounding areas. I answered all their questions and with their understanding they have consented to move forward with Operative Fixation of Left hip . The patient will be T&S, med clearance obtained and NPO . Procedures Date of Service Date of Service: 11/14/23
[2023-11-14 11:46] LABS: Sodium 128 mmol/L (135-145)
--- NOTE | 2023-11-14 13:01 | HO.PM.IMPN ---
Subjective Subjective Date of Service: 11/14/23 Interval History: left hip fx Review of Systems says has left hip pain denies any other symptoms -no chest pain or sob or nausea ,vomiting Physical Exam Vital Signs: Vital Signs: Last Vital Signs Temp 98.5 F 11/14/23 12:55 Pulse 91 11/14/23 12:55 Resp 16 11/14/23 12:55 BP 155/73 H 11/14/23 12:55 Pulse Ox 98 11/14/23 07:31 O2 Del Method Room Air 11/14/23 07:31 BMI result Body Mass Index 19.9 Appearance: Alert.? Oriented X3.? cvs: rrr, [id number] , no murmur res: clear to auscultation ,no rales or wheezing. left Hip-tenderness present ,rom limited due to pain. abd: no rebound or guarding ,nt, bs present. ext pulses present , no cyanosis neuro: axo3 , nonfocal. Objective Data Active Medications Acetaminophen (Acetaminophen 325 Mg Tablet) 975 mg PO Q6H [facility] Last Admin: 11/14/23 12:45 Dose: Not Given Documented By: RAAD Non-Admin Reason: NPO Albuterol/Ipratropium (Albuterol/Iprat 2.5/0.5mg 3 Ml Ampul.Neb) 3 ml INHALE RQ4H WHILE AWAKE [facility] Hydromorphone HCl (Hydromorphone Hcl 0.5 Mg/0.5 Ml Syringe) 0.5 mg IVPUSH Q3H PRN; Protocol PRN Reason: Pain, Severe (Pain Scale 7-10) Last Admin: 11/14/23 07:24 Dose: 0.5 mg Documented By: RAAD Sodium Chloride (Ns) 100 mls @ 100 mls/hr IV ONCE ONE Stop: 11/14/23 13:17 Melatonin (Melatonin 3 Mg Tablet) 6 mg PO BEDTIME PRN PRN Reason: Insomnia Ondansetron HCl (Ondansetron Hcl 4 Mg/2 Ml Vial) 4 mg IVPUSH Q4H PRN PRN Reason: Nausea and Vomiting Sodium Chloride (0.9 % Sodium Chloride Flush 3 Ml Syringe) 3 ml IVFLUSH QSHIFT [facility] Last Admin: 11/14/23 07:34 Dose: Not Given Documented By: RAAD Non-Admin Reason: IV Running Labs 11/14/23 05:25 11/14/23 11:25 Labs: Laboratory Results - last 24 hr 11/13/23 11/13/23 11/14/23 18:56 19:13 05:25 MCV 101.7 H 102.3 H MCH 35.9 H 35.8 H MCHC 35.3 H 35.0 RDW 12.7 12.9 Plt Count 157 L D 120 L MPV 9.5 10.6 Immature Gran % (Auto) 0.7 H Neut % (Auto) 80.2 H Lymph % (Auto) 8.6 L [place] % (Auto) 9.5 Eos % (Auto) 0.7 Baso % (Auto) 0.3 Lymph # (Auto) 0.8 L [place] # (Auto) 0.9 Eos # (Auto) 0.1 Baso # (Auto) 0.0 Abs Immat Gran (auto) 0.07 H Absolute Neuts (auto) 7.6 Absolute Nucleated RBC 0.000 0.000 Nucleated RBC % (auto) 0.0 0.0 Hold Purple Top SEE NOTE PT 11.7 INR 1.0 Anion Gap 16 13 Estim Creat Clear Calc 69.0 69.0 Estimated GFR > 60 > 60 Random Glucose 106 104 Calcium 9.0 8.8 Magnesium 1.8 Total Bilirubin 1.0 Direct Bilirubin 0.3 AST 85 H ALT 66 H Alkaline Phosphatase 163 H Total Creatine Kinase 112 Total Protein 6.3 L Albumin 3.9 Vitamin B12 288 25-OH Vitamin D Total 6.2 L Folate 10.0 TSH 3.74 Blood Type O Positive Antibody Screen NEGATIVE Crossmatch See Detail Assessment and Plan (1) Closed intertrochanteric fracture: Status: Acute (2) Acute hyponatremia: Status: Acute Plan 68 y/o woman with past medical history significant for old CVA admitted with: Left hip intertrochanteric fracture, closed. denies any cardiac hx or diabetes or renal dis , functional status limited walks with walker at baseline (has hx of cva ) but says can walk 1 block with walker. plan: Is a vitamin-D level-low continue Pain control with Dilaudid as needed. Tylenol scheduled. added vitamin d replacements, Orthopedic surgery consult. patient is at least moderate risk for given surgerical procedure ( considering comorbidities /limited functional status) Hyponatremia. somewhat low in 128 range ( ch runs into 130's) Possibly secondary to nortriptyline use/SIADH. Hold nortriptyline. hold fluids moniter bmp closely. Ch anemia : h/h slightly down insetting of hip fracture and ivf anesthesia added 1 prbc Elevated transaminases and alk-phos.: mild elevated - Atorvastatin use? Hold statin. Check LFTs in the morning. Essential hypertension. Continue carvedilol. Hypothyroidism. Continue levothyroxine. Asthma. No exacerbation. added prn nebs Hyperlipidemia. Statin on hold due to elevated transaminases. DVT prophylaxis: Lovenox. Code status: Full ongoing hospitalization need for at least 2 midnights for left hip intertrochanteric fracture management with IV pain meds and surgery. Quality Stroke Does the patient have a stroke diagnosis?: No VTE Prior VTE?: No VTE Risk Level:: Medical - moderate - high VTE Device Contraindication: Treatment Not Indicated VTE Drug Contraindication: N/A - Med Ordered
--- NOTE | 2023-11-14 13:34 | PC.NURSE ---
upon arrival rbc running in pump prior to arrival. no changes.
--- NOTE | 2023-11-14 13:35 | PC.NURSE ---
22g left hand and 20g right forearm with blood running patently.
--- NOTE | 2023-11-14 14:49 | PC.NURSE ---
report received from daniella mirza rn at 1430. report given to nadine saavedra rn at this time.
--- NOTE | 2023-11-14 15:55 | MHC.SHP ---
Pre-Procedural Eval Section A - 24 Hr Update-Section A only Date of Service: 11/14/23 The patient is an INPATIENT: Yes Changes since office visit: No Cold of Flu in the past 2 weeks, No New Medical Problems, No Changes in Medication and No Patient answered all questions The patient has been examined within 24 hours of the surgical procedure. The History & Physical has been completed within 30 days and I have reviewed it.: Yes Section B - Complete if H&P > 30 days Chief Complaint: L hip fracture Allergies: Allergies Allergy/AdvReac Type Severity Reaction Status Date / Time No Known Allergies Allergy Verified 11/13/23 18:05 Plan I have reviewed the history and physical and performed a pertinent physical examination on my patient. No changes have occurred unless specified. Time Spent With Patient Time: Total time managing care of this patient today ____ minutes.
--- NOTE | 2023-11-14 21:28 | PM.OP ---
Brief Operative Note Date of Service: 11/14/23 Pre-op diagnosis: left hip IT fx Post-op diagnosis: same Procedure: Left hip IMN Implants: Prashant [id number] 125 deg with 90 mm hip screw and 32.5 distal interlock Surgeon: Jasper Fuentes MD Anesthesia: GLMA and local Was an Inspector Water Pollution Control used for this Procedure?: No Estimated blood loss (mL): 100 IV fluids (mL): 500 Pathology: none sent Condition: stable Disposition: PACU
[2023-11-14] MEDS: carvediloL 6.25 MG TABLET PO (22:10)
[2023-11-14] MEDS: 0.9 % Sodium Chloride Flush 3 ML SYRINGE IVFLUSH (22:14)
[2023-11-14] MEDS: ondansetron HCL 4 MG/2 ML VIAL IVPUSH (22:20)
[2023-11-15] VITALS (13 sets, daily range): BP systolic 100–124; BP diastolic 51–67; PULSE 87–118; RESP 16–18; TEMP 36–36.6; O2SAT 94–100
--- NOTE | 2023-11-15 | ECG_ITS ---
Test Reason : Tachycardia Blood Pressure : / mmHG Vent. Rate : 123 BPM Atrial Rate : 123 BPM P-R Int : 154 ms QRS Dur : 076 ms QT Int : 340 ms P-R-T Axes : 068 130 068 degrees QTc Int : 486 ms Sinus tachycardia Possible Left atrial enlargement Left posterior fascicular block Abnormal ECG When compared with ECG of 13-NOV-2023 18:38, No significant change was found Referred By: Rudy Rodríguez Electronically Signed By:CHE SPAULDING
[2023-11-15] MEDS: HYDROmorphone HCl 0.5 MG/0.5 ML SYRINGE IVPUSH ×5 (00:07→21:13)
[2023-11-15] MEDS: Lactated Ringers 500 ML 999 ML IV (00:38)
[2023-11-15] MEDS: Ketorolac Tromethamine 15 MG/ML VIAL IVPUSH (00:43)
[2023-11-15] MEDS: Acetaminophen 1,000 MG/100 ML PIGGYBACK 400 MG IV ×5 (00:46→23:57)
[2023-11-15 01:08] LABS: Hematocrit 30.7 % (37.0-47.0); Hemoglobin 10.8 g/dl (12.0-16.0); Mean Corpuscular HGB Conc 35.2 g/dl (31.0-35.0); Mean Corpuscular Hemoglobin 32.8 pg (27.0-33.0); Mean Corpuscular Volume 93.3 fL (80.0-98.0); Mean Platelet Volume 10.2 fL (9.4-12.3); NRBC Pct Auto 0.3 /100WBC (0.0-0.2); Platelet Count 134 X10*3/uL (160-400); Red Blood Count 3.29 X10*6/uL (4.20-5.50); Red Cell Distribution Width 21.9 % (11.0-16.0); White Blood Count 11.3 X10*3/uL (4.8-10.8)
[2023-11-15 01:21] LABS: Alanine Aminotransferase 43 U/L (0-31); Albumin Level 3.5 g/dL (3.5-5.0); Alkaline Phosphatase 126 U/L (39-117); Anion Gap 20 (12-20); Aspartate Amino Transferase 38 U/L (5-31); Bilirubin Total 1.7 mg/dL (0.0-1.0); Blood Urea Nitrogen 6 mg/dL (9-16); Calcium 8.6 mg/dL (8.4-10.2); Carbon Dioxide 17 mmol/L (22-29); Chloride 96 mmol/L (96-108); Creatinine Clr Calc Pharmacy 63.3; Estimated Glomerular Filt Rate > 60; Glucose Random 128 mg/dL (60-115); Magnesium 1.8 mg/dL (1.6-2.6); Potassium 3.9 mmol/L (3.3-5.1); Sodium 129 mmol/L (135-145); Total Protein 5.8 g/dL (6.5-8.0)
[2023-11-15 01:24] LABS: Lactic Acid 2.2 mmol/L (0.5-2.0)
[2023-11-15 01:28] LABS: Troponin-I High Sensitivity < 2.7 ng/L (<3.5-17.0)
[2023-11-15] MEDS: Lactated Ringers 1,000 ML 100 ML IVCONT (01:45)
--- NOTE | 2023-11-15 02:52 | PC.NURSE ---
Pt came from PACU at 2156 on the bed, alert and oriented, pale,has 3 surgical sited on the left hip upper and lower dressings slightly stained and confined, +CMS on the left foot, pain was claimed as very mild upon arrival, ice pack applied to left hip, compression boots placed, pt was Tachycardic at 125 upon arrival and since in PACU, rest of vitals WNL, scheduled Coreg given, Dr. Saravia was made aware,felt nauseous after, prn Zofran given with good effect, Nortriptyline was held as per Dr. Saravia. At 12mn, pt still tachycardic, no palpitation nor SOB, now c/o 8/10 pain, rest of vitals WNL, prn Dilaudid was given, Dr. Saravia was notifed, EKG done and trace forwarded to Dr. Saravia, pt was connected to Cardica monitor, with ST on the 130s, Bolus of LR 500ml given, Toradol IV given, and Acetaminophen IV also givne, pt felt relief from pain, labs and CXR done, slept after, pt's HR cont to be high, IVF restarted at 100 ml /h of LR.
[2023-11-15 03:02] LABS: Reflex Lactate? Lactic Acid Added
[2023-11-15 04:00] LABS: ~Lactic Acid-LAB USE ONLY 1.8 mmol/L (0.5-2.0)
[2023-11-15] MEDS: Levothyroxine Sodium 50 MCG TABLET PO (05:26)
[2023-11-15] MEDS: ondansetron HCL 4 MG/2 ML VIAL IVPUSH (06:57)
[2023-11-15] MEDS: Enoxaparin Sodium 40 MG/0.4 ML SYRINGE SUBCUT (07:41)
[2023-11-15] MEDS: Albuterol/Iprat 2.5/0.5MG 3 ML AMPUL.NEB INHALE ×4 (08:07→19:42)
[2023-11-15] MEDS: Nortriptyline HCl 25 MG CAPSULE 50 MG PO ×2 (08:12→21:08)
[2023-11-15] MEDS: Aspirin Enteric Coated 81 MG TABLET.DR PO (08:12)
[2023-11-15] MEDS: 0.9 % Sodium Chloride Flush 3 ML SYRINGE IVFLUSH ×3 (08:13→21:10)
[2023-11-15] MEDS: Cholecalciferol (Vitamin D3) 25 MCG TABLET PO (08:13)
[2023-11-15] MEDS: carvediloL 6.25 MG TABLET PO ×2 (08:13→21:08)
--- NOTE | 2023-11-15 08:51 | PM.PNORT ---
Subjective Subjective Date of Service: 11/15/23 Interval history: POD1 s/p left hip IM Nail Patient is resting in bed comfortably No overnight events Pain is managed No additional complaints Physical Exam Vital Signs: Vital Signs: Last Vital Signs Temp 96.8 F 11/15/23 07:43 Pulse 107 H 11/15/23 08:13 Resp 18 11/15/23 08:08 BP 114/59 L 11/15/23 08:13 Pulse Ox 100 11/15/23 07:43 O2 Del Method Room Air 11/15/23 07:43 O2 Flow Rate 6 11/14/23 21:46 BMI result Body Mass Index 19.9 Const: General: cooperative, healthy appearing and no acute distress Resp: Effort & Inspection: normal respiratory effort and able to speak in complete sentences Cardio: Rate: regular rate Peripheral pulses: Peripheral pulses 2+ throughout GI: Palpation (GI): Soft to palpation Skin: Lesions: no lesions Rashes: no rashes Extrem: Other: left hip dressing is c/d/i. Able to dorsi/plantar flex. Calf is supple and nontender. Sensation intact. Pedal pulse intact. Procedures Date of Service Date of Service: 11/15/23 Progress Note: A&P Assessment and plan (1) Closed intertrochanteric fracture: Status: Acute Plan Continue pain mgmnt Begin Lovenox for dvt ppx begin PT/OT for left hip IM NAil Dispo planning-Pending PT eval, pain mgmnt Time Spent With Patient Time: Total time managing care of this patient today ____ minutes. Quality Stroke Does the patient have a stroke diagnosis?: No VTE Prior VTE?: No VTE Risk Level:: Medical - moderate - high VTE Device Contraindication: Treatment Not Indicated VTE Drug Contraindication: N/A - Med Ordered
--- NOTE | 2023-11-15 09:01 | PM.CNNEP ---
History of Present Illness Reason for Consult Consult date: 11/15/23 Reason for consult: Hyponatremia Chief Complaint Chief complaint: L hip fracture History of Present Illness Narrative: 68 years old woman with past medical history significant for stroke, hypothyroidism, asthma and essential hypertension presented to the emergency department after she sustained a fall after she tripped over a stool. She landed on her left hip. Denies head trauma. Denied any symptoms before or after the fall such as chest pain, shortness on breath, palpitations or loss of consciousness. She also denied any abdominal pain, nausea, vomiting or diarrhea. She does not take water pills. She does take nortriptyline. Mentioned that she has been falling a lot lately. History of chronic hyponatremia. She admits to drinking plenty of water. [facility] Past Medical History Medical History (Updated 11/13/23 @ 20:18 by Janki Anderson DO) Hypothyroidism Colitis HTN (hypertension) CVA (cerebral vascular accident) Family History Family History Other No family history of cerebrovascular accident (CVA) Surgical History Surgical History (Updated 11/14/23 @ 13:29 by Lisa Hodo RN) Hx of appendectomy History of partial hysterectomy Social History Social History Household Members: None Housing: Apartment Do you presently have visiting nurse or other home services: Yes Alcohol intake: current Alcohol intake frequency: holidays/special occasions only Alcohol type: wine Patient Tobacco Use Status: Former Tobacco user Advance Directives Date on File: 04/29/21 service: No Current occupational status: retired Meds Allergies Allergy/AdvReac Type Severity Reaction Status Date / Time No Known Allergies Allergy Verified 11/13/23 18:05 Active Medications: Current Medications Albuterol/Ipratropium (Albuterol/Iprat 2.5/0.5mg 3 Ml Ampul.Neb) 3 ml INHALE RQ4H WHILE AWAKE [facility] Last Admin: 11/15/23 08:07 Dose: 3 ml Aspirin (Aspirin Enteric Coated 81 Mg Tablet.) 81 mg PO DAILY [facility] Last Admin: 11/15/23 08:12 Dose: 81 mg Carvedilol (Carvedilol 6.25 Mg Tablet) 6.25 mg PO BID [facility]; Protocol Last Admin: 11/15/23 08:13 Dose: 6.25 mg Enoxaparin Sodium (Enoxaparin Sodium 40 Mg/0.4 Ml Syringe) 40 mg SUBCUT Q24H [facility] Last Admin: 11/15/23 07:41 Dose: 40 mg Hydromorphone HCl (Hydromorphone Hcl 0.5 Mg/0.5 Ml Syringe) 0.5 mg IVPUSH Q3H PRN; Protocol PRN Reason: Pain, Severe (Pain Scale 7-10) Last Admin: 11/15/23 08:31 Dose: 0.5 mg Cefazolin Sodium/Dextrose (Ancef) 2 gm in 50 mls @ 100 mls/hr IV POSTOP JOON Acetaminophen (Ofirmev) 1,000 mg in 100 mls @ 400 mls/hr IV 0000,0600,1200,1800 [facility] Last Infusion: 11/15/23 05:42 Dose: Infused Levothyroxine Sodium (Levothyroxine Sodium 50 Mcg Tablet) 50 mcg PO MoTuWeThFrSa@0600 [facility] Last Admin: 11/15/23 05:26 Dose: 50 mcg Levothyroxine Sodium (Levothyroxine Sodium 100 Mcg Tablet) 100 mcg PO Nazario@0600 [facility] Melatonin (Melatonin 3 Mg Tablet) 6 mg PO BEDTIME PRN PRN Reason: Insomnia Nortriptyline HCl (Nortriptyline Hcl 25 Mg Capsule) 50 mg PO BID [facility] Last Admin: 11/15/23 08:12 Dose: 50 mg Ondansetron HCl (Ondansetron Hcl 4 Mg/2 Ml Vial) 4 mg IVPUSH Q4H PRN PRN Reason: Nausea and Vomiting Last Admin: 11/15/23 06:57 Dose: 4 mg Sodium Chloride (0.9 % Sodium Chloride Flush 3 Ml Syringe) 3 ml IVFLUSH QSHIFT [facility] Last Admin: 11/15/23 08:13 Dose: 3 ml Vitamin D (Cholecalciferol (Vitamin D3) 25 Mcg Tablet) 25 mcg PO DAILY [facility] Last Admin: 11/15/23 08:13 Dose: 25 mcg Home Medications ?Medication ?Instructions ?Recorded ?Confirmed ?Last Taken ?Type aspirin 81 mg tablet,delayed 1 tab PO DAILY 04/28/21 11/13/23 11/13/23 05:00 History release carvedilol 6.25 mg tablet 1 tab PO BID 04/28/21 11/13/23 11/13/23 05:00 History nortriptyline 50 mg capsule 1 cap PO BID 04/28/21 11/13/23 11/13/23 05:00 History atorvastatin 40 mg tablet 1 tab PO DAILY 02/09/22 11/13/23 11/13/23 05:00 History levothyroxine 50 mcg tablet 50 mcg PO MOTUWETHFRSA 02/09/22 11/13/23 11/13/23 05:00 History levothyroxine 50 mcg tablet 100 mcg PO NAZARIO 02/09/22 11/13/23 11/13/23 05:00 History acetaminophen 500 mg capsule 1,000 mg PO Q6H PRN Pain 11/13/23 11/13/23 11/13/23 05:00 History albuterol sulfate 90 mcg/actuation 2 puff inhalation Q4H PRN wheezing 11/13/23 11/13/23 11/13/23 History aerosol inhaler Physical Exam Vital Signs: Last Vital Signs Temp 96.8 F 11/15/23 07:43 Pulse 107 H 11/15/23 08:13 Resp 18 11/15/23 08:08 BP 114/59 L 11/15/23 08:13 Pulse Ox 100 11/15/23 07:43 O2 Del Method Room Air 11/15/23 07:43 O2 Flow Rate 6 11/14/23 21:46 BMI result Body Mass Index 19.9 Const General: comfortable; No acute distress Orientation/consciousness: patient oriented x3 Eyes General: appearance normal, both eyes and all related structures Visual Sanchez: normal visual sanchez by confrontation Neck Neck: Yes supple and Yes no JVD Resp Effort & Inspection: normal respiratory effort and respiratory effort not decreased Auscultation: rhonchi Cardio Palpation: no palpable S3 and no palpable S4 Heart sounds: no rubs GI Inspection: Yes normal to inspection Palpation (GI): Soft to palpation Percussion: Yes normal to percussion Auscultation: normal bowel sounds General: Yes no CVA tenderness Back/Spine/Pelvis Back: no CVA tenderness Skin General skin exam: no petechiae and no purpura Neuro General: patient oriented x3 and no focal motor deficits Extrem General: No clubbing and No edema Results Lab Results 11/15/23 00:59 11/15/23 00:59 Lab results: Chemistry 11/13/23 11/14/23 11/14/23 18:56 00:27 05:25 Sodium 129 L 131 L 128 L Potassium 3.9 4.1 Carbon Dioxide 19 L 23 BUN 7 L 6 L Creatinine 0.56 0.56 Calcium 9.0 8.8 11/14/23 11/15/23 11:25 00:59 Sodium 128 L 129 L Potassium 3.9 Carbon Dioxide 17 L BUN 6 L Creatinine 0.61 Calcium 8.6 Hematology 11/13/23 11/14/23 11/15/23 18:56 05:25 00:59 WBC 9.5 7.0 11.3 H Hgb 10.3 L 9.3 L 10.8 L Plt Count 157 L D 120 L 134 L Assessment and Plan (1) Acute hyponatremia: Status: Acute Plan 68-year-old year old woman with a history of chronic asymptomatic hyponatremia with acute worsening. She has increase ADH secretion with decreased free water clearance. Recommend Check urine for sodium creatinine osmolality Check serum osmolality. Goal is to correct serum sodium rate of 0.5-1 millimole per L/hr and not exceed more than 10 millimoles per 24 hours. Goal serum sodium is more than 130 millimoles. Restrict p.o. water intake to 1.2 L per 24 hours. Given abnormal LFTs I will hold off on using urea powder at this time. Use sodium does not improve in the next 24-48 hours I will add sodium chloride tablets to increase osmotic load. She will follow along with the team. Procedures Date of Service Date of Service: 11/15/23
--- NOTE | 2023-11-15 09:19 | PC.NURSE ---
HR remains 100-118 . MD Sellers notified no new treatment at this time. will monitor
--- NOTE | 2023-11-15 12:53 | MHC.CM.PN ---
EMR REVIEWED AND PER MD ROUNDS, PT IS NOT MEDICALLY CLEARED FOR DC (HYPONATREMIA, POD #1) P.T. IS RECOMMENDING REHAB AT [place]. PT'S FIRST CHOICE IS [facility], SECOND [facility]. REFERRALS SENT. CM WILL CONTINUE TO FOLLOW FOR ANY CHANGE TO DC PLAN/NEEDS.
--- NOTE | 2023-11-15 13:18 | PC.NURSE ---
Pt hasnt voided and denies urge to urinate. Bladder scanned for 729 cc . MD Sellers notified will straight cath
[2023-11-15 14:08] LABS: Creatinine Urine 38.86 mg/dL
[2023-11-15] MEDS: Tamsulosin HCL 0.4 MG CAPSULE PO (15:48)
--- NOTE | 2023-11-15 15:51 | P.PNIM_ITS ---
Subjective Subjective Date of Service: 11/15/23 Interval History: left hip fx Review of Systems says has left hip pain denies any other symptoms -no chest pain or sob or nausea ,vomiting Physical Exam 2 Vital Signs: Vital Signs: Last Vital Signs Temp 97.6 F 11/15/23 15:19 Pulse 100 11/15/23 15:46 Resp 16 11/15/23 15:46 BP 105/61 11/15/23 15:19 Pulse Ox 94 11/15/23 15:19 O2 Del Method Room Air 11/15/23 15:19 O2 Flow Rate 6 11/14/23 21:46 BMI result Body Mass Index 19.9 Appearance: Alert.? Oriented X3.? cvs: rrr, [id number] , no murmur res: clear to auscultation ,no rales or wheezing. left Hip-tenderness present ,rom limited due to pain. abd: no rebound or guarding ,nt, bs present. ext pulses present , no cyanosis neuro: axo3 , nonfocal. Objective Data Active Medications Albuterol/Ipratropium (Albuterol/Iprat 2.5/0.5mg 3 Ml Ampul.Neb) 3 ml INHALE RQ4H WHILE AWAKE [facility] Last Admin: 11/15/23 15:44 Dose: 3 ml Documented By: ANDREA Aspirin (Aspirin Enteric Coated 81 Mg Tablet.) 81 mg PO DAILY [facility] Last Admin: 11/15/23 08:12 Dose: 81 mg Documented By: RAAD Carvedilol (Carvedilol 6.25 Mg Tablet) 6.25 mg PO BID [facility]; Protocol Last Admin: 11/15/23 08:13 Dose: 6.25 mg Documented By: RAAD Enoxaparin Sodium (Enoxaparin Sodium 40 Mg/0.4 Ml Syringe) 40 mg SUBCUT Q24H [facility] Last Admin: 11/15/23 07:41 Dose: 40 mg Documented By: RAAD Hydromorphone HCl (Hydromorphone Hcl 0.5 Mg/0.5 Ml Syringe) 0.5 mg IVPUSH Q3H PRN; Protocol PRN Reason: Pain, Severe (Pain Scale 7-10) Last Admin: 11/15/23 08:31 Dose: 0.5 mg Documented By: RAAD Cefazolin Sodium/Dextrose (Ancef) 2 gm in 50 mls @ 100 mls/hr IV POSTOP JOON Acetaminophen (Ofirmev) 1,000 mg in 100 mls @ 400 mls/hr IV 0000,0600,1200,1800 [facility] Last Infusion: 11/15/23 13:15 Dose: Infused Documented By: RAAD Levothyroxine Sodium (Levothyroxine Sodium 50 Mcg Tablet) 50 mcg PO MoTuWeThFrSa@0600 [facility] Last Admin: 11/15/23 05:26 Dose: 50 mcg Documented By: PITO Levothyroxine Sodium (Levothyroxine Sodium 100 Mcg Tablet) 100 mcg PO Turner@0600 [facility] Melatonin (Melatonin 3 Mg Tablet) 6 mg PO BEDTIME PRN PRN Reason: Insomnia Nortriptyline HCl (Nortriptyline Hcl 25 Mg Capsule) 50 mg PO BID [facility] Last Admin: 11/15/23 08:12 Dose: 50 mg Documented By: RAAD Ondansetron HCl (Ondansetron Hcl 4 Mg/2 Ml Vial) 4 mg IVPUSH Q4H PRN PRN Reason: Nausea and Vomiting Last Admin: 11/15/23 06:57 Dose: 4 mg Documented By: PITO Sodium Chloride (0.9 % Sodium Chloride Flush 3 Ml Syringe) 3 ml IVFLUSH QSHIFT [facility] Last Admin: 11/15/23 08:13 Dose: 3 ml Documented By: RAAD Tamsulosin HCl (Tamsulosin Hcl 0.4 Mg Capsule) 0.4 mg PO DAILY [facility] Last Admin: 11/15/23 15:48 Dose: 0.4 mg Documented By: RAAD Vitamin D (Cholecalciferol (Vitamin D3) 25 Mcg Tablet) 25 mcg PO DAILY [facility] Last Admin: 11/15/23 08:13 Dose: 25 mcg Documented By: RAAD Labs 11/15/23 00:59 11/15/23 00:59 Labs: Laboratory Results - last 24 hr 11/13/23 11/15/23 11/15/23 19:13 00:59 03:42 MCV 93.3 D MCH 32.8 MCHC 35.2 H RDW 21.9 H Plt Count 134 L MPV 10.2 Absolute Nucleated RBC 0.030 H Nucleated RBC % (auto) 0.3 H Anion Gap 20 Estim Creat Clear Calc 63.3 Estimated GFR > 60 Random Glucose 128 H Lactic Acid 2.2 H* Lactic Acid F/U @ 2Hr 1.8 Calcium 8.6 Magnesium 1.8 Total Bilirubin 1.7 H AST 38 H ALT 43 H Alkaline Phosphatase 126 H Troponin I High Sens < 2.7 Total Protein 5.8 L Albumin 3.5 Ur Random Sodium Urine Creatinine Crossmatch See Detail 11/15/23 13:34 MCV MCH MCHC RDW Plt Count MPV Absolute Nucleated RBC Nucleated RBC % (auto) Anion Gap Estim Creat Clear Calc Estimated GFR Random Glucose Lactic Acid Lactic Acid F/U @ 2Hr Calcium Magnesium Total Bilirubin AST ALT Alkaline Phosphatase Troponin I High Sens Total Protein Albumin Ur Random Sodium 83.0 Urine Creatinine 38.86 Crossmatch Assessment and Plan (1) Closed intertrochanteric fracture: Status: Acute (2) Acute hyponatremia: Status: Acute Plan 68 y/o woman with past medical history significant for old CVA admitted with: Left hip intertrochanteric fracture, closed. denies any cardiac hx or diabetes or renal dis , functional status limited walks with walker at baseline (has hx of cva ) but says can walk 1 block with walker. plan: Is a vitamin-D level-low continue Pain control with Dilaudid as needed. Tylenol scheduled. added vitamin d replacements, Orthopedic surgery consult-s/p surgery (11/13) pain control Tachycardia: Multifactorial-dehydration, did not get her Coreg yesterday, aggressive pain due to hip fracture, also urinary retention might be contributing to. Improving with addressing above. ovenight events noted -cxr fine lactic normal no fevers leucocytosis possible reactive in setting of surgery Urinary retention: Added Flomax PVR, p.r.n. Hyponatremia. improving Possibly secondary to nortriptyline use/SIADH. Hold nortriptyline. hold fluids moniter sodium Ch anemia : h/h slightly down insetting of hip fracture and ivf s/p 1 prbc h/h: 10.8/30.7 Elevated transaminases and alk-phos.: mild elevated - Atorvastatin use? Hold statin. Check LFTs in the morning. Essential hypertension. Continue carvedilol. Hypothyroidism. Continue levothyroxine. Asthma. No exacerbation. prn nebs Hyperlipidemia. Statin on hold due to elevated transaminases. DVT prophylaxis: Lovenox. Code status: Full ongoing hospitalization need for left hip intertrochanteric fracture management with IV pain meds and surgery, hyponatremia -moniter renal function/electrolytes , Quality Stroke Does the patient have a stroke diagnosis?: No VTE Prior VTE?: No VTE Risk Level:: Medical - moderate - high VTE Device Contraindication: Treatment Not Indicated VTE Drug Contraindication: N/A - Med Ordered
[2023-11-15 17:47] LABS: Sodium 126 mmol/L (135-145)
[2023-11-16] VITALS (19 sets, daily range): BP systolic 97–133; BP diastolic 50–72; PULSE 80–109; RESP 12–18; TEMP 36–36.7; O2SAT 92–100
[2023-11-16] MEDS: HYDROmorphone HCl 0.5 MG/0.5 ML SYRINGE IVPUSH ×3 (01:33→21:51)
--- NOTE | 2023-11-16 02:25 | PC.NURSE ---
Pt unable to void with purewick despite having the urge to go, abd distended. Pt bladder scan for 595ml @ 00:15. MD Saravia made aware of the situation. Pt was straight cath twice in previous shift, new order to put in boston cath per MD Saravia. 16fr boston cath was placed @ 01:20 with 600ml yellow urine. Will continue to monitor. Plan of care ongoing.
[2023-11-16] MEDS: Levothyroxine Sodium 50 MCG TABLET PO (05:53)
[2023-11-16] MEDS: Acetaminophen 1,000 MG/100 ML PIGGYBACK 400 MG IV ×4 (05:57→23:58)
[2023-11-16 06:15] LABS: PLT CLUMP 1
[2023-11-16 06:17] LABS: Mean Corpuscular HGB Conc 34.8 g/dl (31.0-35.0); Mean Corpuscular Volume 92.1 fL (80.0-98.0); Mean Platelet Volume 10.5 fL (9.4-12.3); Red Blood Count 1.78 X10*6/uL (4.20-5.50); Red Cell Distribution Width 20.6 % (11.0-16.0)
[2023-11-16 06:25] LABS: Hematocrit 16.4 % (37.0-47.0); Hemoglobin 5.7 g/dl (12.0-16.0); White Blood Count 6.6 X10*3/uL (4.8-10.8)
[2023-11-16 06:31] LABS: Anion Gap 11 (12-20); Blood Urea Nitrogen 11 mg/dL (9-16); Calcium 8.4 mg/dL (8.4-10.2); Carbon Dioxide 24 mmol/L (22-29); Chloride 94 mmol/L (96-108); Creatinine Clr Calc Pharmacy 67.8; Estimated Glomerular Filt Rate > 60; Glucose Random 103 mg/dL (60-115); Sodium 125 mmol/L (135-145)
[2023-11-16 06:33] LABS: Platelet Count 98 X10*3/uL (160-400)
--- NOTE | 2023-11-16 06:54 | PM.EVENT ---
Event Note Date of Service: 11/16/23 Event Note: Hemoglobin 5.7 this morning. Will repeat Hgb and will transfuse 2 units of PRBCs if Hbg < 7. Blood consent has been obtained. Time Spent With Patient Time: Total time managing care of this patient today ____ minutes.
[2023-11-16 07:57] LABS: Hemoglobin 6.2 g/dl (12.0-16.0)
[2023-11-16 07:58] LABS: Hematocrit 17.4 % (37.0-47.0)
[2023-11-16 08:14] LABS: Immature Retic Fraction 30.1 % (3.0-15.9); Retic HGB Equivalent 37.4 pg (30.0-35.0); Reticulocyte Percent 4.6 % (0.5-1.8); Reticulocytes Absolute 0.088 X10*6/uL (0.026-0.095)
[2023-11-16 08:27] LABS: Alanine Aminotransferase 26 U/L (0-31); Albumin Level 2.9 g/dL (3.5-5.0); Alkaline Phosphatase 87 U/L (39-117); Aspartate Amino Transferase 29 U/L (5-31); Bilirubin Direct 0.2 mg/dL (0.0-0.5); Bilirubin Total 0.6 mg/dL (0.0-1.0); Iron 23 mcg/dL (30-160); Percent Iron Saturation 15 % (15-50); Total Iron Binding Capacity 155 mcg/dL (228-428); Total Protein 4.8 g/dL (6.5-8.0); Unsaturated Iron Binding 132 ug/dL
[2023-11-16 08:30] LABS: Platelet Count 124 X10*3/uL (160-400)
[2023-11-16 08:30] LABS: Lactate Dehydrogenase 195 U/L (122-220)
[2023-11-16] MEDS: Albuterol/Iprat 2.5/0.5MG 3 ML AMPUL.NEB INHALE ×4 (08:34→21:26)
[2023-11-16 08:50] LABS: Ferritin 467 ng/mL (10-250)
--- NOTE | 2023-11-16 08:56 | PM.PNORT ---
Subjective Subjective Date of Service: 11/16/23 Interval history: POD2 s/p left hip IM Nail Patient is resting in bed comfortably No overnight events Pain is managed Patient reports that she has been experiencing significant fatigue since yesterday Physical Exam Vital Signs: Vital Signs: Last Vital Signs Temp 97.7 F 11/16/23 08:45 Pulse 100 11/16/23 08:45 Resp 16 11/16/23 08:45 BP 98/56 L 11/16/23 08:45 Pulse Ox 94 11/16/23 07:58 O2 Del Method Room Air 11/16/23 07:58 O2 Flow Rate 6 11/14/23 21:46 BMI result Body Mass Index 19.9 Const: General: cooperative, healthy appearing and no acute distress Resp: Effort & Inspection: normal respiratory effort and able to speak in complete sentences Cardio: Rate: regular rate Peripheral pulses: Peripheral pulses 2+ throughout GI: Palpation (GI): Soft to palpation Skin: Other: Patient is noted to be noticeably pale while resting in bed Lesions: no lesions Rashes: no rashes Extrem: Other: left hip dressing is c/d/i. Able to dorsi/plantar flex. Calf is supple and nontender. Sensation intact. Pedal pulse intact. Procedures Date of Service Date of Service: 11/16/23 Progress Note: A&P Assessment and plan (1) Closed intertrochanteric fracture: Status: Acute Plan 1. Intertrochanteric fracture of the left hip status post left IM nail placement DOS 11/14/2023 Continue pain management Continue Lovenox for DVT prophylaxis Continue PT/OT for left IM nail Proceed with transfusion of 2 units of blood per Medicine, H/H 6.2/17.4 Continue with all other recommendations per Medicine Time Spent With Patient Time: Total time managing care of this patient today ____ minutes. Quality Stroke Does the patient have a stroke diagnosis?: No VTE Prior VTE?: No VTE Risk Level:: Medical - moderate - high VTE Device Contraindication: Treatment Not Indicated VTE Drug Contraindication: N/A - Med Ordered
--- NOTE | 2023-11-16 09:06 | HO.POSTANES ---
Post Anesthesia Evaluation Post Anesthesia Evaluation Date of Service: 11/14/23 Vital Signs: Vital Signs Temp Pulse Resp BP Pulse Ox O2 Del Method 11/16/23 08:45 97.7 F 100 16 98/56 L 11/16/23 08:40 89 97/50 L 11/16/23 08:30 96.8 F 89 18 97/50 L 11/16/23 07:58 96.8 F 89 18 97/50 L 94 Room Air 11/16/23 03:06 97.1 F 96 16 112/59 L 97 Room Air 11/15/23 23:53 96.8 F 100 16 124/56 L 100 Room Air 11/15/23 21:08 101 H 110/58 L Anesthesia: General Mental Status: Awake Pain Control: Satisfactory Nausea/Vomiting: None Hydration: Adequate Anesthesia-Related Issues: No Anes. Related Issues
[2023-11-16] MEDS: 0.9 % Sodium Chloride Flush 3 ML SYRINGE IVFLUSH ×2 (09:31→16:05)
[2023-11-16] MEDS: Sodium Chloride Tab 1 GM TABLET PO ×2 (09:31→21:47)
[2023-11-16] MEDS: Nortriptyline HCl 25 MG CAPSULE 50 MG PO ×2 (09:31→21:47)
[2023-11-16] MEDS: Pantoprazole Sodium 40 MG/10 ML VIAL IVPUSH ×2 (09:31→16:05)
[2023-11-16] MEDS: Cholecalciferol (Vitamin D3) 25 MCG TABLET PO (09:31)
[2023-11-16 11:33] LABS: Haptoglobin 124 mg/dL (63-273)
[2023-11-16] MEDS: Furosemide 20 MG/2 ML VIAL IVPUSH (13:06)
--- NOTE | 2023-11-16 14:50 | MHC.CM.PN ---
PT NOT MEDICALLY CLEARED FOR DC TO REHAB (H AND H LOW, RECEIVING BLOOD) PT HAS BEEN ACCEPTED [facility] WHEN MEDICALLY READY. PT UPDATED. CM WILL CONTINUE TO FOLLOW FOR ANY CHANGE TO DC PLAN.
--- NOTE | 2023-11-16 15:03 | P.PNIM_ITS ---
Subjective Subjective Date of Service: 11/16/23 Interval History: hyponatremia ,anemia of acute blood loss ( s/p hip surgery yesterday,also has soaked dressing this morning) Review of Systems looks pale ,denies any gross bleeding except above mild tachycardia denies any chest pain or sob or nausea or vomiting Physical Exam 2 Vital Signs: Vital Signs: Last Vital Signs Temp 97.3 F 11/16/23 13:46 Pulse 104 H 11/16/23 13:46 Resp 17 11/16/23 13:46 BP 107/56 L 11/16/23 13:46 Pulse Ox 100 11/16/23 13:15 O2 Del Method Room Air 11/16/23 13:15 O2 Flow Rate 6 11/14/23 21:46 BMI result Body Mass Index 19.9 Appearance: Alert.? Oriented X3.? cvs: rrr, [id number]. res: clear to auscultation ,no rales or wheezing. left Hip-left hip dressing is c/d/i. Able to dorsi/plantar flex. abd: no rebound or guarding ,nt, bs present. ext pulses present , no cyanosis neuro: axo3 , nonfocal. Objective Data Active Medications Albuterol/Ipratropium (Albuterol/Iprat 2.5/0.5mg 3 Ml Ampul.Neb) 3 ml INHALE RQ4H WHILE AWAKE [facility] Last Admin: 11/16/23 11:43 Dose: 3 ml Documented By: NEREYDA Carvedilol (Carvedilol 6.25 Mg Tablet) 6.25 mg PO BID JOON; Protocol Last Admin: 11/16/23 09:30 Dose: Not Given Documented By: KANDACE Non-Admin Reason: Decreased Blood Pressure Hydromorphone HCl (Hydromorphone Hcl 0.5 Mg/0.5 Ml Syringe) 0.5 mg IVPUSH Q3H PRN; Protocol PRN Reason: Pain, Severe (Pain Scale 7-10) Last Admin: 11/16/23 09:32 Dose: 0.5 mg Documented By: KANDACE Cefazolin Sodium/Dextrose (Ancef) 2 gm in 50 mls @ 100 mls/hr IV POSTOP JOON Acetaminophen (Ofirmev) 1,000 mg in 100 mls @ 400 mls/hr IV 0000,0600,1200,1800 [facility] Last Infusion: 11/16/23 12:52 Dose: Infused Documented By: KANDACE Levothyroxine Sodium (Levothyroxine Sodium 50 Mcg Tablet) 50 mcg PO MoTuWeThFrSa@0600 [facility] Last Admin: 11/16/23 05:53 Dose: 50 mcg Documented By: JOSE Levothyroxine Sodium (Levothyroxine Sodium 100 Mcg Tablet) 100 mcg PO Turner@0600 [facility] Melatonin (Melatonin 3 Mg Tablet) 6 mg PO BEDTIME PRN PRN Reason: Insomnia Nortriptyline HCl (Nortriptyline Hcl 25 Mg Capsule) 50 mg PO BID [facility] Last Admin: 11/16/23 09:31 Dose: 50 mg Documented By: KANDACE Ondansetron HCl (Ondansetron Hcl 4 Mg/2 Ml Vial) 4 mg IVPUSH Q4H PRN PRN Reason: Nausea and Vomiting Last Admin: 11/15/23 06:57 Dose: 4 mg Documented By: CASTJOSHUA Oxycodone HCl (Oxycodone Hcl Immed Release 5 Mg Tablet) 10 mg PO Q4H PRN PRN Reason: Pain, Moderate(Pain Scale 4-6) Pantoprazole Sodium (Pantoprazole Sodium 40 Mg/10 Ml Vial) 40 mg IVPUSH BID@0630,1630 [facility] Last Admin: 11/16/23 09:31 Dose: 40 mg Documented By: KANDACE Sodium Chloride (0.9 % Sodium Chloride Flush 3 Ml Syringe) 3 ml IVFLUSH QSHIFT [facility] Last Admin: 11/16/23 09:31 Dose: 3 ml Documented By: KANDACE Sodium Chloride (Sodium Chloride Tab 1 Gm Tablet) 1 gm PO BID [facility] Last Admin: 11/16/23 09:31 Dose: 1 gm Documented By: KANDACE Tamsulosin HCl (Tamsulosin Hcl 0.4 Mg Capsule) 0.4 mg PO DAILY [facility] Last Admin: 11/16/23 09:32 Dose: Not Given Documented By: KANDACE Non-Admin Reason: Physician Held Med Vitamin D (Cholecalciferol (Vitamin D3) 25 Mcg Tablet) 25 mcg PO DAILY [facility] Last Admin: 11/16/23 09:31 Dose: 25 mcg Documented By: KANDACE Labs 11/16/23 07:16 11/16/23 05:51 Labs: Laboratory Results - last 24 hr 11/13/23 11/16/23 11/16/23 19:13 05:51 07:16 MCV 92.1 MCH 32.0 MCHC 34.8 RDW 20.6 H Plt Count 98 L D 124 L D MPV 10.5 Absolute Nucleated RBC 0.000 Nucleated RBC % (auto) 0.0 Smear Path Review Absolute Retic 0.088 Percent Retic 4.6 H Immature Retic Fraction 30.1 H Retic Hgb Equivalent 37.4 H Anion Gap 11 L Estim Creat Clear Calc 67.8 Estimated GFR > 60 Random Glucose 103 Haptoglobin Calcium 8.4 Iron 23 L TIBC 155 L % Saturation 15 Unsat Iron Binding 132 Ferritin 467 H Total Bilirubin 0.6 Direct Bilirubin 0.2 AST 29 ALT 26 Alkaline Phosphatase 87 Lactate Dehydrogenase 195 Total Protein 4.8 L Albumin 2.9 L Blood Type O Positive Antibody Screen NEGATIVE Crossmatch See Detail 11/16/23 10:43 MCV MCH MCHC RDW Plt Count MPV Absolute Nucleated RBC Nucleated RBC % (auto) Smear Path Review Absolute Retic Percent Retic Immature Retic Fraction Retic Hgb Equivalent Anion Gap Estim Creat Clear Calc Estimated GFR Random Glucose Haptoglobin 124 Calcium Iron TIBC % Saturation Unsat Iron Binding Ferritin Total Bilirubin Direct Bilirubin AST ALT Alkaline Phosphatase Lactate Dehydrogenase Total Protein Albumin Blood Type Antibody Screen Crossmatch Assessment and Plan (1) Closed intertrochanteric fracture: Status: Acute (2) Acute hyponatremia: Status: Acute Plan 68 y/o woman with past medical history significant for old CVA admitted with: overnight events noted- acute blood loss anemia on ch anemia(postop and also has soaked dressing ,may also have some dilutional component since received ivf) has elevated retic count possible sec to blood loss ,ldha nd hapto globin normal, periphaeral smear - Normocytic anemia with polychromasia, without schistocytes: may be due to acute blood loss?. added 2 prbc, patient also received 1 prbc (11/13) moniter h/h post tranfusion moniter vitals and clinically. Left hip intertrochanteric fracture, closed. denies any cardiac hx or diabetes or renal dis , functional status limited walks with walker at baseline (has hx of cva ) but says can walk 1 block with walker. plan: Is a vitamin-D level-low( posisble deficiency) Pain control with Dilaudid as needed. Tylenol ,vitamin d replacements, Orthopedic surgery consult-s/p surgery (11/13) Tachycardia: Multifactorial-dehydration, anemia . Improving with addressing above(added transfusions /pain control) ovenight events noted -cxr fine lactic normal no fevers leucocytosis possible reactive and resolved. Urinary retention: Added Flomax PVR, p.r.n. Hyponatremia. trending down sec to fluids Possibly secondary to nortriptyline use/SIADH. Hold nortriptyline. hold fluids fluid restriction 1.2 liters /added sodium tabs moniter sodium closely. Elevated transaminases and alk-phos.: mild elevated - Atorvastatin use? Hold statin. Check LFTs in the morning. Essential hypertension. Continue carvedilol. Hypothyroidism. Continue levothyroxine. Asthma. No exacerbation. prn nebs Hyperlipidemia. Statin on hold due to elevated transaminases. DVT prophylaxis: Lovenox. Code status: Full ongoing hospitalization need for left hip intertrochanteric fracture management with IV pain meds and surgery, hyponatremia -moniter renal function/electrolytes . above d/w patient indetail. Quality Stroke Does the patient have a stroke diagnosis?: No VTE Prior VTE?: No VTE Risk Level:: Medical - moderate - high VTE Device Contraindication: Treatment Not Indicated VTE Drug Contraindication: N/A - Med Ordered
[2023-11-16] MEDS: oxyCODONE HCl Immed Release 5 MG TABLET 10 MG PO (16:04)
--- NOTE | 2023-11-16 16:27 | PC.NURSE ---
increased swelling to L leg, positive pedal pulses. equal temperature for both LE. Dr Sellers made aware. No new orders.
[2023-11-16 18:42] LABS: Sodium 128 mmol/L (135-145)
[2023-11-16] MEDS: Albumin Human 25 % 100 ML IV (18:49)
[2023-11-16 20:46] LABS: Imm Gran Abs Auto 0.08 X10*3/uL (0.00-0.03); Imm Gran Pct Auto 1.2 % (0.0-0.4); MANUAL DIFF FLAG SCAN; NRBC Pct Auto 0.3 /100WBC (0.0-0.2); PLT CLUMP 1; SCAN SMEAR FLAG 1
[2023-11-16 20:48] LABS: Basophils Percent Auto 0.2 % (0-2); Eosinophils Absolute Auto 0.1 X10*3/uL (0.0-0.4); Eosinophils Percent Auto 1.2 % (0-4); Hematocrit 27.8 % (37.0-47.0); Hemoglobin 9.9 g/dl (12.0-16.0); Lymphocytes Percent Auto 15.8 % (20-40); Mean Corpuscular HGB Conc 35.6 g/dl (31.0-35.0); Mean Corpuscular Hemoglobin 31.6 pg (27.0-33.0); Mean Corpuscular Volume 88.8 fL (80.0-98.0); Monocytes Absolute Auto 1.1 X10*3/uL (0.1-1.2); Monocytes Percent Auto 16.7 % (2-11); Neutrophils Absolute Auto 4.2 x10*3/uL (2.0-8.3); Neutrophils Percent Auto 64.9 % (45-73); Red Blood Count 3.13 X10*6/uL (4.20-5.50); Red Cell Distribution Width 16.8 % (11.0-16.0)
[2023-11-16 20:51] LABS: White Blood Count 6.5 X10*3/uL (4.8-10.8)
[2023-11-16 20:52] LABS: Platelet Count 88 X10*3/uL (160-400)
--- NOTE | 2023-11-16 20:55 | PM.PNNEP ---
Subjective Subjective Date of Service: 11/16/23 Interval history: hyponatremia ,anemia of acute blood loss ( s/p hip surgery yesterday,also has soaked dressing this morning) Physical Exam Vital Signs: Vital Signs: Last Vital Signs Temp 97.7 F 11/16/23 19:32 Pulse 92 11/16/23 19:32 Resp 18 11/16/23 19:32 BP 133/68 11/16/23 19:32 Pulse Ox 97 11/16/23 19:32 O2 Del Method Room Air 11/16/23 19:32 O2 Flow Rate 6 11/14/23 21:46 BMI result Body Mass Index 19.9 Const: General: comfortable; No acute distress Orientation/consciousness: patient oriented x3 Eyes: General: appearance normal, both eyes and all related structures Visual Kirk: normal visual kirk by confrontation Neck: Neck: Yes supple and Yes no JVD Resp: Effort & Inspection: normal respiratory effort and respiratory effort not decreased Auscultation: rhonchi Cardio: Palpation: no palpable S3 and no palpable S4 Heart sounds: no rubs GI: Inspection: Yes normal to inspection Palpation (GI): Soft to palpation Percussion: Yes normal to percussion Auscultation: normal bowel sounds : General: Yes no CVA tenderness Back/Spine/Pelvis: Back: no CVA tenderness Skin: General skin exam: no petechiae and no purpura Neuro: General: patient oriented x3 and no focal motor deficits Extrem: General: No clubbing and No edema Objective Data Labs 11/16/23 20:29 11/16/23 18:22 Labs: Laboratory Results - last 24 hr 11/13/23 11/16/23 11/16/23 19:13 05:51 07:16 WBC 6.6 RBC 1.78 L D Hgb 5.7 L* D 6.2 L* Hct 16.4 L* D 17.4 L* MCV 92.1 MCH 32.0 MCHC 34.8 RDW 20.6 H Plt Count 98 L D 124 L D MPV 10.5 Immature Gran % (Auto) Neut % (Auto) Lymph % (Auto) [place] % (Auto) Eos % (Auto) Baso % (Auto) Lymph # (Auto) [place] # (Auto) Eos # (Auto) Baso # (Auto) Abs Immat Gran (auto) Absolute Neuts (auto) Absolute Nucleated RBC 0.000 Nucleated RBC % (auto) 0.0 Smear Path Review Absolute Retic 0.088 Percent Retic 4.6 H Immature Retic Fraction 30.1 H Retic Hgb Equivalent 37.4 H Sodium 125 L Potassium 4.0 Chloride 94 L Carbon Dioxide 24 Anion Gap 11 L BUN 11 Creatinine 0.57 Estim Creat Clear Calc 67.8 Estimated GFR > 60 Random Glucose 103 Haptoglobin Calcium 8.4 Iron 23 L TIBC 155 L % Saturation 15 Unsat Iron Binding 132 Ferritin 467 H Total Bilirubin 0.6 Direct Bilirubin 0.2 AST 29 ALT 26 Alkaline Phosphatase 87 Lactate Dehydrogenase 195 Total Protein 4.8 L Albumin 2.9 L Blood Type O Positive Antibody Screen NEGATIVE Crossmatch See Detail 11/16/23 11/16/23 11/16/23 10:43 18:22 20:29 WBC 6.5 RBC 3.13 L D Hgb 9.9 L D Hct 27.8 L D MCV 88.8 MCH 31.6 MCHC 35.6 H RDW 16.8 H Plt Count 88 L D MPV 10.0 Immature Gran % (Auto) 1.2 H Neut % (Auto) 64.9 Lymph % (Auto) 15.8 L [place] % (Auto) 16.7 H Eos % (Auto) 1.2 Baso % (Auto) 0.2 Lymph # (Auto) 1.0 L [place] # (Auto) 1.1 Eos # (Auto) 0.1 Baso # (Auto) 0.0 Abs Immat Gran (auto) 0.08 H Absolute Neuts (auto) 4.2 Absolute Nucleated RBC 0.020 H Nucleated RBC % (auto) 0.3 H Smear Path Review Absolute Retic Percent Retic Immature Retic Fraction Retic Hgb Equivalent Sodium 128 L Potassium Chloride Carbon Dioxide Anion Gap BUN Creatinine Estim Creat Clear Calc Estimated GFR Random Glucose Haptoglobin 124 Calcium Iron TIBC % Saturation Unsat Iron Binding Ferritin Total Bilirubin Direct Bilirubin AST ALT Alkaline Phosphatase Lactate Dehydrogenase Total Protein Albumin Blood Type Antibody Screen Crossmatch Procedures Date of Service Date of Service: 11/16/23 Assessment & Plan Assessment and plan (1) Acute hyponatremia: Status: Acute Plan 68-year-old year old woman with a history of chronic asymptomatic hyponatremia with acute worsening. She has increase ADH secretion with decreased free water clearance. Recommend Restrict PO water intake Goal is to correct serum sodium rate of 0.5-1 millimole per L/hr and not exceed more than 10 millimoles per 24 hours. Goal serum sodium is more than 130 millimoles. Restrict p.o. water intake to 1.2 L per 24 hours. Given abnormal LFTs I will hold off on using urea powder at this time. Use sodium does not improve in the next 24-48 hours I will add sodium chloride tablets to increase osmotic load. She will follow along with the team. Time Spent With Patient Time: Total time managing care of this patient today ____ minutes. Progress Note: Quality Stroke Does the patient have a stroke diagnosis?: No
[2023-11-16] MEDS: carvediloL 6.25 MG TABLET PO (21:47)
[2023-11-16 21:55] LABS: SLIDE REVIEW VERIFIED
[2023-11-16 22:28] LABS: Hemoglobin 9.7 g/dl (12.0-16.0); Mean Corpuscular Hemoglobin 31.7 pg (27.0-33.0); PLT CLUMP 1; Red Blood Count 3.06 X10*6/uL (4.20-5.50)
[2023-11-16 22:30] LABS: Hematocrit 27.3 % (37.0-47.0); Mean Corpuscular HGB Conc 35.5 g/dl (31.0-35.0); Mean Corpuscular Volume 89.2 fL (80.0-98.0); Mean Platelet Volume 10.1 fL (9.4-12.3); NRBC Pct Auto 0.3 /100WBC (0.0-0.2); Red Cell Distribution Width 16.9 % (11.0-16.0)
[2023-11-16 22:40] LABS: White Blood Count 6.6 X10*3/uL (4.8-10.8)
[2023-11-16 22:41] LABS: Platelet Count 84 X10*3/uL (160-400)
[2023-11-17] VITALS (11 sets, daily range): BP systolic 100–128; BP diastolic 57–72; PULSE 83–98; RESP 14–18; TEMP 36–36.7; O2SAT 94–100
[2023-11-17] MEDS: Albumin Human 25 % 100 ML IV ×3 (00:16→12:15)
[2023-11-17] MEDS: oxyCODONE HCl Immed Release 5 MG TABLET 10 MG PO ×4 (01:44→19:55)
[2023-11-17] MEDS: HYDROmorphone HCl 0.5 MG/0.5 ML SYRINGE IVPUSH ×2 (04:57→22:40)
[2023-11-17] MEDS: Levothyroxine Sodium 50 MCG TABLET PO (05:57)
[2023-11-17] MEDS: Pantoprazole Sodium 40 MG/10 ML VIAL IVPUSH ×2 (05:57→17:17)
[2023-11-17] MEDS: Acetaminophen 1,000 MG/100 ML PIGGYBACK 400 MG IV ×3 (06:04→17:18)
--- NOTE | 2023-11-17 07:32 | HO.PM.IMPN ---
Subjective Subjective Date of Service: 11/17/23 Interval History: hematoma,hyponatremia Review of Systems patient has increased upper thigh swellin/soaking since yesterday, rom limited due to that. currently denies any other c/o. Physical Exam Vital Signs: Vital Signs: Last Vital Signs Temp 96.8 F 11/17/23 04:00 Pulse 98 11/17/23 04:00 Resp 18 11/17/23 04:00 BP 127/58 L 11/17/23 04:00 Pulse Ox 100 11/17/23 04:00 O2 Del Method Room Air 11/17/23 04:00 O2 Flow Rate 6 11/14/23 21:46 BMI result Body Mass Index 19.9 Appearance: Alert.? Oriented X3.? cvs: rrr, [id number]. res: clear to auscultation ,no rales or wheezing. left Hip-left hip dressing still has soakin,swelling ,rom limited due to that. abd: no rebound or guarding ,nt, bs present. ext pulses present , no cyanosis neuro: axo3 , nonfocal. Objective Data Active Medications Albuterol/Ipratropium (Albuterol/Iprat 2.5/0.5mg 3 Ml Ampul.Neb) 3 ml INHALE RQ4H WHILE AWAKE [facility] Last Admin: 11/16/23 21:26 Dose: 3 ml Documented By: KEHINDE Carvedilol (Carvedilol 6.25 Mg Tablet) 6.25 mg PO BID JOON; Protocol Last Admin: 11/16/23 21:47 Dose: 6.25 mg Documented By: JOSE Hydromorphone HCl (Hydromorphone Hcl 0.5 Mg/0.5 Ml Syringe) 0.5 mg IVPUSH Q3H PRN; Protocol PRN Reason: Pain, Severe (Pain Scale 7-10) Last Admin: 11/17/23 04:57 Dose: 0.5 mg Documented By: JOSE Cefazolin Sodium/Dextrose (Ancef) 2 gm in 50 mls @ 100 mls/hr IV POSTOP JOON Acetaminophen (Ofirmev) 1,000 mg in 100 mls @ 400 mls/hr IV 0000,0600,1200,1800 [facility] Last Infusion: 11/17/23 06:22 Dose: Infused Documented By: JOSE Albumin Human (Kedbumin 25 %) 100 mls @ 100 mls/hr IV Q6H [facility] Stop: 11/17/23 12:59 Last Admin: 11/17/23 06:23 Dose: 100 mls/hr Documented By: JOSE Levothyroxine Sodium (Levothyroxine Sodium 50 Mcg Tablet) 50 mcg PO MoTuWeThFrSa@0600 [facility] Last Admin: 11/17/23 05:57 Dose: 50 mcg Documented By: JOSE Levothyroxine Sodium (Levothyroxine Sodium 100 Mcg Tablet) 100 mcg PO Turner@0600 [facility] Melatonin (Melatonin 3 Mg Tablet) 6 mg PO BEDTIME PRN PRN Reason: Insomnia Nortriptyline HCl (Nortriptyline Hcl 25 Mg Capsule) 50 mg PO BID [facility] Last Admin: 11/16/23 21:47 Dose: 50 mg Documented By: JOSE Ondansetron HCl (Ondansetron Hcl 4 Mg/2 Ml Vial) 4 mg IVPUSH Q4H PRN PRN Reason: Nausea and Vomiting Last Admin: 11/15/23 06:57 Dose: 4 mg Documented By: PITO Oxycodone HCl (Oxycodone Hcl Immed Release 5 Mg Tablet) 10 mg PO Q4H PRN PRN Reason: Pain, Moderate(Pain Scale 4-6) Last Admin: 11/17/23 01:44 Dose: 10 mg Documented By: JOSE Comments: per pt request Pantoprazole Sodium (Pantoprazole Sodium 40 Mg/10 Ml Vial) 40 mg IVPUSH BID@0630,1630 [facility] Last Admin: 11/17/23 05:57 Dose: 40 mg Documented By: JOSE Sodium Chloride (0.9 % Sodium Chloride Flush 3 Ml Syringe) 3 ml IVFLUSH QSHIFT [facility] Last Admin: 11/17/23 00:00 Dose: Not Given Documented By: JOSE Non-Admin Reason: IV Running Sodium Chloride (Sodium Chloride Tab 1 Gm Tablet) 1 gm PO BID [facility] Last Admin: 11/16/23 21:47 Dose: 1 gm Documented By: JOSE Tamsulosin HCl (Tamsulosin Hcl 0.4 Mg Capsule) 0.4 mg PO DAILY [facility] Last Admin: 11/16/23 09:32 Dose: Not Given Documented By: KANDACE Non-Admin Reason: Physician Held Med Vitamin D (Cholecalciferol (Vitamin D3) 25 Mcg Tablet) 25 mcg PO DAILY [facility] Last Admin: 11/16/23 09:31 Dose: 25 mcg Documented By: KANDACE Labs 11/17/23 07:46 11/17/23 07:45 Labs: Laboratory Results - last 24 hr 11/13/23 11/16/23 11/16/23 19:13 05:51 07:16 MCV MCH MCHC RDW Plt Count 124 L D MPV Immature Gran % (Auto) Neut % (Auto) Lymph % (Auto) [place] % (Auto) Eos % (Auto) Baso % (Auto) Lymph # (Auto) [place] # (Auto) Eos # (Auto) Baso # (Auto) Abs Immat Gran (auto) Absolute Neuts (auto) Absolute Nucleated RBC Nucleated RBC % (auto) Smear Tech's Comments Smear Path Review Absolute Retic 0.088 Percent Retic 4.6 H Immature Retic Fraction 30.1 H Retic Hgb Equivalent 37.4 H Haptoglobin Iron 23 L TIBC 155 L % Saturation 15 Unsat Iron Binding 132 Ferritin 467 H Total Bilirubin 0.6 Direct Bilirubin 0.2 AST 29 ALT 26 Alkaline Phosphatase 87 Lactate Dehydrogenase 195 Total Protein 4.8 L Albumin 2.9 L Blood Type O Positive Antibody Screen NEGATIVE Crossmatch See Detail 11/16/23 11/16/23 11/16/23 10:43 20:29 20:29 MCV 89.2 88.8 MCH 31.7 MCHC RDW Plt Count MPV Immature Gran % (Auto) Neut % (Auto) Lymph % (Auto) [place] % (Auto) Eos % (Auto) Baso % (Auto) Lymph # (Auto) [place] # (Auto) Eos # (Auto) Baso # (Auto) Abs Immat Gran (auto) Absolute Neuts (auto) Absolute Nucleated RBC Nucleated RBC % (auto) Smear Tech's Comments Smear Path Review Absolute Retic Percent Retic Immature Retic Fraction Retic Hgb Equivalent Haptoglobin 124 Iron TIBC % Saturation Unsat Iron Binding Ferritin Total Bilirubin Direct Bilirubin AST ALT Alkaline Phosphatase Lactate Dehydrogenase Total Protein Albumin Blood Type Antibody Screen Crossmatch 11/16/23 11/16/23 11/16/23 20:29 20:29 20:29 MCV MCH 31.6 MCHC 35.5 H 35.6 H RDW 16.9 H 16.8 H Plt Count 84 L D MPV Immature Gran % (Auto) Neut % (Auto) Lymph % (Auto) [place] % (Auto) Eos % (Auto) Baso % (Auto) Lymph # (Auto) [place] # (Auto) Eos # (Auto) Baso # (Auto) Abs Immat Gran (auto) Absolute Neuts (auto) Absolute Nucleated RBC Nucleated RBC % (auto) Smear Tech's Comments Smear Path Review Absolute Retic Percent Retic Immature Retic Fraction Retic Hgb Equivalent Haptoglobin Iron TIBC % Saturation Unsat Iron Binding Ferritin Total Bilirubin Direct Bilirubin AST ALT Alkaline Phosphatase Lactate Dehydrogenase Total Protein Albumin Blood Type Antibody Screen Crossmatch 11/16/23 11/16/23 11/16/23 20:29 20:29 20:29 MCV MCH MCHC RDW Plt Count 88 L MPV 10.1 10.0 Immature Gran % (Auto) 1.2 H Neut % (Auto) 64.9 Lymph % (Auto) 15.8 L [place] % (Auto) 16.7 H Eos % (Auto) 1.2 Baso % (Auto) 0.2 Lymph # (Auto) 1.0 L [place] # (Auto) 1.1 Eos # (Auto) 0.1 Baso # (Auto) 0.0 Abs Immat Gran (auto) 0.08 H Absolute Neuts (auto) 4.2 Absolute Nucleated RBC 0.020 H 0.020 H Nucleated RBC % (auto) 0.3 H Smear Tech's Comments Smear Path Review Absolute Retic Percent Retic Immature Retic Fraction Retic Hgb Equivalent Haptoglobin Iron TIBC % Saturation Unsat Iron Binding Ferritin Total Bilirubin Direct Bilirubin AST ALT Alkaline Phosphatase Lactate Dehydrogenase Total Protein Albumin Blood Type Antibody Screen Crossmatch 11/16/23 20:29 MCV MCH MCHC RDW Plt Count MPV Immature Gran % (Auto) Neut % (Auto) Lymph % (Auto) [place] % (Auto) Eos % (Auto) Baso % (Auto) Lymph # (Auto) [place] # (Auto) Eos # (Auto) Baso # (Auto) Abs Immat Gran (auto) Absolute Neuts (auto) Absolute Nucleated RBC Nucleated RBC % (auto) 0.3 H Smear Tech's Comments VERIFIED Smear Path Review Absolute Retic Percent Retic Immature Retic Fraction Retic Hgb Equivalent Haptoglobin Iron TIBC % Saturation Unsat Iron Binding Ferritin Total Bilirubin Direct Bilirubin AST ALT Alkaline Phosphatase Lactate Dehydrogenase Total Protein Albumin Blood Type Antibody Screen Crossmatch Assessment and Plan (1) Closed intertrochanteric fracture: Status: Acute (2) Acute hyponatremia: Status: Acute Assessment and Plan: 68 y/o woman with past medical history significant for old CVA admitted with: acute blood loss anemia on ch anemia(postop and also has soaked dressing ,may also have some dilutional component since received ivf) has elevated retic count possible sec to blood loss ,ldha nd hapto globin normal, periphaeral smear - Normocytic anemia with polychromasia, without schistocytes: may be due to acute blood loss?. received 2 prbc on 11/15, patient also received 1 prbc (11/13) h/h in [address] leg-showed hematoma moniter closely ,will check h/h this afternoon moniter vitals and clinically. thrombocytopenia -? chronic ,slowly trending down,unclear etiology added hematology eval. Left hip intertrochanteric fracture, closed. postopanemia Pain control with Dilaudid as needed. Tylenol ,vitamin d replacements, Orthopedic surgery consult-s/p surgery (11/13) possible Is a vitamin-D level-low( posisble deficiency): added vitamin d Tachycardia: Multifactorial-dehydration, anemia . Improving with addressing above(added transfusions /pain control). Urinary retention: Added Flomax PVR, p.r.n. Hyponatremia Possibly secondary to nortriptyline use/SIADH. Hold nortriptyline. hold fluids fluid restriction 1.2 liters /added sodium tabs improved to baseline . moniter sodium closely. Elevated transaminases and alk-phos.: mild elevated - Atorvastatin use? Hold statin. repeat lft's seems improved. Essential hypertension. Continue carvedilol adjsuted due to 3.125 mg bid ( since bleeding and blood pressure acceptable) . Hypothyroidism. Continue levothyroxine. Asthma. No exacerbation. prn nebs Hyperlipidemia. Statin on hold due to elevated transaminases. DVT prophylaxis: on scd. Code status: Full ongoing hospitalization need for left hip intertrochanteric fracture management with IV pain meds and surgery, hyponatremia -moniter renal function/electrolytes . above d/w patient indetail. Quality Stroke Does the patient have a stroke diagnosis?: No VTE Prior VTE?: No VTE Risk Level:: Medical - moderate - high VTE Device Contraindication: Treatment Not Indicated VTE Drug Contraindication: N/A - Med Ordered
[2023-11-17] MEDS: Albuterol/Iprat 2.5/0.5MG 3 ML AMPUL.NEB INHALE ×3 (07:54→19:30)
[2023-11-17 08:19] LABS: Hematocrit 22.5 % (37.0-47.0); Hemoglobin 7.9 g/dl (12.0-16.0); Mean Corpuscular HGB Conc 35.1 g/dl (31.0-35.0); Mean Corpuscular Hemoglobin 31.6 pg (27.0-33.0); Platelet Count 75 X10*3/uL (160-400); Red Cell Distribution Width 17.1 % (11.0-16.0); White Blood Count 3.8 X10*3/uL (4.8-10.8)
[2023-11-17] MEDS: Nortriptyline HCl 25 MG CAPSULE 50 MG PO ×2 (08:19→19:55)
[2023-11-17] MEDS: carvediloL 6.25 MG TABLET PO (08:19)
[2023-11-17] MEDS: Sodium Chloride Tab 1 GM TABLET PO ×2 (08:19→19:55)
[2023-11-17] MEDS: Tamsulosin HCL 0.4 MG CAPSULE PO (08:19)
[2023-11-17] MEDS: Cholecalciferol (Vitamin D3) 25 MCG TABLET PO (08:19)
[2023-11-17] MEDS: 0.9 % Sodium Chloride Flush 3 ML SYRINGE IVFLUSH ×3 (08:21→19:56)
[2023-11-17 08:32] LABS: Anion Gap 11 (12-20); Blood Urea Nitrogen 8 mg/dL (9-16); Calcium 8.6 mg/dL (8.4-10.2); Carbon Dioxide 22 mmol/L (22-29); Chloride 100 mmol/L (96-108); Creatinine Clr Calc Pharmacy 77.4; Estimated Glomerular Filt Rate > 60; Glucose Random 90 mg/dL (60-115); Potassium 3.4 mmol/L (3.3-5.1); Sodium 130 mmol/L (135-145)
--- NOTE | 2023-11-17 08:51 | P.PNOP_ITS ---
Subjective Subjective Date of Service: 11/17/23 Interval history: POD3 s/p left hip IM Nail Patient is resting in bed comfortably No overnight events Pain is managed Patient reports that she is feeling much better than she did yesterday, and then she was told that her H/H is significantly improved from yesterday The patient does report that she feels her left leg is swollen, and that is some bruising has formed since yesterday. Physical Exam Vital Signs: Vital Signs: Last Vital Signs Temp 98.0 F 11/17/23 07:37 Pulse 96 11/17/23 07:55 Resp 14 11/17/23 07:55 BP 128/60 11/17/23 07:37 Pulse Ox 95 11/17/23 07:37 O2 Del Method Room Air 11/17/23 07:37 O2 Flow Rate 6 11/14/23 21:46 BMI result Body Mass Index 19.9 Const: General: cooperative, healthy appearing and no acute distress Resp: Effort & Inspection: normal respiratory effort and able to speak in complete sentences Cardio: Rate: regular rate Peripheral pulses: Peripheral pulses 2+ through out GI: Palpation (GI): Soft to palpation Skin: Lesions: no lesions Rashes: no rashes Extrem: Other: left hip dressing is noted to have some blood on it, but is intact. When dressing is removed this morning, there is no active bleeding noted from the incision sites. Able to dorsi/plantar flex. Calf is supple and nontender. Sensation intact. Pedal pulse intact. Procedures Date of Service Date of Service: 11/17/23 Progress Note: A&P Assessment and plan (1) Closed intertrochanteric fracture: Status: Acute Plan 1. Intertrochanteric fracture of the left hip status post left IM nail placement DOS 11/14/2023 Dressing changed this morning Continue pain management Continue Lovenox for DVT prophylaxis Continue PT/OT for left IM nail Proceed with transfusion of 2 units of blood per Medicine, H/H 6.2/17.4 Continue with all other recommendations per Medicine Plan is for discharge to [facility] for short-term rehab when medically cleared Time Spent With Patient Time: Total time managing care of this patient today ____ minutes. Quality Stroke Does the patient have a stroke diagnosis?: No VTE Prior VTE?: No VTE Risk Level:: Medical - moderate - high VTE Device Contraindication: Treatment Not Indicated VTE Drug Contraindication: N/A - Med Ordered
--- NOTE | 2023-11-17 13:46 | MHC.CM.PN ---
[facility] REVIEWED AND PER MD ROUNDS, PT IS NOT MEDICALLY CLEARED FOR DC TO REHAB (HEMATOMA, LOW H AND H) [facility] IS FIRST CHOICE AND HAS OFFERED A BED, CLINICAL UPDATES SENT VIA [facility].
[2023-11-17 15:14] LABS: Hematocrit 23.1 % (37.0-47.0); Hemoglobin 8.3 g/dl (12.0-16.0)
[2023-11-17] MEDS: carvediloL 3.125 MG TABLET PO (19:54)
[2023-11-18] VITALS (9 sets, daily range): BP systolic 106–148; BP diastolic 60–84; PULSE 81–99; RESP 16–18; TEMP 36–36.7; O2SAT 93–100
[2023-11-18] MEDS: Acetaminophen 1,000 MG/100 ML PIGGYBACK 400 MG IV ×5 (00:17→23:53)
[2023-11-18] MEDS: oxyCODONE HCl Immed Release 5 MG TABLET 10 MG PO ×4 (04:43→21:53)
[2023-11-18] MEDS: Levothyroxine Sodium 50 MCG TABLET PO (05:54)
[2023-11-18] MEDS: Pantoprazole Sodium 40 MG/10 ML VIAL IVPUSH ×2 (05:54→15:39)
[2023-11-18] MEDS: Albuterol/Iprat 2.5/0.5MG 3 ML AMPUL.NEB INHALE (07:47)
[2023-11-18 08:45] LABS: Hematocrit 22.9 % (37.0-47.0)
--- NOTE | 2023-11-18 08:54 | HO.PM.IMPN ---
Subjective Subjective Date of Service: 11/18/23 Interval History: hip fx ,hemtoma pancytopenia hyponatremia Review of Systems denies new c/o except Physical Exam Vital Signs: Vital Signs: Last Vital Signs Temp 98.0 F 11/18/23 07:08 Pulse 81 11/18/23 07:47 Resp 18 11/18/23 07:47 BP 117/84 11/18/23 07:08 Pulse Ox 96 11/18/23 07:08 O2 Del Method Room Air 11/18/23 07:08 O2 Flow Rate 6 11/14/23 21:46 BMI result Body Mass Index 19.9 Appearance: Alert.? Oriented X3.? cvs: [id number], [id number]. res: clear to auscultation ,no rales or wheezing. left Hip-eccynmosis upper thigh area ,swelling somewhat ,rom improving but limited . abd: no rebound or guarding ,nt, bs present. ext pulses present , no cyanosis neuro: axo3 , nonfocal. Objective Data Active Medications Albuterol/Ipratropium (Albuterol/Iprat 2.5/0.5mg 3 Ml Ampul.Neb) 3 ml INHALE RQ4H WHILE AWAKE JOON Last Admin: 11/18/23 07:47 Dose: 3 ml Documented By: MAYELA Carvedilol (Carvedilol 3.125 Mg Tablet) 3.125 mg PO BID JOON; Protocol Last Admin: 11/17/23 19:54 Dose: 3.125 mg Documented By: PITO Hydromorphone HCl (Hydromorphone Hcl 0.5 Mg/0.5 Ml Syringe) 0.5 mg IVPUSH Q3H PRN; Protocol PRN Reason: Pain, Severe (Pain Scale 7-10) Last Admin: 11/17/23 22:40 Dose: 0.5 mg Documented By: PITO Cefazolin Sodium/Dextrose (Ancef) 2 gm in 50 mls @ 100 mls/hr IV POSTOP JOON Acetaminophen (Ofirmev) 1,000 mg in 100 mls @ 400 mls/hr IV 0000,0600,1200,1800 [facility] Last Infusion: 11/18/23 06:17 Dose: Infused Documented By: PITO Levothyroxine Sodium (Levothyroxine Sodium 50 Mcg Tablet) 50 mcg PO MoTuWeThFrSa@0600 [facility] Last Admin: 11/18/23 05:54 Dose: 50 mcg Documented By: PITO Levothyroxine Sodium (Levothyroxine Sodium 100 Mcg Tablet) 100 mcg PO Turner@0600 [facility] Melatonin (Melatonin 3 Mg Tablet) 6 mg PO BEDTIME PRN PRN Reason: Insomnia Nortriptyline HCl (Nortriptyline Hcl 25 Mg Capsule) 50 mg PO BID [facility] Last Admin: 11/17/23 19:55 Dose: 50 mg Documented By: PITO Ondansetron HCl (Ondansetron Hcl 4 Mg/2 Ml Vial) 4 mg IVPUSH Q4H PRN PRN Reason: Nausea and Vomiting Last Admin: 11/15/23 06:57 Dose: 4 mg Documented By: PITO Oxycodone HCl (Oxycodone Hcl Immed Release 5 Mg Tablet) 10 mg PO Q4H PRN PRN Reason: Pain, Moderate(Pain Scale 4-6) Last Admin: 11/18/23 04:43 Dose: 10 mg Documented By: PITO Pantoprazole Sodium (Pantoprazole Sodium 40 Mg/10 Ml Vial) 40 mg IVPUSH BID@0630,1630 [facility] Last Admin: 11/18/23 05:54 Dose: 40 mg Documented By: PITO Sodium Chloride (0.9 % Sodium Chloride Flush 3 Ml Syringe) 3 ml IVFLUSH QSHIFT [facility] Last Admin: 11/17/23 19:56 Dose: 3 ml Documented By: PITO Sodium Chloride (Sodium Chloride Tab 1 Gm Tablet) 1 gm PO BID [facility] Last Admin: 11/17/23 19:55 Dose: 1 gm Documented By: PITO Tamsulosin HCl (Tamsulosin Hcl 0.4 Mg Capsule) 0.4 mg PO DAILY [facility] Last Admin: 11/17/23 08:19 Dose: 0.4 mg Documented By: KARLENE Vitamin D (Cholecalciferol (Vitamin D3) 25 Mcg Tablet) 25 mcg PO DAILY [facility] Last Admin: 11/17/23 08:19 Dose: 25 mcg Documented By: KARLENE Labs 11/18/23 08:16 11/17/23 07:45 Assessment and Plan (1) Closed intertrochanteric fracture: Status: Acute (2) Acute hyponatremia: Status: Acute Assessment and Plan: 68 y/o woman with past medical history significant for old CVA admitted with: acute blood loss anemia on ch anemia(postop and also has soaked dressing ,may also have some dilutional component since received ivf) has elevated retic count possible sec to blood loss ,ldha nd hapto globin normal, periphaeral smear - Normocytic anemia with polychromasia, without schistocytes: may be due to acute blood loss?. received 2 prbc on 11/15, patient also received 1 prbc (11/13), total [address] leg-showed hematoma h/h in 8 range. plan: moniter cbc closely moniter vitals and clinically. thrombocytopenia -? chronic ,slowly trending down,unclear etiology imrpoving added hematology eval. Left hip intertrochanteric fracture, closed. postopanemia Pain control with Dilaudid as needed. Tylenol ,vitamin d replacements, Orthopedic surgery consult-s/p surgery (11/13) possible Is a vitamin-D level-low( posisble deficiency): continue vitamin d Tachycardia: Multifactorial-dehydration, anemia . tachycardia improving Improving with addressing above(s/p transfusions /pain control). Urinary retention: continue flomax Hyponatremia Possibly secondary to nortriptyline use/SIADH. Hold nortriptyline. hold fluids liberalise fluid restriction 1.5 liters /added sodium tabs improved to baseline . moniter sodium closely. Elevated transaminases and alk-phos.: mild elevated - Atorvastatin use? Hold statin. repeat lft's seems improved. Essential hypertension. Continue carvedilol adjsuted due to 3.125 mg bid ( since bleeding and blood pressure acceptable) . Hypothyroidism. Continue levothyroxine. Asthma. No exacerbation. prn nebs Hyperlipidemia. Statin on hold due to elevated transaminases. DVT prophylaxis: on scd-due to anemia/thrombocytopenia ,hematoma Code status: Full ongoing hospitalization need for left hip intertrochanteric fracture management with IV pain meds and surgery, hyponatremia -moniter renal function/electrolytes .anemia -need transfusion and cbc monitering pancytopenia ,hematology eval pendin Quality Stroke Does the patient have a stroke diagnosis?: No VTE Prior VTE?: No VTE Risk Level:: Medical - moderate - high VTE Device Contraindication: Treatment Not Indicated VTE Drug Contraindication: N/A - Med Ordered
[2023-11-18 09:04] LABS: White Blood Count 3.7 X10*3/uL (4.8-10.8)
[2023-11-18 09:10] LABS: Platelet Count 96 X10*3/uL (160-400)
[2023-11-18] MEDS: Sodium Chloride Tab 1 GM TABLET PO ×2 (09:25→19:30)
[2023-11-18] MEDS: Tamsulosin HCL 0.4 MG CAPSULE PO (09:25)
[2023-11-18] MEDS: carvediloL 3.125 MG TABLET PO ×2 (09:25→19:29)
[2023-11-18] MEDS: Cholecalciferol (Vitamin D3) 25 MCG TABLET PO (09:25)
[2023-11-18] MEDS: 0.9 % Sodium Chloride Flush 3 ML SYRINGE IVFLUSH ×3 (09:26→19:30)
[2023-11-18] MEDS: Nortriptyline HCl 25 MG CAPSULE 50 MG PO ×2 (09:27→19:30)
[2023-11-18] MEDS: HYDROmorphone HCl 0.5 MG/0.5 ML SYRINGE IVPUSH ×2 (09:32→19:35)
--- NOTE | 2023-11-18 10:16 | P.PNOP_ITS ---
Subjective Subjective Date of Service: 11/18/23 Interval history: POD4 s/p left hip IM Nail Patient is resting in bed comfortably No overnight events Pain is managed Worse that she is still feeling well, but that she is unsure what her blood work before like this morning The patient also reports that she feels the swelling and ecchymosis of her left lower extremity has improved significantly since yesterday.. Physical Exam Vital Signs: Vital Signs: Last Vital Signs Temp 98.0 F 11/18/23 07:08 Pulse 99 11/18/23 09:25 Resp 18 11/18/23 07:47 BP 106/65 11/18/23 09:25 Pulse Ox 96 11/18/23 07:08 O2 Del Method Room Air 11/18/23 07:08 O2 Flow Rate 6 11/14/23 21:46 BMI result Body Mass Index 19.9 Const: General: cooperative, healthy appearing and no acute distress Resp: Effort & Inspection: normal respiratory effort and able to speak in complete sentences Cardio: Rate: regular rate Peripheral pulses: Peripheral pulses 2+ throughout GI: Palpation (GI): Soft to palpation Skin: Lesions: no lesions Rashes: no rashes Extrem: Other: left hip dressing is noted to have some serosanguineous drainage on it, but is not saturated. Ecchymosis improved significantly from yesterday, edema improved from yesterday. When dressing is removed this morning, there is no active bleeding noted from the incision sites. Able to dorsi/plantar flex. Calf is sup ple and nontender. Sensation intact. Pedal pulse intact. Procedures Date of Service Date of Service: 11/18/23 Progress Note: A&P Assessment and plan (1) Closed intertrochanteric fracture: Status: Acute Plan 1. Intertrochanteric fracture of the left hip status post left IM nail placement DOS 11/14/2023 Dressing changed this morning Continue pain management Continue to hold Lovenox, continue when H&H stabilizes Continue PT/OT for left IM nail Continue with close monitoring of patient's H&H Continue with all other recommendations per Medicine Plan is for discharge to [facility] for short-term rehab when medically cleared Time Spent With Patient Time: Total time managing care of this patient today ____ minutes. Quality Stroke Does the patient have a stroke diagnosis?: No VTE Prior VTE?: No VTE Risk Level:: Medical - moderate - high VTE Device Contraindication: Treatment Not Indicated VTE Drug Contraindication: N/A - Med Ordered
--- NOTE | 2023-11-18 12:58 | PM.HEMONCCN ---
Subjective - Subjective Chief complaint: pancytopenia Patient: new to practice Consult date: 11/18/23 Primary Care Provider: Kaiser Pina III, MD HPI - Consult Narrative Reason for consult: pancytopenia Narrative: Nenita Downey is a 68 year old female 68 year old woman admitted 11/13/23 with fracture of the left hip. On admission cbc was remarkable for plts of 157 and hct of 29.7%. Her hematocrit fell to 16% after surgery with formation of a larhe hematoma in the left hip. She was transfused with 3 units of prbcs. Review of Systems - Constitutional Reports anorexia - Eyes Reports dry eyes - ENT Reports other - Cardiovascular Reports fast heart rate - Respiratory Reports dyspnea on exertion - Gastrointestinal Reports feeling full early - Genitourinary Reports urinary incontinence PMF Medical History: Medical History (Last Reviewed 11/15/23 @ 10:32 by Mari Garland PT) Colitis CVA (cerebral vascular accident) HTN (hypertension) Hypothyroidism Family History: Family History (Last Reviewed 02/18/22 @ 10:14 by Gianna Damian MD) Other No family history of cerebrovascular accident (CVA) Surgical History: Surgical History (Last Reviewed 11/15/23 @ 10:32 by Mari Garland PT) History of partial hysterectomy Hx of appendectomy Social History: Social History (Last Reviewed 11/13/23 @ 18:21 by Janki Anderson DO) Living Situation History: Household Members: None Housing: Apartment Do you presently have visiting nurse or other home services: Yes Tobacco History: Patient Tobacco Use Status: Former Tobacco user Advance Directives: Advance Directives Date on File: 04/29/21 Occupation Assessmet: service: No Current occupational status: retired Home Medications and Allergies Current Medications: Current Medications Albuterol/Ipratropium (Albuterol/Iprat 2.5/0.5mg 3 Ml Ampul.Neb) 3 ml INHALE Q3H PRN PRN Reason: sob Carvedilol (Carvedilol 3.125 Mg Tablet) 3.125 mg PO BID JOON; Protocol Last Admin: 11/18/23 09:25 Dose: 3.125 mg Hydromorphone HCl (Hydromorphone Hcl 0.5 Mg/0.5 Ml Syringe) 0.5 mg IVPUSH Q3H PRN; Protocol PRN Reason: Pain, Severe (Pain Scale 7-10) Last Admin: 11/18/23 09:32 Dose: 0.5 mg Cefazolin Sodium/Dextrose (Ancef) 2 gm in 50 mls @ 100 mls/hr IV POSTOP [facility] Acetaminophen (Ofirmev) 1,000 mg in 100 mls @ 400 mls/hr IV 0000,0600,1200,1800 [facility] Last Infusion: 11/18/23 12:08 Dose: Infused Levothyroxine Sodium (Levothyroxine Sodium 50 Mcg Tablet) 50 mcg PO MoTuWeThFrSa@0600 [facility] Last Admin: 11/18/23 05:54 Dose: 50 mcg Levothyroxine Sodium (Levothyroxine Sodium 100 Mcg Tablet) 100 mcg PO Nazario@0600 [facility] Melatonin (Melatonin 3 Mg Tablet) 6 mg PO BEDTIME PRN PRN Reason: Insomnia Nortriptyline HCl (Nortriptyline Hcl 25 Mg Capsule) 50 mg PO BID [facility] Last Admin: 11/18/23 09:27 Dose: 50 mg Ondansetron HCl (Ondansetron Hcl 4 Mg/2 Ml Vial) 4 mg IVPUSH Q4H PRN PRN Reason: Nausea and Vomiting Last Admin: 11/15/23 06:57 Dose: 4 mg Oxycodone HCl (Oxycodone Hcl Immed Release 5 Mg Tablet) 10 mg PO Q4H PRN PRN Reason: Pain, Moderate(Pain Scale 4-6) Last Admin: 11/18/23 11:48 Dose: 10 mg Pantoprazole Sodium (Pantoprazole Sodium 40 Mg/10 Ml Vial) 40 mg IVPUSH BID@0630,1630 [facility] Last Admin: 11/18/23 05:54 Dose: 40 mg Sodium Chloride (0.9 % Sodium Chloride Flush 3 Ml Syringe) 3 ml IVFLUSH QSHIFT [facility] Last Admin: 11/18/23 09:26 Dose: 3 ml Sodium Chloride (Sodium Chloride Tab 1 Gm Tablet) 1 gm PO BID [facility] Last Admin: 11/18/23 09:25 Dose: 1 gm Tamsulosin HCl (Tamsulosin Hcl 0.4 Mg Capsule) 0.4 mg PO DAILY [facility] Last Admin: 11/18/23 09:25 Dose: 0.4 mg Vitamin D (Cholecalciferol (Vitamin D3) 25 Mcg Tablet) 25 mcg PO DAILY [facility] Last Admin: 11/18/23 09:25 Dose: 25 mcg Home Medications ?Medication ?Instructions ?Recorded ?Confirmed ?Type aspirin 81 mg tablet,delayed 1 tab PO DAILY 04/28/21 11/13/23 History release carvedilol 6.25 mg tablet 1 tab PO BID 04/28/21 11/13/23 History nortriptyline 50 mg capsule 1 cap PO BID 04/28/21 11/13/23 History atorvastatin 40 mg tablet 1 tab PO DAILY 02/09/22 11/13/23 History levothyroxine 50 mcg tablet 50 mcg PO MOTUWETHFRSA 02/09/22 11/13/23 History levothyroxine 50 mcg tablet 100 mcg PO NAZARIO 02/09/22 11/13/23 History acetaminophen 500 mg capsule 1,000 mg PO Q6H PRN Pain 11/13/23 11/13/23 History albuterol sulfate 90 mcg/actuation 2 puff inhalation Q4H PRN wheezing 11/13/23 11/13/23 History aerosol inhaler Allergies Allergy/AdvReac Type Severity Reaction Status Date / Time No Known Allergies Allergy Verified 11/13/23 18:05 Physical Exam Vital signs: Vital Signs Temp 98.0 F 11/18/23 07:08 Pulse 99 11/18/23 10:36 Resp 18 11/18/23 07:47 BP 106/65 11/18/23 10:36 Pulse Ox 96 11/18/23 07:08 O2 Del Method Room Air 11/18/23 07:08 O2 Flow Rate 6 11/14/23 21:46 Intake & Output 11/17/23 11/18/23 11/18/23 18:59 06:59 18:59 Intake Total 880 / 1320 440 / 1320 100 / 100 Output Total 250 / 1600 1350 / 1600 Balance 630 / -280 -910 / -280 100 / 100 Urine Output (Average ml/kg/hr) 0.45 2.44 2.44 Intake: Intake, Oral Amount 480 / 720 240 / 720 Intake, IV Amount 400 / 600 200 / 600 100 / 100 Acetaminophen 1,000 mg In 100 200 / 400 200 / 400 100 / 100 ml @ 400 mls/hr IV 0000,0600, 1200,1800 JOON Rx#:[id number] Albumin Human 25 % 100 ml @ 100 200 / 200 mls/hr IV Q6H JOON Rx#: [id number] Output: Output, Urine Amount (Catheter) 250 / 1600 1350 / 1600 [place] 250 / 1600 1350 / 1600 Other: Meal Refused No NPO No Breakfast % Eaten 50% Lunch % Eaten 100% Eating (Feeding) Ability Independent Urine Color Yellow Yellow Weight 46.2 kg - Constitutional Present: no acute distress - Routine HEENT Exam Head: Present: atraumatic, normal inspection - Routine Neck Exam Present: supple - Routine Respiratory Exam Present: decreased breath sounds - Routine Cardiovascular Exam Cardiovascular: Present: RRR - Routine Abdominal Exam Present: diminished bowel sounds - Routine Extremities Exam Comments: large echymosis and hematoma medial upper left thigh Hem/Onc Consult Result - Labs CBC & Chem 7: 11/18/23 08:16 11/17/23 07:45 Labs: Short CBC 11/17/23 11/18/23 Range/Units 15:07 08:16 WBC 3.7 L (4.8-10.8) X10*3/uL Hgb 8.3 L 8.0 L (12.0-16.0) g/dl Hct 23.1 L 22.9 L (37.0-47.0) % Plt Count 96 L D (160-400) X10*3/uL Assessment and Plan Patient Active problem list reviewed?: Yes (1) Closed intertrochanteric fracture Status: Acute Assessment and plan: The pancytopenia is secondary to bleeding from the fracture before and after surgery and then washout from the 3 units of transfused blood. It is beginning to resolve. I will follow with you. - Time Spent With Patient Time Spent with Patient (in minutes): 20
--- NOTE | 2023-11-18 20:13 | PC.NURSE ---
Lab called re sample not sent for stool for OB , pt hasn't provided a sample, lab cancelled order, will need a new order if specimen is available.
[2023-11-19] VITALS (8 sets, daily range): BP systolic 117–147; BP diastolic 58–80; PULSE 92–102; RESP 16–20; TEMP 36–36.6; O2SAT 95–99
[2023-11-19] MEDS: oxyCODONE HCl Immed Release 5 MG TABLET 10 MG PO ×3 (03:37→17:45)
[2023-11-19] MEDS: Pantoprazole Sodium 40 MG/10 ML VIAL IVPUSH (05:53)
[2023-11-19] MEDS: Acetaminophen 1,000 MG/100 ML PIGGYBACK 400 MG IV ×3 (05:53→17:41)
[2023-11-19] MEDS: Levothyroxine Sodium 100 MCG TABLET PO (06:00)
[2023-11-19] MEDS: 0.9 % Sodium Chloride Flush 3 ML SYRINGE IVFLUSH ×3 (09:12→21:06)
[2023-11-19] MEDS: carvediloL 3.125 MG TABLET PO ×2 (09:14→21:03)
[2023-11-19] MEDS: Nortriptyline HCl 25 MG CAPSULE 50 MG PO ×2 (09:15→21:03)
[2023-11-19] MEDS: Cholecalciferol (Vitamin D3) 25 MCG TABLET PO (09:15)
[2023-11-19] MEDS: Tamsulosin HCL 0.4 MG CAPSULE PO (09:15)
[2023-11-19] MEDS: Sodium Chloride Tab 1 GM TABLET PO ×2 (09:15→21:03)
--- NOTE | 2023-11-19 09:28 | PC.NURSE ---
Lovenox on hold ,Dr. Sellers notified
--- NOTE | 2023-11-19 09:38 | PM.PNORT ---
Subjective Subjective Date of Service: 11/19/23 Interval history: POD5 s/p left hip IM Nail Patient is resting in bed comfortably No overnight events Pain is managed Reports that she is still feeling well, but that she is unsure what her blood work before like this morning The patient does report that she feels the ecchymosis on her left lower extremity has spread since previous evaluation, and that the swelling in her left leg has also gotten worse Physical Exam Vital Signs: Vital Signs: Last Vital Signs Temp 97.8 F 11/19/23 07:13 Pulse 102 H 11/19/23 09:14 Resp 16 11/19/23 07:13 BP 119/61 11/19/23 09:14 Pulse Ox 98 11/19/23 07:13 O2 Del Method Room Air 11/19/23 07:13 O2 Flow Rate 6 11/14/23 21:46 BMI result Body Mass Index 19.9 Const: General: cooperative, healthy appearing and no acute distress Resp: Effort & Inspection: normal respiratory effort and able to speak in complete sentences Cardio: Rate: regular rate Peripheral pulses: Peripheral pulses 2+ throughout GI: Palpation (GI): Soft to palpation Skin: Lesions: no lesions Rashes: no rashes Extrem: Other: left hip dressing is noted to have some serosanguineous drainage on it, but is not saturated. Ecchymosis has worsened since yesterday, with bruising beginning to wrap around to the patient's lower back. When dressing is removed this morning, there is no active bleeding or drainage noted from the incision sites. Able to dorsi/plantar flex. Calf is supple and nontender. Sensation intact. Pedal pulse intact. Procedures Date of Service Date of Service: 11/19/23 Progress Note: A&P Assessment and plan (1) Closed intertrochanteric fracture: Status: Acute Plan 1. Intertrochanteric fracture of the left hip status post left IM nail placement DOS 11/14/2023 Dressing changed this morning Continue pain management Continue to hold Lovenox Continue PT/OT for left IM nail Continue with close monitoring of patient's H&H Continue with all other recommendations per Medicine Plan is for discharge to [facility] for short-term rehab when medically cleared Time Spent With Patient Time: Total time managing care of this patient today ____ minutes. Quality Stroke Does the patient have a stroke diagnosis?: No VTE Prior VTE?: No VTE Risk Level:: Medical - moderate - high VTE Device Contraindication: Treatment Not Indicated VTE Drug Contraindication: N/A - Med Ordered
[2023-11-19 09:45] LABS: Platelet Count 142 X10*3/uL (160-400)
--- NOTE | 2023-11-19 12:00 | HO.PM.IMPN ---
Subjective Subjective Date of Service: 11/19/23 Interval History: hemtoma pancytopenia Review of Systems seems big ecchymossis in upper leg /thigh area Physical Exam Vital Signs: Vital Signs: Last Vital Signs Temp 97.8 F 11/19/23 07:13 Pulse 102 H 11/19/23 09:14 Resp 16 11/19/23 07:13 BP 119/61 11/19/23 09:14 Pulse Ox 98 11/19/23 07:13 O2 Del Method Room Air 11/19/23 07:13 O2 Flow Rate 6 11/14/23 21:46 BMI result Body Mass Index 19.9 Appearance: Alert.? Oriented X3.? cvs: rrr, [id number]. res: clear to auscultation ,no rales or wheezing. left Hip-eccynmosis upper thigh area ,swelling ( seems worsening) ,rom improving but limited . abd: no rebound or guarding ,nt, bs present. ext pulses present , no cyanosis neuro: axo3 , nonfocal. Objective Data Active Medications Albuterol/Ipratropium (Albuterol/Iprat 2.5/0.5mg 3 Ml Ampul.Neb) 3 ml INHALE Q3H PRN PRN Reason: sob Carvedilol (Carvedilol 3.125 Mg Tablet) 3.125 mg PO BID [facility]; Protocol Last Admin: 11/19/23 09:14 Dose: 3.125 mg Documented By: DARIO Hydromorphone HCl (Hydromorphone Hcl 0.5 Mg/0.5 Ml Syringe) 0.5 mg IVPUSH Q3H PRN; Protocol PRN Reason: Pain, Severe (Pain Scale 7-10) Last Admin: 11/18/23 19:35 Dose: 0.5 mg Documented By: PITO Cefazolin Sodium/Dextrose (Ancef) 2 gm in 50 mls @ 100 mls/hr IV POSTOP [facility] Acetaminophen (Ofirmev) 1,000 mg in 100 mls @ 400 mls/hr IV 0000,0600,1200,1800 [facility] Last Admin: 11/19/23 11:41 Dose: 400 mls/hr Documented By: DARIO Levothyroxine Sodium (Levothyroxine Sodium 50 Mcg Tablet) 50 mcg PO MoTuWeThFrSa@0600 [facility] Last Admin: 11/18/23 05:54 Dose: 50 mcg Documented By: PITO Levothyroxine Sodium (Levothyroxine Sodium 100 Mcg Tablet) 100 mcg PO Turner@0600 [facility] Last Admin: 11/19/23 06:00 Dose: 100 mcg Documented By: PITO Melatonin (Melatonin 3 Mg Tablet) 6 mg PO BEDTIME PRN PRN Reason: Insomnia Nortriptyline HCl (Nortriptyline Hcl 25 Mg Capsule) 50 mg PO BID [facility] Last Admin: 11/19/23 09:15 Dose: 50 mg Documented By: DARIO Ondansetron HCl (Ondansetron Hcl 4 Mg/2 Ml Vial) 4 mg IVPUSH Q4H PRN PRN Reason: Nausea and Vomiting Last Admin: 11/15/23 06:57 Dose: 4 mg Documented By: PITO Oxycodone HCl (Oxycodone Hcl Immed Release 5 Mg Tablet) 10 mg PO Q4H PRN PRN Reason: Pain, Moderate(Pain Scale 4-6) Last Admin: 11/19/23 09:54 Dose: 10 mg Documented By: DARIO Sodium Chloride (0.9 % Sodium Chloride Flush 3 Ml Syringe) 3 ml IVFLUSH QSHIFT [facility] Last Admin: 11/19/23 09:12 Dose: 3 ml Documented By: DARIO Sodium Chloride (Sodium Chloride Tab 1 Gm Tablet) 1 gm PO BID [facility] Last Admin: 11/19/23 09:15 Dose: 1 gm Documented By: DARIO Tamsulosin HCl (Tamsulosin Hcl 0.4 Mg Capsule) 0.4 mg PO DAILY [facility] Last Admin: 11/19/23 09:15 Dose: 0.4 mg Documented By: DARIO Vitamin D (Cholecalciferol (Vitamin D3) 25 Mcg Tablet) 25 mcg PO DAILY [facility] Last Admin: 11/19/23 09:15 Dose: 25 mcg Documented By: DARIO Labs 11/19/23 07:25 11/17/23 07:45 Labs: Laboratory Results - last 24 hr 11/19/23 07:25 Plt Count 142 L D Assessment and Plan (1) Closed intertrochanteric fracture: Status: Acute (2) Acute hyponatremia: Status: Acute Assessment and Plan: 68 y/o woman with past medical history significant for old CVA admitted with: acute blood loss anemia on ch anemia(postop and also has soaked dressing ,may also have some dilutional component since received ivf) has elevated retic count possible sec to blood loss ,ldha nd hapto globin normal, periphaeral smear - Normocytic anemia with polychromasia, without schistocytes: may be due to acute blood loss?. received 2 prbc on 11/15, patient also received 1 prbc (11/13), total [address] leg-showed hematoma h/h in 11/22 ,platlets 142. plan: moniter cbc closely moniter vitals and clinically. surgery following -hold lovenox due to increase eccymosis/swelling thrombocytopenia -? chronic ,improving,unclear etiology imrpoving added hematology eval. Left hip intertrochanteric fracture, closed. postopanemia Pain control with Dilaudid as needed. Tylenol ,vitamin d replacements, Orthopedic surgery consult-s/p surgery (11/13) possible Is a vitamin-D level-low( posisble deficiency): continue vitamin d Tachycardia: Multifactorial-dehydration, anemia . tachycardia improving Improving with addressing above(s/p transfusions /pain control). Urinary retention: continue flomax Hyponatremia Possibly secondary to nortriptyline use/SIADH. Hold nortriptyline. hold fluids liberalise fluid restriction 1.5 liters /added sodium tabs improved to baseline . moniter sodium closely. Elevated transaminases and alk-phos.: mild elevated - Atorvastatin use? Hold statin. repeat lft's seems improved. Essential hypertension. Continue carvedilol adjsuted due to 3.125 mg bid ( since bleeding and blood pressure acceptable) . Hypothyroidism. Continue levothyroxine. Asthma. No exacerbation. prn nebs Hyperlipidemia. Statin on hold due to elevated transaminases. DVT prophylaxis: on scd-due to anemia/thrombocytopenia ,hematoma, worsening eccymosis Code status: Full ongoing hospitalization need for left hip intertrochanteric fracture management with IV pain meds and surgery, hyponatremia -moniter renal function/electrolytes .anemia -need transfusion and cbc monitering pancytopenia ,hematology eval pendin Quality Stroke Does the patient have a stroke diagnosis?: No VTE Prior VTE?: No VTE Risk Level:: Medical - moderate - high VTE Device Contraindication: Treatment Not Indicated VTE Drug Contraindication: N/A - Med Ordered
[2023-11-19] MEDS: HYDROmorphone HCl 0.5 MG/0.5 ML SYRINGE IVPUSH (23:15)
[2023-11-20] MEDS: Acetaminophen 1,000 MG/100 ML PIGGYBACK 400 MG IV ×4 (00:03→17:31)
[2023-11-20] MEDS: oxyCODONE HCl Immed Release 5 MG TABLET 10 MG PO ×4 (02:44→17:32)
[2023-11-20 03:21] VITALS: BP 128/62; PULSE 94; RESP 20; TEMP 36.2; O2SAT 96
[2023-11-20] MEDS: Levothyroxine Sodium 50 MCG TABLET PO (05:58)
[2023-11-20] MEDS: HYDROmorphone HCl 0.5 MG/0.5 ML SYRINGE IVPUSH ×2 (06:23→20:53)
[2023-11-20 07:20] LABS: Sodium 134 mmol/L (135-145)
[2023-11-20 07:23] LABS: Hematocrit 25.2 % (37.0-47.0); Hemoglobin 8.5 g/dl (12.0-16.0)
[2023-11-20 07:45] VITALS: BP 145/81; PULSE 92; RESP 16; TEMP 36.1; O2SAT 96
[2023-11-20] MEDS: Cholecalciferol (Vitamin D3) 25 MCG TABLET PO (07:49)
[2023-11-20] MEDS: Tamsulosin HCL 0.4 MG CAPSULE PO (07:49)
[2023-11-20] MEDS: Sodium Chloride Tab 1 GM TABLET PO ×2 (07:49→20:56)
[2023-11-20] MEDS: carvediloL 3.125 MG TABLET PO ×2 (07:49→20:57)
[2023-11-20] MEDS: Nortriptyline HCl 25 MG CAPSULE 50 MG PO ×2 (07:49→20:56)
[2023-11-20] MEDS: 0.9 % Sodium Chloride Flush 3 ML SYRINGE IVFLUSH ×2 (07:50→15:03)
[2023-11-20 09:08] LABS: Platelet Count 170 X10*3/uL (160-400)
--- NOTE | 2023-11-20 11:51 | HO.PM.IMPN ---
Subjective Subjective Date of Service: 11/20/23 Interval History: anemia ,thrombocytopnenia Review of Systems patient says she has hx of excessive bleeding (after tooth extraction, hysterectomy and colonscopy in the past?) thigh swelling somewhat improving as well rom. no other new c/o Physical Exam Vital Signs: Vital Signs: Last Vital Signs Temp 97.0 F 11/20/23 07:45 Pulse 92 11/20/23 07:45 Resp 16 11/20/23 07:45 BP 145/81 H 11/20/23 07:45 Pulse Ox 96 11/20/23 07:45 O2 Del Method Room Air 11/20/23 07:45 O2 Flow Rate 6 11/14/23 21:46 BMI result Body Mass Index 19.9 Appearance: Alert.? Oriented X3.? cvs: rrr, [id number]. res: clear to auscultation ,no rales or wheezing. left Hip-eccynmosis upper thigh area ,swelling ( seems slightly improving) ,rom improving . abd: no rebound or guarding ,nt, bs present. ext pulses present , no cyanosis neuro: axo3 , nonfocal. Objective Data Active Medications Albuterol/Ipratropium (Albuterol/Iprat 2.5/0.5mg 3 Ml Ampul.Neb) 3 ml INHALE Q3H PRN PRN Reason: sob Carvedilol (Carvedilol 3.125 Mg Tablet) 3.125 mg PO BID JOON; Protocol Last Admin: 11/20/23 07:49 Dose: 3.125 mg Documented By: KARLENE Hydromorphone HCl (Hydromorphone Hcl 0.5 Mg/0.5 Ml Syringe) 0.5 mg IVPUSH Q3H PRN; Protocol PRN Reason: Pain, Severe (Pain Scale 7-10) Last Admin: 11/20/23 06:23 Dose: 0.5 mg Documented By: JOSE Cefazolin Sodium/Dextrose (Ancef) 2 gm in 50 mls @ 100 mls/hr IV POSTOP JOON Acetaminophen (Ofirmev) 1,000 mg in 100 mls @ 400 mls/hr IV 0000,0600,1200,1800 JOON Last Infusion: 11/20/23 11:42 Dose: Infused Documented By: KANDACE Levothyroxine Sodium (Levothyroxine Sodium 50 Mcg Tablet) 50 mcg PO MoTuWeThFrSa@0600 [facility] Last Admin: 11/20/23 05:58 Dose: 50 mcg Documented By: JOSE Levothyroxine Sodium (Levothyroxine Sodium 100 Mcg Tablet) 100 mcg PO Turner@0600 [facility] Last Admin: 11/19/23 06:00 Dose: 100 mcg Documented By: PITO Melatonin (Melatonin 3 Mg Tablet) 6 mg PO BEDTIME PRN PRN Reason: Insomnia Nortriptyline HCl (Nortriptyline Hcl 25 Mg Capsule) 50 mg PO BID [facility] Last Admin: 11/20/23 07:49 Dose: 50 mg Documented By: KARLENE Ondansetron HCl (Ondansetron Hcl 4 Mg/2 Ml Vial) 4 mg IVPUSH Q4H PRN PRN Reason: Nausea and Vomiting Last Admin: 11/15/23 06:57 Dose: 4 mg Documented By: PITO Oxycodone HCl (Oxycodone Hcl Immed Release 5 Mg Tablet) 10 mg PO Q4H PRN PRN Reason: Pain, Moderate(Pain Scale 4-6) Last Admin: 11/20/23 07:49 Dose: 10 mg Documented By: KARLENE Sodium Chloride (0.9 % Sodium Chloride Flush 3 Ml Syringe) 3 ml IVFLUSH [facility] Last Admin: 11/20/23 07:50 Dose: 3 ml Documented By: KARLENE Sodium Chloride (Sodium Chloride Tab 1 Gm Tablet) 1 gm PO BID [facility] Last Admin: 11/20/23 07:49 Dose: 1 gm Documented By: KARLENE Tamsulosin HCl (Tamsulosin Hcl 0.4 Mg Capsule) 0.4 mg PO DAILY [facility] Last Admin: 11/20/23 07:49 Dose: 0.4 mg Documented By: KARLENE Vitamin D (Cholecalciferol (Vitamin D3) 25 Mcg Tablet) 25 mcg PO DAILY [facility] Last Admin: 11/20/23 07:49 Dose: 25 mcg Documented By: KARLENE Labs 11/20/23 05:50 11/20/23 05:50 Labs: Laboratory Results - last 24 hr 11/20/23 05:50 Plt Count 170 Assessment and Plan (1) Closed intertrochanteric fracture: Status: Acute Assessment and Plan: 68 y/o woman with past medical history significant for old CVA admitted with: acute blood loss anemia on ch anemia(postop and also has soaked dressing ,may also have some dilutional component since received ivf) has elevated retic count possible sec to blood loss ,ldha nd hapto globin normal, periphaeral smear - Normocytic anemia with polychromasia, without schistocytes: may be due to acute blood loss?. s/p [address] leg-showed hematoma upper thigh hematoma/ecchymosis /swelling slightly improving plan: moniter cbc closely moniter vitals and clinically. surgery following -hold lovenox due to increase eccymosis/swelling. hematology eval- since patient has mutliple times excessive bleeding after procedures ,anemia with flacuating platelets levels . thrombocytopenia -? chronic ,improving,unclear etiology imrpoved . Left hip intertrochanteric fracture, closed. postopanemia Pain control with Dilaudid as needed. Tylenol ,vitamin d replacements, Orthopedic surgery consult-s/p surgery (11/13) possible Is a vitamin-D level-low( posisble deficiency): continue vitamin d Tachycardia: Multifactorial-dehydration, anemia . tachycardia improving Improving with addressing above(s/p transfusions /pain control). Urinary retention: continue flomax Hyponatremia Possibly secondary to nortriptyline use/SIADH. Hold nortriptyline. liberalise fluid restriction 1.5 liters /added sodium tabs improved to baseline . moniter sodium closely. Elevated transaminases and alk-phos.: mild elevated - Atorvastatin use? Hold statin. repeat lft's seems improved. may consider starting statin and moniter Lft's Essential hypertension. Continue carvedilol adjsuted due to 3.125 mg bid ( since bleeding and blood pressure acceptable) . Hypothyroidism. Continue levothyroxine. Asthma. No exacerbation. prn nebs Hyperlipidemia. Statin on hold due to elevated transaminases. DVT prophylaxis: on scd-due to anemia/thrombocytopenia ,hematoma, worsening eccymosis Code status: Full ongoing hospitalization need for left hip intertrochanteric fracture management with IV pain meds and surgery, hyponatremia -moniter renal function/electrolytes .anemia -need transfusion and cbc monitering pancytopenia ,hematology eval pendin Quality Stroke Does the patient have a stroke diagnosis?: No VTE Prior VTE?: No VTE Risk Level:: Medical - moderate - high VTE Device Contraindication: Treatment Not Indicated VTE Drug Contraindication: N/A - Med Ordered
[2023-11-20 12:00] VITALS: BP 129/61; PULSE 80; RESP 16; TEMP 37; O2SAT 96
--- NOTE | 2023-11-20 13:34 | MHC.CM.PN ---
EMR REVIEWED AND PER MD ROUNDS, PT IS NOT MEDICALLY CLEARED FOR DC TO REHAB. (BRUISING AT SURGICAL SITE, LAB MONITORING, HEME EVAL PENDING) [facility] FOLLOWING AND UPDATED VIA [facility]. CM WILL CONTINUE TO FOLLOW FOR ANY CHANGE TO DC PLAN.
[2023-11-20 15:13] VITALS: BP 125/82; PULSE 77; RESP 18; TEMP 36.1; O2SAT 99
--- NOTE | 2023-11-20 17:26 | P.PNOP_ITS ---
Subjective Subjective Date of Service: 11/20/23 Interval history: POD5 s/p left hip IM Nail Patient is resting in bed comfortably No overnight events Pain is managed Reports that she is still feeling well, but that she is unsure what her blood work before like this morning The patient does report that she feels the ecchymosis on her left lower extremity has improved slightly since previous evaluation, and that the swelling in her left leg has also improved Physical Exam Vital Signs: Vital Signs: Last Vital Signs Temp 96.9 F 11/20/23 15:13 Pulse 77 11/20/23 15:13 Resp 18 11/20/23 15:13 BP 125/82 11/20/23 15:13 Pulse Ox 99 11/20/23 15:13 O2 Del Method Room Air 11/20/23 15:13 O2 Flow Rate 6 11/14/23 21:46 BMI result Body Mass Index 19.9 Const: General: cooperative, healthy appearing and no acute distress Resp: Effort & Inspection: normal respiratory effort and able to speak in complete sentences Cardio: Rate: regular rate Peripheral pulses: Peripheral pulses 2+ throughout GI: Palpation (GI): Soft to palpation Skin: Lesions: no lesions Rashes: no rashes Extrem: Other: left hip dressing is noted to have some serosanguineous drainage on it, most proximal dressing is saturated. Ecchymosis has improved slightly since yesterday, with bruising beginning to wrap around to the patient's lower back. When dressing is removed this morning, there is no active bleeding or drainage noted from the incision sites. Able to dorsi/plantar flex. Calf is supple and nontender. Sensation intact. Pedal pulse intact. Procedures Date of Service Date of Service: 11/20/23 Progress Note: A&P Assessment and plan (1) Closed intertrochanteric fracture: Status: Acute Plan 1. Intertrochanteric fracture of the left hip status post left IM nail placement DOS 11/14/2023 Dressing changed this morning Continue pain management Continue to hold Lovenox, resume when patient's H/H stabilizes Continue PT/OT for left IM nail Continue with close monitoring of patient's H&H Continue with all other recommendations per Medicine Plan is for discharge to [facility] for short-term rehab when medically cleared Time Spent With Patient Time: Total time managing care of this patient today ____ minutes. Quality Stroke Does the patient have a stroke diagnosis?: No VTE Prior VTE?: No VTE Risk Level:: Medical - moderate - high VTE Device Contraindication: Treatment Not Indicated VTE Drug Contraindication: N/A - Med Ordered
[2023-11-20 19:53] VITALS: BP 139/64; PULSE 82; RESP 20; TEMP 36.3; O2SAT 100
[2023-11-20 20:57] VITALS: BP 139/64; PULSE 82
[2023-11-21] VITALS: BP 138/76; PULSE 89; RESP 16; TEMP 36; O2SAT 98
[2023-11-21] MEDS: oxyCODONE HCl Immed Release 5 MG TABLET 10 MG PO ×3 (00:15→16:35)
[2023-11-21 03:09] VITALS: BP 148/78; PULSE 98; RESP 16; TEMP 36.1; O2SAT 99
[2023-11-21] MEDS: HYDROmorphone HCl 0.5 MG/0.5 ML SYRINGE IVPUSH ×2 (05:23→20:30)
[2023-11-21 05:46] LABS: Hematocrit 26.3 % (37.0-47.0); Hemoglobin 8.7 g/dl (12.0-16.0); Mean Corpuscular HGB Conc 33.1 g/dl (31.0-35.0); Mean Corpuscular Hemoglobin 31.3 pg (27.0-33.0); Mean Corpuscular Volume 94.6 fL (80.0-98.0); Mean Platelet Volume 9.4 fL (9.4-12.3); Platelet Count 210 X10*3/uL (160-400); Red Blood Count 2.78 X10*6/uL (4.20-5.50); Red Cell Distribution Width 17.7 % (11.0-16.0); White Blood Count 3.9 X10*3/uL (4.8-10.8)
[2023-11-21] MEDS: Levothyroxine Sodium 50 MCG TABLET PO (06:24)
[2023-11-21] MEDS: Acetaminophen 1,000 MG/100 ML PIGGYBACK 400 MG IV ×4 (06:26→18:07)
[2023-11-21 06:40] LABS: Anion Gap 11 (12-20); Blood Urea Nitrogen 8 mg/dL (9-16); Calcium 9.3 mg/dL (8.4-10.2); Carbon Dioxide 25 mmol/L (22-29); Chloride 100 mmol/L (96-108); Creatinine Clr Calc Pharmacy 80.5; Estimated Glomerular Filt Rate > 60; Glucose Random 93 mg/dL (60-115); Potassium 2.8 mmol/L (3.3-5.1); Sodium 133 mmol/L (135-145)
[2023-11-21] MEDS: Potassium Chloride Packet 20 MEQ PACKET 40 MEQ PO (07:00)
[2023-11-21 08:00] VITALS: BP 146/70; PULSE 83; RESP 16; TEMP 36.7; O2SAT 96
[2023-11-21] MEDS: carvediloL 3.125 MG TABLET PO ×2 (08:20→20:29)
[2023-11-21] MEDS: Sodium Chloride Tab 1 GM TABLET PO ×2 (08:20→20:30)
[2023-11-21] MEDS: Cholecalciferol (Vitamin D3) 25 MCG TABLET PO (08:20)
[2023-11-21] MEDS: Tamsulosin HCL 0.4 MG CAPSULE PO (08:20)
[2023-11-21] MEDS: 0.9 % Sodium Chloride Flush 3 ML SYRINGE IVFLUSH (08:20)
[2023-11-21] MEDS: Nortriptyline HCl 25 MG CAPSULE 50 MG PO ×2 (08:20→20:30)
[2023-11-21 09:32] LABS: Fibrinogen 622 MG/DL (259-690); Prothrombin Time 11.2 SEC (10.9-12.4)
--- NOTE | 2023-11-21 11:10 | W.PM.OPN ---
Operative Note Operative Note Date of Service: 11/14/23 Narrative: Date of Service: 11/14/23 Pre-op diagnosis: left hip IT fx Post-op diagnosis: same Procedure: Left hip IMN Implants: [place] [id number] 125 deg with 90 mm hip screw and 32.5 distal interlock Surgeon: Jasper Fuentes MD Anesthesia: GLMA and local Was an Technical Maintenance Specialist used for this Procedure?: No Estimated blood loss (mL): 100 IV fluids (mL): 500 Pathology: none sent Condition: stable Disposition: PACU Procedure in detail: Patient was brought to the operating room and prepped and draped in standard sterile fashion. Time-out was called to identify proper site procedure proper surgeon and IV antibiotics per weight were administered. She was positioned on the fracture table and a traction and slight internal rotation were performed and biplanar fluoroscopy confirmed initial fracture reduction. I then made a stab incision proximal to the greater trochanter in using a guidewire made a entry point just lateral to the tip of the greater trochanter and placed a guidewire into the femoral metadiaphysis. I then over-reamed with 15 mm Reamer placed my ball-tip guidewire down distally in the femur and measured my length. I selected a [id number] 125 deg nail and reamed up to a 13. I then inserted the nail. I turned my attention to the hip screw where I used a guidewire and a tip apex distance of less than 1.5 measured a 90mm hip screw. I then pre drilled and placed the hip screw using biplanar fluoroscopy. Once I was satisfied with the position of the hip screw I turned my attention to the distal aspect of the nail. Using the dynamic hole of the guide I placed 1 static distal interlocking screw using standard AO technique. I then removed all I then placed my set screw proximally and removed all extraneous instrumentation. Final biplanar radiographs were taken. I was satisfied with the position of the hardware and the fracture reduction. I think copiously irrigated closed with absorbable sutures tiffany and injected 30 mL of into the area of the incisions. Traction was let down patient was placed in sterile dressing awakened from anesthesia brought to recovery room stable condition there were no known complications.
[2023-11-21 12:00] VITALS: BP 139/79; PULSE 80; RESP 16; TEMP 36.4; O2SAT 96
[2023-11-21 15:11] VITALS: BP 144/72; PULSE 62; RESP 18; TEMP 36.4; O2SAT 100
--- NOTE | 2023-11-21 15:15 | PM.HEMONCCN ---
Subjective - Subjective Chief complaint: Consult for: Pancytopenia. Patient: known to practice within the last 3 years Consult date: 11/21/23 Requesting Physician: [facility] Primary Care Provider: Kaiser Pina III, MD Family Provider: Kaiser Pina III, MD Medical Summary: DIAGNOSIS: PANCYTOPENIA. HPI - Consult Narrative Reason for consult: CONSULT FOR: PANCYTOPENIA Narrative: Nenita Downey is a very pleasant 68 years old woman with past medical history significant for stroke, hypothyroidism, asthma and essential hypertension presents to the emergency department after she sustained a fall today after she tripped over a stool. She landed on her left hip. Denies head trauma. Denied any symptoms before or after the fall such as chest pain, shortness on breath, palpitations or loss of consciousness. She also denied any abdominal pain, nausea, vomiting or diarrhea. She does not take water pills. She does take nortriptyline. Mentioned that she has been falling a lot lately. Denied tobacco smoking or illicit drug use. Drinks wine in occasions. Ambulates with a walker. In the ED, she was found to have normal vital signs for slight tachycardia. Blood workup was remarkable for hyponatremia of 129. There are no other electrolyte imbalances. WBC is 9.5 hemoglobin 10.3 and platelets 157. Transaminases and alk-phos are mildly elevated. Bilirubin is normal. Renal function is adequate. ECG showed (NSR, no SVT). Right axis deviation. Q-waves in the inferior leads. Left hip x-ray showed minimally displaced intertrochanteric fracture. CXR is negative. ED tx: Magnesium sulfate 2 g IV, morphine 4 mg IV Review of Systems Review of Systems: All 12 systems were reviewed and normal except as noted in HPI. [facility] Medical History: Hypothyroidism Colitis HTN (hypertension) CVA (cerebral vascular accident) Family History: Other No family history of cerebrovascular accident (CVA) Surgical History: History of partial hysterectomy Social History: Household Members: None Housing: Apartment Review of Systems - Constitutional Reports system reviewed and no additional complaints, except as documented, Reports difficulty sleeping, Reports lack of energy, Reports malaise, Reports weight loss - Eyes Reports system reviewed and no additional complaints, except as documented - ENT Reports system reviewed and no additional complaints, except as documented - Cardiovascular Reports system reviewed and no additional complaints, except as documented - Respiratory Reports no additional respiratory complaints - Gastrointestinal Reports system reviewed and no additional complaints, except as documented - Genitourinary Reports no additional female genitourinary complaints - Musculoskeletal Reports system reviewed and no additional complaints, except as documented - Integumentary/Breasts Skin/Breast: Reports no additional skin complaints - Neurologic Reports system reviewed and no additional complaints, except as documented - Psychiatric Reports system reviewed and no additional complaints, except as documented - Endocrine Reports no additional endocrine complaints - Hematologic/Lymphatic Reports system reviewed and no additional complaints, except as documented - Allergic/Immunologic Reports system reviewed and no additional complaints, except as documented Oncology Screenings - ECOG Performance Status ECOG Performance Status: 2 [facility] Medical History: Medical History (Last Reviewed 11/15/23 @ 10:32 by Mari Garland PT) Colitis CVA (cerebral vascular accident) HTN (hypertension) Hypothyroidism Functional capacity: wheelchair bound Patient : No Family History: Family History (Last Reviewed 02/18/22 @ 10:14 by Gianna Damian MD) Other No family history of cerebrovascular accident (CVA) Surgical History: Surgical History (Last Reviewed 11/15/23 @ 10:32 by Mari Garland PT) History of partial hysterectomy Hx of appendectomy Social History: Social History (Last Reviewed 11/13/23 @ 18:21 by Janki Anderson DO) Living Situation History: Household Members: None Housing: Apartment Do you presently have visiting nurse or other home services: Yes Tobacco History: Patient Tobacco Use Status: Former Tobacco user Advance Directives: Advance Directives Date on File: 04/29/21 Occupation Assessmet: service: No Current occupational status: retired Home Medications and Allergies Current Medications: Current Medications Albuterol/Ipratropium (Albuterol/Iprat 2.5/0.5mg 3 Ml Ampul.Neb) 3 ml INHALE Q3H PRN PRN Reason: sob Carvedilol (Carvedilol 3.125 Mg Tablet) 3.125 mg PO BID JOON; Protocol Last Admin: 11/21/23 08:20 Dose: 3.125 mg Hydromorphone HCl (Hydromorphone Hcl 0.5 Mg/0.5 Ml Syringe) 0.5 mg IVPUSH Q3H PRN; Protocol PRN Reason: Pain, Severe (Pain Scale 7-10) Last Admin: 11/21/23 05:23 Dose: 0.5 mg Cefazolin Sodium/Dextrose (Ancef) 2 gm in 50 mls @ 100 mls/hr IV POSTOP [facility] Acetaminophen (Ofirmev) 1,000 mg in 100 mls @ 400 mls/hr IV 0000,0600,1200,1800 [facility] Last Infusion: 11/21/23 12:38 Dose: Infused Levothyroxine Sodium (Levothyroxine Sodium 50 Mcg Tablet) 50 mcg PO MoTuWeThFrSa@0600 [facility] Last Admin: 11/21/23 06:24 Dose: 50 mcg Levothyroxine Sodium (Levothyroxine Sodium 100 Mcg Tablet) 100 mcg PO Nazario@0600 [facility] Last Admin: 11/19/23 06:00 Dose: 100 mcg Melatonin (Melatonin 3 Mg Tablet) 6 mg PO BEDTIME PRN PRN Reason: Insomnia Nortriptyline HCl (Nortriptyline Hcl 25 Mg Capsule) 50 mg PO BID [facility] Last Admin: 11/21/23 08:20 Dose: 50 mg Ondansetron HCl (Ondansetron Hcl 4 Mg/2 Ml Vial) 4 mg IVPUSH Q4H PRN PRN Reason: Nausea and Vomiting Last Admin: 11/15/23 06:57 Dose: 4 mg Oxycodone HCl (Oxycodone Hcl Immed Release 5 Mg Tablet) 10 mg PO Q4H PRN PRN Reason: Pain, Severe (Pain Scale 7-10) Last Admin: 11/21/23 12:11 Dose: 10 mg Sodium Chloride (0.9 % Sodium Chloride Flush 3 Ml Syringe) 3 ml IVFLUSH QSHIFT [facility] Last Admin: 11/21/23 08:20 Dose: 3 ml Sodium Chloride (Sodium Chloride Tab 1 Gm Tablet) 1 gm PO BID [facility] Last Admin: 11/21/23 08:20 Dose: 1 gm Tamsulosin HCl (Tamsulosin Hcl 0.4 Mg Capsule) 0.4 mg PO DAILY [facility] Last Admin: 11/21/23 08:20 Dose: 0.4 mg Vitamin D (Cholecalciferol (Vitamin D3) 25 Mcg Tablet) 25 mcg PO DAILY [facility] Last Admin: 11/21/23 08:20 Dose: 25 mcg Home Medications ?Medication ?Instructions ?Recorded ?Confirmed ?Type carvedilol 6.25 mg tablet 1 tab PO BID 04/28/21 11/13/23 History nortriptyline 50 mg capsule 1 cap PO BID 04/28/21 11/13/23 History atorvastatin 40 mg tablet 1 tab PO DAILY 02/09/22 11/13/23 History levothyroxine 50 mcg tablet 50 mcg PO MOTUWETHFRSA 02/09/22 11/13/23 History levothyroxine 50 mcg tablet 100 mcg PO NAZARIO 02/09/22 11/13/23 History acetaminophen 500 mg capsule 1,000 mg PO Q6H PRN Pain 11/13/23 11/13/23 History albuterol sulfate 90 mcg/actuation 2 puff inhalation Q4H PRN wheezing 11/13/23 11/13/23 History aerosol inhaler Allergies Allergy/AdvReac Type Severity Reaction Status Date / Time No Known Allergies Allergy Verified 11/13/23 18:05 Physical Exam Vital signs: Vital Signs Temp 97.6 F 11/21/23 15:11 Pulse 62 11/21/23 15:11 Resp 18 11/21/23 15:11 BP 144/72 H 11/21/23 15:11 Pulse Ox 100 11/21/23 15:11 O2 Del Method Room Air 11/21/23 15:11 O2 Flow Rate 6 11/14/23 21:46 Intake & Output 11/20/23 11/21/23 11/21/23 18:59 06:59 18:59 Intake Total 440 / 1160 720 / 1160 1000 / 1000 Output Total 500 / 1950 1450 / 1950 700 / 700 Balance -60 / -790 -730 / -790 300 / 300 Urine Output (Average ml/kg/hr) 0.90 2.62 1.26 Intake: Intake, Oral Amount 240 / 860 620 / 860 800 / 800 Intake, IV Amount 200 / 300 100 / 300 200 / 200 Acetaminophen 1,000 mg In 100 200 / 300 100 / 300 200 / 200 ml @ 400 mls/hr IV 0000,0600, 1200,1800 [facility] Rx#:[id number] Output: Output, Urine Amount 150 / 150 Output, Urine Amount (Catheter) 500 / 1800 1300 / 1800 700 / 700 Purewick 1300 / 1300 [place] 500 / 500 700 / 700 Other: Meal Refused No NPO No Breakfast % Eaten 100% 100% Lunch % Eaten 100% 50% Eating (Feeding) Ability Independent Independent Number of Bowel Movements 0 Urine Color [place] Yellow Weight 46.2 kg - Constitutional Present: mild distress - Routine HEENT Exam Head: Present: normal inspection, normocephalic Eye: Present: normal appearance ENT: Present: mucous membranes moist - Routine Neck Exam Present: supple - Routine Respiratory Exam Present: CTAB - Routine Cardiovascular Exam Cardiovascular: Present: RRR, S2 - Routine Extremities Exam Present: normal inspection - Routine Skin Exam Present: intact Hem/Onc Consult Result - Labs CBC & Chem 7: 11/23/23 06:00 11/23/23 09:47 Labs: Short CBC 11/21/23 Range/Units 05:14 WBC 3.9 L (4.8-10.8) X10*3/uL Hgb 8.7 L (12.0-16.0) g/dl Hct 26.3 L (37.0-47.0) % Plt Count 210 (160-400) X10*3/uL BMP 11/21/23 05:14 Sodium 133 L Potassium 2.8 L* Chloride 100 Carbon Dioxide 25 BUN 8 L Creatinine 0.48 L Calcium 9.3 D Assessment and Plan Patient Active problem list reviewed?: Yes (1) Pancytopenia Status: Acute Assessment and plan: This is a pleasant 68-year-old lady who presented after a fall with a right hip fracture. She underwent surgery for hip replacement. Subsequently she developed a large hematoma of the thigh. Upon questioning, the patient admits to history of excessive bleeding (after tooth extraction, hysterectomy and colonscopy in the past.) The thigh swelling somewhat improving. Platelets have normalized. WBC is up. H&H stable. DIFFERENTIAL DIAGNOSIS: 1. COAGULOPATHY: PT PTT are normal. 2. DIC: PT/PTT and fibrinogen are normal. 3. TTP/HUS: No evidence of hemolysis. Haptoglobin 124, LDH 195. No evidence of schistocytes. Creatinine normal at 0.48. 4. BLEEDING DISORDER: Possibility of von Willebrand's disease exists, especially in view of the previous history of excessive bleeding with procedures. DATABASE: PT 11.2, INR 1. PTT: pnd. Fibrinogen 622. CBC: WBC 3.9, HGB 8.7, HCT 26.3, PLT 210. B12: 288. BUSINESS SERVICES ASSISTANT 0.48. Haptoglobin 124. LDH 195. No evidence for hemolysis. Ruled out TTP/BRENNER EUS. PLAN: Will proceed with Von Willebrand's profile to complete the workup. Monitor closely for bleeding. Once H and H stabilizes can start Lovenox for thromboembolic prophylaxis anticoagulation. Thank you for the consult, Will follow along with you, CC: Kaiser Pina. - Time Spent With Patient Time Spent with Patient (in minutes): 30
[2023-11-21 18:28] LABS: Anion Gap 11 (12-20); Carbon Dioxide 24 mmol/L (22-29); Chloride 100 mmol/L (96-108); Sodium 131 mmol/L (135-145)
[2023-11-21 20:00] VITALS: BP 141/67; PULSE 86; RESP 15; TEMP 36.2; O2SAT 100
[2023-11-21] MEDS: Melatonin 3 MG TABLET 6 MG PO (20:30)
[2023-11-22] VITALS (7 sets, daily range): BP systolic 136–160; BP diastolic 67–93; PULSE 80–112; RESP 14–18; TEMP 36.1–36.6; O2SAT 96–100
[2023-11-22] MEDS: Acetaminophen 1,000 MG/100 ML PIGGYBACK 400 MG IV ×2 (00:25→06:04)
[2023-11-22] MEDS: HYDROmorphone HCl 0.5 MG/0.5 ML SYRINGE IVPUSH ×4 (00:30→12:43)
[2023-11-22] MEDS: 0.9 % Sodium Chloride Flush 3 ML SYRINGE IVFLUSH ×4 (00:42→20:40)
[2023-11-22] MEDS: Levothyroxine Sodium 50 MCG TABLET PO (06:04)
[2023-11-22 07:09] LABS: Hematocrit 27.4 % (37.0-47.0); Hemoglobin 9.2 g/dl (12.0-16.0); Mean Corpuscular HGB Conc 33.6 g/dl (31.0-35.0); Mean Corpuscular Hemoglobin 31.8 pg (27.0-33.0); Mean Corpuscular Volume 94.8 fL (80.0-98.0); Mean Platelet Volume 9.3 fL (9.4-12.3); Platelet Count 259 X10*3/uL (160-400); Red Blood Count 2.89 X10*6/uL (4.20-5.50); Red Cell Distribution Width 18.4 % (11.0-16.0)
--- NOTE | 2023-11-22 07:55 | HO.PM.IMPN ---
Subjective Subjective Date of Service: 11/22/23 Interval History: seen in f/u for left hip facture s/p orif complicated by hematoma and severe anemia needing transfusion Overall is doing better with mobility, H/H is stable after transfusion, platlet is back to normal. Coagulopathy work up underway Physical Exam Vital Signs: Vital Signs: Last Vital Signs Temp 97.0 F 11/22/23 04:00 Pulse 92 11/22/23 04:00 Resp 16 11/22/23 04:00 BP 137/67 11/22/23 04:00 Pulse Ox 100 11/22/23 04:00 O2 Del Method Room Air 11/22/23 04:00 O2 Flow Rate 6 11/14/23 21:46 BMI result Body Mass Index 19.9 Const: Other: General: AO X 3, no acute distress Resp: CTA bilateral CVS: S1,S2,RRR GI: +BS, NT, no distention Skin: extensive echymosis, and hematoma Neuro: motor grossly intact Psych: appropriate affect Objective Data Active Medications Albuterol/Ipratropium (Albuterol/Iprat 2.5/0.5mg 3 Ml Ampul.Neb) 3 ml INHALE Q3H PRN PRN Reason: sob Carvedilol (Carvedilol 3.125 Mg Tablet) 3.125 mg PO BID [facility]; Protocol Last Admin: 11/21/23 20:29 Dose: 3.125 mg Documented By: ABDIFATAH Hydromorphone HCl (Hydromorphone Hcl 0.5 Mg/0.5 Ml Syringe) 0.5 mg IVPUSH Q3H PRN; Protocol PRN Reason: Pain, Severe (Pain Scale 7-10) Last Admin: 11/22/23 05:00 Dose: 0.5 mg Documented By: ABDIFATAH Cefazolin Sodium/Dextrose (Ancef) 2 gm in 50 mls @ 100 mls/hr IV POSTOP JOON Acetaminophen (Ofirmev) 1,000 mg in 100 mls @ 400 mls/hr IV 0000,0600,1200,1800 [facility] Last Infusion: 11/22/23 06:25 Dose: Infused Documented By: ABDIFATAH Levothyroxine Sodium (Levothyroxine Sodium 50 Mcg Tablet) 50 mcg PO MoTuWeThFrSa@0600 [facility] Last Admin: 11/22/23 06:04 Dose: 50 mcg Documented By: ABDIFATAH Levothyroxine Sodium (Levothyroxine Sodium 100 Mcg Tablet) 100 mcg PO Turner@0600 [facility] Last Admin: 11/19/23 06:00 Dose: 100 mcg Documented By: PITO Melatonin (Melatonin 3 Mg Tablet) 6 mg PO BEDTIME PRN PRN Reason: Insomnia Last Admin: 11/21/23 20:30 Dose: 6 mg Documented By: ABDIFATAH Nortriptyline HCl (Nortriptyline Hcl 25 Mg Capsule) 50 mg PO BID [facility] Last Admin: 11/21/23 20:30 Dose: 50 mg Documented By: ABDIFATAH Ondansetron HCl (Ondansetron Hcl 4 Mg/2 Ml Vial) 4 mg IVPUSH Q4H PRN PRN Reason: Nausea and Vomiting Last Admin: 11/15/23 06:57 Dose: 4 mg Documented By: PITO Oxycodone HCl (Oxycodone Hcl Immed Release 5 Mg Tablet) 10 mg PO Q4H PRN PRN Reason: Pain, Severe (Pain Scale 7-10) Last Admin: 11/21/23 16:35 Dose: 10 mg Documented By: KANDACE Sodium Chloride (0.9 % Sodium Chloride Flush 3 Ml Syringe) 3 ml IVFLUSH [facility] Last Admin: 11/22/23 00:42 Dose: 3 ml Documented By: ABDIFATAH Sodium Chloride (Sodium Chloride Tab 1 Gm Tablet) 1 gm PO BID [facility] Last Admin: 11/21/23 20:30 Dose: 1 gm Documented By: ABDIFATAH Tamsulosin HCl (Tamsulosin Hcl 0.4 Mg Capsule) 0.4 mg PO DAILY [facility] Last Admin: 11/21/23 08:20 Dose: 0.4 mg Documented By: KANDACE Vitamin D (Cholecalciferol (Vitamin D3) 25 Mcg Tablet) 25 mcg PO DAILY [facility] Last Admin: 11/21/23 08:20 Dose: 25 mcg Documented By: KANDACE Labs 11/22/23 05:42 11/21/23 17:59 Labs: Laboratory Results - last 24 hr 11/21/23 11/21/23 11/22/23 09:09 17:59 05:42 MCV 94.8 MCH 31.8 MCHC 33.6 RDW 18.4 H Plt Count 259 MPV 9.3 L Absolute Nucleated RBC 0.000 Nucleated RBC % (auto) 0.0 PT 11.2 INR 1.0 Fibrinogen 622 Anion Gap 11 L Assessment and Plan (1) Closed intertrochanteric fracture: Status: Acute Assessment and Plan: 68 y/o woman with past medical history significant for old CVA admitted for management of fall and left hip fracture Left Hip fracture -s/p ORIF on 11/14 -pain management with oxycodone, dilaudid and iv tylenol for pain -DVT prophylaxis with lovenox was stopped d/t bleeding and anemia -doing well with PT/OT -will discuss lovenox vs ASA use with Ortho Acute blood loss anemia after surgery, complicated by thrombcytopenia -s/p 3 units of RBC, H/H has been stable for more than 3 days -platlet level has normalized -hematology doing work up for bleeding d/o Thrombocytopenia--eitology unclear but has resolved ? related to leveox Tachycardia, likely related to anemia, much improved Urinary retention: continue flomax, resolved Hyponatremia, ? related to nortriptyline use/SIADH. -stable, holding nortryptline, fluid restriction Elevated transaminases and alk-phos.: -holding lipitor, follow lfts HTN: Continue Coreg. Hypothyroidism. Continue levothyroxine. Asthma. No exacerbation. prn nebs Hyperlipidemia. Statin on hold due to elevated transaminases. DVT prophylaxis: on scd-due to anemia/thrombocytopenia ,hematoma, worsening eccymosis Code status: Full ongoing hospitalization need for left hip intertrochanteric fracture management with IV pain meds and surgery, hyponatremia -moniter renal function/electrolytes .anemia -need transfusion and cbc monitering pancytopenia ,hematology eval pendin Quality Stroke Does the patient have a stroke diagnosis?: No VTE Prior VTE?: No VTE Risk Level:: Medical - moderate - high VTE Device Contraindication: Treatment Not Indicated VTE Drug Contraindication: N/A - Med Ordered
[2023-11-22] MEDS: Cholecalciferol (Vitamin D3) 25 MCG TABLET PO (08:31)
[2023-11-22] MEDS: Sodium Chloride Tab 1 GM TABLET PO ×2 (08:31→20:31)
[2023-11-22] MEDS: Tamsulosin HCL 0.4 MG CAPSULE PO (08:31)
[2023-11-22] MEDS: Nortriptyline HCl 25 MG CAPSULE 50 MG PO ×2 (08:31→20:31)
[2023-11-22] MEDS: carvediloL 3.125 MG TABLET PO ×2 (08:31→20:31)
[2023-11-22 10:16] LABS: Alanine Aminotransferase 17 U/L (0-31); Albumin Level 3.8 g/dL (3.5-5.0); Alkaline Phosphatase 104 U/L (39-117); Aspartate Amino Transferase 23 U/L (5-31); Bilirubin Direct 0.5 mg/dL (0.0-0.5); Bilirubin Total 1.5 mg/dL (0.0-1.0); Total Protein 6.1 g/dL (6.5-8.0)
[2023-11-22] MEDS: Enoxaparin Sodium 40 MG/0.4 ML SYRINGE SUBCUT (11:07)
--- NOTE | 2023-11-22 11:11 | PC.NURSE ---
Indwelling urinary catheter removed at 1030. Patient tolerated well. Device intact. Due to void by 1630. Gillian-care completed. Education provided- patient verbalizes understanding.
--- NOTE | 2023-11-22 12:33 | MHC.CM.PN ---
EMR REVIEWED AND PER MD ROUNDS, PT IS NOT MEDICALLY CLEARED FOR DC TO REHAB (START ANTI COAG, LAB MONITORING) [facility] FOLLOWING AND UPDATED VIA [facility]. CM WILL CONTINUE TO FOLLOW FOR ANY CHANGE TO DC PLAN.
--- NOTE | 2023-11-22 14:42 | PC.NURSE ---
Approximately 1415- Patient voided in toilet for first time post boston removal and missed measuring hat. Unable to measure void. Bladder scanned for 13mL. No c/o discomfort or difficulty with voiding. Patient re-educated on need to measure voids- verbalizes understanding. Measuring hat re-adjusted in toilet.
[2023-11-22] MEDS: oxyCODONE HCl Immed Release 5 MG TABLET 10 MG PO ×2 (16:32→20:32)
[2023-11-22] MEDS: Melatonin 3 MG TABLET 6 MG PO (20:32)
[2023-11-23] MEDS: oxyCODONE HCl Immed Release 5 MG TABLET 10 MG PO ×4 (01:35→14:43)
[2023-11-23 04:00] VITALS: BP 126/64; PULSE 110; RESP 16; TEMP 36.9; O2SAT 100
[2023-11-23] MEDS: Levothyroxine Sodium 50 MCG TABLET PO (05:53)
[2023-11-23 07:08] LABS: Hematocrit 27.3 % (37.0-47.0); Hemoglobin 9.1 g/dl (12.0-16.0); Mean Corpuscular HGB Conc 33.3 g/dl (31.0-35.0); Mean Corpuscular Volume 96.1 fL (80.0-98.0); Mean Platelet Volume 10.2 fL (9.4-12.3); Platelet Count 247 X10*3/uL (160-400); Red Blood Count 2.84 X10*6/uL (4.20-5.50); Red Cell Distribution Width 18.5 % (11.0-16.0); White Blood Count 6.2 X10*3/uL (4.8-10.8)
[2023-11-23 07:27] VITALS: BP 131/60; PULSE 86; RESP 18; TEMP 36.2; O2SAT 100
[2023-11-23] MEDS: carvediloL 3.125 MG TABLET PO (08:00)
[2023-11-23] MEDS: Sodium Chloride Tab 1 GM TABLET PO (08:00)
[2023-11-23] MEDS: Cholecalciferol (Vitamin D3) 25 MCG TABLET PO (08:01)
[2023-11-23] MEDS: Tamsulosin HCL 0.4 MG CAPSULE PO (08:01)
[2023-11-23] MEDS: Docusate Sodium 100 MG CAPSULE PO (08:01)
[2023-11-23] MEDS: Nortriptyline HCl 25 MG CAPSULE 50 MG PO (08:03)
[2023-11-23] MEDS: 0.9 % Sodium Chloride Flush 3 ML SYRINGE IVFLUSH (08:03)
--- NOTE | 2023-11-23 09:13 | P.DS_ITS ---
DS: Providers Provider Date of Service: 11/23/23 Date of admission: 11/13/23 20:42 Date of discharge: 11/23/23 Primary care physician: Kaiser Pina III, MD Consults: 11/13/23 20:46 Consult to Orthopedics Routine Consulting Provider: [facility] Reason for consultation: Left hip fracture Has provider been notified: Yes 11/14/23 12:30 Consult to Nephrology Routine Consulting Provider: [facility] Reason for consultation: hyonatremia ,?siadh Has provider been notified: No 11/17/23 14:51 Consult to Hematology / Oncology Routine Consulting Provider: [facility] Oncology/Hematology Reason for consultation: pancytopenia unclear etiology Has provider been notified: No 11/21/23 09:59 Consult to Hematology / Oncology Routine Consulting Provider: [facility] Oncology/Hematology Reason for consultation: bleeding concerns DS: Diagnosis Discharge Diagnosis (1) Closed intertrochanteric fracture: Status: Acute DS: Summary Hospital Course Hospital Course: Chief Complaint: Left hip pain Nenita Downey is a very pleasant 68 years old woman with past medical history significant for stroke, hypothyroidism, asthma and essential hypertension pres ents to the emergency department after she sustained a fall today after she tripped over a stool. She landed on her left hip. Denies head trauma. Denied any symptoms before or after the fall such as chest pain, shortness on breath, palpitations or loss of consciousness. She also denied any abdominal pain, nausea, vomiting or diarrhea. She does not take water pills. She does take nortriptyline. Mentioned that she has been falling a lot lately. Denied tobacco smoking or illicit drug use. Drinks wine in occasions. Ambulates with a walker. In the ED, she was found to have normal vital signs for slight tachycardia. Blood workup was remarkable for hyponatremia of 129. There are no other electrolyte imbalances. WBC is 9.5 hemoglobin 10.3 and platelets 157. Transaminases and alk-phos are mildly elevated. Bilirubin is normal. Renal function is adequate. ECG showed (NSR, no SVT). Right axis deviation. Q-waves in the inferior leads. Left hip x-ray showed minimally displaced in tertrochanteric fracture. CXR is negative. ED tx: Magnesium sulfate 2 g IV, morphine 4 mg IV Hospital course: Patient presented with a mechanical fall resulting in a left hip fracture. She underwent surgical repair on 11/14, and her postoperative course was complicated by a hematoma and severe anemia, requiring a transfusion. She was given Lovenox the day after surgery, but due to the hematoma, anemia, and low platelets, Lovenox was discontinued. PT has been working with her, and her pain is controlled. Her platelets have returned to normal, and her blood count has been stable. She has been restarted on Lovenox with no effect on her blood count or platelets. She will thus continue DVT prophylaxis with Lovenox per ortho recommendation. She was seen by a mobile marketing specialist due to concern for a possible bleeding disorder, as she reported excessive bleeding in the past following dental procedures and a colonoscopy. Further workup has included a normal INR and PTT, with vWF level pending. Left Hip fracture -s/p ORIF on 11/14 -pain management with oxycodone -DVT prophylaxis with lovenox, will need to follow CBC closely with atention to hemogoblin and platletes level -to Continue PT and OT Acute blood loss anemia after surgery, complicated by thrombcytopenia -She was transfused 3 units of RBC, H/H has been stable around 11/23 -Bleeding disorder work up, specifically vWF ( Von Willebrand) work up is pending Thrombocytopenia?etiology unclear but has resolved, possibly reactive to acute injury or surgery. Her platelet count was 157 on admission on 11/12 and trended down daily to 120, 134, and 98 by 11/15, then 75 by the . It has steadily increased to the current count of 247. We do not believe this was related to heparin-induced thrombocytopenia; therefore, she was restarted on Lovenox rather than aspirin for DVT prophylaxis. Additionally, due to concern for a possible GI bleed, aspirin is being avoided. This version clarifies the timeline and improves sentence structure. Tachycardia, likely related to anemia, resolved. Urinary retention: continue flomax, resolved HypOnatremia, ? related to nortriptyline use/SIADH. -stable, holding nortryptline for now Elevated transaminases and alk-phos.: -holding lipitor, follow lfts HTN: Continue Coreg. Hypothyroidism. Continue levothyroxine. Asthma. No exacerbation. prn nebs Hyperlipidemia. Statin on hold due to elevated transaminases, can be restarted Time Attestation Discharge Coordination Time (in mins): 45 Quality: Safe Use of Opioids Does Pt have an Active Cancer Diagnosis on the Problem List?: No Quality: Stroke Does the patient have a stroke diagnosis?: No Physical Exam Vital Signs: Vital Signs: Last Vital Signs Temp 97.1 F 11/23/23 07:27 Pulse 86 11/23/23 07:27 Resp 18 11/23/23 07:27 BP 131/60 11/23/23 07:27 Pulse Ox 100 11/23/23 07:27 O2 Del Method Room Air 11/23/23 07:27 O2 Flow Rate 6 11/14/23 21:46 BMI result Body Mass Index 19.9 General: AO X 3, no acute distress Resp: CTA bilateral CVS: S1,S2,RRR GI: +BS, NT, no distention Skin: has extensive bruses and swelling on the left tigh, but overall looks better Neuro: motor grossly intact Psych: appropriate affect DS: Data Data Completed and Pending Labs on day of discharge: Laboratory Results - last 24 hr 11/22/23 11/23/23 05:42 06:00 WBC 6.2 RBC 2.84 L Hgb 9.1 L Hct 27.3 L MCV 96.1 MCH 32.0 MCHC 33.3 RDW 18.5 H Plt Count 247 MPV 10.2 Absolute Nucleated RBC 0.000 Nucleated RBC % (auto) 0.0 Total Bilirubin 1.5 H Direct Bilirubin 0.5 AST 23 ALT 17 Alkaline Phosphatase 104 Total Protein 6.1 L Albumin 3.8 Discharge Plan Discharge Anticipated Discharge Date/Time: 11/23/23 09:39 Patient Disposition: er [facility] Discharge Diagnosis: Left hip fracture, acute blood loss anemia, thrombocytopenia Referrals: [facility] [Outside] - 1 Week (TRANSFER FOR ACUTE REHAB) Kaiser Pina III, MD [Primary Care Provider] - 1 Week Discharge Medications: New tamsulosin 0.4 mg Capsule 0.4 mg PO DAILY Qty: 60 0RF enoxaparin 40 mg/0.4 mL Syringe 40 mg subcut Q24H 40 Days Qty: 16 0RF docusate sodium [Colace] 100 mg capsule 100 mg PO BID Qty: 60 0RF oxycodone 5 mg Tablet 10 mg PO Q4H PRN (Reason: Pain, Severe (Pain Scale 7-10)) Qty: 20 0RF Rx Instructions: Partial Fill upon patient request. Continued atorvastatin 40 mg tablet 1 tab PO DAILY levothyroxine 50 mcg tablet 50 mcg PO MOTUWETHFRSA levothyroxine 50 mcg tablet 100 mcg PO NAZARIO carvedilol 6.25 mg tablet 1 tab PO BID nortriptyline 50 mg capsule 1 cap PO BID albuterol sulfate 90 mcg/actuation HFA aerosol inhaler 2 puff inhalation Q4H PRN (Reason: wheezing) acetaminophen 500 mg Capsule 1,000 mg PO Q6H PRN (Reason: Pain) Discontinued aspirin 81 mg tablet,delayed release (DR/EC) 1 tab PO DAILY Discharge Orders: Discharge Order (Routine); Ordered 11/23/23 Ordered By: Agustin Dickson Diet: Advance to usual diet Activity on Discharge: Use cane or walker Stand Alone Forms: Patient Portal Discharge page Print Language: Mexican Care Plan Goals: recovery from hip fracture and anemia Health Concerns: see above Plan of Treatment: Gait training, strengthening, ADLs Continue Lovenox for dvt ppx x6 weeks Keep dressing clean, dry and intact-no showering or tub baths Follow up with Orthopedics in 2 weeks Check CBC twice weekly to weekly and pay attention to Platlets and hemoglobin and hematocrit Assessment: see above Discharge Date/Time: 11/23/23 16:55
[2023-11-23 10:06] LABS: Anion Gap 11 (12-20); Blood Urea Nitrogen 10 mg/dL (9-16); Calcium 9.6 mg/dL (8.4-10.2); Carbon Dioxide 26 mmol/L (22-29); Chloride 99 mmol/L (96-108); Creatinine Clr Calc Pharmacy 67.8; Estimated Glomerular Filt Rate > 60; Glucose Random 101 mg/dL (60-115); Potassium 3.5 mmol/L (3.3-5.1); Sodium 132 mmol/L (135-145)
--- NOTE | 2023-11-23 10:37 | MHC.CM.PN ---
DP: PT HAS BEEN MEDICALLY CLEARED FOR DC TO ACUTE REHAB AT [facility]. BLS TRANSPORT BOOKED FOR 4 PM [facility]IA [facility]. RN NOTIFIED. PT MADE AWARE AND IN AGREEMENT OF THIS PLAN. CENTER NOTIFIED. FINAL IMM DELIVERED.
[2023-11-23] MEDS: Enoxaparin Sodium 40 MG/0.4 ML SYRINGE SUBCUT (10:42)
[2023-11-23 12:00] VITALS: BP 136/65; PULSE 93; RESP 18; TEMP 36.5; O2SAT 100
--- NOTE | 2023-11-23 14:24 | PC.NURSE ---
Report called to [facility], receiving facility, with no answer.
[2023-11-23 14:56] VITALS: BP 115/55; PULSE 97; RESP 16; TEMP 36.2; O2SAT 94
--- NOTE | 2023-11-23 15:37 | P.CDIM_ITS ---
PROVIDER RESPONSE TEXT: To clarify, the appropriate diagnosis supported by the clinical indicators: Labs indicate a diagnosis of (please specify) QUERY TEXT: PHYSICIAN'S DOCUMENTATION REQUEST Date of Query: 11/22/2023 10:50 AM EDT Patient Name: Nenita Downey Admit Date: 11/14/2023 Dear Agustin Dickson MD, A review of the medical record indicates additional documentation may be needed. Please review below and update the documentation accordingly. Clinical Indicators: LABS: potassium 2.8 L 4.0 Based on the above, is there a diagnosis that correlates with these lab findings: Hypokalemia resolved, possible, probable etc. Labs indicate a diagnosis of (please specify) Other (explain) Clinically unable to determine (explain) Thank you, Selin Rodriguez, CCS, CDIS Use of terms such as suspected, likely, concern for, or probable (associated with a specific diagnosi s that is being evaluated, monitored, or treated as if it exists) are acceptable and can be coded in the inpatient se tting, when documented at the time of discharge. Please use your independent medical judgment in providing your response. THIS QUERY IS PART OF THE PERMANENT MEDICAL RECORD
[2023-11-28 16:53] LABS: Factor VIII Activity Clotting 179 % normal (50-180); PTT, Activated 33 sec (23-32); Ristocetin Cofactor 179 % normal (42-200)
== END 2023-11-23 16:55 | disposition skilled nursing facility (03) | DRG 481 ==
LOC: HO.ED 20:18 → HO.EDOVER 21:06 → HO.S3 23:37
PROVIDERS: Anesthesiology; Internal Medicine; Internal Medicine Medical Oncology; Orthopaedic Surgery; Student in an Organized Health Care Education/Training Program; Admitting Provider Internal Medicine; Emergency Provider Emergency Medicine; PCP Internal Medicine; Visit Provider Internal Medicine
PROC: 0QS736Z Reposition Left Upper Femur with Intramedullary Internal Fixation Device, Percutaneous Approach (ICD-10-PCS; principal; 2023-11-14 12:50)
DX: S72.145A Nondisplaced intertrochanteric fracture of left femur, initial encounter for closed fracture (principal); D61.818 Other pancytopenia; D62 Acute posthemorrhagic anemia; E22.2 Syndrome of inappropriate secretion of antidiuretic hormone; E03.9 Hypothyroidism, unspecified; I69.398 Other sequelae of cerebral infarction; E55.9 Vitamin D deficiency, unspecified; R33.9 Retention of urine, unspecified; R26.89 Other abnormalities of gait and mobility; W19.XXXA Unspecified fall, initial encounter; E78.5 Hyperlipidemia, unspecified; J45.909 Unspecified asthma, uncomplicated; Z87.891 Personal history of nicotine dependence; Z79.82 Long term (current) use of aspirin; Z79.890 Hormone replacement therapy; Z79.899 Other long term (current) drug therapy
CPT/HCPCS: 36415; 71045; 73502; 73700; 80048; 80051; 80053; 80076; 82306; 82550; 82570; 82607; 82728; 82746; 83010; 83540; 83605; 83615; 83735; 84295; 84300; 84443; 84484; 85014; 85018; 85025; 85027; 85045; 85049; 85240; 85245; 85246; 85247; 85384; 85610; 85730; 86850; 86900; 86901; 86923; 93005; 97110; 97116; 97162; 97167; 97530; 99285; C1713; C1758; J0131; J0690; J1170; J1650; J1885; J1940; J2270; J2405; J2470; J2704; J2795; J3010; J3475; J7120; P9016; P9047

== ENCOUNTER → 2023-11-13 20:42 | Outpatient (BNV) | payer MEDICARE, SELFPAY | PROVIDERS: Admitting Provider Internal Medicine; Emergency Provider Emergency Medicine; PCP Internal Medicine; Visit Provider Internal Medicine | DX: S72.145A Nondisplaced intertrochanteric fracture of left femur, initial encounter for closed fracture (principal); E87.1 Hypo-osmolality and hyponatremia | CPT/HCPCS: 99223; 99231; 99232; 99239; 99499 ==

== ENCOUNTER → 2023-11-13 20:42 | Outpatient (BNV) | payer MEDICARE, SELFPAY | PROVIDERS: Admitting Provider Internal Medicine; Emergency Provider Emergency Medicine; PCP Internal Medicine; Visit Provider Physician Assistant | DX: S72.145A Nondisplaced intertrochanteric fracture of left femur, initial encounter for closed fracture (principal) | CPT/HCPCS: 27245; 99024; 99222 ==

== ENCOUNTER → 2023-11-13 20:42 | Outpatient (BNV) | payer MEDICARE, SELFPAY | PROVIDERS: Admitting Provider Internal Medicine; Emergency Provider Emergency Medicine; PCP Internal Medicine; Visit Provider Internal Medicine Medical Oncology | DX: D61.818 Other pancytopenia (principal) | CPT/HCPCS: 99222 ==

== ENCOUNTER → 2023-11-13 20:42 | Outpatient (BNV) | payer MEDICARE, SELFPAY | PROVIDERS: Admitting Provider Internal Medicine; Emergency Provider Emergency Medicine; PCP Internal Medicine; Visit Provider Internal Medicine Hypertension Specialist | DX: E87.1 Hypo-osmolality and hyponatremia (principal) | CPT/HCPCS: 99223; 99232 ==

== ENCOUNTER 2023-12-01 09:43 | Outpatient (AMB) | payer MEDICARE, SELFPAY ==
--- NOTE | 2023-12-01 09:57 | A.OFFVIS_ITS ---
Intake Visit Reasons: 2 WK PO: lt hip IM nail 11/14/23 NE Intake Note: Nenita is a 68 year old female who presents today for a post operative visit S/P Left hip IMN w/ NE 11/14/2023. Patient reports she is having a a little pain a lonf side her hip. She is doing well. Allergies No Known Allergies Allergy (Verified 12/01/23 10:03) HPI HPI 2 WK PO: lt hip IM nail 11/14/23 NE: Details: 68-year-old female who presents in the office today 2 weeks status post left hip IM nailing, which was performed on 11/14/[address] Fuentes. While in the office today, the patient reports she is doing well; however, she is experiencing mild pain along the side of her left hip. The patient has a history of hypertension, hypothyroidism and CVA. [facility] Medical History (Updated 12/01/23 @ 00:02 by Arnaud Iyer) Hypothyroidism Colitis HTN (hypertension) CVA (cerebral vascular accident) Surgical History (Updated 11/18/23 @ 13:05 by Matthew Dowling MD) Hx of appendectomy History of partial hysterectomy Family History Other No family history of cerebrovascular accident (CVA) Social History Household Members: None Housing: Apartment Do you presently have visiting nurse or other home services: Yes Alcohol intake: current Alcohol intake frequency: holidays/special occasions only Alcohol type: wine Patient Tobacco Use Status: Former Tobacco user Advance Directives Date on File: 04/29/21 service: No Current occupational status: retired Review of Systems Const All systems reviewed & are unremarkable except as noted in HPI and below Physical Exam Const General: cooperative, healthy appearing and no acute distress Resp Effort & Inspection: normal respiratory effort and able to speak in complete sentences Cardio Rate: regular rate Peripheral pulses: Peripheral pulses 2+ throughout GI Palpation (GI): Soft to palpation Skin Lesions: no lesions Rashes: no rashes Extrem Other: Left hip: Incision sites are clean, dry, and intact. [place] intact. No surrounding erythema or drainage. No signs of infection. Good internal and external rotation. NVI. Assessment & Plan Assessment & Plan (1) Closed intertrochanteric fracture: Code(s): S72.143A - Displaced intertrochanteric fracture of unspecified femur, initial encounter for closed fracture Category: Medical Qualifiers: Encounter type: initial encounter Fracture alignment: nondisplaced Laterality: left Qualified Code(s): S72.145A - Nondisplaced intertrochanteric fracture of left femur, initial encounter for closed fracture Plan Ms. Downey is a 68-year-old female who presents in the office today 2 weeks status post left hip IM nailing, which was performed on 11/14/[address] Fuentes. While in the office today, the patient reports she is doing well; however, she is experiencing mild pain along the side of her left hip. The patient has a history of hypertension, hypothyroidism and CVA. Salters removed and steri-strips applied. She may WBAT with a walker. The patient was referred to physical therapy to work on glute, core, and quad strengthening as well as gait training. Follow up will be in 4 weeks, or sooner if needed. X-rays of the left hip which were obtained while in the office today and were reviewed by me, Edelmira Calzada PA-C, revealed: Intact orthopedic hardware with routine healing. Orders: Orders XR femur LT 2V 12/01/23 S72.145A - Nondisplaced intertrochanteric fracture of left femur, initial encounter for closed fracture Patient Instructions: Scribed by Camilla Mendoza, clinical specialist medical device, for Edelmira Calzada PA-C on 12/01/23 at 10:12 am EST. Coding Level of Care Code Global (92554) Diagnoses Closed intertrochanteric fracture S72.145A Encounter type: initial encounter Fracture alignment: nondisplaced Laterality: left
== END 2023-12-01 10:48 | disposition home or self-care (01) ==
PROVIDERS: PCP Internal Medicine; Visit Provider Physician Assistant
DX: S72.145A Nondisplaced intertrochanteric fracture of left femur, initial encounter for closed fracture (principal)
CPT/HCPCS: 99024

== ENCOUNTER 2023-12-01 11:22 | Outpatient (REF) | payer MEDICARE, SELFPAY | END 2023-12-01 11:23 | disposition home or self-care (01) | LOC: HO.HOSX 11:22 | PROVIDERS: Visit Provider Physician Assistant | DX: S72.145D Nondisplaced intertrochanteric fracture of left femur, subsequent encounter for closed fracture with routine healing (principal); Z98.890 Other specified postprocedural states | CPT/HCPCS: 73552; 99212 ==

== ENCOUNTER 2023-12-29 09:19 | Outpatient (AMB) | payer MEDICARE, SELFPAY ==
--- NOTE | 2023-12-29 09:38 | MHC.OFFVIS ---
Intake Visit Reasons: PO: lt hip IM nail 11/14/23 NE Intake Note: Nenita is a 68 year old female who presents today for a post operative visit S/P Left hip IMN w/ NE 11/14/2023. Patient reports she is having mild pain, however she feels a lot better. She is doing well with physical therapy and she has been noticing improvements. Patient mentioned that she had a stroke not so long ago and her balance is a little off. Allergies No Known Allergies Allergy (Verified 12/29/23 09:46) HPI HPI PO: lt hip IM nail 11/14/23 NE: Details: 68-year-old female who presents in the office today 7 weeks status post left hip IM nailing, which was performed on 11/14/[address] Fuentes. I last saw the patient in the office on 12/01/23 when she was referred to physical therapy to work on glute, core and quad strengthening as well as gait training. She may bear weight as tolerated with the walker. While in the office today, the patient reports having mild left hip pain; however, she mentions she has improved a lot. She is attending physical therapy and has been noticing improvements with PT. The patient mentions a recent history of stroke. She reports poor balance. The patient has a history of hypertension, hypothyroidism and CVA. [facility] Medical History (Updated 12/01/23 @ 00:02 by Arnaud Iyer) Hypothyroidism Colitis HTN (hypertension) CVA (cerebral vascular accident) Surgical History (Updated 11/18/23 @ 13:05 by Matthew Dowling MD) Hx of appendectomy History of partial hysterectomy Family History Other No family history of cerebrovascular accident (CVA) Social History Household Members: None Housing: Apartment Do you presently have visiting nurse or other home services: Yes Alcohol intake: current Alcohol intake frequency: holidays/special occasions only Alcohol type: wine Patient Tobacco Use Status: Former Tobacco user Advance Directives Date on File: 04/29/21 service: No Current occupational status: retired Review of Systems Const All systems reviewed & are unremarkable except as noted in HPI and below Physical Exam Const General: cooperative, healthy appearing and no acute distress Resp Effort & Inspection: normal respiratory effort and able to speak in complete sentences Cardio Rate: regular rate Peripheral pulses: Peripheral pulses 2+ throughout GI Palpation (GI): Soft to palpation Skin Lesions: no lesions Rashes: no rashes Extrem Other: Left hip: Incision sites are clean, dry, and intact. Completely healed with no surrounding erythema or drainage. No signs of infection. Good internal and external rotation.Able to perform SLR. NVI. Assessment & Plan Assessment & Plan (1) Closed intertrochanteric fracture: Code(s): S72.143A - Displaced intertrochanteric fracture of unspecified femur, initial encounter for closed fracture Category: Medical Qualifiers: Encounter type: initial encounter Fracture alignment: nondisplaced Laterality: left Qualified Code(s): S72.145A - Nondisplaced intertrochanteric fracture of left femur, initial encounter for closed fracture Plan 68-year-old female who presents in the office today 7 weeks status post left hip IM nailing, which was performed on 11/14/[address] Fuentes. I last saw the patient in the office on 12/01/23 when she was referred to physical therapy to work on glute, core and quad strengthening as well as gait training. She may bear weight as tolerated with the walker. While in the office today, the patient reports having mild left hip pain; however, she mentions she has improved a lot. She is attending physical therapy and has been noticing improvements with PT. The patient mentions a recent history of stroke. She reports poor balance. The patient has a history of hypertension, hypothyroidism and CVA. The patient can resume back to normal activities as tolerated. She can use a walker for ambulation. I discussed follow-up in 6 weeks; however, she has difficulty leaving the house because of fear of falling. Therefore follow-up will be PRN, or sooner if needed. X-rays of the left hip, which were obtained while in the office today and were reviewed by me, Edelmira Calzada PA-C, revealed: Intact orthopedic hardware with routine healing. Orders: Orders XR femur LT 2V Today S72.145A - Nondisplaced intertrochanteric fracture of left femur, initial encounter for closed fracture Patient Instructions: Scribed by Camilla Mendoza faculty i on call medical assistant, for Edelmira Calzada PA-C on 12/29/23 at 9:56 am EST. Coding Level of Care Code Global (54394) Diagnoses Closed intertrochanteric fracture S72.145A Encounter type: initial encounter Fracture alignment: nondisplaced Laterality: left
== END 2023-12-29 09:53 | disposition home or self-care (01) ==
LOC: HO.HOS 09:20
PROVIDERS: PCP Internal Medicine; Visit Provider Physician Assistant
DX: S72.145A Nondisplaced intertrochanteric fracture of left femur, initial encounter for closed fracture (principal)
CPT/HCPCS: 99024

== ENCOUNTER 2023-12-29 11:00 | Outpatient (REF) | payer MEDICARE, SELFPAY ==
--- NOTE | ~2023-12-29 | XR_ITS ---
EXAMINATION: XR FEMUR LEFT 4 VIEWS CLINICAL INFORMATION: Nondisplaced intertrochanteric fracture of left femur, initial encounter for closed fracture S72.145A. COMPARISON: XR Left femur 12/01/2023 TECHNIQUE: AP and lateral views of the left femur were obtained. FINDINGS: Intact left femoral intramedullary nail and dynamic compression hip screw. Intertrochanteric fracture lucency remains visible. There has been interval healing with periosteal reaction. No acute periprosthetic fracture. The femoral head remains well seated within the acetabulum. The visualized knee joint is in anatomic alignment. The visualized pelvic rim is intact. Mild arterial calcifications. XR/XR femur LT 2V IMPRESSION: Intact left femoral intramedullary nail and dynamic compression hip screw. Intertrochanteric fracture lucency remains visible with interval healing. Electronically signed by: Felicity Chávez DO 02/09/2024 02:53 PM EST
== END 2023-12-29 11:01 | disposition home or self-care (01) ==
LOC: HO.HOSX 11:00
PROVIDERS: Visit Provider Physician Assistant
DX: S72.145A Nondisplaced intertrochanteric fracture of left femur, initial encounter for closed fracture (principal)
CPT/HCPCS: 73552; 99212

== ENCOUNTER 2024-07-26 05:01 | Emergency (ER) | payer MEDICARE, SELFPAY ==
--- NOTE | ~2024-07-26 | XR_ITS ---
CLINICAL HISTORY: pain, sprain? 3 view left foot Comparison: None Findings: There is a healed or healing middle toe metatarsal head fracture. No acute fractures and no dislocations. No significant loss of joint space, osteophytes, or erosions. No ankle effusion. No radiopaque foreign body. IMPRESSION: 1. No acute findings. This document has been electronically signed by: Riley Bonilla MD on 07/26/2024 06:18:23
--- NOTE | ~2024-07-26 | XR_ITS ---
CLINICAL HISTORY: pain, sprain 3 view left ankle Comparison: None Findings: No acute fractures. Ankle mortise intact. No significant arthritic change or erosions. Moderate-size ankle effusion. No radiopaque foreign body. IMPRESSION: 1. Ankle joint effusion. No acute osseous findings This document has been electronically signed by: Riley Bonilla MD on 07/26/2024 06:18:51
--- NOTE | 2024-07-26 05:12 | ED_ITS ---
HPI - General Adult General Chief complaint: Extremity Injury, Lower Stated complaint: foot and leg pain Time Seen by Provider: 07/26/24 05:04 Source: patient and EMS Mode of arrival: EMS Limitations: no limitations History of Present Illness ED Provider: Dr. Sheila Wells HPI narrative: Patient comes to the emergency room complaining of left ankle pain. Patient states that earlier today she was walking around with her walker and patient's pain her ankle. Patient states that she has had multiple falls over the last month, patient states that she has not hit her head or lost consciousness, patient denies being on blood thinners. Patient states that she is not doing well living by herself, patient requesting that after our workup to get a PT case management consult as she would like to go back [facility]. Related Data Home Medications ?Medication ?Instructions ?Recorded ?Confirmed carvedilol 6.25 mg tablet 1 tab PO BID 04/28/21 11/13/23 nortriptyline 50 mg capsule 1 cap PO BID 04/28/21 11/13/23 atorvastatin 40 mg tablet 1 tab PO DAILY 02/09/22 11/13/23 levothyroxine 50 mcg tablet 50 mcg PO MOTUWETHFRSA 02/09/22 11/13/23 levothyroxine 50 mcg tablet 100 mcg PO NAZARIO 02/09/22 11/13/23 acetaminophen 500 mg capsule 1,000 mg PO Q6H PRN Pain 11/13/23 11/13/23 albuterol sulfate 90 mcg/actuation 2 puff inhalation Q4H PRN wheezing 11/13/23 11/13/23 aerosol inhaler Previous Rx's ?Medication ?Instructions ?Recorded docusate sodium 100 mg capsule 100 mg PO BID #60 caps 11/23/23 (Colace) enoxaparin 40 mg/0.4 mL 40 mg (0.4 mL) subcut Q24H 40 days 11/23/23 subcutaneous syringe #16 mL oxycodone 5 mg tablet 10 mg (2 x 5 mg) PO Q4H PRN Pain, 11/23/23 Severe (Pain Scale 7-10) #20 tabs tamsulosin 0.4 mg capsule 0.4 mg PO DAILY #60 caps 11/23/23 Allergies Allergy/AdvReac Type Severity Reaction Status Date / Time codeine Allergy Unknown Verified 07/26/24 05:19 Review of Systems 2 Review of Systems: Constitutional : No Weight loss, No Fever, No Chills, No Night Sweats, No Fatigue, No Malaise ENT/Mouth : No Hearing loss, No Ear Pain, No Nasal Congestion, No Sinus Pain, No Hoarseness, No sore throat, No Rhinorrhea, No Swallowing Difficulty Eyes: No Eye Pain, No Swelling, No Redness, No Foreign Body, No Discharge, No Vision Changes Cardiovascular : No Chest Pain, No SOB, No Dyspnea on Exertion, No Orthopnea, No Edema, No Palpitations Respiratory : No Cough, No Sputum, No Wheezing, No Smoke Exposure, No Dyspnea Gastrointestinal : No Nausea, No Vomiting, No Diarrhea, No Constipation, No abdominal Pain, No Hematochezia, No Melena Genitourinary : no irregular bleeding, No Dysuria, No Urinary Frequency, No Hematuria, No Urinary Incontinence, No Urgency, No Flank Pain, No Urinary Flow Changes, No Hesitancy Musculoskeletal : Complaining of left ankle pain, No Myalgias, No Joint Swelling Skin : No Skin Lesions, No rash Neuro : No Weakness, No Numbness, No Paresthesias, No Loss of Consciousness, No Dizziness, No Headache Psych : No Anxiety/Panic, No Depression, No SI/HI/AH/VH, No Social Issues, Heme/Lymph: No Bruising, No Bleeding,No Lymphadenopathy Endocrine : No Polyuria, No Polydipsia, No Temperature Intolerance PMFSH Past Medical History Medical History Hypothyroidism Colitis HTN (hypertension) CVA (cerebral vascular accident) Surgical History Hx of appendectomy History of partial hysterectomy Family History Family History Other No family history of cerebrovascular accident (CVA) Social History Social History Household Members: None Housing: Apartment Do you presently have visiting nurse or other home services: Yes Alcohol intake: current Alcohol intake frequency: holidays/special occasions only Alcohol type: wine Patient Tobacco Use Status: Former Tobacco user Smoked in Last 30 Days: No Use of substances other than those prescribed or required for medical reasons: No Advance Directives: Yes Advance Directives on File: Yes Advance Directives Date on File: 04/29/21 Do you have a plan to hurt others: No Plan service: No Current occupational status: retired Physical Exam ED Vital Signs: Vital Signs - 24 hr 07/26/24 05:17 07/26/24 07:22 Temperature 97.9 F Pulse Rate 94 94 Respiratory Rate 16 Blood Pressure 162/99 H 162/99 H Pulse Oximetry 100 100 Oxygen Delivery Method Room Air BMI result Body Mass Index 19.8 Const Other: Appearance: Alert. Oriented X3. No acute distress. Eyes: Pupils equal, round and reactive to light. ENT: Pharynx normal. Neck: Normal inspection. Neck supple. No lymph nodes noted. No crepitus CVS: Normal heart rate and rhythm. Pulses normal. Normal S1 and S2 Respiratory: No respiratory distress. Breath sounds normal. No Wheezing. No rales Abdomen: Soft and nontender. No rigidity. No distention. Skin: Skin warm and dry. Normal skin color. Normal skin turgor. Extremities: No lower extremity edema. No Lacerations. No Rash. Patient unable to flex or extend the left ankle. There is no swelling or ecchymosis Neuro: Oriented X 3. No motor deficit. No sensory deficit. Moving all extremities. No slurred speech. CN 2 through 12 grossly intact Psych: calm, cooperative, normal affect Course Course Course Narrative: Patient complaining of multiple ankle sprains on the left ankle, worse 1 today. Patient denies hitting her head or losing consciousness, no blood thinner We will get routine blood work and x-rays of the ankle. Per patient's request, she will need physical therapy and case management consult 07/26/2024 1142 Cande Chaudhary PA-C: Patient should continue receiving 5mg of immediate release oxycodone Q6H as needed for pain and may also add 325mg of Tylenol Q6H for continued pain. O bservation care revealed the the patient does not meet medical necessity for hospitalization. Final disposition of discharge to [facility] discussed with the patient. Patient completed observation care at 1142, total time spent in observation care was 6 hours and 32 minutes. Medications Administered Discontinued Medications Generic Name Dose Route Start Last Admin Trade Name Allan PRN Reason Stop Dose Admin Oxycodone HCl 5 mg 07/26/24 06:02 07/26/24 06:33 Oxycodone Hcl Immed Release 5 Mg Tablet PO 07/26/24 06:03 5 mg ONCE ONE Administration Medical Decision Making Medical Decision Making [place] Narrative: My interpretation of labs: No significant abnormality in patient's white blood cell count.. Chemistry shows a sodium of 131, patient has chronic hyponatremia, patient is at baseline and is asymptomatic. Patient's LFTs are a bit elevated. However, seems that patient's T bili has been elevated in the past. Patient has no abdominal pain at all. Urinalysis pending X-rays of the foot and ankle did not show any acute abnormality. Patient is unable to bear weight Patient requesting to be seen by PT and case management for short-term rehab, patient states she would like to go [facility] if possible Differential Diagnosis Differential Diagnoses: The differential diagnosis associated with the presentation includes (Ankle sprain, strain, fracture, dislocation, chronic pain) Admission/Observation Consideration of admission/observation: Escalation of care including admission/observation considered (Patient waiting to be seen by Physical therapy and case management for possible placement versus short-term rehab) Lab Data [place] Lab Attestation statement: I reviewed the patient's lab results. 07/26/24 05:16 07/26/24 05:16 Labs: Lab Results 07/26/24 Range/Units 05:16 WBC 6.7 (4.8-10.8) X10*3/uL RBC 3.57 L D (4.20-5.50) X10*6/uL Hgb 12.9 D (12.0-16.0) g/dl Hct 35.7 L D (37.0-47.0) % MCV 100.0 H (80.0-98.0) fL MCH 36.1 H (27.0-33.0) pg MCHC 36.1 H (31.0-35.0) g/dl RDW 12.4 (11.0-16.0) % Plt Count 168 D (160-400) X10*3/uL MPV 9.4 (9.4-12.3) fL Immature Gran % (Auto) 0.6 H (0.0-0.4) % Neut % (Auto) 73.1 H (45-73) % Lymph % (Auto) 11.9 L (20-40) % [place] % (Auto) 13.4 H (2-11) % Eos % (Auto) 0.7 (0-4) % Baso % (Auto) 0.3 (0-2) % Lymph # (Auto) 0.8 L (1.2-4.9) X10*3/uL [place] # (Auto) 0.9 (0.1-1.2) X10*3/uL Eos # (Auto) 0.1 (0.0-0.4) X10*3/uL Baso # (Auto) 0.0 (0.0-0.2) X10*3/uL Abs Immat Gran (auto) 0.04 H (0.00-0.03) X10*3/uL Absolute Neuts (auto) 4.9 (2.0-8.3) x10*3/uL Absolute Nucleated RBC 0.000 (0.0-0.012) X10*3/uL Nucleated RBC % (auto) 0.0 (0.0-0.2) /100WBC Sodium 131 L (135-145) mmol/L Potassium 3.9 (3.3-5.1) mmol/L Chloride 95 L (96-108) mmol/L Carbon Dioxide 25 (22-29) mmol/L Anion Gap 15 (12-20) BUN 8 L (9-16) mg/dL Creatinine 0.46 L (0.5-1.4) mg/dL Estim Creat Clear Calc 89.3 Estimated GFR > 60 Random Glucose 107 (60-115) mg/dL Calcium 9.8 (8.4-10.2) mg/dL Total Bilirubin 2.0 H (0.0-1.0) mg/dL Direct Bilirubin 0.6 H (0.0-0.5) mg/dL AST 68 H (5-31) U/L ALT 68 H (0-31) U/L Alkaline Phosphatase 150 H (39-117) U/L Total Protein 7.4 (6.5-8.0) g/dL Albumin 4.6 (3.5-5.0) g/dL Independent Interpretation I performed an independent interpretation of an: Plain X-Ray Radiology Impression Discussion of test interpretation with radiology: I have reviewed the radiologist's reading. Radiologist Impression: There is a healed or healing middle toe metatarsal head fracture. No acute fractures and no dislocations. No significant loss of joint space, osteophytes, or erosions. No ankle effusion. No radiopaque foreign body. IMPRESSION: 1. No acute findings. No acute fractures. Ankle mortise intact. No significant arthritic change or erosions. Moderate-size ankle effusion. No radiopaque foreign body. IMPRESSION: 1. Ankle joint effusion. No acute osseous findings Critical Care Time Critical Care Time Critical Care Time: Yes Total Critical Care Time: 35 Attestation: I have personally provided critical care time. Time includes review of lab data, radiology results, discussion with consultants, and monitoring for potential decompensation. Intervention performed as documented. Discharge Plan Discharge Clinical Impression: Multiple falls, Ankle sprain Patient Disposition: er [facility] Transfer Details: [facility] Instructions: Ankle Sprain (DC) Additional Instructions: Follow up with your primary care provider. Return to the emergency department immediately if your symptoms worsen or if you develop any numbness, tingling, dizziness, shortness of breath, difficulty breathing, chest pain, blurry vision, loss of vision, nausea, vomiting, abdominal pain, fever, chills, back pain, or any other complaints. Please see the information below about our Patient Portal. If you are not yet enrolled in the [facility] Patient Portal, you will receive an enrollment email invitation following your visit to any [facility] setting. You may also self-enroll in the Patient Portal by visiting our website: [email or web address] The following information is required to access the Patient Portal: - Your [facility] Medical Record Number - Your personal home email address (must match what is in your electronic medical record, Registration staff can assist with this) - Name - Date of Capabilities of the Patient Portal: - Message some providers - View upcoming appointments - Access your health summary, medical history, and visit history - View current conditions and allergies - View procedure and lab results - View your medications, including guidelines, side effects, and precautions - Complete pre-appointment questionnaires requested by your provider - Ready summary reports of your office visits and procedures To access the Patient Portal Mobile [employer], follow these directions: - Search [place] [address] in the Te[employer] Store or Google Play Store - Download the Teressa - Search for [facility] - Enter your login/password Prescriptions: No Action atorvastatin 40 mg tablet 1 tab PO DAILY levothyroxine 50 mcg tablet 50 mcg PO MOTUWETHFRSA levothyroxine 50 mcg tablet 100 mcg PO NAZARIO carvedilol 6.25 mg tablet 1 tab PO BID nortriptyline 50 mg capsule 1 cap PO BID albuterol sulfate 90 mcg/actuation HFA aerosol inhaler 2 puff inhalation Q4H PRN (Reason: wheezing) acetaminophen 500 mg Capsule 1,000 mg PO Q6H PRN (Reason: Pain) tamsulosin 0.4 mg Capsule 0.4 mg PO DAILY Qty: 60 0RF enoxaparin 40 mg/0.4 mL Syringe 40 mg subcut Q24H 40 Days Qty: 16 0RF docusate sodium [Colace] 100 mg capsule 100 mg PO BID Qty: 60 0RF oxycodone 5 mg Tablet 10 mg PO Q4H PRN (Reason: Pain, Severe (Pain Scale 7-10)) Qty: 20 0RF Rx Instructions: Partial Fill upon patient request. Referrals: [facility] [Other] Print Language: Thai
[2024-07-26 05:17] VITALS: BP 150/95; BP 162/99; PULSE 82; PULSE 94; RESP 16; TEMP 36.6; O2SAT 100; O2SAT 98; BMI 19.8
[2024-07-26 05:20] LABS: Basophils Percent Auto 0.3 % (0-2); Eosinophils Absolute Auto 0.1 X10*3/uL (0.0-0.4); Eosinophils Percent Auto 0.7 % (0-4); Hematocrit 35.7 % (37.0-47.0); Hemoglobin 12.9 g/dl (12.0-16.0); Imm Gran Abs Auto 0.04 X10*3/uL (0.00-0.03); Imm Gran Pct Auto 0.6 % (0.0-0.4); Lymphocytes Absolute Auto 0.8 X10*3/uL (1.2-4.9); Lymphocytes Percent Auto 11.9 % (20-40); MANUAL DIFF FLAG NO; Mean Corpuscular HGB Conc 36.1 g/dl (31.0-35.0); Mean Corpuscular Hemoglobin 36.1 pg (27.0-33.0); Mean Platelet Volume 9.4 fL (9.4-12.3); Monocytes Absolute Auto 0.9 X10*3/uL (0.1-1.2); Monocytes Percent Auto 13.4 % (2-11); Neutrophils Absolute Auto 4.9 x10*3/uL (2.0-8.3); Neutrophils Percent Auto 73.1 % (45-73); Platelet Count 168 X10*3/uL (160-400); Red Blood Count 3.57 X10*6/uL (4.20-5.50); Red Cell Distribution Width 12.4 % (11.0-16.0); White Blood Count 6.7 X10*3/uL (4.8-10.8)
[2024-07-26 05:41] LABS: Alanine Aminotransferase 68 U/L (0-31); Albumin Level 4.6 g/dL (3.5-5.0); Alkaline Phosphatase 150 U/L (39-117); Anion Gap 15 (12-20); Aspartate Amino Transferase 68 U/L (5-31); Bilirubin Direct 0.6 mg/dL (0.0-0.5); Blood Urea Nitrogen 8 mg/dL (9-16); Calcium 9.8 mg/dL (8.4-10.2); Carbon Dioxide 25 mmol/L (22-29); Chloride 95 mmol/L (96-108); Creatinine Clr Calc Pharmacy 89.3; Estimated Glomerular Filt Rate > 60; Glucose Random 107 mg/dL (60-115); Potassium 3.9 mmol/L (3.3-5.1); Sodium 131 mmol/L (135-145); Total Protein 7.4 g/dL (6.5-8.0)
[2024-07-26] MEDS: oxyCODONE HCl Immed Release 5 MG TABLET PO ×2 (06:33→13:12)
[2024-07-26 07:22] VITALS: BP 162/99; PULSE 94; O2SAT 100
--- NOTE | 2024-07-26 07:29 | PC.NURSE ---
Pt c/o 8/10 L ankle pain and unable to bear weight on it secondary to pain; pt uses bed pérez with assistance; vss; awaiting CM consult for possible rehab placement
--- NOTE | 2024-07-26 11:44 | MHC.CM.ED ---
Received case management consult early this morning from Dr Wells. Patient came to the ER due foot/leg pain. Work up essentially negative. Physical therapy eval completed. Rehab is recommended. Patient has not been inpatient in any facility in the past 30 days. Referral made to all 3 acute rehabs. [facility] is only facility that is able to offer a bed. Met with patient in regards to dischage planning. Patient lives alone, uses a walker for mobility and had no services prior to coming to the ER. PCP verified. Copy of HCP verified to be on file. Patient accepts bed at [facility]. Adia PIERCE booked for 2pm. [facility] with chart. Patient, More PEREZ and Cande CHRISTINA aware. Continue to monitor for d/c needs.
[2024-07-26 12:30] VITALS: BP 153/87; PULSE 93; RESP 18; TEMP 36.6; O2SAT 95
[2024-07-26 12:36] LABS: Influenza A PCR NEGATIVE (Negative); Influenza B PCR NEGATIVE (Negative); Resp Syncy Virus RNA Qual PCR NEGATIVE (Negative); SARS COV2 PCR INHOUSE NEGATIVE (Negative)
[2024-07-26 14:00] VITALS: BP 169/88; PULSE 91; RESP 18; TEMP 36.6; O2SAT 95
[2024-07-26 14:21] LABS: Appearance Urine Clear; Color Urine Yellow; Glucose Urine UA Negative (Negative); Leukocyte Esterase Urine Trace (Negative); Nitrite Urine Negative (Negative); UMIC TRIGGER UACC YES; Urine Blood Negative (Negative); Urine Ketones Negative (Negative); Urine Protein Negative (Neg-Trace)
[2024-07-26 14:23] LABS: Bacteria Urine None Seen (None Seen); Hyaline Casts Urine 0-2 /LPF (0-2); RBC Urine 0-2 /HPF (0-2); Squamous Epithelial Cell Urine 0-2 /HPF (0-2); WBC Urine 0-5 /HPF (0-5)
[2024-07-26 14:28] VITALS: BP 169/88; PULSE 91; RESP 18; TEMP 36.6; O2SAT 95
== END 2024-07-26 14:00 | disposition skilled nursing facility (03) ==
PROVIDERS: Physician Assistant Medical; Emergency Provider Emergency Medicine; PCP Internal Medicine
DX: S93.402A Sprain of unspecified ligament of left ankle, initial encounter (principal); W19.XXXA Unspecified fall, initial encounter; Z91.81 History of falling; Y93.9 Activity, unspecified; Y92.9 Unspecified place or not applicable; Y99.9 Unspecified external cause status; M25.572 Pain in left ankle and joints of left foot; Z03.818 Encounter for observation for suspected exposure to other biological agents ruled out
CPT/HCPCS: 0241U; 36415; 73600; 73620; 80048; 80076; 81001; 85025; 97162; 99284; 99285

== ENCOUNTER → 2024-07-26 05:09 | Outpatient (BNV) | payer MEDICARE, SELFPAY | PROVIDERS: Emergency Provider Emergency Medicine; PCP Internal Medicine; Visit Provider Specialist | DX: M25.472 Effusion, left ankle (principal); M79.672 Pain in left foot | CPT/HCPCS: 73600; 73620 ==